=== PATIENT | female | born 1945 | race Caucasian/White ===

== ENCOUNTER 2017-10-12 18:58 | Observation (INO) | payer BC, MEDICARE ==
[2017-10-12] MEDS ORDERED: HYDROmorphone 0.5 MG/0.5 ML SYRINGE IVP STA ×3 (19:15→21:14)
--- NOTE | 2017-10-12 19:37 | ED ---
Fall HPI <Israel Apodaca - Last Filed: 10/12/17 23:09> - General Source: patient, EMS Mode of arrival: EMS <Jeana Salazar - Last Filed: 10/13/17 04:34> - General Chief Complaint: Fall Stated Complaint: Fall Time Seen by Provider: 10/12/17 18:59 - History of Present Illness Initial Comments: 72-year-old female patient presents to the emergency department today via EMS for evaluation after expressing a fall at home. Patient states that she was on the second step up on her porch when she lost her balance and fell sideways off the step landing in her garden. Patient states that she landed on her right side. She is complaining of severe right shoulder pain. Patient denies hitting her head or losing consciousness. She denies any use of anticoagulants. Patient denies any numbness or tingling to the arm or hand. States she is unable to move the shoulder. Denies any history of injury to the shoulder. She denies any head, neck, or back pain. Denies any numbness or tingling to her lower extremities. Patient denies any chest pain, shortness of breath, dizziness, weakness, abdominal pain, nausea, vomiting, or difficulties with bowel movements or urination. (Jeana Salazar) - Related Data Home Medications Medication Instructions Recorded Confirmed Albuterol Sulfate [Proair 2 puff INHALATION RT-TID PRN 09/03/15 10/12/17 Respiclick] Cetirizine HCl [Zyrtec] 10 mg PO DAILY 09/03/15 10/12/17 FLUoxetine HCL 40 mg PO QAM 09/03/15 10/12/17 Fluticasone Nasal [place] [Flonase 1 spray EA NOSTRIL BID 09/03/15 10/12/17 Nasal [place]] Fluticasone/Salmeterol [Advair 1 puff INHALATION RT-BID 09/03/15 10/12/17 500-50 Diskus] Montelukast [Singulair] 10 mg PO DAILY 09/03/15 10/12/17 Omalizumab [Xolair] 150 mg SQ Q30D 09/03/15 10/12/17 Potassium Chloride ER [K-Dur 20] 70 meq PO DAILY 09/03/15 10/12/17 amLODIPine [Norvasc] 10 mg PO HS 09/03/15 10/12/17 Magnesium 800 mg PO DAILY 10/26/15 10/12/17 Tiotropium 18 Mcg/Puff [Spiriva] 1 cap INHALATION RT-DAILY 10/28/15 10/12/17 Allergy Shot 1 injection IM Q7D 10/12/17 10/12/17 Amoxicillin/Potassium Clav 1 tab PO Q12HR 10/12/17 10/12/17 [Augmentin 875-125 Tablet] Atorvastatin [Lipitor] 40 mg PO HS 10/12/17 10/12/17 Baclofen [Lioresal] 10 mg PO BID 10/12/17 10/12/17 Diazepam [Valium] 10 mg PO DAILY 10/12/17 10/12/17 predniSONE 10 mg PO BID 10/12/17 10/12/17 Allergies Allergy/AdvReac Type Severity Reaction Status Date / Time gemfibrozil [From Lopid] Allergy Unknown Verified 10/12/17 19:51 levofloxacin [From Levaquin] Allergy Unknown Verified 10/12/17 19:51 dust mites Allergy Unknown Uncoded 10/28/15 09:21 Review of Systems ROS Other: All systems not noted in ROS Statement are negative. <Israel Apodaca - Last Filed: 10/12/17 23:09> ROS Other: All systems not noted in ROS Statement are negative. <Jeana Salazar - Last Filed: 10/13/17 04:34> ROS Statement: Those systems with pertinent positive or pertinent negative responses have been documented in the HPI. Past Medical History Past Medical History: Asthma, COPD, Hyperlipidemia, Hypertension Additional Past Medical History / Comment(s): 08/31/15 ADMISSION FOR INCARCERATED ING. HERNIA. DIVERTICULITIS, CHRONIC HYPOKALEMIA, SLEEP APNEA WITH CPAP, O2 AT NIGHT, osteoporosis History of Any Multi-Drug Resistant Organisms: None Reported Past Surgical History: Bladder Surgery, Heart Catheterization, Hysterectomy, Orthopedic Surgery, Tonsillectomy Additional Past Surgical History / Comment(s): CYST FROM LEFT BREAST, CHOLECYSTECTOMY, basal cell carcinoma removal from nose, left shoulder sx Past Anesthesia/Blood Transfusion Reactions: No Reported Reaction Past Psychological History: Anxiety, Depression Smoking Status: Light tobacco smoker Past Alcohol Use History: Occasional Past Drug Use History: None Reported - Past Family History Father Family Medical History: Coronary Artery Disease (CAD), Myocardial Infarction ([place] ) Mother Family Medical History: Renal Disease Sister(s) Family Medical History: Renal Disease Additional Family Medical History / Comment(s): Younger sister from Renal disease. Older sister also had renal disease Brother(s) Family Medical History: Congestive Heart Failure (CHF) Son(s) Family Medical History: Coronary Artery Disease (CAD), Hyperlipidemia, Hypertension, Myocardial Infarction ([place]) <TiffanienancyJeana M - Last Filed: 10/13/17 04:34> General Exam Limitations: no limitations General appearance: alert, in no apparent distress, other (This is a well- developed, well-nourished elderly female patient in mild distress related to pain. Vital signs upon presentation are temperature 96.8F, pulse 109, respirations 22, blood pressure 142/72, pulse ox 93% on room air.) Head exam: Present: atraumatic, normocephalic, normal inspection Eye exam: Present: normal appearance, PERRL, EOMI. Absent: scleral icterus, conjunctival injection, nystagmus, periorbital swelling ENT exam: Present: normal exam, normal oropharynx, mucous membranes moist Neck exam: Present: normal inspection, full ROM, other (Nontender, no step-off, no deformity to firm midline palpation of the posterior cervical spine. Full range of motion without pain or limitation.). Absent: tenderness, meningismus, lymphadenopathy Respiratory exam: Present: normal lung sounds bilaterally. Absent: respiratory distress, wheezes, rales, rhonchi, stridor Cardiovascular Exam: Present: normal rhythm, tachycardia, normal heart sounds. Absent: systolic murmur, diastolic murmur, rubs, gallop, clicks GI/Abdominal exam: Present: soft, normal bowel sounds. Absent: distended, tenderness, guarding, rebound, rigid Extremities exam: Present: tenderness (Tenderness over the right anterior shoulder), other (Appears to be tenderness and swelling over the right anterior shoulder. Patient is unable to move due to severe pain with any attempts at range of motion. Skin to the right upper extremity is pink, warm, and dry. Cap refills less than 3 seconds. Radial pulses 2+ and equal bilaterally. Distal sensation is intact. Skin to the remainder of the extremities is pink, warm, and dry. No evidence of injury. Pelvis is stable with no hip tenderness. ) Neurological exam: Present: alert, oriented X3, CN II-XII intact Psychiatric exam: Present: normal affect, normal mood Skin exam: Present: warm, dry, intact, normal color. Absent: rash <Jeana Salazar - Last Filed: 10/13/17 04:34> Course <Israel Apodaca - Last Filed: 10/12/17 23:09> <Jeana Salazar - Last Filed: 10/13/17 04:34> Vital Signs 10/12/17 10/12/17 10/12/17 19:06 20:10 21:48 Temperature 96.8 F L Pulse Rate 109 H 70 76 Respiratory 22 16 17 Rate Blood Pressure 142/72 118/70 119/67 O2 Sat by Pulse 93 L 97 99 Oximetry 10/12/17 10/12/17 10/12/17 22:36 22:41 22:46 Temperature Pulse Rate 66 72 80 Respiratory 17 17 16 Rate Blood Pressure 122/66 110/65 122/66 O2 Sat by Pulse 100 97 99 Oximetry 10/12/17 10/12/17 22:51 22:56 Temperature Pulse Rate 80 57 L Respiratory 16 17 Rate Blood Pressure 127/67 140/72 O2 Sat by Pulse 99 99 Oximetry - Reevaluation(s) Reevaluation #1: 10/12/17 22:20 Patient reevaluated by myself, Dr. Apodaca. Patient and family are updated on results and plan. Informed regarding sedation and reduction. Informed consent given. Practitioner Jeana florence speak with Dr. Lopez who did recommend reduction and follow-up. (Israel Apodaca) Procedures - Orthopedic Fracture Reduction Fracture #1 Consent Obtained: verbal consent, written consent Time Out Performed: Yes Side: right Fracture Reduction Location: humerus Analgesia: procedural sedation Technique: direct manipulation Post Reduction X-rays Demonstrate: acceptable reduction Post-Reduction Neuro Exam: intact Post-Reduction Vascular Exam: intact Splint Applied: Yes Patient Tolerated Procedure: well, no complications - Orthopedic Splinting/Casting Injury #1 Side: right Upper Extremity Injury Location: shoulder, long arm Upper Extremity Immobilizer: sling/shoulder immobilizer, posterior splint - Procedural Sedation Procedural Sedation Start Time: 22:36 Procedural Sedation Stop Time: 22:59 Indications: fracture/dislocation reduction Preparation: inspector grain mill products applied, pulse oximeter, capnometry used, supplemental O2 applied IV Etomidate Dose (mgs): 14 Complications: none Patient Tolerated Procedure: well, no complications <Israel Apodaca - Last Filed: 10/12/17 23:09> Medical Decision Making <Israel Apodaca - Last Filed: 10/12/17 23:09> - Radiology Data Radiology results: report reviewed, image reviewed <Jeana Salazar - Last Filed: 10/13/17 04:34> - Medical Decision Making 72-year-old female patient presented to the emergency department today for evaluation of right shoulder injury. Physical examination did reveal deformity of the right shoulder. Neurovascular status intact to the right arm and hand. X-ray showed a severely displaced comminuted fracture of the right proximal humerus. I did discuss the case with Dr. Lopez who did review images and suggested reduction in the emergency department. My attending Dr. Apodaca did perform conscious sedation with closed reduction of the right humerus. Postreduction x-ray shows improvement of the displaced humerus however does show multiple humeral head fragments. Dr. Lopez again reviewed images, agreed to admit patient for pain management. We did provide a posterior mold OCL splint to the right arm for weight, shoulder immobilizer was applied. Dr. Lopez requested CT of the right shoulder. Patient will be admitted with pain management. (Jeana Salazar) - Radiology Data 3 views of the right shoulder obtained. There is a comminuted severely displaced fracture of the right femoral neck. There are large fragments at the humeral head. Humeral head does not appear to articulate with the glenoid. Impression by Dr. James shows severely comminuted and displaced humeral neck fracture. Single frontal view of the chest is obtained. There is no heart failure nor confluent pneumonic infiltrate. Thoracic aorta is atheromatous. Heart size is normal. There is severely comminuted right humeral neck fracture. There is significant displacement. Impression by Dr. James shows no active cardiopulmonary disease. Heart and lungs are stable compared to old exam. Comminuted right humeral neck fracture. Postreduction x-ray of the right shoulder shows comminuted impacted fracture the humeral head and neck. There is no dislocation. There is significant displacement of the fragments. There is a disorganized he oral head. Impression by Dr. James shows severely comminuted humeral head and neck fracture with displacement. Displacement is much improved compared the initial exam. CT of the right shoulder without contrast was performed. There is a comminuted humeral neck fracture with impaction. The articular surface of the humeral head is articulating with the glenoid. There is slight inferior subluxation of the humeral head. There are numerous comminuted fragments. These visualized scapula appear intact. Clavicle appears intact. The before meals joint is intact. Impression by Dr. James shows severely comminuted impacted humeral neck fracture. No dislocation. (Jeana Salazar) Disposition <Israel Apodaca - Last Filed: 10/12/17 23:09> Decision to Admit Reason: Admit from EC Decision Date: 10/12/17 Decision Time: 23:29 <Jeana Salazar - Last Filed: 10/13/17 04:34> Clinical Impression: Displaced fracture of right humerus Disposition: ADMITTED IP TO THIS [facility] Condition: Serious
--- NOTE | 2017-10-12 20:07 | XR ---
EXAMINATION TYPE: XR shoulder complete RT DATE OF EXAM: 10/12/2017 COMPARISON: NONE HISTORY: Fell today. Shoulder pain. TECHNIQUE: 3 views. FINDINGS: There is comminuted severely displaced fracture of the right femoral neck. There are large fragments at the humeral head. Humeral head does not appear to articulate with the glenoid. IMPRESSION: Severely comminuted and displaced humeral neck fracture.
--- NOTE | 2017-10-12 20:09 | XR ---
EXAMINATION TYPE: XR chest 1V DATE OF EXAM: 10/12/2017 COMPARISON: 01/22/2016 HISTORY: Fell today. TECHNIQUE: Single frontal view of the chest is obtained. FINDINGS: There is no heart failure nor confluent pneumonic infiltrate. Thoracic aorta is atheromato us. Heart size is normal. There is severely comminuted right humeral neck fracture. There is signific ant displacement. IMPRESSION: No active cardiopulmonary disease. Heart and lungs are stable compared to old exam. Comm inuted right humeral neck fracture.
[2017-10-12] MEDS ORDERED: ETOMIDATE 2 MG/ML 10 ML VIAL IVP STA ×2 (22:20)
--- NOTE | 2017-10-12 23:07 | XR ---
EXAMINATION TYPE: XR shoulder limited RT DATE OF EXAM: 10/12/2017 COMPARISON: Today HISTORY: Postreduction TECHNIQUE: Single view FINDINGS: There is comminuted impacted fracture of the humeral head and neck. There is no dislocation . There is significant displacement of the fragments. There is a disorganized humeral head. IMPRESSION: Severely comminuted humeral head and neck fracture with displacement. Displacement is muc h improved compared to the initial exam.
[2017-10-12] MEDS ORDERED: ONDANSETRON 4 MG/2 ML VIAL IVP PRN (23:27)
[2017-10-12] MEDS ORDERED: NALOXONE 0.4 MG/ML 1 ML VIAL IV PRN (23:27)
[2017-10-12] MEDS: MORPHINE SULFATE 2 MG/ML SYRINGE IV PRN (23:35)
--- NOTE | 2017-10-12 23:59 | CT ---
EXAMINATION TYPE: CT shoulder RT wo con DATE OF EXAM: 10/12/2017 COMPARISON: NONE HISTORY: Rt shoulder pain, Fall CT DLP: 231.80 mGycm Automated exposure control for dose reduction was used. FINDINGS: Multiple axial sections are obtained from the top of the shoulder to the mid shaft of the humerus wit h no contrast. There is a comminuted humeral neck fracture with impaction. The articular surface of the humeral head is articulating with the glenoid. There is slight inferior subluxation of the humeral head. There ar e numerous comminuted fragments. These visualized scapula appears intact. Clavicle appears intact. Th e AC joint is intact. IMPRESSION: SEVERELY COMMINUTED IMPACTED HUMERAL NECK FRACTURE. NO DISLOCATION.
[2017-10-13 01:24] VITALS: BMI 26.9
[2017-10-13] MEDS: MORPHINE SULFATE 2 MG/ML SYRINGE IV PRN ×2 (04:38→09:16)
[2017-10-13] MEDS ORDERED: HYDROcodone/APAP 5-325MG 1 EACH TAB PO PRN (10:36)
--- NOTE | 2017-10-13 10:36 | P.HPOR ---
History of Present Illness H&P Date: 10/13/17 Chief Complaint: Right proximal humerus fracture The patient is a 72-year-old female who presented to the emergency department yesterday after a fall at home. She has a history of asthma, COPD, hyperlipidemia, and hypertension. She states that she was stepping up onto her porch and she lost her balance. She fell onto her right side. She had severe right shoulder pain immediately after the fall. She denies hitting her head. The patient was found to have a displaced humerus fracture that was reduced in the emergency department. The patient was admitted for pain control. A CT was obtained of the right shoulder. She was also placed in a OCL splint with sling. Today, the patient states that she is still experiencing severe pain in her right shoulder. She also has abdominal pain which is from a known hernia which she has a appointment scheduled with a general surgeon to further evaluate that. She has been up to the commode chair with nursing staff this morning. Review of Systems Constitutional: Denies chills, Denies fatigue, Denies fever Cardiovascular: Denies chest pain, Denies shortness of breath Respiratory: Denies cough Gastrointestinal: Denies diarrhea, Denies nausea, Denies vomiting Musculoskeletal: right: shoulder pain, shoulder stiffness, shoulder swelling Past Medical History Past Medical History: Asthma, COPD, Hyperlipidemia, Hypertension Additional Past Medical History / Comment(s): 08/31/15 ADMISSION FOR INCARCERATED ING. HERNIA. DIVERTICULITIS, CHRONIC HYPOKALEMIA, SLEEP APNEA WITH CPAP, O2 AT NIGHT, osteoporosis History of Any Multi-Drug Resistant Organisms: None Reported Past Surgical History: Bladder Surgery, Heart Catheterization, Hysterectomy, Orthopedic Surgery, Tonsillectomy Additional Past Surgical History / Comment(s): CYST FROM LEFT BREAST, CHOLECYSTECTOMY, basal cell carcinoma removal from nose, left shoulder sx Past Anesthesia/Blood Transfusion Reactions: No Reported Reaction Past Psychological History: Anxiety, Depression Smoking Status: Light tobacco smoker Past Alcohol Use History: Occasional Past Drug Use History: None Reported - Past Family History Father Family Medical History: Coronary Artery Disease (CAD), Myocardial Infarction ([place] ) Mother Family Medical History: Renal Disease Sister(s) Family Medical History: Renal Disease Additional Family Medical History / Comment(s): Younger sister from Renal disease. Older sister also had renal disease Brother(s) Family Medical History: Congestive Heart Failure (CHF) Son(s) Family Medical History: Coronary Artery Disease (CAD), Hyperlipidemia, Hypertension, Myocardial Infarction ([place]) Medications and Allergies Home Medications Medication Instructions Recorded Confirmed Type Albuterol Sulfate [Proair 2 puff INHALATION RT-TID PRN 09/03/15 10/12/17 History Respiclick] Cetirizine HCl [Zyrtec] 10 mg PO DAILY 09/03/15 10/12/17 History FLUoxetine HCL 40 mg PO QAM 09/03/15 10/12/17 History Fluticasone Nasal [place] [Flonase 1 spray EA NOSTRIL BID 09/03/15 10/12/17 History Nasal [place]] Fluticasone/Salmeterol [Advair 1 puff INHALATION RT-BID 09/03/15 10/12/17 History 500-50 Diskus] Montelukast [Singulair] 10 mg PO DAILY 09/03/15 10/12/17 History Omalizumab [Xolair] 150 mg SQ Q30D 09/03/15 10/12/17 History Potassium Chloride ER [K-Dur 20] 70 meq PO DAILY 09/03/15 10/12/17 History amLODIPine [Norvasc] 10 mg PO HS 09/03/15 10/12/17 History Magnesium 800 mg PO DAILY 10/26/15 10/12/17 History Tiotropium 18 Mcg/Puff [Spiriva] 1 cap INHALATION RT-DAILY 10/28/15 10/12/17 History Allergy Shot 1 injection IM Q7D 10/12/17 10/12/17 History Amoxicillin/Potassium Clav 1 tab PO Q12HR 10/12/17 10/12/17 History [Augmentin 875-125 Tablet] Atorvastatin [Lipitor] 40 mg PO HS 10/12/17 10/12/17 History Baclofen [Lioresal] 10 mg PO BID 10/12/17 10/12/17 History Diazepam [Valium] 10 mg PO DAILY 10/12/17 10/12/17 History predniSONE 10 mg PO BID 10/12/17 10/12/17 History Allergies Allergy/AdvReac Type Severity Reaction Status Date / Time gemfibrozil [From Lopid] Allergy Unknown Verified 10/12/17 19:51 levofloxacin [From Levaquin] Allergy Unknown Verified 10/12/17 19:51 dust mites Allergy Unknown Uncoded 10/28/15 09:21 Physical Examination The patient is a 72-year-old female who is in no acute distress. She is alert and oriented 3. The patient's head is normocephalic atraumatic. Exam of the cervical spine reveals no pain upon palpation or step-offs noted. Exam of the left upper extremity reveals no obvious deformity or pain upon range of motion. Exam of the right upper extremity reveals a OCL splint and sling intact. There is pain upon palpation to the right shoulder. The patient's shoulder was not put through range of motion. She is able to wiggle her fingers and make a fist without difficulty. Arm is soft and nontender. Neurovascular status is intact. Radial pulses 2+. Results - Diagnostic results Shoulder x-ray: image reviewed (Post reduction x-ray reveals severely emanated humeral head and neck fracture with displacement with improvement after reduction.) Shoulder CT: image reviewed (CT of the right shoulder reveals a severely comminuted and impacted humeral neck fracture with no dislocation) Assessment and Plan (1) Fall Current Visit: Yes Status: Acute Code(s): W19.XXXA - UNSPECIFIED FALL, INITIAL ENCOUNTER SNOMED Code(s): 2104630 (2) Displaced fracture of right humerus Current Visit: Yes Status: Acute Code(s): S42.301A - UNSP FRACTURE OF SHAFT OF HUMERUS, RIGHT ARM, INIT SNOMED Code(s): 48774738 Plan: The clinical, x-ray, and CT findings were discussed with the patient. There is no family at the bedside currently. The case was also discussed with Dr. Lopez. Continue current splint and sling as tolerated. Continue pain control and ambulation. I've consulted medical management for her multiple medical issues. The patient may be discharged home when pain is controlled, this will likely be tomorrow. We'll continue to follow the patient closely and make further recommendations as needed.
--- NOTE | 2017-10-13 13:09 | P.GSCN ---
History of Present Illness Consult date: 10/13/17 Reason for Consult: Right groin pain History of present illness: Patient has a history of previous inguinal hernia. The patient was under the impression she had bilateral hernias repaired by Dr. Smith in the past. Reading through the notes from 2016 it appears the patient had a laparoscopic left inguinal hernia repaired. There is no mention of the right groin and whether a hernia was present or not. Patient describes pain in the right groin occurring intermittently in nature. She feels a bulge at times in the right groin. No nausea or vomiting. No change in bowel habits. Patient has actually been hospitalized for a right shoulder injury. Patient states the pain was bad last night and kept her up from sleep. She does state the bulge comes and goes. Review of Systems The patient denies any acute changes in vision or hearing, no dysphagia or odynophagia, no chest pain or shortness of breath, no dysuria or hematuria, no headache, no runny nose, no rectal bleeding or melena, no unexplained weight loss Past Medical History Past Medical History: Asthma, COPD, Hyperlipidemia, Hypertension Additional Past Medical History / Comment(s): 08/31/15 ADMISSION FOR INCARCERATED ING. HERNIA. DIVERTICULITIS, CHRONIC HYPOKALEMIA, SLEEP APNEA WITH CPAP, O2 AT NIGHT, osteoporosis History of Any Multi-Drug Resistant Organisms: None Reported Past Surgical History: Bladder Surgery, Heart Catheterization, Hysterectomy, Orthopedic Surgery, Tonsillectomy Additional Past Surgical History / Comment(s): CYST FROM LEFT BREAST, CHOLECYSTECTOMY, basal cell carcinoma removal from nose, left shoulder sx Past Anesthesia/Blood Transfusion Reactions: No Reported Reaction Past Psychological History: Anxiety, Depression Smoking Status: Light tobacco smoker Past Alcohol Use History: Occasional Past Drug Use History: None Reported - Past Family History Father Family Medical History: Coronary Artery Disease (CAD), Myocardial Infarction (CO ) Mother Family Medical History: Renal Disease Sister(s) Family Medical History: Renal Disease Additional Family Medical History / Comment(s): Younger sister from Renal disease. Older sister also had renal disease Brother(s) Family Medical History: Congestive Heart Failure (CHF) Son(s) Family Medical History: Coronary Artery Disease (CAD), Hyperlipidemia, Hypertension, Myocardial Infarction (CO) Medications and Allergies Home Medications Medication Instructions Recorded Confirmed Type Albuterol Sulfate [Proair 2 puff INHALATION RT-TID PRN 09/03/15 10/12/17 History Respiclick] Cetirizine HCl [Zyrtec] 10 mg PO DAILY 09/03/15 10/12/17 History FLUoxetine HCL 40 mg PO QAM 09/03/15 10/12/17 History Fluticasone Nasal [place] [Flonase 1 spray EA NOSTRIL BID 09/03/15 10/12/17 History Nasal [place]] Fluticasone/Salmeterol [Advair 1 puff INHALATION RT-BID 09/03/15 10/12/17 History 500-50 Diskus] Montelukast [Singulair] 10 mg PO DAILY 09/03/15 10/12/17 History Omalizumab [Xolair] 150 mg SQ Q30D 09/03/15 10/12/17 History Potassium Chloride ER [K-Dur 20] 70 meq PO DAILY 09/03/15 10/12/17 History amLODIPine [Norvasc] 10 mg PO HS 09/03/15 10/12/17 History Magnesium 800 mg PO DAILY 10/26/15 10/12/17 History Tiotropium 18 Mcg/Puff [Spiriva] 1 cap INHALATION RT-DAILY 10/28/15 10/12/17 History Allergy Shot 1 injection IM Q7D 10/12/17 10/12/17 History Amoxicillin/Potassium Clav 1 tab PO Q12HR 10/12/17 10/12/17 History [Augmentin 875-125 Tablet] Atorvastatin [Lipitor] 40 mg PO HS 10/12/17 10/12/17 History Baclofen [Lioresal] 10 mg PO BID 10/12/17 10/12/17 History Diazepam [Valium] 10 mg PO DAILY 10/12/17 10/12/17 History predniSONE 10 mg PO BID 10/12/17 10/12/17 History Allergies Allergy/AdvReac Type Severity Reaction Status Date / Time gemfibrozil [From Lopid] Allergy Unknown Verified 10/12/17 19:51 levofloxacin [From Levaquin] Allergy Unknown Verified 10/12/17 19:51 dust mites Allergy Unknown Uncoded 10/28/15 09:21 Surgical - Exam Vital Signs Temp Pulse Resp BP Pulse Ox 96.8 F L 109 H 22 142/72 93 L 10/12/17 19:06 10/12/17 19:06 10/12/17 19:06 10/12/17 19:06 10/12/17 19:06 Physical exam: General: Well-developed, well-nourished HEENT: Normocephalic, sclerae nonicteric Abdomen: Mild tenderness right groin, reducible right hernia noted with coughing , possible femoral hernia also present nonreducible, nondistended Extremities: No edema Neuro: Alert and oriented Assessment and Plan (1) Right inguinal pain Narrative/Plan: On physical exam the patient appears to have a reducible right hernia. The patient's pain is present at the site of the hernia although it is easily reducible. There is also a small area of fullness measuring 2 cm inferior and medial to that which may represent an incarcerated femoral hernia. This however is not tender. Given the patient's degree of complaints of pain we'll check CT pelvis to evaluate for other potential abnormalities present. Further recommendations will follow. Current Visit: Yes Status: Acute Code(s): R10.31 - RIGHT LOWER QUADRANT PAIN SNOMED Code(s): 051174822
[2017-10-13] MEDS ORDERED: BUDESONIDE 1 MG/2 ML NEBU INHALATION SCH (14:00)
[2017-10-13] MEDS: HYDROcodone/APAP 5-325MG 1 EACH TAB PO PRN ×2 (14:06→19:22)
[2017-10-13 14:20] LABS: Basophils % (A) 0 %; Eosinophils # (A) 0.1 k/uL (0-0.7); Eosinophils % (A) 1 %; HCT 34.5 % (34.0-46.0); HGB 11.3 gm/dL (11.4-16.0); Lymphocytes % (A) 16 %; MCH 29.6 pg (25.0-35.0); MCHC 32.8 g/dL (31.0-37.0); MCV 90.5 fL (80.0-100.0); Mean Platelet Volume 6.2; Monocytes % (A) 8 %; Neutrophils # (A) 9.4 k/uL (1.3-7.7); Neutrophils % (A) 74 %; Platelet Count 377 k/uL (150-450); RBC 3.81 m/uL (3.80-5.40); RDW 13.8 % (11.5-15.5); WBC 12.8 k/uL (3.8-10.6)
[2017-10-13 14:57] LABS: ALT 47 U/L (9-52); AST 23 U/L (14-36); Alkaline Phosphatase 66 U/L (38-126); Anion Gap 8 mmol/L; Blood Urea Nitrogen 20 mg/dL (7-17); Calcium 8.7 mg/dL (8.4-10.2); Carbon Dioxide 27 mmol/L (22-30); Chloride 101 mmol/L (98-107); Magnesium 1.6 mg/dL (1.6-2.3); Potassium 3.8 mmol/L (3.5-5.1); Sodium 136 mmol/L (137-145); Total Bilirubin 0.2 mg/dL (0.2-1.3); Total Protein 5.4 g/dL (6.3-8.2)
[2017-10-13 15:05] LABS: Glucose 112 mg/dL (74-99)
[2017-10-13] MEDS: IPRATROPIUM-ALBUTEROL 3 ML NEB INHALATION SCH ×2 (16:01→20:56)
--- NOTE | 2017-10-13 17:13 | CT ---
EXAMINATION TYPE: CT pelvis w con DATE OF EXAM: 10/13/2017 COMPARISON: 09/15/2015 HISTORY: Right groin pain. CT DLP: 584.2 mGycm Automated exposure control for dose reduction was used. CONTRAST: Performed with IV Contrast, patient injected with 100ml mL of Isovue 300. FINDINGS: Arthropathy of the hip joints noted and there is hypertrophic change of the lower lumbar spine. Surgi edwin clips in the gallbladder fossa noted. Visualized bowel gas pattern nonspecific and appendix normal. Retained fecal debris noted. There is a fluid-filled cystic structure measuring 2.7 cm and the left adnexa possibly ovarian. This is slightly increased in size from the prior exam. Evidence of previous surgery involving the inguinal region on the right. There is some mild induratio n of fat in the inguinal region which may be related to previous surgery correlate clinically exclude inflammatory process. Disc bulging at L4-5 and facet arthropathy likely represent canal stenosis. Diverticulosis of the colon. IMPRESSION: 1. There is evidence of previous surgery involving the right inguinal region with some induration of fat which may be related to previous surgery and scar correlate clinically to exclude inflammatory pr ocess. There does appear to be a fascial defect lateral to the rectus muscle on the right suggestive of a small hernia. This contains intraperitoneal fat. 2. Left pelvic cystic mass measuring 2.7 cm increased in size from the previous exam. Consider follow -up pelvic ultrasound.
[2017-10-13] MEDS: ENOXAPARIN 40 MG/0.4 ML SYRINGE SQ SCH (17:46)
[2017-10-13] MEDS: BACLOFEN 10 MG TAB PO SCH ×2 (17:46→21:33)
[2017-10-13] MEDS: NICOTINE 14MG/24HR PATCH TRANSDERM SCH (17:46)
[2017-10-13] MEDS: LORATADINE-PSEUDOEPH 5-120 MG 1 EACH TAB.ER.12H PO SCH ×2 (17:47→21:33)
[2017-10-13] MEDS: FLUTICASONE 50MCG/SPRAY NASAL 16GM EA NOSTRIL SCH ×2 (17:47→21:33)
[2017-10-13] MEDS: FLUoxetine HCL 20 MG CAP PO SCH (17:47)
[2017-10-13] MEDS: predniSONE 10 MG TAB PO SCH ×2 (17:48→21:33)
[2017-10-13] MEDS: MONTELUKAST 10 MG TAB PO SCH (17:48)
[2017-10-13] MEDS: MAGNESIUM OXIDE 400 MG TAB PO SCH (17:48)
--- NOTE | 2017-10-13 19:01 | CONS ---
CONSULTATION DATE OF CONSULTATION: October 13, 2017. REASON FOR CONSULTATION: Medical management requested by Dr. Lopez. CONSULTATION: This is a pleasant 72-year-old patient who was transferred from [facility]. The patient does not remember her family doctor's name. The patient was on the 2nd step of the porch when she missed a step and fell in the flower garden on the right side. Subsequently patient has a humerus fracture. Currently, the right arm is in a sling. Some pain is present. Per Dr. Lopez, at this point, conservative management to be done. The patient's chronic stable medical conditions include hypertension, hyperlipidemia, depression, chronic kidney disease, osteoarthritis, obstructive sleep apnea uses CPAP, uses oxygen at home and chronic sinus issues. The patient's sinuses are currently bothering her. Patient has continued to smoke about a half a pack a day. The patient also had right inguinal hernia repair done by Dr. Smith and that right groin area is hurting especially when she coughs. The patient has got some short of breath, cough, wheezing, right arm is in a sling. Denies any cardiac history. REVIEW OF SYSTEMS: CONSTITUTIONAL: Tired. HEENT: Nasal stuffiness. RESPIRATORY: As above. CARDIOVASCULAR: None. GASTROINTESTINAL: None. GENITOURINARY: Urinary incontinence. MUSCULOSKELETAL: Pain in the right arm and other joints. Dermatological and hematologic, lymphatic none. PSYCHIATRY: Depression, controlled. NEUROLOGICAL none. PAST HISTORY: COPD, hypertension, hyperlipidemia, depression, home oxygen, chronic kidney disease, obstructive sleep apnea uses CPAP, osteoarthritis, chronic sinus trouble. Diverticulitis and osteoporosis. PAST SURGICAL HISTORY: Bladder surgery, cardiac catheterization, hysterectomy, tonsillectomy, cholecystectomy, basal cell carcinoma removed from the nose, left shoulder surgery. PSYCH HISTORY: Anxiety and depression. SOCIAL HISTORY: . Smoking about 1/2 a pack a day for over 50 years. 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 Alcohol maybe once a week. FAMILY HISTORY: Coronary artery disease and younger sister had renal disease. HOME MEDICATIONS: 1. Potassium 20 mEq a day. 2. Baclofen 10 mg b.i.d. 3. Prednisone 10 mg b.i.d. 4. Augmentin 875 q.12h for sinus symptoms. 5. Valium 10 mg p.o. daily. 6. Cetirizine 10 mg p.o. daily. 7. Magnesium 800 mg p.o. daily. 8. Xolair 150 mg p.o. every 30 days. 9. Allergy shot. 10.Prozac 40 mg a day. 11.Lipitor 40 mg q.h.s. 12.Flonase 1 spray each nostril b.i.d. 13.Spiriva 1 capsule daily. 14.Singulair 10 mg p.o. daily. 15.Advair 500/50 one puff b.i.d. 16.Norvasc 10 mg q.h.s. 17.Albuterol 2 puffs t.i.d. p.r.n. ALLERGIES: LOPID, LEVAQUIN, DUST MITES. PHYSICAL EXAMINATION: VITAL SIGNS: Temperature 97.1, pulse 82, respiratory rate 16, blood pressure 109/71, pulse ox 94% on 3 L. GENERAL APPEARANCE: Average build, lying in bed, tired appearing. EYES: Pupils are equal. Conjunctivae normal. HEENT: External appearance of nose and ears normal. Oral cavity normal. NECK: JVD not raised. Mass not palpable. RESPIRATORY effort increased. LUNGS: Diminished breath sounds. Prolonged expiration. Some wheezing. CARDIOVASCULAR 1st and second sounds normal. No edema. ABDOMEN: Soft, nontender. Liver and spleen not palpable. LYMPHATIC: No lymph nodes palpable in the neck and axilla. PSYCHIATRY: Alert and oriented x3. Mood and affect anxious-appearing. NEUROLOGICAL: Pupils equal. Cranial nerves grossly intact. Power and sensation grossly intact. MUSCULOSKELETAL: Right arm in a sling and evidence of osteoarthritis in the hands and knees. INVESTIGATIONS: No blood work from here. ASSESSMENT: 1. Right humerus fracture secondary to a fall, currently right arm in a sling for conservative approach as per Orthopedics. 2. Chronic obstructive pulmonary disease in a current smoker. 3. Essential hypertension. 4. Hyperlipidemia. 5. Chronic nicotine dependence, the patient is a cigarette smoker. 6. Depression, not otherwise specified. 7. Obstructive sleep apnea, uses CPAP. 8. Primary osteoarthritis especially of the hands and knees. 9. Chronic sinusitis, currently probably viral infection. I do not think there is any need for antibiotics currently. PLAN: Patient will be started on nebulized bronchodilators, inhaled steroids. Home medications are resumed. Will send out the patient's CBC and BMP. The patient may use a CPAP machine. The patient is complaining of some pain at the right inguinal site. I do not see any much bulging there. We will get a surgical consultation for the same. Care was discussed in detail with the patient. Questions were answered. Smoking cessation counseling was done with the patient. Patient advised against smoking as it is affecting her breathing and COPD. Nicotine patch has been given. More than 3 minutes was spent for this aspect of the case. Thank you, Dr. Lopez. PARVIN / KEARA: [id number] /
[2017-10-13] MEDS: SYMBICORT 160-4.5 MCG INHALER INHALATION SCH (20:56)
[2017-10-13] MEDS ORDERED: ATORVASTATIN 40 MG TAB PO SCH (21:00)
[2017-10-13] MEDS ORDERED: amLODIPine 10 MG TAB PO SCH (21:00)
[2017-10-14] MEDS: IPRATROPIUM-ALBUTEROL 3 ML NEB INHALATION SCH ×3 (07:26→15:52)
[2017-10-14] MEDS: SYMBICORT 160-4.5 MCG INHALER INHALATION SCH (07:26)
--- NOTE | 2017-10-14 08:01 | P.PN ---
Subjective Progress Note Date: 10/14/17 Principal diagnosis: right inguinal hernia patient feels well today. Complaining of arm pain. Mild right groin pain at times. CT pelvis reviewed. Patient does have a hernia in the right groin. This does seem slightly higher than normal for a inguinal hernia although this appeared to be the case with her last hernia. No obvious femoral hernia or lymphadenopathy noted. Objective - Vital Signs Vital signs: Vital Signs Temp 98.6 F 10/14/17 00:56 Pulse 84 10/14/17 07:53 Resp 16 10/14/17 00:56 BP 109/66 10/14/17 00:56 Pulse Ox 95 10/14/17 00:56 Intake & Output 10/13/17 10/14/17 10/14/17 18:59 06:59 18:59 Intake Total 360 240 Output Total 350 Balance 10 240 Intake: Oral 360 240 Output: Urine 350 Other: Voiding Method Bedpan Bedside Commode # Voids 1 1 - Exam abdomen: Soft, nondistended, reducible right inguinal hernia - Labs CBC & Chem 7: 10/13/17 14:07 10/13/17 14:07 Labs: Abnormal Lab Results - Last 24 Hours (Table) 10/13/17 10/13/17 Range/Units 14:07 14:07 WBC 12.8 H (3.8-10.6) k/uL Hgb 11.3 L (11.4-16.0) gm/dL Neutrophils # 9.4 H (1.3-7.7) k/uL Sodium 136 L (137-145) mmol/L BUN 20 H (7-17) mg/dL Glucose 112 H (74-99) mg/dL Total Protein 5.4 L (6.3-8.2) g/dL Albumin 3.0 L (3.5-5.0) g/dL Assessment and Plan (1) Right inguinal pain Narrative/Plan: symptomatically reducible right inguinal hernia. No bowel in the vicinity. Will plan elective repair once recovered from the arm fracture. Patient will follow-up with me post discharge. Current Visit: Yes Status: Acute Code(s): R10.31 - RIGHT LOWER QUADRANT PAIN SNOMED Code(s): 105917942
[2017-10-14] MEDS: HYDROcodone/APAP 5-325MG 1 EACH TAB PO PRN ×2 (08:17→13:22)
[2017-10-14] MEDS: ENOXAPARIN 40 MG/0.4 ML SYRINGE SQ SCH (08:19)
[2017-10-14] MEDS: FLUoxetine HCL 20 MG CAP PO SCH (08:19)
[2017-10-14] MEDS: BACLOFEN 10 MG TAB PO SCH (08:19)
[2017-10-14] MEDS: NICOTINE 14MG/24HR PATCH TRANSDERM SCH (08:20)
[2017-10-14] MEDS: FLUTICASONE 50MCG/SPRAY NASAL 16GM EA NOSTRIL SCH (08:20)
[2017-10-14] MEDS: MAGNESIUM OXIDE 400 MG TAB PO SCH (08:20)
[2017-10-14] MEDS: LORATADINE-PSEUDOEPH 5-120 MG 1 EACH TAB.ER.12H PO SCH (08:20)
[2017-10-14] MEDS: MONTELUKAST 10 MG TAB PO SCH (08:20)
[2017-10-14] MEDS: predniSONE 10 MG TAB PO SCH (08:20)
--- NOTE | 2017-10-14 10:12 | P.DS ---
Providers Date of admission: 10/12/17 23:29 Expected date of discharge: 10/14/17 Attending physician: Valerio Lopez Consults: 10/13/17 10:26 Consult Physician Routine Consulting Provider: Carlos Pantoja Consult Reason/Comments: medical management Do you want consulting provider notified?: Yes 10/13/17 11:33 Consult Physician Routine Consulting Provider: Burak Carr Consult Reason/Comments: hernia Do you want consulting provider notified?: Already Contacted Primary care physician: Stated None - Discharge Diagnosis(es) (1) Fall Current Visit: Yes Status: Acute (2) Displaced fracture of right humerus Current Visit: Yes Status: Acute Hospital Course: This is a 72-year-old female that presented to the ER 2 days ago after sustaining a fall at home. She was found to have a displaced proximal humerus fracture. The shoulder was reduced in the ER and the patient was placed in a splint and a sling. She was admitted for pain control and mobilization. She is ready for discharge home today. Labs and vital signs are stable on day of discharge. She was evaluated by Dr. Carr for a inguinal hernia which she will follow-up on an outpatient basis with him. On day of discharge patient's shoulder is feeling better. Sling and splint are intact. Patient has full hand, wrist, and elbow motion without difficulty or pain. Neurovascular status to the right upper extremity is intact. Patient is discharged to home in fair condition. Pertinent Studies: Laboratory Tests 10/13/17 10/13/17 14:07 14:07 WBC 12.8 H RBC 3.81 Hgb 11.3 L Hct 34.5 Neutrophils # 9.4 H Sodium 136 L BUN 20 H Glucose 112 H Total Protein 5.4 L Albumin 3.0 L Patient Condition at Discharge: Stable Plan - Discharge Summary Discharge Rx Participant: Yes New Discharge Prescriptions: New HYDROcodone/APAP 5-325MG [[place] 5] 1 - 2 each PO Q4-6H PRN #40 tab PRN Reason: Pain Sennosides-Docusate Sodium [Senokot-S] 2 tab PO DAILY #30 tablet No Action Omalizumab [Xolair] 150 mg SQ Q30D Albuterol Sulfate [Proair Respiclick] 2 puff INHALATION RT-TID PRN PRN Reason: Shortness Of Breath Potassium Chloride ER [K-Dur 20] 70 meq PO DAILY FLUoxetine HCL 40 mg PO QAM Cetirizine HCl [Zyrtec] 10 mg PO DAILY amLODIPine [Norvasc] 10 mg PO HS Fluticasone Nasal [place] [Flonase Nasal [place]] 1 spray EA NOSTRIL BID Fluticasone/Salmeterol [Advair 500-50 Diskus] 1 puff INHALATION RT-BID Montelukast [Singulair] 10 mg PO DAILY Magnesium 800 mg PO DAILY Tiotropium 18 Mcg/Puff [Spiriva] 1 cap INHALATION RT-DAILY predniSONE 10 mg PO BID Amoxicillin/Potassium Clav [Augmentin 875-125 Tablet] 1 tab PO Q12HR Baclofen [Lioresal] 10 mg PO BID Diazepam [Valium] 10 mg PO DAILY Allergy Shot 1 injection IM Q7D Atorvastatin [Lipitor] 40 mg PO HS Discharge Medication List Albuterol Sulfate [Proair Respiclick] 2 puff INHALATION RT-TID PRN 09/03/15 [ History] Cetirizine HCl [Zyrtec] 10 mg PO DAILY 09/03/15 [History] FLUoxetine HCL 40 mg PO QAM 09/03/15 [History] Fluticasone Nasal [place] [Flonase Nasal [place]] 1 spray EA NOSTRIL BID 09/03/15 [ History] Fluticasone/Salmeterol [Advair 500-50 Diskus] 1 puff INHALATION RT-BID 09/03/15 [History] Montelukast [Singulair] 10 mg PO DAILY 09/03/15 [History] Omalizumab [Xolair] 150 mg SQ Q30D 09/03/15 [History] Potassium Chloride ER [K-Dur 20] 70 meq PO DAILY 09/03/15 [History] amLODIPine [Norvasc] 10 mg PO HS 09/03/15 [History] Magnesium 800 mg PO DAILY 10/26/15 [History] Tiotropium 18 Mcg/Puff [Spiriva] 1 cap INHALATION RT-DAILY 10/28/15 [History] Allergy Shot 1 injection IM Q7D 10/12/17 [History] Amoxicillin/Potassium Clav [Augmentin 875-125 Tablet] 1 tab PO Q12HR 10/12/17 [ History] Atorvastatin [Lipitor] 40 mg PO HS 10/12/17 [History] Baclofen [Lioresal] 10 mg PO BID 10/12/17 [History] Diazepam [Valium] 10 mg PO DAILY 10/12/17 [History] predniSONE 10 mg PO BID 10/12/17 [History] HYDROcodone/APAP 5-325MG [[place] 5] 1 - 2 each PO Q4-6H PRN #40 tab 10/14/17 [Rx] Sennosides-Docusate Sodium [Senokot-S] 2 tab PO DAILY #30 tablet 10/14/17 [Rx] Follow up Appointment(s)/Referral(s): None,Stated [Primary Care Provider] - 1-2 days Valerio Lopez MD [STAFF PHYSICIAN] - 1 Week Activity/Diet/Wound Care/Special Instructions: Maintain sling and splint until follow up with Dr. Lopez [facility] on Sunday to make appointment for this week, . Discharge Disposition: HOME SELF-CARE
[2017-10-14 15:49] VITALS: BP 123/70; RESP 19; TEMP 98.2
[2017-10-14 16:07] VITALS: PULSE 72
--- NOTE | 2017-10-14 19:05 | PN ---
PROGRESS NOTE DATE OF SERVICE: October 14, 2017. PRESENTING COMPLAINT: Tired. INTERVAL HISTORY: This is a patient presented with fall with fracture of right humerus. Also is a smoker with COPD, getting breathing treatments. The patient has some pain at the right inguinal hernia site for which she saw Dr. Carr, possibly outpatient repair for the same. REVIEW OF SYSTEMS: Done for constitutional, cardiovascular, GI, pulmonary, relevant findings as above. CURRENT MEDICATIONS: Reviewed. EXAMINATION: Temperature 98.2, pulse 52, respiration 19, blood pressure 120/70, pulse ox 98% on 3 L. GENERAL APPEARANCE: Sitting up, comfortable. EYES: Pupils are equal. Conjunctivae normal. HEENT external appearance of nose and ears normal. Oral cavity normal. NECK: JVD not raised. Mass not palpable. RESPIRATORY: Effort normal. LUNGS: Diminished breath sounds, prolonged expiration. CARDIOVASCULAR: 1st and 2nd sounds normal. No edema. ABDOMEN: Soft, nontender. Liver and spleen not palpable. EXTREMITIES: Right arm in a sling. INVESTIGATIONS: No blood work from today. ASSESSMENT: 1. Right humerus fracture secondary to fall for conservative management. 2. Chronic obstructive pulmonary disease in a current smoker. 3. Essential hypertension. 4. Hyperlipidemia. 5. Chronic nicotine dependence, patient is a cigarette smoker. 6. Depression, not otherwise specified. 7. Obstructive sleep apnea, uses CPAP. 8. Right inguinal hernia reducible. 9. Primary osteoarthritis especially of the hands and knees. 10.Chronic sinusitis, probably viral. PLAN: Continue current medication and treatment plan. Patient is medically stable and patient reminded not to smoke and to buy [id number] nicotine patch and chewing gum. Should follow up with the family doctor and also follow up with Dr. Carr regarding the inguinal hernia. Thank you, Dr. Lopez. MMODL / IJN: [id number] /
== END 2017-10-14 17:35 | disposition home or self-care (01) ==
LOC: EC 18:58 → 3SUR 23:29
PROVIDERS: ADMIT Orthopaedic Surgery; ATTEND Orthopaedic Surgery
DX: S42.291A Other displaced fracture of upper end of right humerus, initial encounter for closed fracture (principal); J32.9 Chronic sinusitis, unspecified; E78.5 Hyperlipidemia, unspecified; F17.210 Nicotine dependence, cigarettes, uncomplicated; F32.9 Major depressive disorder, single episode, unspecified; F41.9 Anxiety disorder, unspecified; G47.33 Obstructive sleep apnea (adult) (pediatric); Z99.89 Dependence on other enabling machines and devices; N18.9 Chronic kidney disease, unspecified; I12.9 Hypertensive chronic kidney disease with stage 1 through stage 4 chronic kidney disease, or unspecified chronic kidney disease; J44.9 Chronic obstructive pulmonary disease, unspecified; K40.90 Unilateral inguinal hernia, without obstruction or gangrene, not specified as recurrent; M17.0 Bilateral primary osteoarthritis of knee; M19.042 Primary osteoarthritis, left hand; M19.041 Primary osteoarthritis, right hand; M81.0 Age-related osteoporosis without current pathological fracture; W10.9XXA Fall (on) (from) unspecified stairs and steps, initial encounter; Z79.899 Other long term (current) drug therapy; Z82.49 Family history of ischemic heart disease and other diseases of the circulatory system; Z85.828 Personal history of other malignant neoplasm of skin; Z90.710 Acquired absence of both cervix and uterus; Z99.81 Dependence on supplemental oxygen; Y92.008 Other place in unspecified non-institutional (private) residence as the place of occurrence of the external cause
CPT/HCPCS: 23605; 99152; 96376; 96374; 99285; 94640 ×4; 94760; 97162; 80053; 83735; 85025; 87070; 87205; 73020; 73030; 71045; 72193; 73200; G0378 ×3; J1650 ×2; J2270 ×2; J7512 ×2; J1170; Q9967

== ENCOUNTER → 2017-12-04 | Outpatient (CLI) | payer BC, MEDICARE ==
[2017-12-04 14:00] LABS: HCT 43.7 % (34.0-46.0); HGB 13.7 gm/dL (11.4-16.0); MCH 28.3 pg (25.0-35.0); MCHC 31.4 g/dL (31.0-37.0); MCV 89.8 fL (80.0-100.0); Mean Platelet Volume 6.4; Platelet Count 443 k/uL (150-450); RBC 4.86 m/uL (3.80-5.40); RDW 14.4 % (11.5-15.5); WBC 11.4 k/uL (3.8-10.6)
[2017-12-04 14:02] LABS: Partial Thromboplastin Time 24.7 sec (22.0-30.0); Prothrombin Time 9.7 sec (9.0-12.0)
[2017-12-04 14:07] LABS: Appearance,Urine Clear (Clear); Bacteria,Urine Rare /hpf; Bilirubin,Urine Negative (Negative); Blood,Urine Negative (Negative); Color,Urine Yellow; Glucose,Urine (UA) Negative (Negative); Ketones,Urine Negative (Negative); Leukocyte Esterase,Urine Large (Negative); Nitrite,Urine Negative (Negative); PH, Urine 6.5 (5.0-8.0); Protein,Urine Negative (Negative); RBC,Urine 2 /hpf (0-5); Specific Gravity,Urine 1.007 (1.001-1.035); Squamous Epithelial Cell,Urine 1 /hpf (0-4); Urobilinogen,Urine <2.0 mg/dL (<2.0); WBC,Urine 9 /hpf (0-5)
[2017-12-04 14:15] LABS: Albumin 4.4 g/dL (3.5-5.0); Anion Gap 9 mmol/L; Carbon Dioxide 25 mmol/L (22-30); Chloride 104 mmol/L (98-107); Glucose 96 mg/dL (74-99); Potassium 3.6 mmol/L (3.5-5.1); Sodium 138 mmol/L (137-145); Total Protein 7.4 g/dL (6.3-8.2)
[2017-12-04 14:46] LABS: ALT 32 U/L (9-52); AST 24 U/L (14-36); Alkaline Phosphatase 113 U/L (38-126); Blood Urea Nitrogen 18 mg/dL (7-17); Calcium 9.8 mg/dL (8.4-10.2); Total Bilirubin 0.4 mg/dL (0.2-1.3)
== END ==
LOC: LABPAT 13:08
PROVIDERS: ATTEND Orthopaedic Surgery
DX: Z01.812 Encounter for preprocedural laboratory examination (principal)
CPT/HCPCS: 36415; 80053; 81001; 85027; 85610; 85730

== ENCOUNTER 2019-04-15 08:59 | Inpatient (IN) | payer BC, MEDICARE ==
[2019-04-15 12:39] LABS: Glucose,Whole Blood 108 mg/dL (75-99)
[2019-04-15] MEDS ORDERED: NITROGLYCERIN SL TABS 0.4 MG TAB SUBLINGUAL PRN (14:51)
[2019-04-15] MEDS ORDERED: ALBUTEROL NEBULIZED 2.5 MG/3 ML INHALATION PRN (14:51)
--- NOTE | 2019-04-15 14:59 | P.HPIM ---
History of Present Illness This is a pleasant 74 years old female with past medical history of asthma/COPD, coronary artery disease, GERD, GI bleed, hyperlipidemia, hypertension, sleep apnea on CPAP/BiPAP, diverticulitis, chronic kidney disease stage III, osteoporosis, skin cancer. Patient admitted for dyspnea. Patient was transferred from [facility]. Patient presents with dyspnea and cough, has been gradually getting worse. Patient has been recently received a short course of oral antibiotics and steroids. Labs showing potassium 3.2, sodium 142, creatinine 0.8, urinalysis was suspicious of infection. Patient was treated at [facility] with no improvement so patient was transferred to the current hospital She smokes about 3 packs per week Also patient complaining of from constipation since Sunday past for 3-4 days with no nausea vomiting, no abdominal pain however on exam she has right lower quadrant abdominal tenderness with no rebound tenderness or guarding [facility]'s records have been reviewed showing EKG with regular rhythm suspicious for A. fib versus multifocal atrial tachycardia. Labs showing sodium 142, potassium 3.2, creatinine 0.8, urinalysis is for infection not suspicious for infection. Troponin less than 0.01, chest x-ray showing possible left lower lung scattering versus atelectasis., INR 0.9, CK is 119, liver enzymes elevated. Bilirubin is 0.4. CBC showing elevated BC of 8.5K, hemoglobin 13.5, platelets 250 9K, And [facility] patient was treated with acetylcysteine nebulizer, Junot's, Zithromax, and Rocephin, diazepam, Flonase spray, montelukast, Solu- Medrol injections, magnesium sulfate,, [place] 5 mg, however her pulse ox dropped to 88% and on oxygen therapy with ambulation, also she is having chest tightness however patient was denying nicotine patch. Review of Systems CONSTITUTIONAL: No fever, no malaise, no fatigue. HEENT: No recent visual problems or hearing problems. Denied any sore throat. CARDIOVASCULAR: No orthopnea, PND, no palpitations, no syncope. PULMONARY: no hemoptysis. GASTROINTESTINAL: No diarrhea, no nausea, no vomiting, no abdominal pain. Normoactive bowel sounds. NEUROLOGICAL: No headaches, no weakness, no numbness. HEMATOLOGICAL: Denies any bleeding or petechiae. GENITOURINARY: Denies any burning micturition, frequency, or urgency. MUSCULOSKELETAL/RHEUMATOLOGICAL: Denies any joint pain, swelling, or any muscle pain. ENDOCRINE: Denies any polyuria or polydipsia. Past Medical History Past Medical History: Asthma, Coronary Artery Disease (CAD), Cancer, COPD, GERD/Reflux, GI Bleed, Hyperlipidemia, Hypertension, Pneumonia, Renal Disease, Sleep Apnea/CPAP/BIPAP Additional Past Medical History / Comment(s): Bronchitis, upper GI bleed, gastric ulcer, diverticulitis, iron anemia-has had infusions, CKD stage III, chronic hypokalemia, ARUN with Cpap and oxygen at 2L/NC with it, osteoporosis, R upper arm crush injury-pain and limited ROM, L shoulder pain, allergic rhininis, skin cancer basal/squamous removals. 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 Past Anesthesia/Blood Transfusion Reactions: No Reported Reaction Additional Past Anesthesia/Blood Transfusion Reaction / Comment(s): Pt has received blood in past without reaction. Smoking Status: Current every day smoker - Past Family History Father Family Medical History: Coronary Artery Disease (CAD), Myocardial Infarction (HI) Additional Family Medical History / Comment(s): Father of a HI at the age of 41 yrs. Mother Family Medical History: Renal Disease Sister(s) Family Medical History: Renal Disease Additional Family Medical History / Comment(s): 2 sisters with renal disease and both are . Brother(s) Family Medical History: Congestive Heart Failure (CHF) Additional Family Medical History / Comment(s): Brother had a cardiac arrest and at the age of 49yrs. Son(s) Family Medical History: Coronary Artery Disease (CAD), Hyperlipidemia, Hypertension, Myocardial Infarction (HI) Additional Family Medical History / Comment(s): Son had his first HI at the age of 34yrs. He has had a total of 3 MIs. Medications and Allergies Home Medications Medication Instructions Recorded Confirmed Type Albuterol Sulfate [Proair 2 puff INHALATION RT-QID PRN 09/03/15 04/15/19 History Respiclick] Cetirizine HCl [Zyrtec] 10 mg PO DAILY PRN 09/03/15 04/15/19 History FLUoxetine HCL 40 mg PO QAM 09/03/15 04/15/19 History Fluticasone Nasal [place] [Flonase 2 spray EA NOSTRIL HS 09/03/15 04/15/19 History Nasal [place]] Fluticasone/Salmeterol [Advair 1 puff INHALATION RT-BID PRN 09/03/15 04/15/19 History 500-50 Diskus] Montelukast [Singulair] 10 mg PO HS 09/03/15 04/15/19 History Omalizumab [Xolair] 150 mg SQ Q30D 09/03/15 04/15/19 History Potassium Chloride ER [K-Dur 20] 40 meq PO QAM 09/03/15 04/15/19 History amLODIPine [Norvasc] 10 mg PO QAM 09/03/15 04/15/19 History Magnesium 400 mg PO DAILY 10/26/15 04/15/19 History Tiotropium 18 Mcg/Puff [Spiriva] 1 cap INHALATION RT-DAILY 10/28/15 04/15/19 History Allergy Shot 1 injection IM Q14D 10/12/17 04/15/19 History Atorvastatin [Lipitor] 40 mg PO HS 10/12/17 04/15/19 History Diazepam [Valium] 10 mg PO BID PRN 10/12/17 04/15/19 History Isosorbide Mononitrate ER [Imdur] 30 mg PO PC-SUPPER 03/21/18 04/15/19 History Nitroglycerin Sl Tabs [Nitrostat] 0.4 mg SUBLINGUAL Q5M PRN 03/21/18 04/15/19 History Albuterol Nebulized [Ventolin 2.5 mg INHALATION RT-QID PRN 04/15/19 04/15/19 History Nebulized] Furosemide [Lasix] 20 mg PO DAILY 04/15/19 04/15/19 History Potassium Chloride [K-Tab ER] 30 meq PO HS 04/15/19 04/15/19 History Allergies Allergy/AdvReac Type Severity Reaction Status Date / Time gemfibrozil [From Lopid] Allergy tendon Verified 04/15/19 12:45 damage levofloxacin [From Levaquin] Allergy tendon Verified 04/15/19 12:45 damage dust mites Allergy Wheezing Uncoded 04/15/19 12:45 Physical Exam Vitals: Vital Signs Temp Pulse Resp BP Pulse Ox 04/15/19 12:21 98.0 F 87 16 135/82 93 L Intake and Output 04/14/19 04/15/19 04/15/19 22:59 06:59 14:59 Other: Weight 67.5 kg GENERAL: The patient is alert and oriented x3, not in any acute distress. Well developed, well nourished. HEENT: Pupils are round and equally reacting to light. EOMI. No scleral icterus. No conjunctival pallor. Normocephalic, atraumatic. No pharyngeal erythema. No thyromegaly. CARDIOVASCULAR: S1 and S2 present. No murmurs, rubs, or gallops. -PULMONARY: Chest is clear to auscultation, bilateral expiratory wheezing -ABDOMEN: Soft, RLQ tenderness with no guarding or rebound tenderness, nondistended, normoactive bowel sounds. No palpable organomegaly. MUSCULOSKELETAL: No joint swelling or deformity. EXTREMITIES: No cyanosis, clubbing, or pedal edema. NEUROLOGICAL: Gross neurological examination did not reveal any focal deficits. SKIN: No rashes. No petechiae Results Labs: Abnormal Lab Results - Last 24 Hours (Table) 04/15/19 Range/Units 12:36 POC Glucose (mg/dL) 108 H (75-99) mg/dL Thrombosis Risk Factor Assmnt - Choose All That Apply Any of the Below Risk Factors Present?: Yes Each Factor Represents 1 point: Abnormal pulmonary function (COPD), Obesity (BMI >25), Serious lung disease incl. pneumonia (< 1month) Other Risk Factors: Yes Each Risk Factor Represents 2 Points: Age 61-74 years, Malignancy Other congenital or acquired thrombophilia - If yes, enter type in comment: No Thrombosis Risk Factor Assessment Total Risk Factor Score: 7 Thrombosis Risk Factor Assessment Level: High Risk Assessment and Plan Assessment: Acute COPD exacerbation Acute hypoxic respiratory failure Possible New-onset A. fib noted on EMS rhythm strip, versus multifocal atrial tachycardia. Constipation with RLQ tenderness History of coronary artery disease Hypertension Hyperlipidemia Sleep apnea on CPAP/BiPAP GERD History of upper GI bleed History of diverticulitis Chronic kidney disease stage III Osteoporosis History of skin cancer Plan: This is a pleasant 74 years old female who presents with acute COPD exacerbation and possible A. fib. Continue with steroids, bronchodilator, and oxygen. Place patient on telemetry and consult cardiology service. Consult pulmonary with Dr. Arguelles. Check influenza. Check abdominal x-ray. Continue with laxatives Labs and medication were reviewed.. Continue same treatment. Continue with symptomatic treatment. Resume home medication. Monitor lytes and vitals. DVT and GI prophylaxis. Further recommendations of the clinical course of the patient DVT prophylaxis: Subcutaneous heparin GI Prophylaxis: Pepcid PT/OT: Pending Prognosis is guarded
--- NOTE | 2019-04-15 15:54 | XR ---
EXAMINATION TYPE: XR abdomen acute w cxr DATE OF EXAM: 04/15/2019 COMPARISON: 10/12/2017 HISTORY: Pain and constipation TECHNIQUE: Supine, upright, and left side down lateral decubitus views of the abdomen are obtained. FINDINGS: Frontal view of the chest demonstrate post traumatic change involving the right shoulder an d right rib cage. No pneumothorax. No consolidation. Atherosclerotic change of the aorta. Diffuse ost eopenia. Arthropathy of the hips with surgical clips overlying the right hip. Surgical clips right upper quadr ant. Scoliosis with degenerative change of the spine. Retained fecal debris throughout the colon. [place] el gas pattern nonspecific. IMPRESSION: Extensive retained fecal debris correlate for constipation.
[2019-04-15 17:01] LABS: Glucose,Whole Blood 129 mg/dL (75-99)
[2019-04-15] MEDS: ISOSORBIDE MONONITRATE ER 30 MG TAB.ER.24H PO SCH (17:01)
[2019-04-15] MEDS ORDERED: DIAZEPAM 5 MG TAB PO STA (19:49)
[2019-04-15] MEDS: POTASSIUM CHLORIDE ER 10 MEQ TAB.ER.PRT PO SCH (20:25)
[2019-04-15] MEDS: ATORVASTATIN 40 MG TAB PO SCH (20:25)
[2019-04-15] MEDS: ACETAMINOPHEN TAB 325 MG TAB PO PRN (20:26)
[2019-04-15] MEDS: guaiFENesin SYRUP 100MG/5ML 200 MG/10 ML CUP PO PRN (20:26)
[2019-04-15] MEDS: MONTELUKAST 10 MG TAB PO SCH (20:26)
[2019-04-15 20:30] LABS: Glucose,Whole Blood 107 mg/dL (75-99)
[2019-04-15] MEDS: SYMBICORT 160-4.5 MCG INHALER INHALATION SCH (22:40)
[2019-04-16] MEDS: IPRATROPIUM 0.5 MG/2.5 ML NEBU INHALATION SCH ×4 (07:31→19:11)
[2019-04-16] MEDS: SYMBICORT 160-4.5 MCG INHALER INHALATION SCH (07:31)
[2019-04-16 08:41] LABS: Basophils % (A) 0 %; Eosinophils # (A) 0.1 k/uL (0-0.7); Eosinophils % (A) 0 %; HCT 44.5 % (34.0-46.0); HGB 14.6 gm/dL (11.4-16.0); Lymphocytes # (A) 1.9 k/uL (1.0-4.8); Lymphocytes % (A) 15 %; MCH 29.6 pg (25.0-35.0); MCHC 32.7 g/dL (31.0-37.0); MCV 90.5 fL (80.0-100.0); Mean Platelet Volume 6.8; Monocytes # (A) 0.8 k/uL (0-1.0); Monocytes % (A) 6 %; Neutrophils % (A) 78 %; Platelet Count 466 k/uL (150-450); RBC 4.91 m/uL (3.80-5.40); RDW 13.9 % (11.5-15.5); WBC 12.9 k/uL (3.8-10.6)
[2019-04-16 09:00] LABS: ALT 40 U/L (9-52); AST 32 U/L (14-36); African American GFR (CKD) >90 (>60 ml/min/1.73 sqM); Albumin 3.7 g/dL (3.5-5.0); Alkaline Phosphatase 106 U/L (38-126); Anion Gap 7 mmol/L; Blood Urea Nitrogen 17 mg/dL (7-17); Calcium 8.9 mg/dL (8.4-10.2); Carbon Dioxide 30 mmol/L (22-30); Chloride 100 mmol/L (98-107); Glucose 96 mg/dL (74-99); Non-African American GFR(CKD) 89 (>60 ml/min/1.73 sqM); Potassium 3.9 mmol/L (3.5-5.1); Sodium 137 mmol/L (137-145); Total Bilirubin 0.8 mg/dL (0.2-1.3); Total Protein 6.6 g/dL (6.3-8.2)
[2019-04-16] MEDS ORDERED: amLODIPine 10 MG TAB PO SCH (09:00)
[2019-04-16 09:07] LABS: INR 0.9 (<1.2); Partial Thromboplastin Time 22.6 sec (22.0-30.0); Prothrombin Time 9.9 sec (9.0-12.0)
[2019-04-16] MEDS: MAGNESIUM OXIDE 400 MG TAB PO SCH (09:09)
[2019-04-16] MEDS: FUROSEMIDE 20 MG TAB PO SCH (09:09)
[2019-04-16] MEDS: POTASSIUM CHLORIDE ER 20 MEQ TAB.ER PO SCH (09:09)
[2019-04-16] MEDS: FLUoxetine HCL 20 MG CAP PO SCH (09:09)
[2019-04-16] MEDS ORDERED: APIXABAN 5 MG TAB PO SCH (09:15)
[2019-04-16] MEDS: ACETAMINOPHEN TAB 325 MG TAB PO PRN ×2 (09:18→21:41)
[2019-04-16] MEDS: METOPROLOL TARTRATE 25 MG TAB PO SCH ×2 (09:26→21:39)
[2019-04-16 09:28] LABS: Magnesium 1.8 mg/dL (1.6-2.3)
[2019-04-16] MEDS ORDERED: methylPREDNISolone SOD SUCCI 40 MG/ML 1 ML VIAL IV SCH (11:02)
--- NOTE | 2019-04-16 11:09 | P.PN ---
Subjective This is a pleasant 74 years old female with past medical history of asthma/COPD, coronary artery disease, GERD, GI bleed, hyperlipidemia, hypertension, sleep apnea on CPAP/BiPAP, diverticulitis, chronic kidney disease stage III, osteoporosis, skin cancer. Patient admitted for dyspnea. Patient was transferred from [facility]. Patient presents with dyspnea and cough, has been gradually getting worse. Patient has been recently received a short course of oral antibiotics and steroids. Labs showing potassium 3.2, sodium 142, creatinine 0.8, urinalysis was suspicious of infection. Patient was treated at [facility] with no improvement so patient was transferred to the current hospital She smokes about 3 packs per week Also patient complaining of from constipation since Sunday past for 3-4 days with no nausea vomiting, no abdominal pain however on exam she has right lower quadrant abdominal tenderness with no rebound tenderness or guarding [facility]'s records have been reviewed showing EKG with regular r hythm suspicious for A. fib versus multifocal atrial tachycardia. Labs showing sodium 142, potassium 3.2, creatinine 0.8, urinalysis is for infection not suspicious for infection. Troponin less than 0.01, chest x-ray showing possible left lower lung scattering versus atelectasis., INR 0.9, CK is 119, liver enzymes elevated. Bilirubin is 0.4. CBC showing elevated BC of 8.5K, hemoglobin 13.5, platelets 250 9K, And [facility] patient was treated with acetylcysteine nebulizer, Junot's, Zithromax, and Rocephin, diazepam, Flonase spray, montelukast, Solu- Medrol injections, magnesium sulfate,, [place] 5 mg, however her pulse ox dropped to 88% and on oxygen therapy with ambulation, also she is having chest tightness however patient was denying nicotine patch. 04/16/2019 patient is admitted with dyspnea and coughing with phlegm. No chest pain, she has been complaining of from constipation however she had 4 episodes of small bowel movements.abdominal x-ray showing extensive retained fecal debris.labs look stable with no fever, she is tachycardic at 110 , oxygen saturation of 93% on 3L of oxygen. labs showed mild leukocytosis of 12.9 K.influenza is negative. most likely patient has atrial fibrillation,patient is waiting for bed placement to be transferred to telemetry unit. review of systems: CONSTITUTIONAL: No fever, no malaise, no fatigue. HEENT: No recent visual problems or hearing problems. Denied any sore throat. CARDIOVASCULAR: No orthopnea, PND, no palpitations, no syncope. PULMONARY: no hemoptysis. GASTROINTESTINAL: No diarrhea, no nausea, no vomiting, no abdominal pain. Normoactive bowel sounds. NEUROLOGICAL: No headaches, no weakness, no numbness. HEMATOLOGICAL: Denies any bleeding or petechiae. GENITOURINARY: Denies any burning micturition, frequency, or urgency. MUSCULOSKELETAL/RHEUMATOLOGICAL: Denies any joint pain, swelling, or any muscle pain. ENDOCRINE: Denies any polyuria or polydipsia. Active Medications Generic Name Dose Route Start Last Admin Trade Name Freq PRN Reason Stop Dose Admin Acetaminophen 650 mg 04/15/19 19:45 04/16/19 09:18 Tylenol Tab PO 650 mg Q6HR PRN Administration Fever and/ or Pain Albuterol/Ipratropium 3 ml 04/16/19 11:03 Duoneb 0.5 Mg-3 Mg/3 Ml Soln INHALATION RT-Q4H PRN Shortness Of Breath Or Wheezing Amlodipine Besylate 10 mg 04/16/19 09:00 04/16/19 09:09 Norvasc PO 10 mg QAM YANG Administration Apixaban 5 mg 04/16/19 09:15 04/16/19 09:26 Eliquis PO 5 mg BID YANG Administration Atorvastatin Calcium 40 mg 04/15/19 21:00 04/15/19 20:25 Lipitor PO 40 mg HS YANG Administration Budesonide/Formoterol Fumarate 2 puff 04/15/19 20:00 04/16/19 07:31 Symbicort 160-4.5 Mcg Inhaler INHALATION 2 puff RT-BID YANG Administration Fluoxetine HCl 40 mg 04/16/19 09:00 04/16/19 09:09 Prozac PO 40 mg QAM YANG Administration Furosemide 20 mg 04/16/19 09:00 04/16/19 09:09 Lasix PO 20 mg DAILY YANG Administration Guaifenesin 200 mg 04/15/19 19:46 04/15/19 20:26 Robitussin PO 200 mg Q4HR PRN Administration Cough Ipratropium [place] 0.5 mg 04/16/19 08:00 04/16/19 07:31 Atrovent Nebulized INHALATION 0.5 mg RT-QID YANG Administration Isosorbide Mononitrate 30 mg 04/15/19 18:30 04/15/19 17:01 Imdur PO 30 mg PC-SUPPER YANG Administration Magnesium Oxide 400 mg 04/16/19 09:00 04/16/19 09:09 Mag-Ox PO 400 mg DAILY YANG Administration Methylprednisolone Sodium Succinate 40 mg 04/16/19 11:02 Solu-Medrol IV Q8HR YANG Metoprolol Tartrate 25 mg 04/16/19 09:15 04/16/19 09:26 Lopressor PO 25 mg BID YANG Administration Montelukast Sodium 10 mg 04/15/19 21:00 04/15/19 20:26 Singulair PO 10 mg HS YANG Administration Nitroglycerin 0.4 mg 04/15/19 14:51 Nitrostat SUBLINGUAL Q5M PRN Chest Pain Potassium Chloride 30 meq 04/15/19 21:00 04/15/19 20:25 K-Dur 10 PO 30 meq HS YANG Administration Potassium Chloride 40 meq 04/16/19 09:00 04/16/19 09:09 K-Dur 20 PO 40 meq QAM YANG Administration Objective - Vital Signs Vital signs: Vital Signs Temp 98.0 F 04/16/19 04:35 Pulse 88 04/16/19 08:01 Resp 16 04/16/19 04:35 BP 117/78 04/16/19 04:35 Pulse Ox 93 L 04/16/19 04:35 Intake & Output 04/15/19 04/16/19 04/16/19 18:59 06:59 18:59 Intake Total 540 Output Total 1 Balance 540 -1 Weight 67.5 kg Intake: Oral 540 Output: Stool 1 Other: Voiding Method Toilet Toilet # Voids 2 2 - Exam GENERAL: The patient is alert and oriented x3, not in any acute distress. Well developed, well nourished. HEENT: Pupils are round and equally reacting to light. EOMI. No scleral icterus. No conjunctival pallor. Normocephalic, atraumatic. No pharyngeal erythema. No thyromegaly. CARDIOVASCULAR: S1 and S2 present. No murmurs, rubs, or gallops. -PULMONARY: Chest is clear to auscultation, bilateral expiratory wheezing -ABDOMEN: Soft, RLQ and suprapubictenderness with some guarding or rebound tenderness, nondistended, normoactive bowel sounds. No palpable organomegaly. MUSCULOSKELETAL: No joint swelling or deformity. EXTREMITIES: No cyanosis, clubbing, or pedal edema. NEUROLOGICAL: Gross neurological examination did not reveal any focal deficits. SKIN: No rashes. No petechiae - Labs CBC & Chem 7: 04/16/19 08:09 04/16/19 08:09 Labs: Abnormal Lab Results - Last 24 Hours (Table) 04/15/19 04/15/19 04/15/19 Range/Units 12:36 16:39 20:29 WBC (3.8-10.6) k/uL Plt Count (150-450) k/uL Neutrophils # (1.3-7.7) k/uL POC Glucose (mg/dL) 108 H 129 H 107 H (75-99) mg/dL 04/16/19 Range/Units 08:09 WBC 12.9 H (3.8-10.6) k/uL Plt Count 466 H (150-450) k/uL Neutrophils # 10.0 H (1.3-7.7) k/uL POC Glucose (mg/dL) (75-99) mg/dL Assessment and Plan Assessment: Acute COPD exacerbation Acute hypoxic respiratory failure Possible New-onset A. fib noted on EMS rhythm strip, versus multifocal atrial tachycardia. Constipation with RLQ tenderness History of coronary artery disease Hypertension Hyperlipidemia Sleep apnea on CPAP/BiPAP GERD History of upper GI bleed History of diverticulitis Chronic kidney disease stage III Osteoporosis History of skin cancer Plan: This is a pleasant 74 years old female who presents with acute COPD exacerbation and possible A. fib. Continue with steroids, bronchodilator, and oxygen. Place patient on telemetry andfollow-up recommendation by cardiology consult. Consult pulmonary with Dr. Arguelles. we'll ask for surgical evaluation for abdominal pain. Labs and medication were reviewed.. Continue same treatment. Continue with symptomatic treatment. Resume home medication. Monitor lytes and vitals. DVT and GI prophylaxis. Further recommendations of the clinical course of the patient DVT prophylaxis: Subcutaneous heparin GI Prophylaxis: Pepcid PT/OT: Pending Prognosis is guarded
[2019-04-16] MEDS ORDERED: MORPHINE SULFATE 2 MG/ML SYRINGE IVP PRN (11:46)
[2019-04-16] MEDS ORDERED: MORPHINE SULFATE 4 MG/ML SYRINGE IVP PRN (11:46)
--- NOTE | 2019-04-16 12:14 | P.CRDCN ---
History of Present Illness History of present illness: HISTORY OF PRESENTING ILLNESS This is a pleasant 74-year-old female past medical history significant for hypertension, dyslipidemia, COPD, chronic nicotine dependence, history of b leeding ulcer 15 years ago, obstructive sleep apnea and . She recently established with Dr. White in [facility]. She states she underwent a cardiac catheterization that was normal aside from an area of heart muscle weakness. Exact details unavailable. We have been asked to see in consultation for a rrhythmia noted on EMS monitor tracings. She initially presented to [facility] with symptoms of worsening shortness of breath. This has been progressing over the previous 1-week. She had been in communication with her PCP. Pulse ox at home yesterday morning was only 82% on home oxygen prompting her to come to the hospital. En route here from [facility] telemetry tracings reveal irregular rhythm with no visualized P-waves. However, EKG here on arrival x2 are sinus with sinus arrhythmia and PAC's. On exam her heart rate is irregular by auscultation and palpation. She denies chest pain, dizziness or nausea/vomiting. She denies prior history of atrial fibrillation in the past however states she has been told by multiple nurses on several hospital admissions in the past that her heart rate is irregular. She had an episode of bleeding ulcer approximately 15 years ago in the setting of heavy aspirin use. DIAGNOSTICS EKG reveals sinus mechanism with PAC and sinus arrhythmia. Chest xray left lower lung atelectasis. Laboratory reviewed, WBC 12.9, hgb 14.6, plt 466, sodium 137, potassium 3.9, creatinine 0.66, . Current cardiac medications include atorvastatin 40 mg daily, lasix 20 mg daily, imdur 30 mg daily and amlodipine 10 mg daily. Review of our old records indicate she had an echo and stress test in 2011 revealing preserved LV systolic function with EF 55-60%. She underwent a heart catheterization 2003 that revealed normal coronary arteries. REVIEW OF SYSTEMS At the time of my exam: CONSTITUTIONAL: Denies fever or chills. CARDIOVASCULAR: Complains of shortness of breath. Denies chest pain, orthopnea, PND or palpitations. RESPIRATORY: Denies cough. GASTROINTESTINAL: Denies abdominal pain, diarrhea, constipation, nausea or vomiting. MUSCULOSKELETAL: Denies myalgias. NEUROLOGIC: Denies numbness, tingling or weakness. ENDOCRINE: Denies fatigue, weight change, polydipsia or polyurina. GENITOURINARY: Denies burning, hematuria or urgency with micturation. HEMATOLOGIC: Denies history of anemia or bleeding. PHYSICAL EXAMINATION Blood pressure 117/78 heart rate 88 afebrile and maintaining oxygen saturation on room air. CONSTITUTIONAL: No apparent distress. HEENT: Head is normocephalic. Pupils are equal, round. Sclerae anicteric. Mucous membranes of the mouth are moist. No JVD. No carotid bruit. CHEST EXAMINATION: Lungs are clear to auscultation. No chest wall tenderness is noted on palpation or with deep breathing. HEART EXAMINATION: Irregular rate and rhythm. S1, S2 heard. No murmurs, gallops or rub. ABDOMEN: Soft, nontender. Positive bowel sounds. EXTREMITIES: 2+ peripheral pulses, no lower extremity edema and no calf tenderness. NEUROLOGIC EXAMINATION: Patient is awake, alert and oriented x3. ASSESSMENT Multi-focal atrial tachycardia Leukocytosis COPD Hypertension Dyslipidemia Chronic nicotine dependence PLAN Initiate on lopressor 25 mg BID. Obtain 2D echocardiogram and doppler study to assess cardiac structure and function. Transfer to telemetry unit for closer monitoring of heart rate. 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 If normal as she states we can likely discontinue imdur. Further recommendations to follow based on clinical course. Thank you kindly for this consultation. Nurse Practitioner note has been reviewed, I agree with a documented findings and plan of care. Patient was seen and examined. Past Medical History Past Medical History: Asthma, Coronary Artery Disease (CAD), Cancer, COPD, GERD/Reflux, GI Bleed, Hyperlipidemia, Hypertension, Pneumonia, Renal Disease, Sleep Apnea/CPAP/BIPAP Additional Past Medical History / Comment(s): Bronchitis, upper GI bleed, gastric ulcer, diverticulitis, iron anemia-has had infusions, CKD stage III, chronic hypokalemia, ARUN with Cpap and oxygen at 2L/NC with it, osteoporosis, R upper arm crush injury-pain and limited ROM, L shoulder pain, allergic rhininis, skin cancer basal/squamous removals. 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 Past Anesthesia/Blood Transfusion Reactions: No Reported Reaction Additional Past Anesthesia/Blood Transfusion Reaction / Comment(s): Pt has received blood in past without reaction. Smoking Status: Current every day smoker - Past Family History Father Family Medical History: Coronary Artery Disease (CAD), Myocardial Infarction ([place]) Additional Family Medical History / Comment(s): Father of a [place] at the age of 41 yrs. Mother Family Medical History: Renal Disease Sister(s) Family Medical History: Renal Disease Additional Family Medical History / Comment(s): 2 sisters with renal disease and both are . Brother(s) Family Medical History: Congestive Heart Failure (CHF) Additional Family Medical History / Comment(s): Brother had a cardiac arrest and at the age of 49yrs. Son(s) Family Medical History: Coronary Artery Disease (CAD), Hyperlipidemia, Hypertension, Myocardial Infarction ([place]) Additional Family Medical History / Comment(s): Son had his first [place] at the age of 34yrs. He has had a total of 3 MIs. Medications and Allergies Home Medications Medication Instructions Recorded Confirmed Type Albuterol Sulfate [Proair 2 puff INHALATION RT-QID PRN 09/03/15 04/15/19 History Respiclick] Cetirizine HCl [Zyrtec] 10 mg PO DAILY PRN 09/03/15 04/15/19 History FLUoxetine HCL 40 mg PO QAM 09/03/15 04/15/19 History Fluticasone Nasal [place] [Flonase 2 spray EA NOSTRIL 09/03/15 04/15/19 History Nasal [place]] Fluticasone/Salmeterol [Advair 1 puff INHALATION RT-BID PRN 09/03/15 04/15/19 History 500-50 Diskus] Montelukast [Singulair] 10 mg PO HS 09/03/15 04/15/19 History Omalizumab [Xolair] 150 mg SQ Q30D 09/03/15 04/15/19 History Potassium Chloride ER [K-Dur 20] 40 meq PO QAM 09/03/15 04/15/19 History amLODIPine [Norvasc] 10 mg PO QAM 09/03/15 04/15/19 History Magnesium 400 mg PO DAILY 10/26/15 04/15/19 History Tiotropium 18 Mcg/Puff [Spiriva] 1 cap INHALATION RT-DAILY 10/28/15 04/15/19 History Allergy Shot 1 injection IM Q14D 10/12/17 04/15/19 History Atorvastatin [Lipitor] 40 mg PO HS 10/12/17 04/15/19 History Diazepam [Valium] 10 mg PO BID PRN 10/12/17 04/15/19 History Isosorbide Mononitrate ER [Imdur] 30 mg PO PC-SUPPER 03/21/18 04/15/19 History Nitroglycerin Sl Tabs [Nitrostat] 0.4 mg SUBLINGUAL Q5M PRN 03/21/18 04/15/19 History Albuterol Nebulized [Ventolin 2.5 mg INHALATION RT-QID PRN 04/15/19 04/15/19 History Nebulized] Furosemide [Lasix] 20 mg PO DAILY 04/15/19 04/15/19 History Potassium Chloride [K-Tab ER] 30 meq PO HS 04/15/19 04/15/19 History Allergies Allergy/AdvReac Type Severity Reaction Status Date / Time gemfibrozil [From Lopid] Allergy tendon Verified 04/15/19 12:45 damage levofloxacin [From Levaquin] Allergy tendon Verified 04/15/19 12:45 damage dust mites Allergy Wheezing Uncoded 04/15/19 12:45 Physical Exam Vitals: Vital Signs Temp Pulse Pulse Resp BP Pulse Ox 04/16/19 11:26 88 04/16/19 11:16 84 04/16/19 08:01 88 04/16/19 07:30 80 04/16/19 04:35 98.0 F 110 H 16 117/78 93 L 04/15/19 20:30 98.5 F 85 22 122/81 93 L 04/15/19 14:36 16 04/15/19 12:21 98.0 F 87 16 135/82 93 L Intake and Output 04/15/19 04/16/19 04/16/19 22:59 06:59 14:59 Intake Total 540 Output Total 1 Balance 540 -1 Intake: Oral 540 Output: Stool 1 Other: Voiding Method Toilet # Voids 1 2 Results 04/16/19 08:09 04/16/19 08:09 Cardiac Enzymes 04/16/19 Range/Units 08:09 AST 32 (14-36) U/L Coagulation 04/16/19 Range/Units 08:09 PT 9.9 (9.0-12.0) sec APTT 22.6 (22.0-30.0) sec CBC 04/16/19 Range/Units 08:09 WBC 12.9 H (3.8-10.6) k/uL RBC 4.91 (3.80-5.40) m/uL Hgb 14.6 (11.4-16.0) gm/dL Hct 44.5 (34.0-46.0) % Plt Count 466 H (150-450) k/uL Comprehensive Metabolic Panel 04/16/19 Range/Units 08:09 Sodium 137 (137-145) mmol/L Potassium 3.9 (3.5-5.1) mmol/L Chloride 100 (98-107) mmol/L Carbon Dioxide 30 (22-30) mmol/L BUN 17 (7-17) mg/dL Creatinine 0.66 (0.52-1.04) mg/dL Glucose 96 (74-99) mg/dL Calcium 8.9 (8.4-10.2) mg/dL AST 32 (14-36) U/L ALT 40 (9-52) U/L Alkaline Phosphatase 106 (38-126) U/L Total Protein 6.6 (6.3-8.2) g/dL Albumin 3.7 (3.5-5.0) g/dL Current Medications Generic Name Dose Route Start Last Admin Trade Name Freq PRN Reason Stop Dose Admin Acetaminophen 650 mg 04/15/19 19:45 04/16/19 09:18 Tylenol Tab PO 650 mg Q6HR PRN Administration Fever and/ or Pain Albuterol/Ipratropium 3 ml 04/16/19 11:03 Duoneb 0.5 Mg-3 Mg/3 Ml Soln INHALATION RT-Q4H PRN Shortness Of Breath Or Wheezing Amlodipine Besylate 10 mg 04/16/19 09:00 04/16/19 09:09 Norvasc PO 10 mg QAM YANG Administration Apixaban 5 mg 04/16/19 09:15 04/16/19 09:26 Eliquis PO 5 mg BID YANG Administration Atorvastatin Calcium 40 mg 04/15/19 21:00 04/15/19 20:25 Lipitor PO 40 mg HS YANG Administration Budesonide/Formoterol Fumarate 2 puff 04/15/19 20:00 04/16/19 07:31 Symbicort 160-4.5 Mcg Inhaler INHALATION 2 puff RT-BID YANG Administration Fluoxetine HCl 40 mg 04/16/19 09:00 04/16/19 09:09 Prozac PO 40 mg QAM YANG Administration Furosemide 20 mg 04/16/19 09:00 04/16/19 09:09 Lasix PO 20 mg DAILY YANG Administration Guaifenesin 200 mg 04/15/19 19:46 04/15/19 20:26 Robitussin PO 200 mg Q4HR PRN Administration Cough Ipratropium [place] 0.5 mg 04/16/19 08:00 04/16/19 11:14 Atrovent Nebulized INHALATION 0.5 mg RT-QID YANG Administration Isosorbide Mononitrate 30 mg 04/15/19 18:30 04/15/19 17:01 Imdur PO 30 mg PC-SUPPER [facility] Administration Magnesium Oxide 400 mg 04/16/19 09:00 04/16/19 09:09 Mag-Ox PO 400 mg DAILY [facility] Administration Methylprednisolone Sodium Succinate 40 mg 04/16/19 11:02 Solu-Medrol IV Q8HR [facility] Metoprolol Tartrate 25 mg 04/16/19 09:15 04/16/19 09:26 Lopressor PO 25 mg BID YANG Administration Montelukast Sodium 10 mg 04/15/19 21:00 04/15/19 20:26 Singulair PO 10 mg HS [facility] Administration Nitroglycerin 0.4 mg 04/15/19 14:51 Nitrostat SUBLINGUAL Q5M PRN Chest Pain Potassium Chloride 30 meq 04/15/19 21:00 04/15/19 20:25 K-Dur 10 PO 30 meq HS YANG Administration Potassium Chloride 40 meq 04/16/19 09:00 04/16/19 09:09 K-Dur 20 PO 40 meq QAM YANG Administration Intake and Output 04/15/19 04/16/19 04/16/19 22:59 06:59 14:59 Intake Total 540 Output Total 1 Balance 540 -1 Intake: Oral 540 Output: Stool 1 Other: Voiding Method Toilet # Voids 1 2 04/16/19 08:09 04/16/19 08:09
--- NOTE | 2019-04-16 12:42 | XR ---
EXAMINATION TYPE: XR chest 1V portable DATE OF EXAM: 04/16/2019 COMPARISON: 1618 HISTORY: Shortness of breath TECHNIQUE: Single frontal view of the chest is obtained. FINDINGS: There is no focal air space opacity, pleural effusion, or pneumothorax seen. 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 The cardiac silhouette size is within normal limits. Nonunited right humeral old fracture deformity and healed right lateral rib fracture deformities.. IMPRESSION: Chronic findings with no acute cardiopulmonary process.
--- NOTE | 2019-04-16 14:18 | P.GSCN ---
History of Present Illness Consult date: 04/16/19 Reason for Consult: abdominal pain Requesting physician: Gabriel E Sheet History of present illness: CHIEF COMPLAINT: Abdominal pain HISTORY OF PRESENT ILLNESS: 74-year-old female was admitted to the hospital secondary to COPD exacerbation. General surgery was consulted for evaluation of abdominal pain. Patient underwent abdominal x-ray revealing extensive retained fecal debris. Patient examined at the bedside with Dr. Avila. Patient reports right lower quadrant abdominal pain. She does report history of constipation. Denies nausea or vomiting. Tolerating diet. PAST MEDICAL HISTORY: See list. PAST SURGICAL HISTORY: See list. SOCIAL HISTORY: No illicit drug use. REVIEW OF SYSTEMS: CONSTITUTIONAL: Denies fever or chills. HEENT: Denies blurred vision, vision changes, or eye pain. Denies hemoptysis CARDIOVASCULAR: Denies chest pain or pressure. RESPIRATORY: No shortness of breath. GASTROINTESTINAL: Refer to HPI for pertinent findings HEMATOLOGIC: Denies bleeding disorders. GENITOURINARY: Denies any blood in urine. SKIN: Denies pruitis. Denies rash. PHYSICAL EXAM: VITAL SIGNS: Reviewed. GENERAL: Well-developed in no acute distress. HEENT: No sclera icterus. Extraocular movements grossly intact. Moist buccal mucosa. Head is atraumatic, normocephalic. ABDOMEN: Soft. Nondistended. Tenderness with palpation to right lower quadrant. NEUROLOGIC: Alert and oriented. Cranial nerves II through XII grossly intact. LABORATORY DATA: WBC 12.9. Hemoglobin 14.6. Platelet count 466. IMAGING: Abdominal x-ray: Extensive retained fecal debris ASSESSMENT: 1. Abdominal pain 2. Constipation PLAN: -Continue diet as tolerated -Lactulose x 3 doses -Soap suds enema x 3 -Repeat abdominal xray in AM Nurse practitioner note has been reviewed by physician. Signing provider agrees with the documented findings, assessment, and plan of care. Past Medical History Past Medical History: Asthma, Coronary Artery Disease (CAD), Cancer, COPD, GERD/Reflux, GI Bleed, Hyperlipidemia, Hypertension, Pneumonia, Renal Disease, Sleep Apnea/CPAP/BIPAP Additional Past Medical History / Comment(s): Bronchitis, upper GI bleed, gastric ulcer, diverticulitis, iron anemia-has had infusions, CKD stage III, chronic hypokalemia, ARUN with Cpap and oxygen at 2L/NC with it, osteoporosis, R upper arm crush injury-pain and limited ROM, L shoulder pain, allergic rhininis, skin cancer basal/squamous removals. 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 Past Anesthesia/Blood Transfusion Reactions: No Reported Reaction Additional Past Anesthesia/Blood Transfusion Reaction / Comm: Pt has received blood in past without reaction. Smoking Status: Current every day smoker - Past Family History Father Family Medical History: Coronary Artery Disease (CAD), Myocardial Infarction ([place]) Additional Family Medical History / Comment(s): Father of a [place] at the age of 41 yrs. Mother Family Medical History: Renal Disease Sister(s) Family Medical History: Renal Disease Additional Family Medical History / Comment(s): 2 sisters with renal disease and both are . Brother(s) Family Medical History: Congestive Heart Failure (CHF) Additional Family Medical History / Comment(s): Brother had a cardiac arrest and at the age of 49yrs. Son(s) Family Medical History: Coronary Artery Disease (CAD), Hyperlipidemia, Hypertens ion, Myocardial Infarction ([place]) Additional Family Medical History / Comment(s): Son had his first [place] at the age of 34yrs. He has had a total of 3 MIs. Medications and Allergies Home Medications Medication Instructions Recorded Confirmed Type Albuterol Sulfate [Proair 2 puff INHALATION RT-QID PRN 09/03/15 04/15/19 History Respiclick] Cetirizine HCl [Zyrtec] 10 mg PO DAILY PRN 09/03/15 04/15/19 History FLUoxetine HCL 40 mg PO QAM 09/03/15 04/15/19 History Fluticasone Nasal [place] [Flonase 2 spray EA NOSTRIL HS 09/03/15 04/15/19 History Nasal [place]] Fluticasone/Salmeterol [Advair 1 puff INHALATION RT-BID PRN 09/03/15 04/15/19 History 500-50 Diskus] Montelukast [Singulair] 10 mg PO HS 09/03/15 04/15/19 History Omalizumab [Xolair] 150 mg SQ Q30D 09/03/15 04/15/19 History Potassium Chloride ER [K-Dur 20] 40 meq PO QAM 09/03/15 04/15/19 History amLODIPine [Norvasc] 10 mg PO QAM 09/03/15 04/15/19 History Magnesium 400 mg PO DAILY 10/26/15 04/15/19 History Tiotropium 18 Mcg/Puff [Spiriva] 1 cap INHALATION RT-DAILY 10/28/15 04/15/19 History Allergy Shot 1 injection IM Q14D 10/12/17 04/15/19 History Atorvastatin [Lipitor] 40 mg PO HS 10/12/17 04/15/19 History Diazepam [Valium] 10 mg PO BID PRN 10/12/17 04/15/19 History Isosorbide Mononitrate ER [Imdur] 30 mg PO PC-SUPPER 03/21/18 04/15/19 History Nitroglycerin Sl Tabs [Nitrostat] 0.4 mg SUBLINGUAL Q5M PRN 03/21/18 04/15/19 History Albuterol Nebulized [Ventolin 2.5 mg INHALATION RT-QID PRN 04/15/19 04/15/19 History Nebulized] Furosemide [Lasix] 20 mg PO DAILY 04/15/19 04/15/19 History Potassium Chloride [K-Tab ER] 30 meq PO HS 04/15/19 04/15/19 History Allergies Allergy/AdvReac Type Severity Reaction Status Date / Time gemfibrozil [From Lopid] Allergy tendon Verified 04/15/19 12:45 damage levofloxacin [From Levaquin] Allergy tendon Verified 04/15/19 12:45 damage dust mites Allergy Wheezing Uncoded 04/15/19 12:45 Surgical - Exam Vital Signs Temp Pulse Resp BP Pulse Ox 98.0 F 87 16 135/82 93 L 04/15/19 12:21 04/15/19 12:21 04/15/19 12:21 04/15/19 12:21 04/15/19 12:21 Results - Labs 04/16/19 08:09 04/16/19 08:09 Abnormal Lab Results - Last 24 Hours (Table) 04/15/19 04/15/19 04/16/19 Range/Units 16:39 20:29 08:09 WBC 12.9 H (3.8-10.6) k/uL Plt Count 466 H (150-450) k/uL Neutrophils # 10.0 H (1.3-7.7) k/uL POC Glucose (mg/dL) 129 H 107 H (75-99) mg/dL Diabetes panel 04/16/19 Range/Units 08:09 Sodium 137 (137-145) mmol/L Potassium 3.9 (3.5-5.1) mmol/L Chloride 100 (98-107) mmol/L Carbon Dioxide 30 (22-30) mmol/L BUN 17 (7-17) mg/dL Creatinine 0.66 (0.52-1.04) mg/dL Glucose 96 (74-99) mg/dL Calcium 8.9 (8.4-10.2) mg/dL AST 32 (14-36) U/L ALT 40 (9-52) U/L Alkaline Phosphatase 106 (38-126) U/L Total Protein 6.6 (6.3-8.2) g/dL Albumin 3.7 (3.5-5.0) g/dL Thyroid panel 04/16/19 Range/Units 08:09 TSH 3.370 (0.465-4.680) mIU/L Calcium panel 04/16/19 Range/Units 08:09 Calcium 8.9 (8.4-10.2) mg/dL Albumin 3.7 (3.5-5.0) g/dL Pituitary panel 04/16/19 04/16/19 Range/Units 08:09 08:09 Sodium 137 (137-145) mmol/L Potassium 3.9 (3.5-5.1) mmol/L Chloride 100 (98-107) mmol/L Carbon Dioxide 30 (22-30) mmol/L BUN 17 (7-17) mg/dL Creatinine 0.66 (0.52-1.04) mg/dL Glucose 96 (74-99) mg/dL Calcium 8.9 (8.4-10.2) mg/dL TSH 3.370 (0.465-4.680) mIU/L Adrenal panel 04/16/19 Range/Units 08:09 Sodium 137 (137-145) mmol/L Potassium 3.9 (3.5-5.1) mmol/L Chloride 100 (98-107) mmol/L Carbon Dioxide 30 (22-30) mmol/L BUN 17 (7-17) mg/dL Creatinine 0.66 (0.52-1.04) mg/dL Glucose 96 (74-99) mg/dL Calcium 8.9 (8.4-10.2) mg/dL Total Bilirubin 0.8 (0.2-1.3) mg/dL AST 32 (14-36) U/L ALT 40 (9-52) U/L Alkaline Phosphatase 106 (38-126) U/L Total Protein 6.6 (6.3-8.2) g/dL Albumin 3.7 (3.5-5.0) g/dL
[2019-04-16] MEDS: LACTULOSE 20 GM/30 ML CUP PO SCH ×2 (15:15→22:07)
--- NOTE | 2019-04-16 16:34 | CONS ---
CONSULTATION PULMONARY/CRITICAL CARE CONSULTATION: DATE OF SERVICE: 04/16/2019 Jessa is a 74-year-old female whom we see typically at [facility]. She has a history of stage III COPD with an FEV1 that is less than 50% of predicted. The patient has a history also of CAD, GERD, GI bleed, hyperlipidemia, hypertension, sleep apnea syndrome, maintained on CPAP, diverticular disease, stage III chronic kidney disease, osteoporosis and skin cancer. She was initially admitted to [facility] for COPD exacerbation. She was there for a number of days and she was not improving. Hence the patient was transferred down. Her complaints at that time included shortness of breath, chest tightness, coughing, wheezing and phlegm production. These symptoms were going on for a number of days prior to admission and had been getting progressively worse. For that reason, she was transferred down. She apparently had a chest x-ray which showed only COPD changes but nothing acute. She smokes 2 to 3 packs per week. She has been smoking for a number of years. The patient had pulmonary function testing in our office. At [facility], she had an EKG showing regular sinus rhythm. In addition, she had normal troponins and a chest x-ray which shows some basilar atelectasis, left lower lobe. Again, because her symptoms were not improving, she was transferred down to be seen here. PAST MEDICAL HISTORY: Her past medical history is positive for COPD, stage III disease, FEV1 less than 50% of predicted. She has a history of CAD, sleep apnea syndrome, GERD, gastrointestinal bleeding, hyperlipidemia, hypertension, pneumonia, stage III chronic kidney disease. Other medical problems include chronic anemia, diverticular disease, skin cancer, osteoarthritis as well as allergic rhinitis. SURGICAL HISTORY: Surgical history includes bladder surgery, breast surgery, cholecystectomy, heart catheterization, hernia repair, hysterectomy, tonsillectomy, and various orthopedic procedures. In addition, the patient has had bladder suspension x2, skin cancer surgery and colonoscopy. SOCIAL HISTORY: Social history is positive for ongoing tobacco use. She smokes about a pack a day. She denies any alcohol use or illicit drug use. FAMILY HISTORY: Family history is positive for father with CAD and [place]. Her father at a very young age. Mother had kidney disease. She has a sister with kidney disease and a brother with CHF. She has a son with CAD, hyperlipidemia, hypertension and myocardial infarction. Her son had his first myocardial infarction at age 34. ALLERGIES: ALLERGIES include: LOPID, LEVAQUIN and DUST MITES. HOME MEDICATIONS: Home medications include potassium, Lasix, albuterol updrafts, Nitrostat, Imdur, Valium, Lipitor, Spiriva, magnesium, amlodipine, Xolair, Singulair, Advair, Flonase nasal spray and Zyrtec. REVIEW OF SYSTEMS: CONSTITUTIONAL: Weakness. NEUROLOGIC: Negative. HEENT: Negative. CARDIOVASCULAR: Chest tightness. PULMONARY: Shortness of breath, chest tightness, wheezing, cough, chest congestion and phlegm production. GI: Negative. : Negative. RHEUMATOLOGIC: Negative. IMMUNOLOGIC: Negative. ENDOCRINOLOGIC: Negative. DERMATOLOGIC: Negative. PHYSICAL EXAMINATION: VITAL SIGNS: Current vital signs are reviewed. Temperature is 98.3, heart rate 74, respiratory rate 18, blood pressure 131/76, mean 94, 2.5-liter saturation 92%. GENERAL APPEARANCE: Appears mildly tachypneic and dyspneic. She does have some mild conversational dyspnea. No audible wheezing. No use of accessory muscles. Nasal oxygen noted. HEENT EXAMINATION: Grossly unremarkable. Mucous membranes are moist. NECK: Supple. Full range of motion. No adenopathy. Neck veins flat. CARDIOVASCULAR EXAMINATION: Cardiovascular examination reveals regular rhythm and rate. S1, S2 normal. No S3, S4 or murmur. LUNGS: Lungs reveal diffuse inspiratory and expiratory rhonchi and wheezes. Breath sounds are diminished. She is quite congested. Adventitious sounds are more prominent on forced maneuver. She wheezes and coughs on forced maneuver. ABDOMEN: Soft but tender on palpation. EXTREMITIES: Intact. No cyanosis, clubbing or edema. SKIN: Without rash. NEUROLOGIC: Neurologic examination is nonfocal. IMAGING: Chest x-ray shows changes just consistent with underlying COPD. LAB DATA: Reviewed. White count 12.9, hemoglobin 14.6, hematocrit 44.5, platelet count 466,000. PT, INR, PTT all normal. Electrolytes all normal. Comprehensive metabolic profile all normal. Influenza A and B studies were both negative. Medications are reviewed. ASSESSMENT: 1. Chronic obstructive pulmonary disease exacerbation complicated by purulent tracheobronchitis without shahab pneumonia. 2. Ongoing tobacco use with nicotine addiction. 3. Diffuse abdominal pain, being evaluated by Surgery. 4. History of coronary artery disease. 5. History of skin cancer. 6. Gastroesophageal reflux disease. 7. History of gastrointestinal bleed. 8. Hyperlipidemia. 9. History of hypertension. 10.Prior history of pneumonia. 11.Stage III chronic kidney disease. 12.Sleep apnea syndrome, maintained on CPAP. 13.History of chronic anemia. 14.Diverticular disease. 15.History of osteoporosis. 16.Allergic rhinitis. PLAN: Please see my orders. Will make sure the patient is on appropriate medications. This will include short-acting beta agonist, short-acting muscarinic antagonist, long-acting beta agonist, inhaled corticosteroids, systemic corticosteroids and oral antibiotics. The patient should follow up with me post discharge. She likely will be in the hospital for 3 to 4 days. Additional recommendations and suggestions are forthcoming. Chest x-ray was ordered and only shows chronic changes. Nothing acute on chest x-ray. Will continue to follow. MMLESAL / TARIQN: [id number] /
--- NOTE | 2019-04-16 16:36 | ECHOF ---
Referral Reason:afib, new onset MEASUREMENTS -------- HEIGHT: 152.4 cm WEIGHT: 67.1 kg BP: 157/64 RVIDd: 3.1 cm (< 3.3) IVSd: 1.1 cm (0.6 - 1.1) LVIDd: 4.7 cm (3.9 - 5.3) LVPWd: 1.3 cm (0.6 - 1.1) IVSs: 1.6 cm LVIDs: 3.4 cm LVPWs: 1.6 cm LA Diam: 3.5 cm (2.7 - 3.8) LAESV Index (A-L): 35.55 ml/m Ao Diam: 3.3 cm (2.0 - 3.7) AV Cusp: 2.2 cm (1.5 - 2.6) MV EXCURSION: 17.838 mm (> 18.000) MV EF SLOPE: 53 mm/s (70 - 150) EPSS: 1.1 cm FINDINGS -------- Atrial fibrillation. This was a technically adequate study. The left ventricular size is normal. There is mild concentric left ventricular hypertrophy. Overa ll left ventricular systolic function is moderate-severely impaired with, an EF between 30 - 35 %. The right ventricle is normal in size. LA is moderately dilated 34-39 ml/m2 The right atrium is normal in size. Interatrial and interventricular septum intact. There is mild aortic valve sclerosis. Mild mitral regurgitation is present. The tricuspid valve appears structurally normal. There is no pulmonic regurgitation present. The aortic root size is normal. Normal inferior vena cava with normal inspiratory collapse consistent with estimated right atrial pre ssure of 5 mmHg. There is no pericardial effusion. CONCLUSIONS -------- 1. Atrial fibrillation. 2. This was a technically adequate study. 3. The left ventricular size is normal. 4. There is mild concentric left ventricular hypertrophy. 5. Overall left ventricular systolic function is moderate-severely impaired with, an EF between 30 - 35 %. 6. The right ventricle is normal in size. 7. LA is moderately dilated 34-39 ml/m2 8. The right atrium is normal in size. 9. Interatrial and interventricular septum intact. 10. There is mild aortic valve sclerosis. 11. Mild mitral regurgitation is present. 12. The tricuspid valve appears structurally normal. 13. There is no pulmonic regurgitation present. 14. The aortic root size is normal. 15. Normal inferior vena cava with normal inspiratory collapse consistent with estimated right atrial pressure of 5 mmHg. 16. There is no pericardial effusion. EXCELSIOR PICKER: JAVAD Farnsworth
[2019-04-16] MEDS: ISOSORBIDE MONONITRATE ER 30 MG TAB.ER.24H PO SCH (18:21)
[2019-04-16] MEDS: methylPREDNISolone SOD SUCCI 125 MG/2 ML VIAL IV SCH ×2 (18:21→23:12)
[2019-04-16] MEDS: BUDESONIDE 1 MG/2 ML NEBU INHALATION SCH (19:11)
[2019-04-16] MEDS: FORMOTEROL FUMARATE 20 MCG/2 ML NEBU INHALATION SCH (19:11)
[2019-04-16] MEDS: MONTELUKAST 10 MG TAB PO SCH (21:38)
[2019-04-16] MEDS: ATORVASTATIN 40 MG TAB PO SCH (21:38)
[2019-04-16] MEDS: POTASSIUM CHLORIDE ER 10 MEQ TAB.ER.PRT PO SCH (21:38)
[2019-04-16] MEDS: guaiFENesin SYRUP 100MG/5ML 200 MG/10 ML CUP PO PRN (21:41)
[2019-04-16] MEDS: AMOXIC-POT CLAV 875-125MG 1 EACH TAB PO SCH (22:06)
[2019-04-16] MEDS: DIAZEPAM 5 MG TAB PO PRN (23:12)
[2019-04-17] MEDS: methylPREDNISolone SOD SUCCI 125 MG/2 ML VIAL IV SCH ×4 (06:11→23:54)
--- NOTE | 2019-04-17 07:33 | XR ---
EXAMINATION TYPE: XR abdomen 2V DATE OF EXAM: 04/17/2019 HISTORY: Pain. Technique: 3 views of the abdomen are submitted. Comparison: None. Findings: There is no convincing evidence of pneumoperitoneum. Dilated small and large bowel with air-fluid levels noted. The findings may reflect ileus however dis felipe obstruction is difficult to exclude. NG tube is in place. No mass effects are noted. No renal calcifications are identified. IMPRESSION: 1. Nonspecific bowel gas pattern
[2019-04-17] MEDS: guaiFENesin SYRUP 100MG/5ML 200 MG/10 ML CUP PO PRN ×2 (08:58→17:23)
[2019-04-17] MEDS: LISINOPRIL 5 MG TAB PO SCH (08:59)
[2019-04-17] MEDS: FUROSEMIDE 20 MG TAB PO SCH (08:59)
[2019-04-17] MEDS: FLUoxetine HCL 20 MG CAP PO SCH (08:59)
[2019-04-17] MEDS: AMOXIC-POT CLAV 875-125MG 1 EACH TAB PO SCH ×2 (08:59→20:27)
[2019-04-17] MEDS: METOPROLOL TARTRATE 25 MG TAB PO SCH ×2 (08:59→20:26)
[2019-04-17] MEDS: MAGNESIUM OXIDE 400 MG TAB PO SCH (08:59)
[2019-04-17] MEDS: POTASSIUM CHLORIDE ER 20 MEQ TAB.ER PO SCH (09:00)
--- NOTE | 2019-04-17 09:12 | P.PN ---
Subjective This is a pleasant 74 years old female with past medical history of asthma/COPD, coronary artery disease, GERD, GI bleed, hyperlipidemia, hypertension, sleep apnea on CPAP/BiPAP, diverticulitis, chronic kidney disease stage III, osteoporosis, skin cancer. Patient admitted for dyspnea. Patient was transferred from [facility]. Patient presents with dyspnea and cough, has been gradually getting worse. Patient has been recently received a short course of oral antibiotics and steroids. Labs showing potassium 3.2, sodium 142, creatinine 0.8, urinalysis was suspicious of infection. Patient was treated at [facility] with no improvement so patient was transferred to the current hospital She smokes about 3 packs per week Also patient complaining of from constipation since Sunday past for 3-4 days with no nausea vomiting, no abdominal pain however on exam she has right lower quadrant abdominal tenderness with no rebound tenderness or guarding [facility]'s records have been reviewed showing EKG with regular r hythm suspicious for A. fib versus multifocal atrial tachycardia. Labs showing sodium 142, potassium 3.2, creatinine 0.8, urinalysis is for infection not suspicious for infection. Troponin less than 0.01, chest x-ray showing possible left lower lung scattering versus atelectasis., INR 0.9, CK is 119, liver enzymes elevated. Bilirubin is 0.4. CBC showing elevated BC of 8.5K, hemoglobin 13.5, platelets 250 9K, And [facility] patient was treated with acetylcysteine nebulizer, Junot's, Zithromax, and Rocephin, diazepam, Flonase spray, montelukast, Solu- Medrol injections, magnesium sulfate,, [place] 5 mg, however her pulse ox dropped to 88% and on oxygen therapy with ambulation, also she is having chest tightness however patient was denying nicotine patch. 04/16/2019 patient is admitted with dyspnea and coughing with phlegm. No chest pain, she has been complaining of from constipation however she had 4 episodes of small bowel movements.abdominal x-ray showing extensive retained fecal debris.labs look stable with no fever, she is tachycardic at 110 , oxygen saturation of 93% on 3L of oxygen. labs showed mild leukocytosis of 12.9 K.influenza is negative. most likely patient has atrial fibrillation,patient is waiting for bed placement to be transferred to telemetry unit. 04/17/2019 Patient breathing is partially better today. With less dyspnea but still coughing. However she have heart, bringing stuff up. However patient is a Robitussin. Patient had 4-5 small bowel movements yesterday and 1 bowel movement today and she is happy about that however she still have tenderness in her right lower quadrant although it's this severe compared to yesterday. Sample Carrier evaluation is appreciated. Most likely patient has multifocal atrial tachycardia rather than atrial fibrillation. Sample Carrier already on the records Vitals stable. She is saturating 94% at 2 L. Today's labs are pending. Repeat abdominal x-ray from today: nonspecific bowel pattern review of systems: CONSTITUTIONAL: No fever, no malaise, no fatigue. HEENT: No recent visual problems or hearing problems. Denied any sore throat. CARDIOVASCULAR: No orthopnea, PND, no palpitations, no syncope. PULMONARY: no hemoptysis. GASTROINTESTINAL: No diarrhea, no nausea, no vomiting. Normoactive bowel sounds. NEUROLOGICAL: No headaches, no weakness, no numbness. HEMATOLOGICAL: Denies any bleeding or petechiae. GENITOURINARY: Denies any burning micturition, frequency, or urgency. MUSCULOSKELETAL/RHEUMATOLOGICAL: Denies any joint pain, swelling, or any muscle pain. ENDOCRINE: Denies any polyuria or polydipsia. Active Medications Generic Name Dose Route Start Last Admin Trade Name Freq PRN Reason Stop Dose Admin Acetaminophen 650 mg 04/15/19 19:45 04/16/19 21:41 Tylenol Tab PO 650 mg Q6HR PRN Administration Fever and/ or Pain Albuterol/Ipratropium 3 ml 04/16/19 11:03 Duoneb 0.5 Mg-3 Mg/3 Ml Soln INHALATION RT-Q4H PRN Shortness Of Breath Or Wheezing Amoxicillin/Clavulanate Potassium 1 each 04/16/19 21:00 04/17/19 08:59 Augmentin 875-125 PO 1 each Q12HR YANG Administration Atorvastatin Calcium 40 mg 04/15/19 21:00 04/16/19 21:38 Lipitor PO 40 mg HS YANG Administration Budesonide 1 mg 04/16/19 20:00 04/16/19 19:11 Pulmicort INHALATION Not Given RT-BID YANG Diazepam 5 mg 04/16/19 22:32 04/16/19 23:12 Valium PO 5 mg BID PRN Administration muscle spasms Fluoxetine HCl 40 mg 04/16/19 09:00 04/17/19 08:59 Prozac PO 40 mg QAM [facility] Administration Formoterol Fumarate 20 mcg 04/16/19 20:00 04/16/19 19:11 Perforomist INHALATION Not Given RT-BID [facility] Furosemide 20 mg 04/16/19 09:00 04/17/19 08:59 Lasix PO 20 mg DAILY [facility] Administration Guaifenesin 200 mg 04/15/19 19:46 04/17/19 08:58 Robitussin PO 200 mg Q4HR PRN Administration Cough Ipratropium [place] 0.5 mg 04/16/19 08:00 04/16/19 19:11 Atrovent Nebulized INHALATION Not Given RT-QID [facility] Isosorbide Mononitrate 30 mg 04/15/19 18:30 04/16/19 18:21 Imdur PO 30 mg PC-SUPPER [facility] Administration Lisinopril 5 mg 04/17/19 09:00 04/17/19 08:59 Zestril PO 5 mg DAILY [facility] Administration Magnesium Oxide 400 mg 04/16/19 09:00 04/17/19 08:59 Mag-Ox PO 400 mg DAILY [facility] Administration Methylprednisolone Sodium Succinate 60 mg 04/16/19 18:00 04/17/19 06:11 Solu-Medrol IV 60 mg Q6HR [facility] Administration Metoprolol Tartrate 25 mg 04/16/19 09:15 04/17/19 08:59 Lopressor PO 25 mg BID [facility] Administration Montelukast Sodium 10 mg 04/15/19 21:00 04/16/19 21:38 Singulair PO 10 mg HS [facility] Administration Morphine Sulfate 2 mg 04/16/19 11:46 Morphine Sulfate (Inj) IVP Q4H PRN Pain/Discomfort 3-5 Morphine Sulfate 4 mg 04/16/19 11:46 Morphine Sulfate (Inj) IVP Q4HR PRN Pain Nitroglycerin 0.4 mg 04/15/19 14:51 Nitrostat SUBLINGUAL Q5M PRN Chest Pain Potassium Chloride 30 meq 04/15/19 21:00 04/16/19 21:38 K-Dur 10 PO 30 meq HS YANG Administration Potassium Chloride 40 meq 04/16/19 09:00 04/17/19 09:00 K-Dur 20 PO 40 meq QAM YANG Administration Objective - Vital Signs Vital signs: Vital Signs Temp 97.5 F L 04/17/19 05:00 Pulse 64 04/17/19 05:00 Resp 18 04/17/19 05:00 BP 129/86 04/17/19 05:00 Pulse Ox 94 L 04/17/19 05:00 Intake & Output 04/16/19 04/17/19 04/17/19 18:59 06:59 18:59 Intake Total 540 Balance 540 Intake: Oral 540 Other: Voiding Method Toilet # Voids 2 1 # Bowel Movements 3 - Exam GENERAL: The patient is alert and oriented x3, not in any acute distress. Well developed, well nourished. HEENT: Pupils are round and equally reacting to light. EOMI. No scleral icterus. No conjunctival pallor. Normocephalic, atraumatic. No pharyngeal erythema. No thyromegaly. CARDIOVASCULAR: S1 and S2 present. No murmurs, rubs, or gallops. -PULMONARY: Chest is clear to auscultation, bilateral expiratory wheezing -ABDOMEN: Soft, RLQ and suprapubictenderness with some guarding or rebound tenderness, nondistended, normoactive bowel sounds. No palpable organomegaly. MUSCULOSKELETAL: No joint swelling or deformity. EXTREMITIES: No cyanosis, clubbing, or pedal edema. NEUROLOGICAL: Gross neurological examination did not reveal any focal deficits. SKIN: No rashes. No petechiae - Labs CBC & Chem 7: 04/16/19 08:09 04/16/19 08:09 Assessment and Plan Assessment: Acute COPD exacerbation Acute hypoxic respiratory failure Patient has multifocal atrial tachycardia rather than atrial fibrillation. As per cardiology evaluation Constipation with RLQ tenderness History of coronary artery disease Hypertension Hyperlipidemia Sleep apnea on CPAP/BiPAP GERD History of upper GI bleed History of diverticulitis Chronic kidney disease stage III Osteoporosis History of skin cancer Plan: This is a pleasant 74 years old female who presents with acute COPD exacerbation, constipation and multifocal atrial tachycardia. Continue with steroids, bronchodilator, and oxygen. Place patient on telemetry and follow-up recommendation by cardiology consult. Follow-up recommendation by full stack software engineer. Continue with bowel regiment as per surgical recommendation Labs and medication were reviewed.. Continue same treatment. Continue with symptomatic treatment. Resume home medication. Monitor lytes and vitals. DVT and GI prophylaxis. Further recommendations of the clinical course of the patient DVT prophylaxis: Subcutaneous heparin GI Prophylaxis: Pepcid PT/OT: Recommended home health care versus rehab Prognosis is guarded
[2019-04-17 09:13] LABS: Basophils % (A) 0 %; Eosinophils % (A) 0 %; HCT 44.8 % (34.0-46.0); HGB 14.6 gm/dL (11.4-16.0); Lymphocytes # (A) 0.5 k/uL (1.0-4.8); Lymphocytes % (A) 5 %; MCH 29.4 pg (25.0-35.0); MCHC 32.7 g/dL (31.0-37.0); MCV 89.9 fL (80.0-100.0); Monocytes # (A) 0.3 k/uL (0-1.0); Monocytes % (A) 3 %; Neutrophils # (A) 9.7 k/uL (1.3-7.7); Neutrophils % (A) 92 %; Platelet Count 505 k/uL (150-450); RBC 4.99 m/uL (3.80-5.40); RDW 13.7 % (11.5-15.5); WBC 10.5 k/uL (3.8-10.6)
[2019-04-17] MEDS: LACTULOSE 20 GM/30 ML CUP PO SCH (09:15)
[2019-04-17 09:26] LABS: African American GFR (CKD) >90 (>60 ml/min/1.73 sqM); Anion Gap 9 mmol/L; Blood Urea Nitrogen 20 mg/dL (7-17); Calcium 9.3 mg/dL (8.4-10.2); Carbon Dioxide 27 mmol/L (22-30); Chloride 102 mmol/L (98-107); Glucose 214 mg/dL (74-99); Non-African American GFR(CKD) 87 (>60 ml/min/1.73 sqM); Potassium 4.5 mmol/L (3.5-5.1); Sodium 138 mmol/L (137-145)
[2019-04-17] MEDS: FORMOTEROL FUMARATE 20 MCG/2 ML NEBU INHALATION SCH ×2 (10:10→19:28)
[2019-04-17] MEDS: IPRATROPIUM-ALBUTEROL 3 ML NEB INHALATION PRN ×2 (10:10→19:28)
[2019-04-17] MEDS: BUDESONIDE 1 MG/2 ML NEBU INHALATION SCH ×2 (10:10→19:28)
[2019-04-17] MEDS: IPRATROPIUM 0.5 MG/2.5 ML NEBU INHALATION SCH ×4 (10:31→19:29)
--- NOTE | 2019-04-17 11:44 | P.PN ---
Subjective Progress Note Date: 04/17/19 Principal diagnosis: Acute exacerbation of chronic obstructive pulmonary disease, complicated by purulent tracheobronchitis. The patient is seen today no 04/17/2019 in follow-up on the regular medical floor. She is currently resting comfortably in bed. Awake and alert in no ac mikala distress. He still has a loose nonproductive cough. Some dyspnea on exertion. Maintaining good O2 saturations in the 90s on 2 L/m per nasal cannula. She has been afebrile. Hemodynamically stable. White count 10.5. Hemoglobin 14.6. Creatinine 0.69. Currently on DuoNeb inhalations, Pulmicort and Perforomist inhalations, IV Solu-Medrol and Augmentin Objective - Vital Signs Vital signs: Vital Signs Temp 97.5 F L 04/17/19 05:00 Pulse 86 04/17/19 10:38 Resp 18 04/17/19 05:00 BP 129/86 04/17/19 05:00 Pulse Ox 94 L 04/17/19 05:00 Intake & Output 04/16/19 04/17/19 04/17/19 18:59 06:59 18:59 Intake Total 540 Balance 540 Intake: Oral 540 Other: Voiding Method Toilet # Voids 2 1 # Bowel Movements 3 - Exam GENERAL EXAM: Alert, active, pleasant 74-year-old female patient, comfortable in no apparent distress. On 2 L nasal cannula HEAD: Normocephalic. EYES: Normal reaction of pupils, equal size. NOSE: Clear with pink turbinates. THROAT: No erythema or exudates. NECK: No masses, no JVD. CHEST: No chest wall deformity. LUNGS: Equal air entry with bilateral scattered rhonchi. CVS: S1 and S2 normal with no audible murmur, regular rhythm. ABDOMEN: No hepatosplenomegaly, normal bowel sounds, no guarding or rigidity. SPINE: No scoliosis or deformity SKIN: No rashes CENTRAL NERVOUS SYSTEM: No focal deficits, tone is normal in all 4 extremities. EXTREMITIES: There is no peripheral edema. No clubbing, no cyanosis. Peripheral pulses are intact. - Labs CBC & Chem 7: 04/17/19 08:37 04/17/19 08:40 Labs: Abnormal Lab Results - Last 24 Hours (Table) 04/17/19 04/17/19 Range/Units 08:37 08:40 Plt Count 505 H (150-450) k/uL Neutrophils # 9.7 H (1.3-7.7) k/uL Lymphocytes # 0.5 L (1.0-4.8) k/uL BUN 20 H (7-17) mg/dL Glucose 214 H (74-99) mg/dL Assessment and Plan Assessment: #1 Acute exacerbation of chronic obstructive pulmonary disease, complicated by purulent tracheobronchitis. Suspect bronchomalacia. #2 Chronic and ongoing tobacco dependence. #3 Diffuse abdominal pain. #4 History of coronary disease. #5 History of skin cancer. #6 GERD. #7 History of GI bleed. #8 Hyperlipidemia. #9 Hypertension. #10 Stage III chronic kidney disease. #11 Obstructive sleep apnea maintained on CPAP. #12 Chronic anemia. Plan: The patient was seen and evaluated by Dr. Arguelles. She has been slow to progress. We'll go ahead and perform a bronchoscopy with BAL in the a.m. Continue the current treatment plan for now. Increase her activity as tolerated. We'll continue to follow. I, the cosigning physician, performed a history & physical examination of the patient. Lungs sounds bilateral scattered rhonchi. Maintaining good O2 saturations in the 90s on 2 L/m per nasal cannula. I discussed the assessment and plan of care with my nurse practitioner, Sabrina Kemp. I attest to the above note as dictated by her.
--- NOTE | 2019-04-17 11:49 | XR ---
EXAMINATION TYPE: XR abdomen 2V DATE OF EXAM: 04/17/2019 COMPARISON: NONE HISTORY: Pain TECHNIQUE: Supine and upright views of the abdomen are submitted. FINDINGS: Small bowel demonstrates no evidence for dilatation or air fluid levels. Gas and fecal material is seen in non-distended colon. No convincing evidence for pneumoperitoneum. No unusual calcifications. The lung bases are clear. The osseous structures are intact. IMPRESSION: 1. Overall nonobstructive bowel gas pattern.
--- NOTE | 2019-04-17 13:01 | P.PN ---
Subjective HISTORY OF PRESENTING ILLNESS This is a pleasant 74-year-old female past medical history significant for hypertension, dyslipidemia, COPD, chronic nicotine dependence, history of bleeding ulcer 15 years ago, obstructive sleep apnea and . She recently established with Dr. White in [facility]. She is seen and examined sitting up in the chair in no acute distress. She continues to feel short of breath and is coughing. Echocardiogram obtained reveals impaired LV systolic function with ejection fraction 30-35%, mild aortic valve sclerosis, mild MR and moderately dilated left atrium. Blood pressure 136/63 heart rate 72 afebrile maintaining oxygen saturation on nasal cannula. Laboratory data reviewed, WBC 10.5, hemoglobin 14.6, platelets 505, sodium 138, potassium 4.5, creatinine 0.69. Currently maintained on atorvastatin 40 mg daily, Lasix 20 mg by mouth daily, Imdur 30 mg daily, lisinopril 5 mg daily, metoprolol 25 mg twice a day and daily potassium supplementation. Pulmonology has scheduled her for a bronchoscopy tomorrow morning. Telemetry tracings reviewed and reveal consistent sinus mechanism. Ongoing MAT initially however seems to have improved. PHYSICAL EXAMINATION CONSTITUTIONAL: No apparent distress. HEENT: Head is normocephalic. Pupils are equal, round. Sclerae anicteric. Mucous membranes of the mouth are moist. No JVD. No carotid bruit. CHEST EXAMINATION: Diminished bilaterally. Minimal scattered rhonchi. No wheezes or rales. No chest wall tenderness is noted on palpation or with deep breathing. HEART EXAMINATION: Regular rate and rhythm. S1, S2 heard. No murmurs, gallops or rub. EXTREMITIES: 2+ peripheral pulses, no lower extremity edema and no calf tenderness. ASSESSMENT Multi-focal atrial tachycardia Systolic heart failure, appears to be new onset. Prior echocardiograms and recent heart cath reviewed. No evidence of prior systolic heart failure. Clinically she is euvolemic. Leukocytosis COPD Hypertension Dyslipidemia Chronic nicotine dependence PLAN Continue current medical regimen. DARIO inhibitor and beta blockers well tolerated thus far. May increase lisinopril as needed for elevated blood pressures. Nurse Practitioner note has been reviewed, I agree with a documented findings and plan of care. Patient was seen and examined. Objective - Vital Signs Vital signs: Vital Signs Temp 97.8 F 04/17/19 12:34 Pulse 72 04/17/19 12:34 Resp 20 12/12/19 12:34 BP 136/63 04/17/19 12:34 Pulse Ox 95 04/17/19 12:34 Intake & Output 04/16/19 04/17/19 04/17/19 18:59 06:59 18:59 Intake Total 540 Balance 540 Intake: Oral 540 Other: Voiding Method Toilet # Voids 2 1 # Bowel Movements 3 - Labs CBC & Chem 7: 04/17/19 08:37 04/17/19 08:40 Labs: Abnormal Lab Results - Last 24 Hours (Table) 04/17/19 04/17/19 Range/Units 08:37 08:40 Plt Count 505 H (150-450) k/uL Neutrophils # 9.7 H (1.3-7.7) k/uL Lymphocytes # 0.5 L (1.0-4.8) k/uL BUN 20 H (7-17) mg/dL Glucose 214 H (74-99) mg/dL
--- NOTE | 2019-04-17 14:20 | P.PN ---
Subjective Progress Note Date: 04/17/19 CHIEF COMPLAINT: Abdominal pain HISTORY OF PRESENT ILLNESS: Patient seen and examined at the bedside with Dr. Avila. Patient reports significant improvement in abdominal pain. She received lactulose and enemas yesterday. She reports having bowel movements o vernight and today. She is tolerating diet. Denies nausea or vomiting. Abdominal x-ray reveals gas and fecal material and nondistended colon. Impression overall obstructive bowel gas pattern. PHYSICAL EXAM: VITAL SIGNS: Reviewed. GENERAL: Well-developed in no acute distress. HEENT: No sclera icterus. Extraocular movements grossly intact. Moist buccal mucosa. Head is atraumatic, normocephalic. ABDOMEN: Soft. Nondistended. Minimal tenderness with palpation to right lower quadrant. NEUROLOGIC: Alert and oriented. Cranial nerves II through XII grossly intact. ASSESSMENT: 1. Abdominal pain 2. Constipation PLAN: -Continue diet as tolerated -Begin MiraLAX daily to prevent constipation -No surgical intervention recommended at this time. We will sign off. Please reconsult if needed. Nurse practitioner note has been reviewed by physician. Signing provider agrees with the documented findings, assessment, and plan of care. Objective - Vital Signs Vital signs: Vital Signs Temp 97.8 F 04/17/19 12:34 Pulse 72 04/17/19 12:34 Resp 20 04/17/19 12:34 BP 136/63 04/17/19 12:34 Pulse Ox 93 L 04/17/19 13:04 Intake & Output 04/16/19 04/17/19 04/17/19 18:59 06:59 18:59 Intake Total 540 Balance 540 Intake: Oral 540 Other: Voiding Method Toilet # Voids 2 1 2 # Bowel Movements 3 - Labs CBC & Chem 7: 04/17/19 08:37 04/17/19 08:40 Labs: Abnormal Lab Results - Last 24 Hours (Table) 04/17/19 04/17/19 Range/Units 08:37 08:40 Plt Count 505 H (150-450) k/uL Neutrophils # 9.7 H (1.3-7.7) k/uL Lymphocytes # 0.5 L (1.0-4.8) k/uL BUN 20 H (7-17) mg/dL Glucose 214 H (74-99) mg/dL
[2019-04-17] MEDS: ISOSORBIDE MONONITRATE ER 30 MG TAB.ER.24H PO SCH (17:27)
[2019-04-17] MEDS ORDERED: LIDOCAINE 1% 20 ML VIAL (10MG/ML) FOR IV START INTRADERMA PRN (19:30)
[2019-04-17] MEDS: ACETAMINOPHEN TAB 325 MG TAB PO PRN (20:26)
[2019-04-17] MEDS: DIAZEPAM 5 MG TAB PO PRN (20:26)
[2019-04-17] MEDS: MONTELUKAST 10 MG TAB PO SCH (20:27)
[2019-04-17] MEDS: ATORVASTATIN 40 MG TAB PO SCH (20:27)
[2019-04-17] MEDS: POTASSIUM CHLORIDE ER 10 MEQ TAB.ER.PRT PO SCH (20:27)
[2019-04-18] MEDS: LACTATED RINGERS 1,000 ML IV SCH ×2 (01:55→19:58)
[2019-04-18] MEDS: methylPREDNISolone SOD SUCCI 125 MG/2 ML VIAL IV SCH ×4 (05:01→23:19)
[2019-04-18] MEDS: BUDESONIDE 1 MG/2 ML NEBU INHALATION SCH ×2 (07:07→19:09)
[2019-04-18] MEDS: FORMOTEROL FUMARATE 20 MCG/2 ML NEBU INHALATION SCH ×2 (07:07→19:09)
[2019-04-18] MEDS: IPRATROPIUM-ALBUTEROL 3 ML NEB INHALATION PRN ×3 (07:07→19:09)
[2019-04-18] MEDS: IPRATROPIUM 0.5 MG/2.5 ML NEBU INHALATION SCH ×4 (07:29→19:11)
[2019-04-18 07:45] LABS: Basophils % (A) 0 %; Eosinophils % (A) 0 %; HCT 40.8 % (34.0-46.0); HGB 12.9 gm/dL (11.4-16.0); Lymphocytes # (A) 0.8 k/uL (1.0-4.8); Lymphocytes % (A) 5 %; MCH 28.5 pg (25.0-35.0); MCHC 31.6 g/dL (31.0-37.0); MCV 90.2 fL (80.0-100.0); Mean Platelet Volume 7.1; Monocytes # (A) 0.9 k/uL (0-1.0); Monocytes % (A) 6 %; Neutrophils # (A) 12.6 k/uL (1.3-7.7); Neutrophils % (A) 87 %; Platelet Count 439 k/uL (150-450); RBC 4.52 m/uL (3.80-5.40); RDW 13.7 % (11.5-15.5); WBC 14.4 k/uL (3.8-10.6)
[2019-04-18 07:52] LABS: African American GFR (CKD) >90 (>60 ml/min/1.73 sqM); Anion Gap 8 mmol/L; Blood Urea Nitrogen 27 mg/dL (7-17); Calcium 8.8 mg/dL (8.4-10.2); Carbon Dioxide 26 mmol/L (22-30); Chloride 104 mmol/L (98-107); Glucose 138 mg/dL (74-99); Non-African American GFR(CKD) 79 (>60 ml/min/1.73 sqM); Potassium 4.3 mmol/L (3.5-5.1); Sodium 138 mmol/L (137-145)
[2019-04-18] MEDS: FLUoxetine HCL 20 MG CAP PO SCH (08:20)
[2019-04-18] MEDS: AMOXIC-POT CLAV 875-125MG 1 EACH TAB PO SCH ×2 (08:20→21:04)
[2019-04-18] MEDS: FUROSEMIDE 20 MG TAB PO SCH (08:21)
[2019-04-18] MEDS: METOPROLOL TARTRATE 25 MG TAB PO SCH ×2 (08:21→21:04)
[2019-04-18] MEDS: POTASSIUM CHLORIDE ER 20 MEQ TAB.ER PO SCH (08:21)
[2019-04-18] MEDS: MAGNESIUM OXIDE 400 MG TAB PO SCH (08:21)
[2019-04-18] MEDS: POLYETHYLENE GLYCOL 3350 17 GM POWD.PACK PO SCH (08:21)
[2019-04-18] MEDS: LISINOPRIL 5 MG TAB PO SCH (08:21)
--- NOTE | 2019-04-18 09:27 | P.PN ---
Subjective This is a pleasant 74 years old female with past medical history of asthma/COPD, coronary artery disease, GERD, GI bleed, hyperlipidemia, hypertension, sleep apnea on CPAP/BiPAP, diverticulitis, chronic kidney disease stage III, osteoporosis, skin cancer. Patient admitted for dyspnea. Patient was transferred from [facility]. Patient presents with dyspnea and cough, has been gradually getting worse. Patient has been recently received a short course of oral antibiotics and steroids. Labs showing potassium 3.2, sodium 142, creatinine 0.8, urinalysis was suspicious of infection. Patient was treated at [facility] with no improvement so patient was transferred to the current hospital She smokes about 3 packs per week Also patient complaining of from constipation since Sunday past for 3-4 days with no nausea vomiting, no abdominal pain however on exam she has right lower quadrant abdominal tenderness with no rebound tenderness or guarding [facility]'s records have been reviewed showing EKG with regular r hythm suspicious for A. fib versus multifocal atrial tachycardia. Labs showing sodium 142, potassium 3.2, creatinine 0.8, urinalysis is for infection not suspicious for infection. Troponin less than 0.01, chest x-ray showing possible left lower lung scattering versus atelectasis., INR 0.9, CK is 119, liver enzymes elevated. Bilirubin is 0.4. CBC showing elevated BC of 8.5K, hemoglobin 13.5, platelets 250 9K, And [facility] patient was treated with acetylcysteine nebulizer, Junot's, Zithromax, and Rocephin, diazepam, Flonase spray, montelukast, Solu- Medrol injections, magnesium sulfate,, [place] 5 mg, however her pulse ox dropped to 88% and on oxygen therapy with ambulation, also she is having chest tightness however patient was denying nicotine patch. 04/16/2019 patient is admitted with dyspnea and coughing with phlegm. No chest pain, she has been complaining of from constipation however she had 4 episodes of small bowel movements.abdominal x-ray showing extensive retained fecal debris.labs look stable with no fever, she is tachycardic at 110 , oxygen saturation of 93% on 3L of oxygen. labs showed mild leukocytosis of 12.9 K.influenza is negative. most likely patient has atrial fibrillation,patient is waiting for bed placement to be transferred to telemetry unit. 04/17/2019 Patient breathing is partially better today. With less dyspnea but still coughing. However she have heart, bringing stuff up. However patient is a Robitussin. Patient had 4-5 small bowel movements yesterday and 1 bowel movement today and she is happy about that however she still have tenderness in her right lower quadrant although it's this severe compared to yesterday. [employer] evaluation is appreciated. Most likely patient has multifocal atrial tachycardia rather than atrial fibrillation. [employer] already on the records Vitals stable. She is saturating 94% at 2 L. Today's labs are pending. Repeat abdominal x-ray from today: nonspecific bowel pattern 04/18/2019 Patient is alert, she still have some respiratory symptoms however she can talk more freely.pulmonary service R following the case closely with the plan for possible bronchoscopy today. Her abdominal pain is better, she had 2 small amount of bowel movement since yesterday. I discussed about the patient discharge plan with recommendation for subacute rehab by the physical therapist and patient is thinking about it. senior software development manager/social organization professor on the case. Objective - Vital Signs Vital signs: Vital Signs Temp 98 F 04/18/19 05:00 Pulse 74 04/18/19 07:31 Resp 20 04/18/19 05:00 BP 122/79 04/18/19 05:00 Pulse Ox 94 L 04/18/19 05:00 Intake & Output 04/17/19 04/18/19 04/18/19 18:59 06:59 18:59 Output Total 1 Balance -1 Output: Stool 1 Other: Voiding Method Toilet Toilet # Voids 2 2 - Exam GENERAL: The patient is alert and oriented x3, not in any acute distress. Well developed, well nourished. HEENT: Pupils are round and equally reacting to light. EOMI. No scleral icterus. No conjunctival pallor. Normocephalic, atraumatic. No pharyngeal erythema. No thyromegaly. CARDIOVASCULAR: S1 and S2 present. No murmurs, rubs, or gallops. -PULMONARY: Chest is clear to auscultation, bilateral expiratory wheezing -ABDOMEN: Soft, RLQ and suprapubictenderness with some guarding or rebound tenderness, nondistended, normoactive bowel sounds. No palpable organomegaly. MUSCULOSKELETAL: No joint swelling or deformity. EXTREMITIES: No cyanosis, clubbing, or pedal edema. NEUROLOGICAL: Gross neurological examination did not reveal any focal deficits. SKIN: No rashes. No petechiae - Labs CBC & Chem 7: 04/18/19 06:42 04/18/19 06:42 Labs: Abnormal Lab Results - Last 24 Hours (Table) 04/17/19 04/18/19 04/18/19 Range/Units 08:40 06:42 06:42 WBC 14.4 H (3.8-10.6) k/uL Neutrophils # 12.6 H (1.3-7.7) k/uL Lymphocytes # 0.8 L (1.0-4.8) k/uL BUN 20 H 27 H (7-17) mg/dL Glucose 214 H 138 H (74-99) mg/dL Assessment and Plan Assessment: Acute COPD exacerbation Acute hypoxic respiratory failure Patient has multifocal atrial tachycardia rather than atrial fibrillation. As per cardiology evaluation Constipation with RLQ tenderness History of coronary artery disease Hypertension Hyperlipidemia Sleep apnea on CPAP/BiPAP GERD History of upper GI bleed History of diverticulitis Chronic kidney disease stage III Osteoporosis History of skin cancer Plan: This is a pleasant 74 years old female who presents with acute COPD exacerbation, constipation and multifocal atrial tachycardia. Continue with steroids, bronchodilator, and oxygen. Place patient on telemetry and follow-up recommendation by cardiology consult. Follow-up recommendation by sales representative. Continue with bowel regiment as per surgical recommendation Labs and medication were reviewed.. Continue same treatment. Continue with symptomatic treatment. Resume home medication. Monitor lytes and vitals. DVT and GI prophylaxis. Further recommendations of the clinical course of the patient DVT prophylaxis: Subcutaneous heparin GI Prophylaxis: Pepcid PT/OT: Recommended home health care versus rehab Prognosis is guarded
--- NOTE | 2019-04-18 11:33 | P.PN ---
Subjective Progress Note Date: 04/18/19 Principal diagnosis: Acute exacerbation of chronic obstructive pulmonary disease, complicated by purulent tracheobronchitis. The patient is seen today no 04/17/2019 in follow-up on the regular medical floor. She is currently resting comfortably in bed. Awake and alert in no ac mikala distress. He still has a loose nonproductive cough. Some dyspnea on exertion. Maintaining good O2 saturations in the 90s on 2 L/m per nasal cannula. She has been afebrile. Hemodynamically stable. White count 10.5. Hemoglobin 14.6. Creatinine 0.69. Currently on DuoNeb inhalations, Pulmicort and Perforomist inhalations, IV Solu-Medrol and Augmentin. The patient is seen today 04/18/2019 in follow-up on the regular medical floor. She is awake and alert in no acute distress. She continues with a loose nonproductive cough. Dyspneic on exertion.maintaining O2 saturations in the low 90s on 2 L Per minute per nasal cannula. White count 14.4. Hemoglobin 12.9. Creatinine 0.76. She is continued on DuoNeb inhalations, Perforomist and Pulmicort inhalations,IV Solu-Medrol. Antibiotics in the form of Augmentin. Objective - Vital Signs Vital signs: Vital Signs Temp 98 F 04/18/19 05:00 Pulse 74 04/18/19 07:31 Resp 20 04/18/19 05:00 BP 122/79 04/18/19 05:00 Pulse Ox 94 L 04/18/19 05:00 Intake & Output 04/17/19 04/18/19 04/18/19 18:59 06:59 18:59 Output Total 1 Balance -1 Output: Stool 1 Other: Voiding Method Toilet Toilet # Voids 2 2 - Exam GENERAL EXAM: Alert, pleasant 74-year-old female patient, comfortable in no apparent distress. On 2 L nasal cannula HEAD: Normocephalic. EYES: Normal reaction of pupils, equal size. NOSE: Clear with pink turbinates. THROAT: No erythema or exudates. NECK: No masses, no JVD. CHEST: No chest wall deformity. LUNGS: Equal air entry with bilateral scattered rhonchi. CVS: S1 and S2 normal with no audible murmur, regular rhythm. ABDOMEN: No hepatosplenomegaly, normal bowel sounds, no guarding or rigidity. SPINE: No scoliosis or deformity SKIN: No rashes CENTRAL NERVOUS SYSTEM: No focal deficits, tone is normal in all 4 extremities. EXTREMITIES: There is no peripheral edema. No clubbing, no cyanosis. Peripheral pulses are intact. - Labs CBC & Chem 7: 04/18/19 06:42 04/18/19 06:42 Labs: Abnormal Lab Results - Last 24 Hours (Table) 04/18/19 04/18/19 Range/Units 06:42 06:42 WBC 14.4 H (3.8-10.6) k/uL Neutrophils # 12.6 H (1.3-7.7) k/uL Lymphocytes # 0.8 L (1.0-4.8) k/uL BUN 27 H (7-17) mg/dL Glucose 138 H (74-99) mg/dL Assessment and Plan Assessment: #1 Acute exacerbation of chronic obstructive pulmonary disease, complicated by purulent tracheobronchitis. Suspect bronchomalacia. #2 Chronic and ongoing tobacco dependence. #3 Diffuse abdominal pain. #4 History of coronary disease. #5 History of skin cancer. #6 GERD. #7 History of GI bleed. #8 Hyperlipidemia. #9 Hypertension. #10 Stage III chronic kidney disease. #11 Obstructive sleep apnea maintained on CPAP. #12 Chronic anemia. Plan: The patient was seen and evaluated by Dr. Arguelles. Plan is for bronchoscopy with BAL today. Continue the current treatment plan for now. Increase her activity as tolerated. We'll continue to follow. I, the cosigning physician, performed a history & physical examination of the patient. Lungs sounds bilateral scattered rhonchi. Maintaining good O2 saturations in the 90s on 2 L/m per nasal cannula. I discussed the assessment and plan of care with my nurse practitioner, Sabrina Kemp. I attest to the above note as dictated by her.
[2019-04-18] MEDS ORDERED: fentaNYL (PF) 50 MCG/ML 2 ML AMP ONE (13:07)
[2019-04-18] MEDS ORDERED: KETAMINE 10 MG/ML 20 ML VIAL ONE (13:07)
[2019-04-18] MEDS ORDERED: PROPOFOL 10 MG/ML 20 ML VIAL IV ONE (13:07)
[2019-04-18] MEDS ORDERED: LIDOCAINE 1% INJ 10MG/ML (20 ML MDV) ONE (13:07)
[2019-04-18] MEDS ORDERED: MIDAZOLAM 2 MG/2 ML VIAL ONE (13:07)
[2019-04-18] MEDS ORDERED: SODIUM CHLORIDE 0.9% 500 ML IV ONE (13:10)
[2019-04-18] MEDS ORDERED: LIDOCAINE 2% INJ 20 MG/ML INTRATRACH ONE (13:19)
--- NOTE | 2019-04-18 13:29 | P.PN ---
Subjective HISTORY OF PRESENTING ILLNESS This is a pleasant 74-year-old female past medical history significant for hypertension, dyslipidemia, COPD, chronic nicotine dependence, history of bleeding ulcer 15 years ago, obstructive sleep apnea and . She recently established with Dr. White in [facility]. She is seen and examined sitting up in the chair in no acute distress. She continues to feel short of breath and is coughing. Echocardiogram obtained reveals impaired LV systolic function with ejection fraction 30-35%, mild aortic valve sclerosis, mild MR and moderately dilated left atrium. She is seen and examined resting comfortably laying flat in bed. She is scheduled to undergo a bronchoscopy today around 1130. She feels like her breathing is improving slightly. She denies chest pain, dizziness or palpitations. Blood pressure 122/79 heart rate 65 afebrile and maintaining oxygen saturation on nasal cannula. Laboratory data reviewed, WBC 14.4, hgb 12.9, plt 439, sodium 138, potassium 4.3, creatinine 0.76. Currently maintained on atorvastatin 40 mg daily, imdur 30 mg daily, lisinopril 5 mg daily, lopressor 25 mg BID, lasix 20 mg daily PHYSICAL EXAMINATION CONSTITUTIONAL: No apparent distress. HEENT: Head is normocephalic. Pupils are equal, round. Sclerae anicteric. Mucous membranes of the mouth are moist. No JVD. No carotid bruit. CHEST EXAMINATION: Diminished bilaterally. Minimal scattered rhonchi. No wheezes or rales. No chest wall tenderness is noted on palpation or with deep breathing. HEART EXAMINATION: Regular rate and rhythm. S1, S2 heard. No murmurs, gallops or rub. EXTREMITIES: 2+ peripheral pulses, no lower extremity edema and no calf tenderness. ASSESSMENT Multi-focal atrial tachycardia Systolic heart failure, appears to be new onset. Prior echocardiograms and recent heart cath reviewed. No evidence of prior systolic heart failure. Clinically she is euvolemic. Leukocytosis COPD Hypertension Dyslipidemia Chronic nicotine dependence PLAN Discontinue imdur as recent heart cath revealed no significant obstructive disease. Continue lisinopril, atorvastatin, lopressor and lasix as previously ordered. Nurse Practitioner note has been reviewed, I agree with a documented findings and plan of care. Patient was seen and examined. Objective - Vital Signs Vital signs: Vital Signs Temp 98.0 F 04/18/19 11:21 Pulse 52 L 12/13/19 11:35 Resp 20 04/18/19 11:21 BP 143/71 04/18/19 11:21 Pulse Ox 93 L 04/18/19 11:21 Intake & Output 04/17/19 04/18/19 04/18/19 18:59 06:59 18:59 Output Total 1 Balance -1 Output: Stool 1 Other: Voiding Method Toilet Toilet # Voids 2 2 - Labs CBC & Chem 7: 04/18/19 06:42 04/18/19 06:42 Labs: Abnormal Lab Results - Last 24 Hours (Table) 04/18/19 04/18/19 Range/Units 06:42 06:42 WBC 14.4 H (3.8-10.6) k/uL Neutrophils # 12.6 H (1.3-7.7) k/uL Lymphocytes # 0.8 L (1.0-4.8) k/uL BUN 27 H (7-17) mg/dL Glucose 138 H (74-99) mg/dL
--- NOTE | 2019-04-18 14:05 | PCN ---
PROCEDURE NOTE PROCEDURE: Bronchoscopy, airway examination, therapeutic lavage, BAL. PREOPERATIVE DIAGNOSIS: Purulent tracheobronchitis, retained secretions. POSTOPERATIVE DIAGNOSIS: Purulent tracheobronchitis, retained secretions. OPERATORS: Dr. Arguelles, Dr. Kemp, and Michelle Fragoso. PROCEDURE: There was informed consent and universal timeout. The procedure took place in room #1. Anesthesia provided unconscious sedation and general anesthesia. After the patient was adequately sedated and being fully monitored, the bronchoscope was inserted through the right nostril. It passed through the right nasopharynx into the oropharynx. The hypopharynx was identified and topicalized. Of note was the fact that there was yeast noted on the vocal cords and the arytenoids. The other structures appeared relatively normal including anterior commissure, true cords, false cords, arytenoids, piriform sinuses, right and left valleculae and epiglottis. After topicalization, bronchoscope was pushed through the glottic opening into the trachea. The trachea appeared relatively normal although there were some secretions noted distally. The tracheal trinh was sharp. The right and left mainstem bronchi were topicalized. After topicalization, the right upper lobe and its 3 segments, right middle lobe and its 2 segments, right lower lobe and its 5 segments, the left upper lobe and its 2 segments, the lingula and its 2 segments and the left lower lobe and its 4 segments were evaluated. Similar findings were noted throughout. There were thick, thick secretions noted. The mucosa was very friable. There was erythema and hyperemia of the airways. The secretions were suctioned without difficulty. There was no dominant mass or tumor. The bronchoscope was then wedged into the right middle lobe. The patient had a BAL there. There was about 30 mL recovered. That will be sent to the laboratory for analysis. Afterwards, the bronchoscope was then used again with saline lavage to cleanse the rest of the airways. There was no immediate complications. The patient tolerated the procedure well. There was no significant bleeding. The bronchoscope was withdrawn. There was no immediate complication. The patient will be recovered and returned back to her room. The fluid again will be sent for analysis. MMODL / IJN: [id number] /
[2019-04-18 18:26] LABS: Appearance,BF Cloudy; Color,BF Pink; Nucleated Cells, Body Fluid 3100 /uL; RBC, Body Fluid 5800 /uL
[2019-04-18 18:29] LABS: Mononuclear WBC,Body Fluid 6 %; Polynuclear WBC,Body Fluid 94 %; Total Cells Counted,Body Fluid 100
[2019-04-18 20:30] LABS: Glucose,Whole Blood 207 mg/dL (75-99)
[2019-04-18] MEDS: ATORVASTATIN 40 MG TAB PO SCH (21:04)
[2019-04-18] MEDS: MONTELUKAST 10 MG TAB PO SCH (21:04)
[2019-04-18] MEDS: POTASSIUM CHLORIDE ER 10 MEQ TAB.ER.PRT PO SCH (21:04)
[2019-04-18] MEDS: DIAZEPAM 5 MG TAB PO PRN (21:04)
[2019-04-19] MEDS: methylPREDNISolone SOD SUCCI 125 MG/2 ML VIAL IV SCH ×4 (06:20→23:30)
[2019-04-19] MEDS: FLUoxetine HCL 20 MG CAP PO SCH (07:57)
[2019-04-19] MEDS: FUROSEMIDE 20 MG TAB PO SCH (07:57)
[2019-04-19] MEDS: AMOXIC-POT CLAV 875-125MG 1 EACH TAB PO SCH ×2 (07:57→21:10)
[2019-04-19] MEDS: LISINOPRIL 5 MG TAB PO SCH (07:58)
[2019-04-19] MEDS: POTASSIUM CHLORIDE ER 20 MEQ TAB.ER PO SCH (07:58)
[2019-04-19] MEDS: METOPROLOL TARTRATE 25 MG TAB PO SCH ×2 (07:58→21:10)
[2019-04-19] MEDS: MAGNESIUM OXIDE 400 MG TAB PO SCH (07:58)
[2019-04-19] MEDS: POLYETHYLENE GLYCOL 3350 17 GM POWD.PACK PO SCH (07:59)
[2019-04-19] MEDS: BUDESONIDE 1 MG/2 ML NEBU INHALATION SCH ×2 (08:59→20:27)
[2019-04-19] MEDS: IPRATROPIUM 0.5 MG/2.5 ML NEBU INHALATION SCH ×4 (08:59→20:30)
[2019-04-19] MEDS: IPRATROPIUM-ALBUTEROL 3 ML NEB INHALATION PRN ×4 (08:59→20:27)
[2019-04-19] MEDS: FORMOTEROL FUMARATE 20 MCG/2 ML NEBU INHALATION SCH ×2 (08:59→20:27)
--- NOTE | 2019-04-19 13:35 | P.PN ---
Subjective Progress Note Date: 04/19/19 Principal diagnosis: Acute exacerbation of chronic obstructive pulmonary disease, complicated by purulent tracheobronchitis. The patient is seen today no 04/17/2019 in follow-up on the regular medical floor. She is currently resting comfortably in bed. Awake and alert in no ac mikala distress. He still has a loose nonproductive cough. Some dyspnea on exertion. Maintaining good O2 saturations in the 90s on 2 L/m per nasal cannula. She has been afebrile. Hemodynamically stable. White count 10.5. Hemoglobin 14.6. Creatinine 0.69. Currently on DuoNeb inhalations, Pulmicort and Perforomist inhalations, IV Solu-Medrol and Augmentin. The patient is seen today 04/18/2019 in follow-up on the regular medical floor. She is awake and alert in no acute distress. She continues with a loose nonproductive cough. Dyspneic on exertion.maintaining O2 saturations in the low 90s on 2 L Per minute per nasal cannula. White count 14.4. Hemoglobin 12.9. Creatinine 0.76. She is continued on DuoNeb inhalations, Perforomist and Pulmicort inhalations,IV Solu-Medrol. Antibiotics in the form of Augmentin. The patient is seen today 04/19/2019 in follow-up on the regular medical floor. She is currently sitting up with the bedside. Awake and alert in no acute distress. Breathing easier today as compared to yesterday. Less congested cough. Status post bronchoscopy with BAL. Cultures pending. Viral workup is positive for parainfluenza 1. White count 14.4. Hemoglobin 12.9. Creatinine 0.76. She is currently on bronchodilators, Augmentin, Singulair, IV Solu- Medrol. Objective - Vital Signs Vital signs: Vital Signs Temp 97.4 F L 04/19/19 12:01 Pulse 76 04/19/19 12:56 Resp 18 04/19/19 12:01 BP 145/69 04/19/19 12:01 Pulse Ox 94 L 04/19/19 12:01 Intake & Output 04/18/19 04/19/19 04/19/19 18:59 06:59 18:59 Intake Total 180 220 Output Total 1 1 Balance 179 220 -1 Intake: IV 100 Intake, IV Titration 80 20 Amount Lactated Ringers 1,000 ml 80 @ 20 mls/hr IV .Q24H [facility] Rx#:[id number] Sodium Chloride 0.9% 500 20 ml @ 0 mls/hr IV .[facility] Rx#:[id number] Oral 200 Output: Stool 1 1 Other: Voiding Method Toilet Toilet Toilet # Voids 1 1 - Exam GENERAL EXAM: Alert, pleasant 74-year-old female patient, comfortable in no apparent distress. On 2 L nasal cannula HEAD: Normocephalic. EYES: Normal reaction of pupils, equal size. NOSE: Clear with pink turbinates. THROAT: No erythema or exudates. NECK: No masses, no JVD. CHEST: No chest wall deformity. LUNGS: Equal air entry with bilateral scattered rhonchi. CVS: S1 and S2 normal with no audible murmur, regular rhythm. ABDOMEN: No hepatosplenomegaly, normal bowel sounds, no guarding or rigidity. SPINE: No scoliosis or deformity SKIN: No rashes CENTRAL NERVOUS SYSTEM: No focal deficits, tone is normal in all 4 extremities. EXTREMITIES: There is no peripheral edema. No clubbing, no cyanosis. Peripheral pulses are intact. - Labs CBC & Chem 7: 04/18/19 06:42 04/18/19 06:42 Labs: Abnormal Lab Results - Last 24 Hours (Table) 04/18/19 04/18/19 Range/Units 13:00 20:28 POC Glucose (mg/dL) 207 H (75-99) mg/dL Viral Test See Below H Microbiology - Last 24 Hours (Table) 04/18/19 13:00 Gram Stain - Preliminary Bronchial Washings - Right Bronchial Washings Culture - Preliminary 04/18/19 13:00 Fungal Culture - Preliminary Bronchial Washings - Right 04/18/19 13:00 Acid Fast Bacilli Culture - Preliminary Bronchial Washings - Right Assessment and Plan Assessment: #1 Acute exacerbation of chronic obstructive pulmonary disease, complicated by purulent tracheobronchitis. Status post bronchoscopy with BAL. Cultures pending. Viral screen is positive for parainfluenza 1. #2 Chronic and ongoing tobacco dependence. #3 Diffuse abdominal pain. #4 History of coronary disease. #5 History of skin cancer. #6 GERD. #7 History of GI bleed. #8 Hyperlipidemia. #9 Hypertension. #10 Stage III chronic kidney disease. #11 Obstructive sleep apnea maintained on CPAP. #12 Chronic anemia. Plan: The patient was seen and evaluated by Dr. Arguelles. Bronchial cultures pending. Viral screen positive for parainfluenza 1. Continue the current treatment plan for now. Increase her activity as tolerated. We'll continue to follow. The plan is for probable discharge to [facility] for subacute rehabilitation versus home with home care. I, the cosigning physician, performed a history & physical examination of the patient. Lungs sounds bilateral scattered rhonchi. Maintaining good O2 saturations in the 90s on 2 L/m per nasal cannula. I discussed the assessment and plan of care with my nurse practitioner, Sabrina Kemp. I attest to the above note as dictated by her.
--- NOTE | 2019-04-19 13:40 | P.PN ---
Subjective Progress Note Date: 04/19/19 This is a very pleasant 80-year-old female patient was admitted to the hospital with acute exacerbation of congestive heart failure secondary to systolic dysfunction. She was diagnosed during her hospitalization with multifocal atrial tachycardia. She was seen this morning. Overall she seems to be stable. The shortness of breath is better. She does have rhonchi in both lung bases. She does have mild lower extremities edema. The patient is going to be discharged into an extended-care facility. Objective - Vital Signs Vital signs: Vital Signs Temp 97.4 F L 04/19/19 12:01 Pulse 76 04/19/19 12:56 Resp 18 04/19/19 12:01 BP 145/69 04/19/19 12:01 Pulse Ox 94 L 04/19/19 12:01 Intake & Output 04/18/19 04/19/19 04/19/19 18:59 06:59 18:59 Intake Total 180 220 Output Total 1 1 Balance 179 220 -1 Intake: IV 100 Intake, IV Titration 80 20 Amount Lactated Ringers 1,000 ml 80 @ 20 mls/hr IV .Q24H [facility] Rx#:[id number] Sodium Chloride 0.9% 500 20 ml @ 0 mls/hr IV .[facility] Rx#:[id number] Oral 200 Output: Stool 1 1 Other: Voiding Method Toilet Toilet Toilet # Voids 1 1 - Constitutional General appearance: Present: no acute distress - Respiratory Respiratory: bilateral: diminished, rales - Cardiovascular Rhythm: irregularly irregular Heart sounds: normal: S1, S2 - Labs CBC & Chem 7: 04/18/19 06:42 04/18/19 06:42 Labs: Abnormal Lab Results - Last 24 Hours (Table) 04/18/19 04/18/19 Range/Units 13:00 20:28 POC Glucose (mg/dL) 207 H (75-99) mg/dL Viral Test See Below H Microbiology - Last 24 Hours (Table) 04/18/19 13:00 Gram Stain - Preliminary Bronchial Washings - Right Bronchial Washings Culture - Preliminary 04/18/19 13:00 Fungal Culture - Preliminary Bronchial Washings - Right 04/18/19 13:00 Acid Fast Bacilli Culture - Preliminary Bronchial Washings - Right Assessment and Plan Assessment: Assessment #1 multifocal atrial tachycardia #2 congestive heart failure secondary to systolic dysfunction #3 chronic obstructive pulmonary disease #4 cardiomyopathy Plan #1 continue the current medical regimen #2 patient is going to be discharged to extended care facility
[2019-04-19] MEDS: FLUCONAZOLE 100 MG TAB PO SCH ×2 (13:53→21:10)
--- NOTE | 2019-04-19 14:42 | P.PN ---
Subjective This is a pleasant 74 years old female with past medical history of asthma/COPD, coronary artery disease, GERD, GI bleed, hyperlipidemia, hypertension, sleep apnea on CPAP/BiPAP, diverticulitis, chronic kidney disease stage III, osteoporosis, skin cancer. Patient admitted for dyspnea. Patient was transferred from [facility]. Patient presents with dyspnea and cough, has been gradually getting worse. Patient has been recently received a short course of oral antibiotics and steroids. Labs showing potassium 3.2, sodium 142, creatinine 0.8, urinalysis was suspicious of infection. Patient was treated at [facility] with no improvement so patient was transferred to the current hospital She smokes about 3 packs per week Also patient complaining of from constipation since Sunday past for 3-4 days with no nausea vomiting, no abdominal pain however on exam she has right lower quadrant abdominal tenderness with no rebound tenderness or guarding [facility]'s records have been reviewed showing EKG with regular r hythm suspicious for A. fib versus multifocal atrial tachycardia. Labs showing sodium 142, potassium 3.2, creatinine 0.8, urinalysis is for infection not suspicious for infection. Troponin less than 0.01, chest x-ray showing possible left lower lung scattering versus atelectasis., INR 0.9, CK is 119, liver enzymes elevated. Bilirubin is 0.4. CBC showing elevated BC of 8.5K, hemoglobin 13.5, platelets 250 9K, And [facility] patient was treated with acetylcysteine nebulizer, Junot's, Zithromax, and Rocephin, diazepam, Flonase spray, montelukast, Solu- Medrol injections, magnesium sulfate,, [place] 5 mg, however her pulse ox dropped to 88% and on oxygen therapy with ambulation, also she is having chest tightness however patient was denying nicotine patch. 04/16/2019 patient is admitted with dyspnea and coughing with phlegm. No chest pain, she has been complaining of from constipation however she had 4 episodes of small bowel movements.abdominal x-ray showing extensive retained fecal debris.labs look stable with no fever, she is tachycardic at 110 , oxygen saturation of 93% on 3L of oxygen. labs showed mild leukocytosis of 12.9 K.influenza is negative. most likely patient has atrial fibrillation,patient is waiting for bed placement to be transferred to telemetry unit. 04/17/2019 Patient breathing is partially better today. With less dyspnea but still coughing. However she have heart, bringing stuff up. However patient is a Robitussin. Patient had 4-5 small bowel movements yesterday and 1 bowel movement today and she is happy about that however she still have tenderness in her right lower quadrant although it's this severe compared to yesterday. Socially Responsible Investment Adviser evaluation is appreciated. Most likely patient has multifocal atrial tachycardia rather than atrial fibrillation. Socially Responsible Investment Adviser already on the records Vitals stable. She is saturating 94% at 2 L. Today's labs are pending. Repeat abdominal x-ray from today: nonspecific bowel pattern 04/18/2019 Patient is alert, she still have some respiratory symptoms however she can talk more freely.pulmonary service R following the case closely with the plan for possible bronchoscopy today. Her abdominal pain is better, she had 2 small amount of bowel movement since yesterday. I discussed about the patient discharge plan with recommendation for subacute rehab by the physical therapist and patient is thinking about it. refractory manager/case management social worker on the case. 04/19/2019 Patient'sBreathing is better and is improving compared to the last couple days and her bronchoscopy helped her significantly. However she still limited dyspneic and she is on oxygen via nasal cannula. Her abdominal pain and tenderness is less and she has bigger bowel movement this morning and she thinks the MiraLAX is working for her. She accepts for ECF for possible rehab which could be possibly Sunday. at bedside and all their questions were answered to their satisfaction. Objective - Vital Signs Vital signs: Vital Signs Temp 97.4 F L 04/19/19 12:01 Pulse 76 04/19/19 12:56 Resp 18 04/19/19 12:01 BP 145/69 04/19/19 12:01 Pulse Ox 94 L 04/19/19 12:01 Intake & Output 04/18/19 04/19/19 04/19/19 18:59 06:59 18:59 Intake Total 180 220 240 Output Total 1 1 Balance 179 220 239 Intake: IV 100 Intake, IV Titration 80 20 Amount Lactated Ringers 1,000 ml 80 @ 20 mls/hr IV .[facility] Rx#:[id number] Sodium Chloride 0.9% 500 20 ml @ 0 mls/hr IV .[facility] Rx#:[id number] Oral 200 240 Output: Stool 1 1 Other: Voiding Method Toilet Toilet Toilet # Voids 1 1 3 - Exam GENERAL: The patient is alert and oriented x3, not in any acute distress. Well developed, well nourished. HEENT: Pupils are round and equally reacting to light. EOMI. No scleral icterus. No conjunctival pallor. Normocephalic, atraumatic. No pharyngeal erythema. No thyromegaly. CARDIOVASCULAR: S1 and S2 present. No murmurs, rubs, or gallops. -PULMONARY: Chest is clear to auscultation, bilateral expiratory wheezing -ABDOMEN: Soft, RLQ and suprapubictenderness with some guarding or rebound tenderness, nondistended, normoactive bowel sounds. No palpable organomegaly. MUSCULOSKELETAL: No joint swelling or deformity. EXTREMITIES: No cyanosis, clubbing, or pedal edema. NEUROLOGICAL: Gross neurological examination did not reveal any focal deficits. SKIN: No rashes. No petechiae - Labs CBC & Chem 7: 04/18/19 06:42 04/18/19 06:42 Labs: Abnormal Lab Results - Last 24 Hours (Table) 04/18/19 04/18/19 Range/Units 13:00 20:28 POC Glucose (mg/dL) 207 H (75-99) mg/dL Viral Test See Below H Microbiology - Last 24 Hours (Table) 04/18/19 13:00 Gram Stain - Preliminary Bronchial Washings - Right Bronchial Washings Culture - Preliminary 04/18/19 13:00 Fungal Culture - Preliminary Bronchial Washings - Right 04/18/19 13:00 Acid Fast Bacilli Culture - Preliminary Bronchial Washings - Right Assessment and Plan Assessment: Acute COPD exacerbation Acute hypoxic respiratory failure Patient has multifocal atrial tachycardia rather than atrial fibrillation. As per cardiology evaluation Constipation with RLQ tenderness History of coronary artery disease Hypertension Hyperlipidemia Sleep apnea on CPAP/BiPAP GERD History of upper GI bleed History of diverticulitis Chronic kidney disease stage III Osteoporosis History of skin cancer Plan: This is a pleasant 74 years old female who presents with acute COPD exacerbation, constipation and multifocal atrial tachycardia. Continue with zoltan roids, bronchodilator, and oxygen. Place patient on telemetry and follow-up recommendation by cardiology consult. Follow-up recommendation by supervisor dyer. Continue with bowel regiment as per surgical recommendation Labs and medication were reviewed.. Continue same treatment. Continue with sym ptomatic treatment. Resume home medication. Monitor lytes and vitals. DVT and GI prophylaxis. Further recommendations of the clinical course of the patient DVT prophylaxis: Subcutaneous heparin GI Prophylaxis: Pepcid PT/OT: Recommended home health care versus rehab Prognosis is guarded
[2019-04-19 16:57] LABS: Glucose,Whole Blood 144 mg/dL (75-99)
[2019-04-19] MEDS: INSULIN ASPART (NovoLOG) 100 UNIT/ML VIAL SQ SCH ×2 (17:01→21:10)
[2019-04-19 21:03] LABS: Glucose,Whole Blood 236 mg/dL (75-99)
[2019-04-19] MEDS: LACTATED RINGERS 1,000 ML IV SCH (21:09)
[2019-04-19] MEDS: ATORVASTATIN 40 MG TAB PO SCH (21:10)
[2019-04-19] MEDS: POTASSIUM CHLORIDE ER 10 MEQ TAB.ER.PRT PO SCH (21:10)
[2019-04-19] MEDS: DIAZEPAM 5 MG TAB PO PRN (21:10)
[2019-04-19] MEDS: MONTELUKAST 10 MG TAB PO SCH (21:10)
[2019-04-20] MEDS: methylPREDNISolone SOD SUCCI 125 MG/2 ML VIAL IV SCH ×4 (05:41→23:06)
[2019-04-20 06:52] LABS: Basophils % (A) 0 %; Eosinophils % (A) 0 %; HCT 43.2 % (34.0-46.0); HGB 13.9 gm/dL (11.4-16.0); Lymphocytes # (A) 0.6 k/uL (1.0-4.8); Lymphocytes % (A) 4 %; MCH 29.5 pg (25.0-35.0); MCHC 32.2 g/dL (31.0-37.0); MCV 91.5 fL (80.0-100.0); Mean Platelet Volume 7.1; Monocytes # (A) 0.5 k/uL (0-1.0); Monocytes % (A) 4 %; Neutrophils # (A) 11.5 k/uL (1.3-7.7); Neutrophils % (A) 91 %; Platelet Count 453 k/uL (150-450); RBC 4.72 m/uL (3.80-5.40); RDW 13.6 % (11.5-15.5); WBC 12.6 k/uL (3.8-10.6)
[2019-04-20 07:09] LABS: African American GFR (CKD) >90 (>60 ml/min/1.73 sqM); Anion Gap 9 mmol/L; Blood Urea Nitrogen 26 mg/dL (7-17); Calcium 8.8 mg/dL (8.4-10.2); Carbon Dioxide 25 mmol/L (22-30); Chloride 103 mmol/L (98-107); Glucose 180 mg/dL (74-99); Non-African American GFR(CKD) >90 (>60 ml/min/1.73 sqM); Potassium 4.6 mmol/L (3.5-5.1); Sodium 137 mmol/L (137-145)
[2019-04-20] MEDS: BUDESONIDE 1 MG/2 ML NEBU INHALATION SCH ×2 (07:30→19:00)
[2019-04-20] MEDS: FORMOTEROL FUMARATE 20 MCG/2 ML NEBU INHALATION SCH ×2 (07:30→19:00)
[2019-04-20] MEDS: IPRATROPIUM-ALBUTEROL 3 ML NEB INHALATION PRN ×4 (07:30→19:00)
[2019-04-20] MEDS: INSULIN ASPART (NovoLOG) 100 UNIT/ML VIAL SQ SCH ×4 (07:31→20:29)
[2019-04-20 07:36] LABS: Glucose,Whole Blood 201 mg/dL (75-99)
[2019-04-20] MEDS: IPRATROPIUM 0.5 MG/2.5 ML NEBU INHALATION SCH ×4 (07:52→19:11)
[2019-04-20] MEDS: METOPROLOL TARTRATE 25 MG TAB PO SCH ×2 (09:56→20:29)
[2019-04-20] MEDS: AMOXIC-POT CLAV 875-125MG 1 EACH TAB PO SCH (09:56)
[2019-04-20] MEDS: LISINOPRIL 5 MG TAB PO SCH (09:56)
[2019-04-20] MEDS: FLUoxetine HCL 20 MG CAP PO SCH (09:56)
[2019-04-20] MEDS: MAGNESIUM OXIDE 400 MG TAB PO SCH (09:56)
[2019-04-20] MEDS: FUROSEMIDE 20 MG TAB PO SCH (09:57)
[2019-04-20] MEDS: POLYETHYLENE GLYCOL 3350 17 GM POWD.PACK PO SCH (09:57)
[2019-04-20] MEDS: POTASSIUM CHLORIDE ER 20 MEQ TAB.ER PO SCH (10:00)
[2019-04-20] MEDS: FLUCONAZOLE 100 MG TAB PO SCH ×2 (10:00→20:28)
--- NOTE | 2019-04-20 10:48 | P.PN ---
Subjective Progress Note Date: 04/20/19 Principal diagnosis: Acute exacerbation of chronic obstructive pulmonary disease, complicated by purulent tracheobronchitis. The patient is seen today no 04/17/2019 in follow-up on the regular medical floor. She is currently resting comfortably in bed. Awake and alert in no ac mikala distress. He still has a loose nonproductive cough. Some dyspnea on exertion. Maintaining good O2 saturations in the 90s on 2 L/m per nasal cannula. She has been afebrile. Hemodynamically stable. White count 10.5. Hemoglobin 14.6. Creatinine 0.69. Currently on DuoNeb inhalations, Pulmicort and Perforomist inhalations, IV Solu-Medrol and Augmentin. The patient is seen today 04/18/2019 in follow-up on the regular medical floor. She is awake and alert in no acute distress. She continues with a loose nonproductive cough. Dyspneic on exertion.maintaining O2 saturations in the low 90s on 2 L Per minute per nasal cannula. White count 14.4. Hemoglobin 12.9. Creatinine 0.76. She is continued on DuoNeb inhalations, Perforomist and Pulmicort inhalations,IV Solu-Medrol. Antibiotics in the form of Augmentin. The patient is seen today 04/19/2019 in follow-up on the regular medical floor. She is currently sitting up with the bedside. Awake and alert in no acute distress. Breathing easier today as compared to yesterday. Less congested cough. Status post bronchoscopy with BAL. Cultures pending. Viral workup is positive for parainfluenza 1. White count 14.4. Hemoglobin 12.9. Creatinine 0.76. She is currently on bronchodilators, Augmentin, Singulair, IV Solu- Medrol. The patient is seen today 04/20/2019 in follow-up on the regular medical floor. She is awake and alert in no acute distress. Breathing better today as compared to yesterday. Maintaining O2 saturations in the low 90s on 2 L/m per nasal cannula. Currently afebrile. Bronchial wash culture now positive for pseudomonas aeruginosa along with parainfluenza. White count 12.6. Hemoglobin 13.9. Creatinine 0.61. She is currently on Augmentin along with bronchodilators, IV Solu-Medrol, Singulair. Objective - Vital Signs Vital signs: Vital Signs Temp 97.7 F 04/20/19 05:00 Pulse 68 04/20/19 08:00 Resp 16 04/20/19 08:00 BP 128/81 04/20/19 05:00 Pulse Ox 90 L 04/20/19 05:00 Intake & Output 04/19/19 04/20/19 04/20/19 18:59 06:59 18:59 Intake Total 240 Output Total 5 3 Balance 235 -3 Intake: Oral 240 Output: Stool 5 3 Other: Voiding Method Toilet Toilet Toilet # Voids 3 1 # Bowel Movements 0 - Exam GENERAL EXAM: Alert, pleasant 74-year-old female patient, comfortable in no apparent distress. On 2 L nasal cannula HEAD: Normocephalic. EYES: Normal reaction of pupils, equal size. NOSE: Clear with pink turbinates. THROAT: No erythema or exudates. NECK: No masses, no JVD. CHEST: No chest wall deformity. LUNGS: Equal air entry with bilateral scattered rhonchi. CVS: S1 and S2 normal with no audible murmur, regular rhythm. ABDOMEN: No hepatosplenomegaly, normal bowel sounds, no guarding or rigidity. SPINE: No scoliosis or deformity SKIN: No rashes CENTRAL NERVOUS SYSTEM: No focal deficits, tone is normal in all 4 extremities. EXTREMITIES: There is no peripheral edema. No clubbing, no cyanosis. Periphera l pulses are intact. - Labs CBC & Chem 7: 04/20/19 05:42 04/20/19 05:42 Labs: Abnormal Lab Results - Last 24 Hours (Table) 04/18/19 04/19/19 04/19/19 Range/Units 13:00 16:56 21:01 WBC (3.8-10.6) k/uL Plt Count (150-450) k/uL Neutrophils # (1.3-7.7) k/uL Lymphocytes # (1.0-4.8) k/uL BUN (7-17) mg/dL Glucose (74-99) mg/dL POC Glucose (mg/dL) 144 H 236 H (75-99) mg/dL Viral Test See Below H 04/20/19 04/20/19 04/20/19 Range/Units 05:42 05:42 07:33 WBC 12.6 H (3.8-10.6) k/uL Plt Count 453 H (150-450) k/uL Neutrophils # 11.5 H (1.3-7.7) k/uL Lymphocytes # 0.6 L (1.0-4.8) k/uL BUN 26 H (7-17) mg/dL Glucose 180 H (74-99) mg/dL POC Glucose (mg/dL) 201 H (75-99) mg/dL Viral Test Microbiology - Last 24 Hours (Table) 04/18/19 13:00 Gram Stain - Final Bronchial Washings - Right Bronchial Washings Culture - Final Pseudomonas aeruginosa 04/18/19 13:00 Acid Fast Bacilli Smear - Final Bronchial Washings - Right Acid Fast Bacilli Culture - Preliminary Assessment and Plan Assessment: #1 Acute exacerbation of chronic obstructive pulmonary disease, complicated by purulent tracheobronchitis. Status post bronchoscopy with BAL. Cultures positive for pseudomonas aeruginosa. Viral screen is positive for parainfluenza 1. #2 Chronic and ongoing tobacco dependence. #3 Diffuse abdominal pain. #4 History of coronary disease. #5 History of skin cancer. #6 GERD. #7 History of GI bleed. #8 Hyperlipidemia. #9 Hypertension. #10 Stage III chronic kidney disease. #11 Obstructive sleep apnea maintained on CPAP. #12 Chronic anemia. Plan: The patient was seen and evaluated by Dr. Arguelles. Bronchial cultures positive for pseudomonas aeruginosa. Viral screen positive for parainfluenza 1. Continue the current treatment plan for now. Increase her activity as tolerated. We'll continue to follow. The plan is for probable discharge to [facility] tomorrow for subacute rehabilitation versus home with home care. I, the cosigning physician, performed a history & physical examination of the patient. Lungs sounds bilateral scattered rhonchi. Maintaining good O2 saturations in the 90s on 2 L/m per nasal cannula. I discussed the assessment and plan of care with my nurse practitioner, Sabrina Kemp. I attest to the above note as dictated by her.
[2019-04-20 10:57] LABS: Glucose,Whole Blood 205 mg/dL (75-99)
--- NOTE | 2019-04-20 12:37 | P.PN ---
Subjective Progress Note Date: 04/20/19 Principal diagnosis: Shortness of breath This is a very pleasant 80-year-old female patient was admitted to the hospital with acute exacerbation of congestive heart failure secondary to systolic dysfunction. She was diagnosed during her hospitalization with multifocal atrial tachycardia. She was seen this Over afternoon, 04/20/2019. Overall she seems to be stable. The shortness of breath is better. She does have rhonchi in both lung bases. She does have mild lower extremities edema. The patient is going to be discharged into an extended-care facility tomorrow morning Objective - Vital Signs Vital signs: Vital Signs Temp 97.7 F 04/20/19 05:00 Pulse 72 04/20/19 12:24 Resp 16 04/20/19 08:00 BP 128/81 04/20/19 05:00 Pulse Ox 90 L 04/20/19 05:00 Intake & Output 04/19/19 04/20/19 04/20/19 18:59 06:59 18:59 Intake Total 240 Output Total 5 3 Balance 235 -3 Intake: Oral 240 Output: Stool 5 3 Other: Voiding Method Toilet Toilet Toilet # Voids 3 1 # Bowel Movements 0 - Constitutional General appearance: Present: no acute distress - Respiratory Respiratory: bilateral: CTA - Cardiovascular Heart sounds: normal: S1, S2 - Labs CBC & Chem 7: 04/20/19 05:42 04/20/19 05:42 Labs: Abnormal Lab Results - Last 24 Hours (Table) 04/19/19 04/19/19 04/20/19 Range/Units 16:56 21:01 05:42 WBC 12.6 H (3.8-10.6) k/uL Plt Count 453 H (150-450) k/uL Neutrophils # 11.5 H (1.3-7.7) k/uL Lymphocytes # 0.6 L (1.0-4.8) k/uL BUN (7-17) mg/dL Glucose (74-99) mg/dL POC Glucose (mg/dL) 144 H 236 H (75-99) mg/dL 04/20/19 04/20/19 04/20/19 Range/Units 05:42 07:33 10:56 WBC (3.8-10.6) k/uL Plt Count (150-450) k/uL Neutrophils # (1.3-7.7) k/uL Lymphocytes # (1.0-4.8) k/uL BUN 26 H (7-17) mg/dL Glucose 180 H (74-99) mg/dL POC Glucose (mg/dL) 201 H 205 H (75-99) mg/dL Microbiology - Last 24 Hours (Table) 04/18/19 13:00 Gram Stain - Final Bronchial Washings - Right Bronchial Washings Culture - Final Pseudomonas aeruginosa 04/18/19 13:00 Acid Fast Bacilli Smear - Final Bronchial Washings - Right Acid Fast Bacilli Culture - Preliminary Assessment and Plan Assessment: Assessment #1 multifocal atrial tachycardia #2 congestive heart failure secondary to systolic dysfunction #3 chronic obstructive pulmonary disease #4 cardiomyopathy Plan #1 continue the current medical regimen #2 patient is going to be discharged to extended care facility
[2019-04-20] MEDS: guaiFENesin SYRUP 100MG/5ML 200 MG/10 ML CUP PO PRN (14:04)
[2019-04-20 16:47] LABS: Glucose,Whole Blood 107 mg/dL (75-99)
[2019-04-20] MEDS: PIPERACILLIN-TAZOBACTAM 3.375 GM in SODIUM CHLORIDE 0.9% 100 ML IVPB SCH ×2 (16:47→23:06)
--- NOTE | 2019-04-20 17:05 | P.PN ---
Subjective This is a pleasant 74 years old female with past medical history of asthma/COPD, coronary artery disease, GERD, GI bleed, hyperlipidemia, hypertension, sleep apnea on CPAP/BiPAP, diverticulitis, chronic kidney disease stage III, osteoporosis, skin cancer. Patient admitted for dyspnea. Patient was transferred from [facility]. Patient presents with dyspnea and cough, has been gradually getting worse. Patient has been recently received a short course of oral antibiotics and steroids. Labs showing potassium 3.2, sodium 142, creatinine 0.8, urinalysis was suspicious of infection. Patient was treated at [facility] with no improvement so patient was transferred to the current hospital She smokes about 3 packs per week Also patient complaining of from constipation since Sunday past for 3-4 days with no nausea vomiting, no abdominal pain however on exam she has right lower quadrant abdominal tenderness with no rebound tenderness or guarding [facility]'s records have been reviewed showing EKG with regular r hythm suspicious for A. fib versus multifocal atrial tachycardia. Labs showing sodium 142, potassium 3.2, creatinine 0.8, urinalysis is for infection not suspicious for infection. Troponin less than 0.01, chest x-ray showing possible left lower lung scattering versus atelectasis., INR 0.9, CK is 119, liver enzymes elevated. Bilirubin is 0.4. CBC showing elevated BC of 8.5K, hemoglobin 13.5, platelets 250 9K, And [facility] patient was treated with acetylcysteine nebulizer, Junot's, Zithromax, and Rocephin, diazepam, Flonase spray, montelukast, Solu- Medrol injections, magnesium sulfate,, [place] 5 mg, however her pulse ox dropped to 88% and on oxygen therapy with ambulation, also she is having chest tightness however patient was denying nicotine patch. 04/16/2019 patient is admitted with dyspnea and coughing with phlegm. No chest pain, she has been complaining of from constipation however she had 4 episodes of small bowel movements.abdominal x-ray showing extensive retained fecal debris.labs look stable with no fever, she is tachycardic at 110 , oxygen saturation of 93% on 3L of oxygen. labs showed mild leukocytosis of 12.9 K.influenza is negative. most likely patient has atrial fibrillation,patient is waiting for bed placement to be transferred to telemetry unit. 04/17/2019 Patient breathing is partially better today. With less dyspnea but still coughing. However she have heart, bringing stuff up. However patient is a Robitussin. Patient had 4-5 small bowel movements yesterday and 1 bowel movement today and she is happy about that however she still have tenderness in her right lower quadrant although it's this severe compared to yesterday. Biophysics Professor evaluation is appreciated. Most likely patient has multifocal atrial tachycardia rather than atrial fibrillation. Biophysics Professor already on the records Vitals stable. She is saturating 94% at 2 L. Today's labs are pending. Repeat abdominal x-ray from today: nonspecific bowel pattern 04/18/2019 Patient is alert, she still have some respiratory symptoms however she can talk more freely.pulmonary service R following the case closely with the plan for possible bronchoscopy today. Her abdominal pain is better, she had 2 small amount of bowel movement since yesterday. I discussed about the patient discharge plan with recommendation for subacute rehab by the physical therapist and patient is thinking about it. wind field service manager/social media developer on the case. 04/19/2019 Patient'sBreathing is better and is improving compared to the last couple days and her bronchoscopy helped her significantly. However she still limited dyspneic and she is on oxygen via nasal cannula. Her abdominal pain and tenderness is less and she has bigger bowel movement this morning and she thinks the MiraLAX is working for her. She accepts for ECF for possible rehab which could be possibly Sunday. at bedside and all their questions were answered to their satisfaction. 04/20/2019 patient today breathing is fine and is improving after she got the bronchoscopy, with less lower abdominal painand right lower quadrant tenderness as she is having bowel movement after starting the bowel regimens including MiraLAX. however she is complaining from epigastric discomfort which is resolved now. Patient has been on steroids were going to the Protonix.Diflucan has been added by pulmonary team for fungal infection of the vocal cords. possible wound needs ECF placement for rehab. Objective - Vital Signs Vital signs: Vital Signs Temp 97.9 F 04/20/19 12:38 Pulse 72 04/20/19 15:23 Resp 16 04/20/19 12:38 BP 155/84 04/20/19 12:38 Pulse Ox 92 L 04/20/19 12:38 Intake & Output 04/19/19 04/20/19 04/20/19 18:59 06:59 18:59 Intake Total 240 240 Output Total 5 3 Balance 235 237 Intake: Oral 240 240 Output: Stool 5 3 Other: Voiding Method Toilet Toilet Toilet # Voids 3 1 2 # Bowel Movements 0 - Exam GENERAL: The patient is alert and oriented x3, not in any acute distress. Well developed, well nourished. HEENT: Pupils are round and equally reacting to light. EOMI. No scleral icterus. No conjunctival pallor. Normocephalic, atraumatic. No pharyngeal erythema. No thyromegaly. CARDIOVASCULAR: S1 and S2 present. No murmurs, rubs, or gallops. -PULMONARY: Chest is clear to auscultation, bilateral expiratory wheezing -ABDOMEN: Soft, RLQ and suprapubictenderness with some guarding or rebound tenderness, nondistended, normoactive bowel sounds. No palpable organomegaly. MUSCULOSKELETAL: No joint swelling or deformity. EXTREMITIES: No cyanosis, clubbing, or pedal edema. NEUROLOGICAL: Gross neurological examination did not reveal any focal deficits. SKIN: No rashes. No petechiae - Labs CBC & Chem 7: 04/20/19 05:42 04/20/19 05:42 Labs: Abnormal Lab Results - Last 24 Hours (Table) 04/19/19 04/20/19 04/20/19 Range/Units 21:01 05:42 05:42 WBC 12.6 H (3.8-10.6) k/uL Plt Count 453 H (150-450) k/uL Neutrophils # 11.5 H (1.3-7.7) k/uL Lymphocytes # 0.6 L (1.0-4.8) k/uL BUN 26 H (7-17) mg/dL Glucose 180 H (74-99) mg/dL POC Glucose (mg/dL) 236 H (75-99) mg/dL 04/20/19 04/20/19 04/20/19 Range/Units 07:33 10:56 16:46 WBC (3.8-10.6) k/uL Plt Count (150-450) k/uL Neutrophils # (1.3-7.7) k/uL Lymphocytes # (1.0-4.8) k/uL BUN (7-17) mg/dL Glucose (74-99) mg/dL POC Glucose (mg/dL) 201 H 205 H 107 H (75-99) mg/dL Microbiology - Last 24 Hours (Table) 04/18/19 13:00 Gram Stain - Final Bronchial Washings - Right Bronchial Washings Culture - Final Pseudomonas aeruginosa 04/18/19 13:00 Acid Fast Bacilli Smear - Final Bronchial Washings - Right Acid Fast Bacilli Culture - Preliminary Assessment and Plan Assessment: Acute COPD exacerbation Acute hypoxic respiratory failure Patient has multifocal atrial tachycardia rather than atrial fibrillation. As per cardiology evaluation Constipation with RLQ tenderness History of coronary artery disease Hypertension Hyperlipidemia Sleep apnea on CPAP/BiPAP GERD History of upper GI bleed History of diverticulitis Chronic kidney disease stage III Osteoporosis History of skin cancer Plan: This is a pleasant 74 years old female who presents with acute COPD exacerbation, constipation and multifocal atrial tachycardia. Continue with steroids, bronchodilator, and oxygen. Place patient on telemetry and follow-up recommendation by cardiology consult. Follow-up recommendation by horticultural services supervisor. Continue with bowel regiment as per surgical recommendation Labs and medication were reviewed.. Continue same treatment. Continue with symptomatic treatment. Resume home medication. Monitor lytes and vitals. DVT and GI prophylaxis. Further recommendations of the clinical course of the patient DVT prophylaxis: Subcutaneous heparin GI Prophylaxis: Pepcid PT/OT: Recommended home health care versus rehab Prognosis is guarded
[2019-04-20] MEDS: PANTOPRAZOLE 40 MG/10 ML VIAL IVP SCH (17:41)
[2019-04-20 20:23] LABS: Glucose,Whole Blood 309 mg/dL (75-99)
[2019-04-20] MEDS: MONTELUKAST 10 MG TAB PO SCH (20:28)
[2019-04-20] MEDS: ATORVASTATIN 40 MG TAB PO SCH (20:28)
[2019-04-20] MEDS: POTASSIUM CHLORIDE ER 10 MEQ TAB.ER.PRT PO SCH (20:29)
[2019-04-21] MEDS: LACTATED RINGERS 1,000 ML IV SCH ×2 (01:15→17:33)
[2019-04-21] MEDS: methylPREDNISolone SOD SUCCI 125 MG/2 ML VIAL IV SCH ×3 (05:06→17:35)
[2019-04-21 07:07] LABS: Glucose,Whole Blood 140 mg/dL (75-99)
[2019-04-21] MEDS: FLUCONAZOLE 100 MG TAB PO SCH ×2 (08:00→20:52)
[2019-04-21] MEDS: LISINOPRIL 5 MG TAB PO SCH (08:00)
[2019-04-21] MEDS: METOPROLOL TARTRATE 25 MG TAB PO SCH ×2 (08:00→20:52)
[2019-04-21] MEDS: MAGNESIUM OXIDE 400 MG TAB PO SCH (08:01)
[2019-04-21] MEDS: POTASSIUM CHLORIDE ER 20 MEQ TAB.ER PO SCH ×2 (08:01→08:24)
[2019-04-21] MEDS: FUROSEMIDE 20 MG TAB PO SCH (08:01)
[2019-04-21] MEDS: INSULIN ASPART (NovoLOG) 100 UNIT/ML VIAL SQ SCH ×4 (08:02→20:56)
[2019-04-21] MEDS: POLYETHYLENE GLYCOL 3350 17 GM POWD.PACK PO SCH ×3 (08:03→16:16)
[2019-04-21] MEDS: FLUoxetine HCL 20 MG CAP PO SCH (08:06)
[2019-04-21] MEDS: PANTOPRAZOLE 40 MG/10 ML VIAL IVP SCH (08:06)
[2019-04-21] MEDS: PIPERACILLIN-TAZOBACTAM 3.375 GM in SODIUM CHLORIDE 0.9% 100 ML IVPB SCH ×2 (08:24→16:15)
[2019-04-21] MEDS: IPRATROPIUM-ALBUTEROL 3 ML NEB INHALATION PRN ×2 (09:08→20:35)
[2019-04-21] MEDS: BUDESONIDE 1 MG/2 ML NEBU INHALATION SCH ×2 (09:08→20:35)
[2019-04-21] MEDS: FORMOTEROL FUMARATE 20 MCG/2 ML NEBU INHALATION SCH ×2 (09:08→20:35)
[2019-04-21] MEDS: IPRATROPIUM 0.5 MG/2.5 ML NEBU INHALATION SCH ×4 (09:09→20:35)
[2019-04-21 11:10] LABS: Glucose,Whole Blood 93 mg/dL (75-99)
--- NOTE | 2019-04-21 11:58 | P.PN ---
Subjective HISTORY OF PRESENTING ILLNESS This is a pleasant 74-year-old female past medical history significant for hypertension, dyslipidemia, COPD, chronic nicotine dependence, history of bleeding ulcer 15 years ago, obstructive sleep apnea and . She recently established with Dr. White in [facility]. She is seen and examined sitting up in bed in no acute distress. She continues to have shortness of breath and cough. Denies chest pain, palpitations or dizziness. Blood pressure 141/79 heart rate 62 afebrile maintaining oxygen saturation on nasal cannula. Room air saturation with activity this morning was 84%. Currently maintained on atorv astatin 40 mg daily, lasix 20 mg daily, lopressor 25 mg BID and lisinorpril 5 mg daily. PHYSICAL EXAMINATION CONSTITUTIONAL: No apparent distress. HEENT: Head is normocephalic. Pupils are equal, round. Sclerae anicteric. Mucous membranes of the mouth are moist. No JVD. No carotid bruit. CHEST EXAMINATION: Diminished bilaterally. Minimal scattered rhonchi. No wheezes or rales. No chest wall tenderness is noted on palpation or with deep breathing. HEART EXAMINATION: Regular rate and rhythm. S1, S2 heard. No murmurs, gallops or rub. EXTREMITIES: 2+ peripheral pulses, no lower extremity edema and no calf tenderness. ASSESSMENT Multi-focal atrial tachycardia Systolic heart failure, appears to be new onset. Prior echocardiograms and recent heart cath reviewed. No evidence of prior systolic heart failure. Clinically she is euvolemic. Leukocytosis COPD Hypertension Dyslipidemia Chronic nicotine dependence PLAN Continue current medical regimen. Follow up upon discharge with Dr. White. We will follow as needed, please call with further questions or concerns. Nurse Practitioner note has been reviewed, I agree with a documented findings and plan of care. Patient was seen and examined. Objective - Vital Signs Vital signs: Vital Signs Temp 97.2 F L 04/21/19 11:28 Pulse 62 04/21/19 11:28 Resp 17 04/21/19 11:28 BP 141/79 04/21/19 11:28 Pulse Ox 93 L 04/21/19 11:28 Intake & Output 04/20/19 04/21/19 04/21/19 18:59 06:59 18:59 Intake Total 240 590 Output Total 7 Balance 233 590 Intake: Oral 240 590 Output: Stool 7 Other: Voiding Method Toilet Toilet Toilet # Voids 2 2 # Bowel Movements 1 - Labs CBC & Chem 7: 04/20/19 05:42 04/20/19 05:42 Labs: Abnormal Lab Results - Last 24 Hours (Table) 04/20/19 04/20/19 04/21/19 Range/Units 16:46 20:22 07:05 POC Glucose (mg/dL) 107 H 309 H 140 H (75-99) mg/dL Microbiology - Last 24 Hours (Table) 04/18/19 13:00 Fungal Culture - Preliminary Bronchial Washings - Right Sumi albicans 04/18/19 13:00 Gram Stain - Final Bronchial Washings - Right Bronchial Washings Culture - Final Pseudomonas aeruginosa
[2019-04-21 13:49] LABS: Hemoglobin A1C 6.6 % (4.0-6.0)
--- NOTE | 2019-04-21 14:51 | P.PN ---
Subjective Progress Note Date: 04/21/19 Principal diagnosis: acute exacerbation of chronic Active pulmonary disease, complicated by prolonged tracheobronchitis The patient is seen today no 04/17/2019 in follow-up on the regular medical floor. She is currently resting comfortably in bed. Awake and alert in no acute distress. He still has a loose nonproductive cough. Some dyspnea on exertion. Maintaining good O2 saturations in the 90s on 2 L/m per nasal cannula. She has been afebrile. Hemodynamically stable. White count 10.5. Hemoglobin 14.6. Creatinine 0.69. Currently on DuoNeb inhalations, Pulmicort a nd Perforomist inhalations, IV Solu-Medrol and Augmentin. The patient is seen today 04/18/2019 in follow-up on the regular medical floor. She is awake and alert in no acute distress. She continues with a loose nonproductive cough. Dyspneic on exertion.maintaining O2 saturations in the low 90s on 2 L Per minute per nasal cannula. White count 14.4. Hemoglobin 12.9. Creatinine 0.76. She is continued on DuoNeb inhalations, Perforomist and Pulmicort inhalations,IV Solu-Medrol. Antibiotics in the form of Augmentin. The patient is seen today 04/19/2019 in follow-up on the regular medical floor. She is currently sitting up with the bedside. Awake and alert in no acute distress. Breathing easier today as compared to yesterday. Less congested cough. Status post bronchoscopy with BAL. Cultures pending. Viral workup is positive for parainfluenza 1. White count 14.4. Hemoglobin 12.9. Creatinine 0.76. She is currently on bronchodilators, Augmentin, Singulair, IV Solu- Medrol. The patient is seen today 04/20/2019 in follow-up on the regular medical floor. She is awake and alert in no acute distress. Breathing better today as compared to yesterday. Maintaining O2 saturations in the low 90s on 2 L/m per nasal cannula. Currently afebrile. Bronchial wash culture now positive for pseudomonas aeruginosa along with parainfluenza. White count 12.6. Hemoglobin 13.9. Creatinine 0.61. She is currently on Augmentin along with bronchodilators, IV Solu-Medrol, Singulair. On 04/21/2019 patient seen in follow-up on medical surgical floor, patient is improving, still has some residual rhonchi, but no significant wheezing, overall sounding much improved since admission, home oxygen assessment revealed 84% pulse ox with exercise and patient is satting 90% on 2 L, bronchial wash cultures were positive for pseudomonas aeruginosa, patient is on Diflucan, and Zosyn for antibiotic coverage, fungal culture revealed Sumi albicans. Objective - Vital Signs Vital signs: Vital Signs Temp 97.2 F L 04/21/19 11:28 Pulse 62 04/21/19 11:28 Resp 17 04/21/19 11:28 BP 141/79 04/21/19 11:28 Pulse Ox 93 L 04/21/19 11:28 Intake & Output 04/20/19 04/21/19 04/21/19 18:59 06:59 18:59 Intake Total 240 590 100 Output Total 7 Balance 233 590 100 Intake: Intake, IV Titration 100 Amount Piperacillin-Tazobactam 3 100 .375 gm In Sodium Chloride 0.9% 100 ml @ 25 mls/hr IVPB Q8HR [facility] Rx# :[id number] Oral 240 590 Output: Stool 7 Other: Voiding Method Toilet Toilet Toilet # Voids 2 2 # Bowel Movements 1 - Exam GENERAL EXAM: Alert, a pleasant, 74-year-old white female, 2 L of oxygen the pulse ox of 90-93%, comfortable in no apparent distress. HEAD: Normocephalic/atraumatic. EYES: Normal reaction of pupils, equal size. Conjunctiva pink, sclera white. NOSE: Clear with pink turbinates. THROAT: No erythema or exudates. NECK: No masses, no JVD, no thyroid enlargement, no adenopathy. CHEST: No chest wall deformity. Symmetrical expansion. LUNGS: Equal air entry with some scattered rhonchi, minimal wheezing CVS: Regular rate and rhythm, normal S1 and S2, no gallops, no murmurs, no rubs ABDOMEN: Soft, nontender. No hepatosplenomegaly, normal bowel sounds, no guarding or rigidity. EXTREMITIES: No clubbing, no edema, no cyanosis, 2+ pulses and upper and lower extremities. MUSCULOSKELETAL: Muscle strength and tone normal. SPINE: No scoliosis or deformity SKIN: No rashes CENTRAL NERVOUS SYSTEM: Alert and oriented -3. No focal deficits, tone is normal in all 4 extremities. PSYCHIATRIC: Alert and oriented -3. Appropriate affect. Intact judgment and insight. - Labs CBC & Chem 7: 04/20/19 05:42 04/20/19 05:42 Labs: Abnormal Lab Results - Last 24 Hours (Table) 04/20/19 04/20/19 04/20/19 Range/Units 05:42 16:46 20:22 POC Glucose (mg/dL) 107 H 309 H (75-99) mg/dL Hemoglobin A1c 6.6 H (4.0-6.0) % 04/21/19 Range/Units 07:05 POC Glucose (mg/dL) 140 H (75-99) mg/dL Hemoglobin A1c (4.0-6.0) % Microbiology - Last 24 Hours (Table) 04/18/19 13:00 Fungal Culture - Preliminary Bronchial Washings - Right Sumi albicans 04/18/19 13:00 Gram Stain - Final Bronchial Washings - Right Bronchial Washings Culture - Final Pseudomonas aeruginosa Assessment and Plan Plan: #1 Acute exacerbation of chronic obstructive pulmonary disease, complicated by purulent tracheobronchitis. Status post bronchoscopy with BAL. Cultures positive for pseudomonas aeruginosa. Viral screen is positive for parainfluenza 1. #2 Chronic and ongoing tobacco dependence. #3 Diffuse abdominal pain. #4 History of coronary disease. #5 History of skin cancer. #6 GERD. #7 History of GI bleed. #8 Hyperlipidemia. #9 Hypertension. #10 Stage III chronic kidney disease. #11 Obstructive sleep apnea maintained on CPAP. #12 Chronic anemia. Plan: Continue current medical treatment, patient is doing better, breathing easier, she is tolerating ambulation, she will need home oxygen because patient desaturated to 84% with ambulation, she is on Diflucan and Zosyn, for evidence of pseudomonas aeruginosa and her bronchial wash and fungal cultures positive for Sumi albicans, patient is afebrile, from pulmonary perspective patient is stable for discharge home tomorrow on a course of ciprofloxacin. She will need follow-up in the office with Dr. Dr. Arguelles in 1-2 weeks I performed a history & physical examination of the patient and discussed their management with my nurse practitioner, Michelle Fragoso. I reviewed the nurse practitioner's note and agree with the documented findings and plan of care. Lung sounds are positive for scattered rhonchi. The findings and the impression was discussed with the patient. I attest to the documentation by the nurse jose garrison. Time with Patient: Less than 30
[2019-04-21 17:05] LABS: Glucose,Whole Blood 227 mg/dL (75-99)
[2019-04-21] MEDS: MONTELUKAST 10 MG TAB PO SCH (20:52)
[2019-04-21] MEDS: POTASSIUM CHLORIDE ER 10 MEQ TAB.ER.PRT PO SCH (20:52)
[2019-04-21] MEDS: ATORVASTATIN 40 MG TAB PO SCH (20:52)
[2019-04-21 20:53] LABS: Glucose,Whole Blood 184 mg/dL (75-99)
[2019-04-21] MEDS: DIAZEPAM 5 MG TAB PO PRN (21:00)
[2019-04-22] MEDS: PIPERACILLIN-TAZOBACTAM 3.375 GM in SODIUM CHLORIDE 0.9% 100 ML IVPB SCH ×3 (00:15→17:56)
[2019-04-22] MEDS: methylPREDNISolone SOD SUCCI 125 MG/2 ML VIAL IV SCH ×3 (00:15→13:25)
--- NOTE | 2019-04-22 07:13 | P.PN ---
Subjective Progress Note Date: 04/21/19 Principal diagnosis: This is a pleasant 74 years old female with past medical history of asthma/COPD, coronary artery disease, GERD, GI bleed, hyperlipidemia, hypertension, sleep a pnea on CPAP/BiPAP, diverticulitis, chronic kidney disease stage III, osteoporosis, skin cancer. Patient admitted for dyspnea. Patient was transferred from [facility]. Patient presents with dyspnea and cough, has been gradually getting worse. Patient has been recently received a short c ourse of oral antibiotics and steroids. Labs showing potassium 3.2, sodium 142, creatinine 0.8, urinalysis was suspicious of infection. Patient was treated at [facility] with no improvement so patient was transferred to the current hospital She smokes about 3 packs per week Also patient complaining of from constipation since Sunday past for 3-4 days with no nausea vomiting, no abdominal pain however on exam she has right lower quadrant abdominal tenderness with no rebound tenderness or guarding [facility]'s records have been reviewed showing EKG with regular rhythm suspicious for A. fib versus multifocal atrial tachycardia. Labs showing sodium 142, potassium 3.2, creatinine 0.8, urinalysis is for infection not suspicious for infection. Troponin less than 0.01, chest x-ray showing possible left lower lung scattering versus atelectasis., INR 0.9, CK is 119, liver enzymes elevated. Bilirubin is 0.4. CBC showing elevated BC of 8.5K, hemoglobin 13.5, platelets 250 9K, And [facility] patient was treated with acetylcysteine nebulizer, Junot's, Zithromax, and Rocephin, diazepam, Flonase spray, montelukast, Solu- Medrol injections, magnesium sulfate,, Teller 5 mg, however her pulse ox dropped to 88% and on oxygen therapy with ambulation, also she is having chest tightness however patient was denying nicotine patch. 04/16/2019 patient is admitted with dyspnea and coughing with phlegm. No chest pain, she has been complaining of from constipation however she had 4 episodes of small bowel movements.abdominal x-ray showing extensive retained fecal debris.labs look stable with no fever, she is tachycardic at 110 , oxygen saturation of 93% on 3L of oxygen. labs showed mild leukocytosis of 12.9 K.influenza is negative. most likely patient has atrial fibrillation,patient is waiting for bed placement to be transferred to telemetry unit. 04/17/2019 Patient breathing is partially better today. With less dyspnea but still coughing. However she have heart, bringing stuff up. However patient is a Robitussin. Patient had 4-5 small bowel movements yesterday and 1 bowel movement today and she is happy about that however she still have tenderness in her right lower quadrant although it's this severe compared to yesterday. Floorhand evaluation is appreciated. Most likely patient has multifocal atrial tachycardia rather than atrial fibrillation. Floorhand already on the records Vitals stable. She is saturating 94% at 2 L. Today's labs are pending. Repeat abdominal x-ray from today: nonspecific bowel pattern 04/18/2019 Patient is alert, she still have some respiratory symptoms however she can talk more freely.pulmonary service R following the case closely with the plan for possible bronchoscopy today. Her abdominal pain is better, she had 2 small amount of bowel movement since yesterday. I discussed about the patient discharge plan with recommendation for subacute rehab by the physical therapist and patient is thinking about it. fleet dispatch manager/aids social worker on the case. 04/19/2019 Patient'sBreathing is better and is improving compared to the last couple days and her bronchoscopy helped her significantly. However she still limited dyspneic and she is on oxygen via nasal cannula. Her abdominal pain and tenderness is less and she has bigger bowel movement this morning and she thinks the MiraLAX is working for her. She accepts for ECF for possible rehab which could be possibly Sunday. at bedside and all their questions were answered to their satisfaction. 04/20/2019 patient today breathing is fine and is improving after she got the bronchoscopy, with less lower abdominal painand right lower quadrant tenderness as she is having bowel movement after starting the bowel regimens including MiraLAX. however she is complaining from epigastric discomfort which is resolved now. Patient has been on steroids were going to the Protonix.Diflucan has been added by pulmonary team for fungal infection of the vocal cords. possible wound needs ECF placement for rehab. 04/21/2019 Patient is sitting up in bed eating lunch in no acute distress. Patient is still requiring oxygen via nasal cannula and will be going home with it as she continues to desat with any type of exertion and gets quite winded. Patient states that she has been getting up and going to the bathroom and walking around with a walker. Patient would like to go home with her upon discharge. Patient is refusing rehab. Currently patient denies any chest pain, or palpitations. Patient is afebrile. Patient denies any nausea or vomiting and is tolerating diet. Patient denies any abdominal discomfort today. Bronchial washings show sumi albicans and pseudomonas aeruginosa and patient is currently maintained on diflucan as well as Zosyn. Protonix has been transitioned to oral. Objective - Vital Signs Vital signs: Vital Signs Temp 97.2 F L 04/21/19 11:28 Pulse 71 04/21/19 19:43 Resp 18 04/21/19 19:43 BP 141/79 04/21/19 11:28 Pulse Ox 93 L 04/21/19 11:28 Intake & Output 04/21/19 04/21/19 04/22/19 06:59 18:59 06:59 Intake Total 590 100 Balance 590 100 Intake: Intake, IV Titration 100 Amount Piperacillin-Tazobactam 3 100 .375 gm In Sodium Chloride 0.9% 100 ml @ 25 mls/hr IVPB Q8HR [facility] Rx# :[id number] Oral 590 Other: Voiding Method Toilet Toilet Toilet # Voids 2 - Exam GENERAL: The patient is alert and oriented x3, not in any acute distress. Well developed, well nourished. Temp is 97.2F, pulse is 62, resp are 17, blood pressure is 141/79, 02 is 93% on 2L via NC HEENT: Pupils are round and equally reacting to light. EOMI. No scleral icterus. No conjunctival pallor. Normocephalic, atraumatic. No pharyngeal erythema. No thyromegaly. CARDIOVASCULAR: S1 and S2 present. No murmurs, rubs, or gallops. -PULMONARY: diminished breath sounds at the bases with bilateral expiratory wheezing -ABDOMEN: Soft, mild suprapubic tenderness with no guarding or rebound tenderness, nondistended, normoactive bowel sounds. No palpable organomegaly. MUSCULOSKELETAL: No joint swelling or deformity. EXTREMITIES: No cyanosis, clubbing, or pedal edema. NEUROLOGICAL: Gross neurological examination did not reveal any focal deficits. SKIN: No rashes. No petechiae - Labs CBC & Chem 7: 04/20/19 05:42 04/20/19 05:42 Labs: Abnormal Lab Results - Last 24 Hours (Table) 04/20/19 04/20/19 04/21/19 Range/Units 05:42 20:22 07:05 POC Glucose (mg/dL) 309 H 140 H (75-99) mg/dL Hemoglobin A1c 6.6 H (4.0-6.0) % 04/21/19 Range/Units 17:03 POC Glucose (mg/dL) 227 H (75-99) mg/dL Hemoglobin A1c (4.0-6.0) % Microbiology - Last 24 Hours (Table) 04/18/19 13:00 Fungal Culture - Preliminary Bronchial Washings - Right Sumi albicans Assessment and Plan Assessment: Acute COPD exacerbation Acute hypoxic respiratory failure Patient has multifocal atrial tachycardia rather than atrial fibrillation. As per cardiology evaluation Constipation with RLQ tenderness History of coronary artery disease Hypertension Hyperlipidemia Sleep apnea on CPAP/BiPAP GERD History of upper GI bleed History of diverticulitis Chronic kidney disease stage III Osteoporosis History of skin cancer DVT prophylaxis: Subcutaneous heparin GI Prophylaxis: Pepcid Plan: Recommend to continue current medications, management, and symptomatic treatment. Continue with steroids, bronchodilator, and oxygen. Multiple medical consultations following. Continue current bowel regimen. Will continue to monitor closely. Prognosis is guarded. Further recommendations to follow. Case management and social work following arranging for discharge needs and home care. Possible discharge in 24 hours.
[2019-04-22 07:40] LABS: Glucose,Whole Blood 158 mg/dL (75-99)
[2019-04-22] MEDS: POTASSIUM CHLORIDE ER 20 MEQ TAB.ER PO SCH (08:12)
[2019-04-22] MEDS: FLUCONAZOLE 100 MG TAB PO SCH ×2 (08:13→20:44)
[2019-04-22] MEDS: PANTOPRAZOLE 40 MG TABLET PO SCH (08:13)
[2019-04-22] MEDS: METOPROLOL TARTRATE 25 MG TAB PO SCH ×2 (08:13→20:45)
[2019-04-22] MEDS: LISINOPRIL 5 MG TAB PO SCH (08:13)
[2019-04-22] MEDS: FUROSEMIDE 20 MG TAB PO SCH (08:13)
[2019-04-22] MEDS: FLUoxetine HCL 20 MG CAP PO SCH (08:13)
[2019-04-22] MEDS: MAGNESIUM OXIDE 400 MG TAB PO SCH (08:13)
[2019-04-22] MEDS: INSULIN ASPART (NovoLOG) 100 UNIT/ML VIAL SQ SCH ×4 (08:14→20:45)
[2019-04-22] MEDS: BUDESONIDE 1 MG/2 ML NEBU INHALATION SCH ×2 (08:46→20:09)
[2019-04-22] MEDS: FORMOTEROL FUMARATE 20 MCG/2 ML NEBU INHALATION SCH ×2 (08:46→20:09)
[2019-04-22] MEDS: IPRATROPIUM-ALBUTEROL 3 ML NEB INHALATION PRN (08:47)
[2019-04-22 08:49] VITALS: BMI 29.0
[2019-04-22] MEDS: IPRATROPIUM 0.5 MG/2.5 ML NEBU INHALATION SCH ×4 (09:03→20:09)
--- NOTE | 2019-04-22 10:17 | P.PN ---
Subjective Progress Note Date: 04/22/19 The patient is seen today no 04/17/2019 in follow-up on the regular medical floor. She is currently resting comfortably in bed. Awake and alert in no acute distress. He still has a loose nonproductive cough. Some dyspnea on exertion. Maintaining good O2 saturations in the 90s on 2 L/m per nasal cristopher carlos eduardo. She has been afebrile. Hemodynamically stable. White count 10.5. Hemoglobin 14.6. Creatinine 0.69. Currently on DuoNeb inhalations, Pulmicort and Perforomist inhalations, IV Solu-Medrol and Augmentin. The patient is seen today 04/18/2019 in follow-up on the regular medical floor. She is awake and alert in no acute distress. She continues with a loose nonproductive cough. Dyspneic on exertion.maintaining O2 saturations in the low 90s on 2 L Per minute per nasal cannula. White count 14.4. Hemoglobin 12.9. Creatinine 0.76. She is continued on DuoNeb inhalations, Perforomist and Pulmicort inhalations,IV Solu-Medrol. Antibiotics in the form of Augmentin. The patient is seen today 04/19/2019 in follow-up on the regular medical floor. She is currently sitting up with the bedside. Awake and alert in no acute distress. Breathing easier today as compared to yesterday. Less congested cough. Status post bronchoscopy with BAL. Cultures pending. Viral workup is positive for parainfluenza 1. White count 14.4. Hemoglobin 12.9. Creatinine 0.76. She is currently on bronchodilators, Augmentin, Singulair, IV Solu- Medrol. The patient is seen today 04/20/2019 in follow-up on the regular medical floor. She is awake and alert in no acute distress. Breathing better today as compared to yesterday. Maintaining O2 saturations in the low 90s on 2 L/m per nasal cannula. Currently afebrile. Bronchial wash culture now positive for pseudomonas aeruginosa along with parainfluenza. White count 12.6. Hemoglobin 13.9. Creatinine 0.61. She is currently on Augmentin along with bronchodilators, IV Solu-Medrol, Singulair. On 04/21/2019 patient seen in follow-up on medical surgical floor, patient is improving, still has some residual rhonchi, but no significant wheezing, overall sounding much improved since admission, home oxygen assessment revealed 84% pulse ox with exercise and patient is satting 90% on 2 L, bronchial wash cultures were positive for pseudomonas aeruginosa, patient is on Diflucan, and Zosyn for antibiotic coverage, fungal culture revealed Sumi albicans. on 04/22/2019 I am seeing this patient for a follow-up. Clinically she is improving. I will set there is marked improvement on her condition compared to yesterday. She was diagnosed having pseudomonas aeruginosa and her bronchioloalveolar lavage and the patient is improved on IV Zosyn. As such, I'm considering outpatient antibiotic with IV Zosyn or Fortaz specially the patient is unable to tolerate any form of quinolones touches Levaquin or Cipro. She is much improved. Objective - Vital Signs Vital signs: Vital Signs Temp 98.0 F 04/22/19 05:00 Pulse 64 04/22/19 09:04 Resp 20 04/22/19 08:55 BP 138/70 04/22/19 05:00 Pulse Ox 94 L 04/22/19 08:44 Intake & Output 04/21/19 04/22/19 04/22/19 18:59 06:59 18:59 Intake Total 100 440 Balance 100 440 Weight 67.5 kg Intake: Intake, IV Titration 100 200 Amount Piperacillin-Tazobactam 3 100 200 .375 gm In Sodium Chloride 0.9% 100 ml @ 25 mls/hr IVPB Q8HR [facility] Rx# :[id number] Oral 240 Other: Voiding Method Toilet Toilet # Voids 1 - Exam GENERAL EXAM: Alert, a pleasant, 74-year-old white female, 2 L of oxygen the pulse ox of 90-93%, comfortable in no apparent distress. HEAD: Normocephalic/atraumatic. EYES: Normal reaction of pupils, equal size. Conjunctiva pink, sclera white. NOSE: Clear with pink turbinates. THROAT: No erythema or exudates. NECK: No masses, no JVD, no thyroid enlargement, no adenopathy. CHEST: No chest wall deformity. Symmetrical expansion. LUNGS: Equal air entry with some scattered rhonchi, minimal wheezing CVS: Regular rate and rhythm, normal S1 and S2, no gallops, no murmurs, no rubs ABDOMEN: Soft, nontender. No hepatosplenomegaly, normal bowel sounds, no guarding or rigidity. EXTREMITIES: No clubbing, no edema, no cyanosis, 2+ pulses and upper and lower extremities. MUSCULOSKELETAL: Muscle strength and tone normal. SPINE: No scoliosis or deformity SKIN: No rashes CENTRAL NERVOUS SYSTEM: Alert and oriented -3. No focal deficits, tone is normal in all 4 extremities. PSYCHIATRIC: Alert and oriented -3. Appropriate affect. Intact judgment and insight. - Labs CBC & Chem 7: 04/20/19 05:42 04/20/19 05:42 Labs: Abnormal Lab Results - Last 24 Hours (Table) 04/20/19 04/21/19 04/21/19 Range/Units 05:42 17:03 20:51 POC Glucose (mg/dL) 227 H 184 H (75-99) mg/dL Hemoglobin A1c 6.6 H (4.0-6.0) % 04/22/19 Range/Units 07:38 POC Glucose (mg/dL) 158 H (75-99) mg/dL Hemoglobin A1c (4.0-6.0) % Microbiology - Last 24 Hours (Table) 04/18/19 13:00 Fungal Culture - Preliminary Bronchial Washings - Right Sumi albicans Assessment and Plan Plan: #1 Acute exacerbation of chronic obstructive pulmonary disease, complicated by purulent tracheobronchitis. Status post bronchoscopy with BAL. Cultures positive for pseudomonas aeruginosa. Viral screen is positive for parainfluenza 1. #2 Chronic and ongoing tobacco dependence. #3 Diffuse abdominal pain. #4 History of coronary disease. #5 History of skin cancer. #6 GERD. #7 History of GI bleed. #8 Hyperlipidemia. #9 Hypertension. #10 Stage III chronic kidney disease. #11 Obstructive sleep apnea maintained on CPAP. plan I prefer to offer this patient IV antibiotics. Unable to take Levaquin or quinolones for Cipro due to tendinitis. We will insert a PICC line and consider IV Fortaz for outpatient antibiotics. For this patient was improved significantly while being on IV Zosyn. Her COPD exacerbation is also improving. We'll continue to follow.
[2019-04-22 11:29] LABS: Glucose,Whole Blood 142 mg/dL (75-99)
[2019-04-22] MEDS ORDERED: LORATADINE 10 MG TAB PO PRN (14:22)
--- NOTE | 2019-04-22 15:05 | XR ---
EXAMINATION TYPE: XR chest 1V portable DATE OF EXAM: 04/22/2019 COMPARISON: Prior chest x-ray 04/16/2019, CT chest 01/22/2016 HISTORY: Pneumonia TECHNIQUE: Single frontal view of the chest is obtained. FINDINGS: Some minimal basilar increased attenuation is present as on prior exam. Distortion of the proximal right humerus is unchanged. No evident pneumothorax or sizable effusion. Heart is stable. Ao rta is dense. Pulmonary vascularity and talha not significantly changed. There are prominent epicardia l fat pads. Hyperinflation is consistent with underlying COPD. IMPRESSION: There may be basilar atelectasis or scarring. Follow-up as indicated. Additional finding s above.
--- NOTE | 2019-04-22 16:04 | PN ---
PROGRESS NOTE DATE OF SERVICE: 04/22/2019 This 74-year-old woman who was admitted with COPD, acute exacerbation, also had acute purulent tracheobronchitis. She is being closely monitored. The patient had bronchoscopy with bronchoscopic cultures growing pseudomonas as well as sumi. Patient was started on IV Zosyn as well as Diflucan. The patient is still extremely short of breath. The patient is on IV steroids, also. Past medical history reviewed. REVIEW OF SYSTEMS: CARDIOVASCULAR SYSTEM: No angina, palpitations. RESPIRATORY SYSTEM: As mentioned earlier. GI: As mentioned earlier. : No dysuria or retention. NERVOUS SYSTEM: No numbness, weakness. CURRENT MEDICATIONS: 1. Tylenol p.r.n. 2. DuoNeb q.i.d. and p.r.n. 3. Lipitor 40 mg at bedtime. 4. Pulmicort 1 mg b.i.d. 5. Valium 5 mg b.i.d. p.r.n. 6. Diflucan 100 mg p.o. b.i.d. 7. Prozac 40 mg each morning. 8. Perforomist 20 mg b.i.d. 9. Lasix 20 mg p.o. daily. 10.Robitussin 200 mg q.4 p.r.n. 11.NovoLog scale. 12.Atrovent. 13.Lisinopril 5 mg p.o. daily. 14.Magnesium oxide. 15.Solu-Medrol 60 IV q.6. 16.Lopressor. 17.Singulair. 18.Nitrostat. 19.Zosyn. 20.K-Dur. PHYSICAL EXAMINATION: Patient is alert, oriented x3. The pulse is 68, blood pressure 138/70, respiration 18, temperature 98 degrees, pulse ox 93% on 2 L. HEENT: Conjunctivae normal. Oral mucosa moist. NECK: No jugular venous distention. No carotid bruit. No lymph node enlargement. Breathing effort are markedly increased. CARDIOVASCULAR SYSTEM: S1, S2 muffled. No S3. No S4. RESPIRATORY SYSTEM: Breath sounds diminished at the bases. Bilateral scattered rhonchi and crackles. Expiratory wheezing also present. ABDOMEN: Soft, non-tender. No mass palpable. LEGS: No edema. No swelling. NERVOUS SYSTEM: Higher functions as mentioned earlier. Moves all 4 limbs. No focal motor or sensory deficit. LYMPHATICS: No lymph node palpable in neck, axillae or groin. SKIN: No ulcer, rash, bleeding. JOINTS: No active deforming arthropathy. LABS: Accu-Cheks 184, 158, 142. ASSESSMENT: 1. Chronic obstructive pulmonary disease, acute exacerbation, with acute purulent tracheobronchitis with very slow improvement. 2. Bronchoscopy and cultures after bronchoalveolar lavage showing Pseudomonas aeruginosa and Sumi albicans. 3. Continued ongoing nicotine dependence. 4. Diffuse abdominal pain. 5. Gait dysfunction. 6. Acute hypoxic respiratory failure, present on admission, secondary to chronic obstructive pulmonary disease. 7. Multifocal atrial tachycardia rather than atrial fibrillation per Cardiology. 8. Constipation with right lower quadrant tenderness. 9. History of coronary artery disease. 10.Hypertension. 11.Hyperlipidemia. 12.Sleep apnea. 13.Gastroesophageal reflux disease. 14.History of upper gastrointestinal bleed. 15.History of diverticulitis. 16.Chronic kidney disease, stage III, baseline. 17.Osteoporosis. 18.History of skin cancer. 19.History of sleep apnea. 20.History of chronic hypoxic respiratory failure, 2 L nasal cannula at home. 21.History of degenerative joint disease. 22.History of anxiety, depression. 23.FULL CODE. RECOMMENDATIONS AND DISCUSSION: In this 74-year-old woman who presented with multiple complex medical issues, we will monitor the patient closely, continue the current medications, continue with symptomatic treatment. The patient is still extremely short of breath. I would recommend continuing with the intensive bronchodilator treatment with IV steroids. Continue with IV antibiotics for sumi. Otherwise, closely follow with Dr. Buitrago. Guarded prognosis. DVT prophylaxis. Add proton pump inhibitors. Guarded prognosis because of multiple complex medical issues. I would also recommend repeat labs in the morning. Continue to monitor. PT/OT evaluation and possible ECF rehab. Guarded prognosis. Further recommendations to follow. Fungal and TB cultures also pending at this time. MMODL / IJN: [id number] /
[2019-04-22 17:13] LABS: Glucose,Whole Blood 220 mg/dL (75-99)
[2019-04-22] MEDS: LACTATED RINGERS 1,000 ML IV SCH (17:56)
[2019-04-22] MEDS: HEPARIN SODIUM,PORCINE 5,000 UNIT/ML 1 ML VIAL SQ SCH ×2 (17:57→20:45)
[2019-04-22] MEDS: methylPREDNISolone SOD SUCCI 40 MG/ML 1 ML VIAL IV SCH (17:57)
[2019-04-22 20:06] LABS: Glucose,Whole Blood 102 mg/dL (75-99)
[2019-04-22] MEDS: FLUTICASONE 50MCG/SPRAY NASAL 16GM EA NOSTRIL SCH (20:44)
[2019-04-22] MEDS: ATORVASTATIN 40 MG TAB PO SCH (20:44)
[2019-04-22] MEDS: MONTELUKAST 10 MG TAB PO SCH (20:46)
[2019-04-22] MEDS: POTASSIUM CHLORIDE ER 10 MEQ TAB.ER.PRT PO SCH (20:46)
[2019-04-22] MEDS: DIAZEPAM 5 MG TAB PO PRN (20:59)
--- NOTE | 2019-04-22 23:23 | CONS ---
CONSULTATION DATE OF SERVICE: 04/22/2019 REASON FOR FOLLOWUP: Pseudomonas pneumonia. HISTORY OF PRESENT ILLNESS: The patient is a 74-year-old female with a past medical history significant for advanced COPD; also with history of coronary artery disease, sleep apnea, initially admitted to [facility] for COPD exacerbation without any improvement. The patient was transferred to [facility] on 04/15/2019, about a week ago. The patient on presentation to the hospital was mainly complaining of increased shortness of breath both on exertion and even at rest. The patient also had a cough which was moderate in intensity and was bringing up some yellowish to greenish sputum. When the patient presented to hospital, chest x-ray did not show an acute cardiopulmonary . The patient has been treated with steroids, bronchodilators and antibiotics. The patient did have a bronchoscopy with bronchoalveolar lavage done on 04/25/2019. The patient's bronch cultures have been finalized with Pseudomonas aeruginosa. This is a sensitive pathogen. However, this patient does have a LEVAQUIN ALLERGY. The patient is currently on Zosyn, possibly planned for outpatient IV antibiotic therapy. That prompted this infectious disease consultation. Chest x-ray this morning did show findings of basilar atelectasis or scarring. The patient has been afebrile during this hospital stay. White count is mildly elevated at 12.6. But the patient did mention overall improvement with treatment, as her breathing has improved and cough has decreased in intensity. Currently no choking on the food. No nausea, no vomiting. No abdominal pain. No diarrhea. REVIEW OF SYSTEMS: Positive points have been mentioned in the HPI. Rest of the systems are negative. PAST MEDICAL HISTORY: Past medical history is significant for: 1. COPD. 2. Coronary artery disease. 3. Hypertension. 4. Hyperlipidemia. 5. GI bleed. 6. Sleep apnea. 7. Diverticular disease. 8. Osteoporosis. 9. Skin cancer. PAST SURGICAL HISTORY: 1. Cholecystectomy. 2. Heart catheterization. 3. Hernia repair. 4. Hysterectomy. 5. Tonsillectomy. 6. Bladder suspension. 7. Skin cancer removal. 8. Colonoscopy. SOCIAL HISTORY: Positive for ongoing smoking. She smokes about a pack a day; more than 50 pack-years of smoking. Denies drinking or drug use. FAMILY HISTORY: Father with history of coronary artery disease and [place]. Mother with history of kidney disease. ALLERGIES: 1. LEVAQUIN. 2. DUST MITES. 3. LOPID. MEDICATIONS: Medications currently include: 1. Tylenol. 2. DuoNeb. 3. Lipitor. 4. Pulmicort. 5. Valium. 6. Diflucan. 7. Prozac. 8. Lasix. 9. Robitussin. 10.NovoLog. 11.Zestril. 12.Claritin. 13.Solu-Medrol. 14.Lopressor. 15.Zosyn was started on 04/20 at 3.375 grams q.8 hours. PHYSICAL EXAMINATION: Blood pressure is 109/77 with a pulse of 64, temperature 97.4. She is 98% on 2 L nasal cannula. General description is an elderly female lying in bed in no distress. HEENT examination shows no pallor or scleral icterus. Oral mucosa membrane is moist. No significant pharyngeal erythema or thrush. NECK: Trachea is central. No thyromegaly. LUNGS: Unlabored breathing with decreased intensity of breath sounds. No wheeze. HEART: S1, S2. Regular rate and rhythm. ABDOMEN: Soft. No tenderness. No guarding or rigidity. EXTREMITIES: No edema of the feet. EXAMINATION OF SKIN: No rash or mass palpable. NEUROLOGIC: The patient is awake, alert and oriented x3. Mood and affect normal. LABS: Hemoglobin 13.9 and white count 12.6 as of 04/20. Last BNP was BUN of 26, creatinine 0.61. Electrolytes have been normal. Bronch cultures with pseudomonas and Sumi albicans DIAGNOSTIC IMPRESSION AND PLAN: Patient admitted to hospital with increasing shortness of breath. Cough has been moderate, having some greenish sputum, likely representing purulent tracheobronchitis secondary to COPD exacerbation plus/minus pneumonia, not likely but not entirely excluded. Currently on Zosyn and has shown clinical improvement. PLAN: 1. With no oral option available, the patient may benefit from getting a midline and antibiotic adjusted to cefepime 2 q.12, which can be easily administered in the outpatient setting compared to Fortaz and Zosyn requiring q.8-hour dosing. 2. Will try to arrange for this antibiotic and midline placement in the a.m. 3. Will follow up on clinical condition and further adjust medication if needed. Thank you for this consultation. Will follow this patient along with you. MMODL / IJN: [id number] /
[2019-04-23] MEDS: methylPREDNISolone SOD SUCCI 40 MG/ML 1 ML VIAL IV SCH ×3 (00:15→17:10)
[2019-04-23] MEDS: PIPERACILLIN-TAZOBACTAM 3.375 GM in SODIUM CHLORIDE 0.9% 100 ML IVPB SCH ×3 (00:15→17:10)
[2019-04-23 07:07] LABS: Glucose,Whole Blood 157 mg/dL (75-99)
[2019-04-23 07:45] LABS: Basophils % (A) 0 %; Eosinophils % (A) 0 %; HCT 42.2 % (34.0-46.0); HGB 13.9 gm/dL (11.4-16.0); Lymphocytes # (A) 0.5 k/uL (1.0-4.8); Lymphocytes % (A) 4 %; MCH 29.6 pg (25.0-35.0); MCHC 32.9 g/dL (31.0-37.0); MCV 90.1 fL (80.0-100.0); Mean Platelet Volume 7.4; Monocytes # (A) 0.5 k/uL (0-1.0); Monocytes % (A) 3 %; Neutrophils # (A) 12.1 k/uL (1.3-7.7); Neutrophils % (A) 92 %; Platelet Count 386 k/uL (150-450); RBC 4.69 m/uL (3.80-5.40); RDW 13.7 % (11.5-15.5); WBC 13.1 k/uL (3.8-10.6)
[2019-04-23 07:55] LABS: African American GFR (CKD) >90 (>60 ml/min/1.73 sqM); Anion Gap 6 mmol/L; Blood Urea Nitrogen 27 mg/dL (7-17); Calcium 8.6 mg/dL (8.4-10.2); Carbon Dioxide 29 mmol/L (22-30); Chloride 101 mmol/L (98-107); Glucose 166 mg/dL (74-99); Non-African American GFR(CKD) 87 (>60 ml/min/1.73 sqM); Sodium 136 mmol/L (137-145)
[2019-04-23] MEDS: FORMOTEROL FUMARATE 20 MCG/2 ML NEBU INHALATION SCH ×2 (09:07→21:04)
[2019-04-23] MEDS: BUDESONIDE 1 MG/2 ML NEBU INHALATION SCH ×2 (09:07→20:53)
[2019-04-23] MEDS: IPRATROPIUM-ALBUTEROL 3 ML NEB INHALATION PRN ×2 (09:07→12:22)
[2019-04-23] MEDS: IPRATROPIUM 0.5 MG/2.5 ML NEBU INHALATION SCH ×4 (09:07→20:54)
[2019-04-23] MEDS: FLUCONAZOLE 100 MG TAB PO SCH ×2 (09:46→21:11)
[2019-04-23] MEDS: METOPROLOL TARTRATE 25 MG TAB PO SCH ×2 (09:46→21:12)
[2019-04-23] MEDS: MAGNESIUM OXIDE 400 MG TAB PO SCH (09:46)
[2019-04-23] MEDS: PANTOPRAZOLE 40 MG TABLET PO SCH (09:46)
[2019-04-23] MEDS: POTASSIUM CHLORIDE ER 20 MEQ TAB.ER PO SCH (09:47)
[2019-04-23] MEDS: FUROSEMIDE 20 MG TAB PO SCH (09:47)
[2019-04-23] MEDS: POLYETHYLENE GLYCOL 3350 17 GM POWD.PACK PO SCH (09:47)
[2019-04-23] MEDS: INSULIN ASPART (NovoLOG) 100 UNIT/ML VIAL SQ SCH ×4 (10:21→21:11)
[2019-04-23] MEDS: HEPARIN SODIUM,PORCINE 5,000 UNIT/ML 1 ML VIAL SQ SCH ×2 (10:22→21:11)
[2019-04-23] MEDS: LISINOPRIL 5 MG TAB PO SCH (10:22)
[2019-04-23] MEDS: FLUoxetine HCL 20 MG CAP PO SCH (10:24)
--- NOTE | 2019-04-23 10:46 | P.PN ---
Subjective Progress Note Date: 04/23/19 The patient is seen today no 04/17/2019 in follow-up on the regular medical floor. She is currently resting comfortably in bed. Awake and alert in no acute distress. He still has a loose nonproductive cough. Some dyspnea on exertion. Maintaining good O2 saturations in the 90s on 2 L/m per nasal cristopher carlos eduardo. She has been afebrile. Hemodynamically stable. White count 10.5. Hemoglobin 14.6. Creatinine 0.69. Currently on DuoNeb inhalations, Pulmicort and Perforomist inhalations, IV Solu-Medrol and Augmentin. The patient is seen today 04/18/2019 in follow-up on the regular medical floor. She is awake and alert in no acute distress. She continues with a loose nonproductive cough. Dyspneic on exertion.maintaining O2 saturations in the low 90s on 2 L Per minute per nasal cannula. White count 14.4. Hemoglobin 12.9. Creatinine 0.76. She is continued on DuoNeb inhalations, Perforomist and Pulmicort inhalations,IV Solu-Medrol. Antibiotics in the form of Augmentin. The patient is seen today 04/19/2019 in follow-up on the regular medical floor. She is currently sitting up with the bedside. Awake and alert in no acute distress. Breathing easier today as compared to yesterday. Less congested cough. Status post bronchoscopy with BAL. Cultures pending. Viral workup is positive for parainfluenza 1. White count 14.4. Hemoglobin 12.9. Creatinine 0.76. She is currently on bronchodilators, Augmentin, Singulair, IV Solu- Medrol. The patient is seen today 04/20/2019 in follow-up on the regular medical floor. She is awake and alert in no acute distress. Breathing better today as compared to yesterday. Maintaining O2 saturations in the low 90s on 2 L/m per nasal cannula. Currently afebrile. Bronchial wash culture now positive for pseudomonas aeruginosa along with parainfluenza. White count 12.6. Hemoglobin 13.9. Creatinine 0.61. She is currently on Augmentin along with bronchodilators, IV Solu-Medrol, Singulair. On 04/21/2019 patient seen in follow-up on medical surgical floor, patient is improving, still has some residual rhonchi, but no significant wheezing, overall sounding much improved since admission, home oxygen assessment revealed 84% pulse ox with exercise and patient is satting 90% on 2 L, bronchial wash cultures were positive for pseudomonas aeruginosa, patient is on Diflucan, and Zosyn for antibiotic coverage, fungal culture revealed Sumi albicans. on 04/22/2019 I am seeing this patient for a follow-up. Clinically she is improving. I will set there is marked improvement on her condition compared to yesterday. She was diagnosed having pseudomonas aeruginosa and her bronchioloalveolar lavage and the patient is improved on IV Zosyn. As such, I'm considering outpatient antibiotic with IV Zosyn or Fortaz specially the patient is unable to tolerate any form of quinolones touches Levaquin or Cipro. She is much improved. 1218, no new complaints. The patient is being worked up for outpatient antibiotics. She would have a midline inserted for outpatient antibiotic treatment regarding her pseudomonal growth in her lungs. Clinically improved. She is unable to take any form of quinolones due to tendinitis and joint pains. No fever. No chills. Gradually improving. Gradually getting stronger. No nausea. No vomiting. No chest pain. No other complaints otherwise. Objective - Vital Signs Vital signs: Vital Signs Temp 97.5 F L 04/23/19 05:00 Pulse 64 04/23/19 09:30 Resp 20 04/23/19 05:00 BP 128/67 04/23/19 05:00 Pulse Ox 94 L 04/23/19 05:00 Intake & Output 04/22/19 04/23/19 04/23/19 18:59 06:59 18:59 Intake Total 100 690 Output Total 1 1 Balance 99 689 Weight 67.5 kg Intake: Intake, IV Titration 100 100 Amount Piperacillin-Tazobactam 3 100 100 .375 gm In Sodium Chloride 0.9% 100 ml @ 25 mls/hr IVPB Q8HR [facility] Rx# :[id number] Oral 590 Output: Stool 1 1 Other: Voiding Method Toilet Toilet # Voids 2 - Exam GENERAL EXAM: Alert, a pleasant, 74-year-old white female, 2 L of oxygen the pulse ox of 90-93%, comfortable in no apparent distress. HEAD: Normocephalic/atraumatic. EYES: Normal reaction of pupils, equal size. Conjunctiva pink, sclera white. NOSE: Clear with pink turbinates. THROAT: No erythema or exudates. NECK: No masses, no JVD, no thyroid enlargement, no adenopathy. CHEST: No chest wall deformity. Symmetrical expansion. LUNGS: Equal air entry with some scattered rhonchi, minimal wheezing CVS: Regular rate and rhythm, normal S1 and S2, no gallops, no murmurs, no rubs ABDOMEN: Soft, nontender. No hepatosplenomegaly, normal bowel sounds, no guarding or rigidity. EXTREMITIES: No clubbing, no edema, no cyanosis, 2+ pulses and upper and lower extremities. MUSCULOSKELETAL: Muscle strength and tone normal. SPINE: No scoliosis or deformity SKIN: No rashes CENTRAL NERVOUS SYSTEM: Alert and oriented -3. No focal deficits, tone is normal in all 4 extremities. PSYCHIATRIC: Alert and oriented -3. Appropriate affect. Intact judgment and insight. - Labs CBC & Chem 7: 04/23/19 06:56 04/23/19 06:56 Labs: Abnormal Lab Results - Last 24 Hours (Table) 04/22/19 04/22/19 04/22/19 Range/Units 11:27 17:11 20:04 WBC (3.8-10.6) k/uL Neutrophils # (1.3-7.7) k/uL Lymphocytes # (1.0-4.8) k/uL Sodium (137-145) mmol/L BUN (7-17) mg/dL Glucose (74-99) mg/dL POC Glucose (mg/dL) 142 H 220 H 102 H (75-99) mg/dL 04/23/19 04/23/19 04/23/19 Range/Units 06:56 06:56 07:04 WBC 13.1 H (3.8-10.6) k/uL Neutrophils # 12.1 H (1.3-7.7) k/uL Lymphocytes # 0.5 L (1.0-4.8) k/uL Sodium 136 L (137-145) mmol/L BUN 27 H (7-17) mg/dL Glucose 166 H (74-99) mg/dL POC Glucose (mg/dL) 157 H (75-99) mg/dL Assessment and Plan Plan: #1 Acute exacerbation of chronic obstructive pulmonary disease, complicated by purulent tracheobronchitis. Status post bronchoscopy with BAL. Cultures positive for pseudomonas aeruginosa. Viral screen is positive for parainfluenza 1. The patient remains on IV Zosyn. Recommend outpatient IV antibiotics regarding pseudomonas tracheobronchitis. Arrangements are being made for a midline insertion. #2 Chronic and ongoing tobacco dependence. #3 Diffuse abdominal pain. #4 History of coronary disease. #5 History of skin cancer. #6 GERD. #7 History of GI bleed. #8 Hyperlipidemia. #9 Hypertension. #10 Stage III chronic kidney disease. #11 Obstructive sleep apnea maintained on CPAP. plan I prefer to offer this patient IV antibiotics. Unable to take Levaquin or quinolones for Cipro due to tendinitis. We will insert a PICC line and consider IV Fortaz for outpatient antibiotics. For this patient was improved significantly while being on IV Zosyn. Her COPD exacerbation is also improving. We'll continue to follow.
[2019-04-23 11:23] LABS: Glucose,Whole Blood 210 mg/dL (75-99)
--- NOTE | 2019-04-23 17:22 | PN ---
PROGRESS NOTE DATE OF SERVICE: 04/23/2019 This 74-year-old woman who was admitted with COPD, acute exacerbation, as well as acute purulent tracheobronchitis and bronchopneumonia, also had pseudomonas and sumi grown from the culture. The patient is on IV midline and catheter incision and prolonged antibiotics at least for 2 weeks is recommended by Dr. Lynn. No chest pain. No palpitations. No fever. Patient is still short of breath. PHYSICAL EXAMINATION: Alert and oriented x3. Pulse is 53, blood pressure 153/80, respiration 22, temperature 98 degrees, pulse ox 94% on 3 L. HEENT: Conjunctivae normal. NECK: No jugular venous distention. CARDIOVASCULAR SYSTEM: S1, S2 muffled. RESPIRATORY SYSTEM: Breath sounds diminished at the bases. Bilateral scattered rhonchi and crackles. Expiratory wheezing also present. ABDOMEN: Soft, non-tender. LEGS: No edema. No swelling. NERVOUS SYSTEM: No focal deficit. LABS: WBC 13.1. Sodium is 136. Glucose noted. ASSESSMENT: 1. Chronic obstructive pulmonary disease, acute exacerbation, with acute purulent tracheobronchitis with slow improvement. 2. Bronchoscopy culture with bronchial bronchoalveolar lavage showing Pseudomonas aeruginosa and Sumi albicans. 3. Continued ongoing nicotine dependence. 4. Diffuse abdominal pain. 5. Gait dysfunction. 6. Acute hypoxic respiratory failure, present on admission, secondary to chronic obstructive pulmonary disease. 7. Multifocal atrial tachycardia rather than atrial fibrillation, per Cardiology. 8. Constipation with right lower quadrant tenderness. 9. History of coronary artery disease. 10.Hypertension. 11.Hyperlipidemia. 12.Sleep apnea. 13.History of gastroesophageal reflux disease. 14.History of upper gastrointestinal bleed. 15.History of diverticulitis. 16.History of chronic kidney disease, stage III baseline. 17.Osteoporosis. 18.History of skin cancer. 19.History of sleep apnea. 20.History of chronic obstructive pulmonary disease with chronic hypoxic respiratory failure, on 2 L nasal cannula. 21.History of degenerative joint disease. 22.History of anxiety, depression. 23.FULL CODE. RECOMMENDATIONS AND DISCUSSION: I recommend to continue current medications, continue symptomatic treatment. Continue with IV steroids. Continue with IV antibiotics. Midline insertion. Otherwise, I would also recommend IV antibiotics per ID recommendations. Once the midline and IV antibiotics are in place, patient may be discharged home with intensive bronchodilators, antibiotics and tapering steroids. Further recommendations to follow. MMODL / IJN: [id number] / MTDD
[2019-04-23 17:27] LABS: Glucose,Whole Blood 120 mg/dL (75-99)
[2019-04-23 20:07] LABS: Glucose,Whole Blood 207 mg/dL (75-99)
[2019-04-23] MEDS: FLUTICASONE 50MCG/SPRAY NASAL 16GM EA NOSTRIL SCH (21:11)
[2019-04-23] MEDS: ATORVASTATIN 40 MG TAB PO SCH (21:11)
[2019-04-23] MEDS: POTASSIUM CHLORIDE ER 10 MEQ TAB.ER.PRT PO SCH (21:12)
[2019-04-23] MEDS: MONTELUKAST 10 MG TAB PO SCH (21:12)
[2019-04-23] MEDS: DIAZEPAM 5 MG TAB PO PRN (21:19)
--- NOTE | 2019-04-23 22:51 | PN ---
PROGRESS NOTE DATE OF SERVICE: 04/23/2019. REASON FOR FOLLOWUP: Pseudomonas aeruginosa tracheobronchitis and pneumonia. INTERVAL HISTORY: The patient is currently afebrile. The patient is breathing more comfortably. The patient denies having any chest pain. She did have some cough, though decreased intensity. No nausea or vomiting. No abdominal pain or diarrhea. PHYSICAL EXAMINATION: Blood pressure 153/80 with a pulse of 53, temperature of 98. She is 94% on 3 L nasal cannula. General description is an elderly female lying in bed in no distress. RESPIRATORY SYSTEM: Unlabored breathing. Clear to auscultation anteriorly. HEART: S1, S2. Regular rate and rhythm. ABDOMEN: Soft. No tenderness. LABS: Hemoglobin is 13.9, white count 13.1, BUN of 27, creatinine 0.69. DIAGNOSTIC IMPRESSION AND PLAN: Patient with Pseudomonas aeruginosa positive bronch culture with concern for pneumonia, tracheobronchitis. The patient clinically is responding to Zosyn. Plan will be to switch her over to cefepime 2 grams q.12 hours for another 10 days in the outpatient setting. Midline has been placed. Continue with supportive care. MMODL / IJN: [id number] /
[2019-04-24] MEDS: LACTATED RINGERS 1,000 ML IV SCH (02:57)
[2019-04-24 06:56] LABS: Glucose,Whole Blood 156 mg/dL (75-99)
[2019-04-24] MEDS: IPRATROPIUM-ALBUTEROL 3 ML NEB INHALATION PRN ×3 (07:00→15:27)
[2019-04-24] MEDS: FORMOTEROL FUMARATE 20 MCG/2 ML NEBU INHALATION SCH (07:00)
[2019-04-24] MEDS: BUDESONIDE 1 MG/2 ML NEBU INHALATION SCH (07:00)
[2019-04-24] MEDS: IPRATROPIUM 0.5 MG/2.5 ML NEBU INHALATION SCH ×3 (07:03→15:31)
[2019-04-24 08:27] LABS: Basophils % (A) 0 %; Eosinophils % (A) 0 %; HCT 41.9 % (34.0-46.0); HGB 13.6 gm/dL (11.4-16.0); Lymphocytes # (A) 0.5 k/uL (1.0-4.8); Lymphocytes % (A) 4 %; MCH 29.6 pg (25.0-35.0); MCHC 32.5 g/dL (31.0-37.0); Mean Platelet Volume 7.5; Monocytes # (A) 0.5 k/uL (0-1.0); Monocytes % (A) 4 %; Neutrophils # (A) 12.1 k/uL (1.3-7.7); Neutrophils % (A) 91 %; Platelet Count 370 k/uL (150-450); RBC 4.61 m/uL (3.80-5.40); RDW 13.7 % (11.5-15.5); WBC 13.3 k/uL (3.8-10.6)
[2019-04-24 08:46] LABS: African American GFR (CKD) >90 (>60 ml/min/1.73 sqM); Anion Gap 5 mmol/L; Blood Urea Nitrogen 24 mg/dL (7-17); Calcium 8.5 mg/dL (8.4-10.2); Carbon Dioxide 31 mmol/L (22-30); Chloride 101 mmol/L (98-107); Glucose 167 mg/dL (74-99); Non-African American GFR(CKD) 87 (>60 ml/min/1.73 sqM); Potassium 4.1 mmol/L (3.5-5.1); Sodium 137 mmol/L (137-145)
[2019-04-24] MEDS: PIPERACILLIN-TAZOBACTAM 3.375 GM in SODIUM CHLORIDE 0.9% 100 ML IVPB SCH ×3 (10:36)
[2019-04-24] MEDS: FUROSEMIDE 20 MG TAB PO SCH (10:37)
[2019-04-24] MEDS: LISINOPRIL 5 MG TAB PO SCH (10:37)
[2019-04-24] MEDS: MAGNESIUM OXIDE 400 MG TAB PO SCH (10:37)
[2019-04-24] MEDS: FLUoxetine HCL 20 MG CAP PO SCH (10:37)
[2019-04-24] MEDS: METOPROLOL TARTRATE 25 MG TAB PO SCH (10:38)
[2019-04-24] MEDS: INSULIN ASPART (NovoLOG) 100 UNIT/ML VIAL SQ SCH ×3 (10:38→17:11)
[2019-04-24] MEDS: POTASSIUM CHLORIDE ER 20 MEQ TAB.ER PO SCH (10:38)
[2019-04-24] MEDS: PANTOPRAZOLE 40 MG TABLET PO SCH (10:38)
[2019-04-24] MEDS: FLUCONAZOLE 100 MG TAB PO SCH (10:38)
[2019-04-24] MEDS: POLYETHYLENE GLYCOL 3350 17 GM POWD.PACK PO SCH (10:39)
[2019-04-24] MEDS: methylPREDNISolone SOD SUCCI 40 MG/ML 1 ML VIAL IV SCH ×2 (10:39)
[2019-04-24] MEDS: HEPARIN SODIUM,PORCINE 5,000 UNIT/ML 1 ML VIAL SQ SCH (10:39)
[2019-04-24] MEDS ORDERED: CEFEPIME 2 GM in SODIUM CHLORIDE 0.9% 100 ML IVPB STA (11:34)
[2019-04-24 11:42] LABS: Glucose,Whole Blood 178 mg/dL (75-99)
[2019-04-24 12:03] VITALS: BP 128/58; RESP 16; TEMP 97.9
--- NOTE | 2019-04-24 12:12 | PN ---
PROGRESS NOTE DATE OF SERVICE: 04/24/2019 REASON FOR FOLLOWUP: Pseudomonas tracheobronchitis/pneumonia. INTERVAL HISTORY: The patient is currently afebrile. Patient is breathing comfortably. The patient denies having any chest pain. Occasional cough. No nausea, no vomiting. No abdominal pain and no diarrhea. PHYSICAL EXAMINATION: Blood pressure is 128/63 with a pulse of 60, temperature is 98.1. She is 96% on 2 L nasal cannula. General description is an elderly female lying in bed in no distress. RESPIRATORY SYSTEM: Unlabored breathing, clear to auscultation anteriorly. HEART: S1, S2. Regular rate and rhythm. ABDOMEN: Soft, no tenderness. LABS: Hemoglobin is 13.4, white count of 13.3, BUN of 24, creatinine 0.70. DIAGNOSTIC IMPRESSION AND PLAN: Patient with Pseudomonas pneumonia with underlying chronic obstructive pulmonary disease, unable to take Levaquin, antibiotic adjusted to cefepime 2 g q.12 hours for 10 days. and close outpatient followup. MMODL / IJN: [id number] /
--- NOTE | 2019-04-24 14:45 | P.PN ---
Subjective Progress Note Date: 04/24/19 The patient is seen today no 04/17/2019 in follow-up on the regular medical floor. She is currently resting comfortably in bed. Awake and alert in no acute distress. He still has a loose nonproductive cough. Some dyspnea on exertion. Maintaining good O2 saturations in the 90s on 2 L/m per nasal cristopher carlos eduardo. She has been afebrile. Hemodynamically stable. White count 10.5. Hemoglobin 14.6. Creatinine 0.69. Currently on DuoNeb inhalations, Pulmicort and Perforomist inhalations, IV Solu-Medrol and Augmentin. The patient is seen today 04/18/2019 in follow-up on the regular medical floor. She is awake and alert in no acute distress. She continues with a loose nonproductive cough. Dyspneic on exertion.maintaining O2 saturations in the low 90s on 2 L Per minute per nasal cannula. White count 14.4. Hemoglobin 12.9. Creatinine 0.76. She is continued on DuoNeb inhalations, Perforomist and Pulmicort inhalations,IV Solu-Medrol. Antibiotics in the form of Augmentin. The patient is seen today 04/19/2019 in follow-up on the regular medical floor. She is currently sitting up with the bedside. Awake and alert in no acute distress. Breathing easier today as compared to yesterday. Less congested cough. Status post bronchoscopy with BAL. Cultures pending. Viral workup is positive for parainfluenza 1. White count 14.4. Hemoglobin 12.9. Creatinine 0.76. She is currently on bronchodilators, Augmentin, Singulair, IV Solu- Medrol. The patient is seen today 04/20/2019 in follow-up on the regular medical floor. She is awake and alert in no acute distress. Breathing better today as compared to yesterday. Maintaining O2 saturations in the low 90s on 2 L/m per nasal cannula. Currently afebrile. Bronchial wash culture now positive for pseudomonas aeruginosa along with parainfluenza. White count 12.6. Hemoglobin 13.9. Creatinine 0.61. She is currently on Augmentin along with bronchodilators, IV Solu-Medrol, Singulair. On 04/21/2019 patient seen in follow-up on medical surgical floor, patient is improving, still has some residual rhonchi, but no significant wheezing, overall sounding much improved since admission, home oxygen assessment revealed 84% pulse ox with exercise and patient is satting 90% on 2 L, bronchial wash cultures were positive for pseudomonas aeruginosa, patient is on Diflucan, and Zosyn for antibiotic coverage, fungal culture revealed Sumi albicans. on 04/22/2019 I am seeing this patient for a follow-up. Clinically she is improving. I will set there is marked improvement on her condition compared to yesterday. She was diagnosed having pseudomonas aeruginosa and her bronchioloalveolar lavage and the patient is improved on IV Zosyn. As such, I'm considering outpatient antibiotic with IV Zosyn or Fortaz specially the patient is unable to tolerate any form of quinolones touches Levaquin or Cipro. She is much improved. 1218, no new complaints. The patient is being worked up for outpatient antibiotics. She would have a midline inserted for outpatient antibiotic treatment regarding her pseudomonal growth in her lungs. Clinically improved. She is unable to take any form of quinolones due to tendinitis and joint pains. No fever. No chills. Gradually improving. Gradually getting stronger. No nausea. No vomiting. No chest pain. No other complaints otherwise. on 04/24/2019 the patient is doing well. Much improved. Cough and congestion is improved. She has a PICC line in her right upper extremity and the patient is going home with home antibiotics and the choice of antibiotics will be IV cefepime. No fever. No chills. No other complaints otherwise. Objective - Vital Signs Vital signs: Vital Signs Temp 97.9 F 04/24/19 11:56 Pulse 61 04/24/19 11:56 Resp 16 04/24/19 11:56 BP 128/58 04/24/19 11:56 Pulse Ox 95 04/24/19 11:56 Intake & Output 04/23/19 04/24/19 04/24/19 18:59 06:59 18:59 Intake Total 240 650 Output Total 3 1 Balance 237 649 Intake: Intake, IV Titration 60 Amount Lactated Ringers 1,000 ml 60 @ 20 mls/hr IV .Q24H YANG Rx#:[id number] Oral 240 590 Output: Stool 3 1 Other: Voiding Method Toilet Toilet Toilet # Voids 3 2 - Exam GENERAL EXAM: Alert, a pleasant, 74-year-old white female, 2 L of oxygen the pulse ox of 90-93%, comfortable in no apparent distress. HEAD: Normocephalic/atraumatic. EYES: Normal reaction of pupils, equal size. Conjunctiva pink, sclera white. NOSE: Clear with pink turbinates. THROAT: No erythema or exudates. NECK: No masses, no JVD, no thyroid enlargement, no adenopathy. CHEST: No chest wall deformity. Symmetrical expansion. LUNGS: Equal air entry with some scattered rhonchi, minimal wheezing CVS: Regular rate and rhythm, normal S1 and S2, no gallops, no murmurs, no rubs ABDOMEN: Soft, nontender. No hepatosplenomegaly, normal bowel sounds, no guarding or rigidity. EXTREMITIES: No clubbing, no edema, no cyanosis, 2+ pulses and upper and lower extremities. MUSCULOSKELETAL: Muscle strength and tone normal. SPINE: No scoliosis or deformity SKIN: No rashes CENTRAL NERVOUS SYSTEM: Alert and oriented -3. No focal deficits, tone is normal in all 4 extremities. PSYCHIATRIC: Alert and oriented -3. Appropriate affect. Intact judgment and insight. - Labs CBC & Chem 7: 04/24/19 07:55 04/24/19 07:55 Labs: Abnormal Lab Results - Last 24 Hours (Table) 04/23/19 04/23/19 04/24/19 Range/Units 17:25 20:05 06:52 WBC (3.8-10.6) k/uL Neutrophils # (1.3-7.7) k/uL Lymphocytes # (1.0-4.8) k/uL Carbon Dioxide (22-30) mmol/L BUN (7-17) mg/dL Glucose (74-99) mg/dL POC Glucose (mg/dL) 120 H 207 H 156 H (75-99) mg/dL 04/24/19 04/24/19 04/24/19 Range/Units 07:55 07:55 11:30 WBC 13.3 H (3.8-10.6) k/uL Neutrophils # 12.1 H (1.3-7.7) k/uL Lymphocytes # 0.5 L (1.0-4.8) k/uL Carbon Dioxide 31 H (22-30) mmol/L BUN 24 H (7-17) mg/dL Glucose 167 H (74-99) mg/dL POC Glucose (mg/dL) 178 H (75-99) mg/dL Assessment and Plan Plan: #1 Acute exacerbation of chronic obstructive pulmonary disease, complicated by purulent tracheobronchitis. Status post bronchoscopy with BAL. Cultures positive for pseudomonas aeruginosa. Viral screen is positive for parainfluenza 1. The patient remains on IV Zosyn. Recommend outpatient IV antibiotics regarding pseudomonas tracheobronchitis. #3 Diffuse abdominal pain , recovered #4 History of coronary disease. #5 History of skin cancer. #6 GERD. #7 History of GI bleed. #8 Hyperlipidemia. #9 Hypertension. #10 Stage III chronic kidney disease. #11 Obstructive sleep apnea maintained on CPAP. plan PICC line inserted. The patient will be discharged home today for IV antibiotics with IV cefepimeto complete the course of antibiotic treatment for pseudomonas infection. Follow-up with us in the office on outpatient basis. Prednisone burst taper and continued on albuterol nebulized [id number], Spiriva and Advair as maintenance
[2019-04-24 15:40] VITALS: PULSE 68
--- NOTE | 2019-04-24 16:08 | P.DS ---
Providers Date of admission: 04/15/19 12:14 Expected date of discharge: 04/24/19 Attending physician: Peter Florez Consults: 04/15/19 14:02 Consult Physician Routine Consulting Provider: Kaylen Monroy Consult Reason/Comments: new afib Do you want consulting provider notified?: Yes 04/15/19 14:45 Consult Physician Urgent Consulting Provider: Ramirez Arguelles Consult Reason/Comments: copd and hypoxic resp failure Do you want consulting provider notified?: Yes 04/22/19 14:25 Consult Physician Routine Consulting Provider: Opal Richmond Consult Reason/Comments: pseudomonas, sandra Do you want consulting provider notified?: Yes Primary care physician: Stated None Hospital Course: final diagnosis Acute COPD exacerbation, with acute purulent tracheobronchitis Bronchoscopy culture with bronchial bronchoalveolar lavage showing Pseudomonas aeruginosa and Sandra albicans Acute hypoxic respiratory failure, present on admission, secondary to chronic obstructive pulmonary disease gait dysfunction Patient has multifocal atrial tachycardia rather than atrial fibrillation. As per cardiology evaluation Constipation with RLQ tenderness History of coronary artery disease Hypertension Hyperlipidemia Sleep apnea on CPAP/BiPAP GERD History of upper GI bleed History of diverticulitis Chronic kidney disease stage III Osteoporosis History of skin cancer DVT prophylaxis: Subcutaneous heparin GI Prophylaxis: Pepcid Discharge disposition Patient is being discharged in a stable condition with guarded prognosis to home and will be receiving home care. She will continue with IV antibiotic therapy in the outpatient setting and will follow-up with Dr. richmond in one week. Patient will also follow-up with pulmonary in 1-2 weeks. patient will continue on a prednisone taper along with bronchodilators upon discharge. total time taken is 35 minutes. History of present illness This is a 74-year-old female who was recently admitted with COPD exacerbation and underwent bronchial washing and was found to have pseudomonas aeruginosa and the cultures and will be requiring IV antibiotic therapy in the form of cefepime for at least 10 days. Patient received a midline and Homecare has been arranged with case management. patient will also be going home on oxygen via nasal cannula. Patient will continue on a prednisone taper along with bronchodilators and will follow-up with Dr. Buitrago in the outpatient setting in 1-2 weeks. discussed with the patient at length about refraining from any tobacco use the patient states she verbalizes understanding. current patient's condition is stable and would like to be discharged today. on exam vital signs are stable. temp is 97.9F, pulse is 61, respirations are 16, blood pressure is 128/58, oxygen saturation is 95% on 3 L via nasal cannula. cardio S1, S2 are present. Respiratory system shows diminished breath sounds at the bases with a few scattered rhonchi noted. Abdomen is soft, nontender. Nervous system shows no focal deficits. please refer to medication reconciliation sheet for a list of medications. Patient Condition at Discharge: Fair Plan - Discharge Summary Discharge Rx Participant: No New Discharge Prescriptions: New Fluconazole [Diflucan] 100 mg PO BID 5 Days #10 tab Metoprolol Tartrate [Lopressor] 25 mg PO BID 30 Days #60 tab Polyethylene Glycol 3350 [Miralax] 17 gm PO DAILY 30 Days #30 powd.pack Formoterol Fumarate [Perforomist] 20 mcg INHALATION RT-BID 30 Days #60 nebu predniSONE 10 mg PO DIRECTED #30 tab Pantoprazole [Protonix] 40 mg PO DAILY 30 Days #30 tablet. Lisinopril [Zestril] 5 mg PO DAILY 30 Days #30 tab Continue Atorvastatin [Lipitor] 40 mg PO HS Discontinued Isosorbide Mononitrate ER [Imdur] 30 mg PO PC-SUPPER No Action Omalizumab [Xolair] 150 mg SQ Q30D Albuterol Sulfate [Proair Respiclick] 2 puff INHALATION RT-QID PRN PRN Reason: Shortness Of Breath Potassium Chloride ER [K-Dur 20] 40 meq PO QAM FLUoxetine HCL 40 mg PO QAM Cetirizine HCl [Zyrtec] 10 mg PO DAILY PRN PRN Reason: allergies amLODIPine [Norvasc] 10 mg PO QAM Fluticasone Nasal Austin [Flonase Nasal Austin] 2 spray EA NOSTRIL HS Fluticasone/Salmeterol [Advair 500-50 Diskus] 1 puff INHALATION RT-BID PRN PRN Reason: Shortness Of Breath Montelukast [Singulair] 10 mg PO HS Magnesium 400 mg PO DAILY Tiotropium 18 Mcg/Puff [Spiriva] 1 cap INHALATION RT-DAILY Diazepam [Valium] 10 mg PO BID PRN PRN Reason: muscle spasms Allergy Shot 1 injection IM Q14D Nitroglycerin Sl Tabs [Nitrostat] 0.4 mg SUBLINGUAL Q5M PRN PRN Reason: Chest Pain Furosemide [Lasix] 20 mg PO DAILY Albuterol Nebulized [Ventolin Nebulized] 2.5 mg INHALATION RT-QID PRN PRN Reason: Shortness Of Breath Potassium Chloride [K-Tab ER] 30 meq PO HS Discharge Medication List Albuterol Sulfate [Proair Respiclick] 2 puff INHALATION RT-QID PRN 09/03/15 [History] Cetirizine HCl [Zyrtec] 10 mg PO DAILY PRN 09/03/15 [History] FLUoxetine HCL 40 mg PO QAM 09/03/15 [History] Fluticasone Nasal Austin [Flonase Nasal Austin] 2 spray EA NOSTRIL HS 09/03/15 [History] Fluticasone/Salmeterol [Advair 500-50 Diskus] 1 puff INHALATION RT-BID PRN 09/03/15 [History] Montelukast [Singulair] 10 mg PO HS 09/03/15 [History] Omalizumab [Xolair] 150 mg SQ Q30D 09/03/15 [History] Potassium Chloride ER [K-Dur 20] 40 meq PO QAM 09/03/15 [History] amLODIPine [Norvasc] 10 mg PO QAM 09/03/15 [History] Magnesium 400 mg PO DAILY 10/26/15 [History] Tiotropium 18 Mcg/Puff [Spiriva] 1 cap INHALATION RT-DAILY 10/28/15 [History] Allergy Shot 1 injection IM Q14D 10/12/17 [History] Atorvastatin [Lipitor] 40 mg PO HS 10/12/17 [History] Diazepam [Valium] 10 mg PO BID PRN 10/12/17 [History] Nitroglycerin Sl Tabs [Nitrostat] 0.4 mg SUBLINGUAL Q5M PRN 03/21/18 [History] Albuterol Nebulized [Ventolin Nebulized] 2.5 mg INHALATION RT-QID PRN 04/15/19 [History] Furosemide [Lasix] 20 mg PO DAILY 04/15/19 [History] Potassium Chloride [K-Tab ER] 30 meq PO HS 04/15/19 [History] Fluconazole [Diflucan] 100 mg PO BID 5 Days #10 tab 04/24/19 [Rx] Formoterol Fumarate [Perforomist] 20 mcg INHALATION RT-BID 30 Days #60 nebu 04/24/19 [Rx] Lisinopril [Zestril] 5 mg PO DAILY 30 Days #30 tab 04/24/19 [Rx] Metoprolol Tartrate [Lopressor] 25 mg PO BID 30 Days #60 tab 04/24/19 [Rx] Pantoprazole [Protonix] 40 mg PO DAILY 30 Days #30 tablet.dr 04/24/19 [Rx] Polyethylene Glycol 3350 [Miralax] 17 gm PO DAILY 30 Days #30 powd.pack 04/24/19 [Rx] predniSONE 10 mg PO DIRECTED #30 tab 04/24/19 [Rx] Follow up Appointment(s)/Referral(s): Ramirez Arguelles DO [Doctor of Osteopathic Medicine] - 05/14/19 8:45 am [facility], [NON-STAFF] - 1 Week [facility] [NON-STAFF] - 1 Week (patient to go to her first infusion appt.they will then schedule her appt) Opal Richmond MD [STAFF PHYSICIAN] - 1 Week Patient Instructions/Handouts: Metoprolol (By mouth), Spironolactone (By mouth), Lisinopril (By mouth), Complications of Infection (GEN) Activity/Diet/Wound Care/Special Instructions: activity Limited until follow-up Follow-up with primary care provider upon discharge Follow-up with Dr. Buitrago in one to 2 weeks follow-up with Dr. Richmond in one week Continue antibiotics with home care and infusion center Continue current diet Discharge Disposition: HOME WITH HOME HEALTH SERVICES
[2019-04-25] MEDS ORDERED: predniSONE 20 MG TAB PO SCH (09:00)
== END 2019-04-24 17:30 | disposition home health service (06) | DRG 190 ==
LOC: 4MS4W 12:14 → 3NMEDONC 04-16 15:32 → 5NMEDONC 04-20 07:01
PROVIDERS: ADMIT Internal Medicine; ATTEND Internal Medicine
PROC: 0B9D8ZX Drainage of Right Middle Lung Lobe, Via Natural or Artificial Opening Endoscopic, Diagnostic (ICD-10-PCS; 2019-04-18)
PROC: 0B9D8ZZ Drainage of Right Middle Lung Lobe, Via Natural or Artificial Opening Endoscopic (ICD-10-PCS; principal; 2019-04-18 12:00)
DX: J44.1 Chronic obstructive pulmonary disease with (acute) exacerbation (principal); J96.21 Acute and chronic respiratory failure with hypoxia; J15.1 Pneumonia due to Pseudomonas; I50.23 Acute on chronic systolic (congestive) heart failure; J98.11 Atelectasis; I13.0 Hypertensive heart and chronic kidney disease with heart failure and stage 1 through stage 4 chronic kidney disease, or unspecified chronic kidney disease; I42.9 Cardiomyopathy, unspecified; I47.1 Supraventricular tachycardia; J44.0 Chronic obstructive pulmonary disease with (acute) lower respiratory infection; J30.9 Allergic rhinitis, unspecified; D64.9 Anemia, unspecified; E78.5 Hyperlipidemia, unspecified; F17.210 Nicotine dependence, cigarettes, uncomplicated; G47.33 Obstructive sleep apnea (adult) (pediatric); Z99.89 Dependence on other enabling machines and devices; I25.10 Atherosclerotic heart disease of native coronary artery without angina pectoris; I48.91 Unspecified atrial fibrillation; K21.9 Gastro-esophageal reflux disease without esophagitis; K57.90 Diverticulosis of intestine, part unspecified, without perforation or abscess without bleeding; K59.00 Constipation, unspecified; M77.9 Enthesopathy, unspecified; M81.0 Age-related osteoporosis without current pathological fracture; N18.3 Chronic kidney disease, stage 3 (moderate); Z79.899 Other long term (current) drug therapy; Z82.41 Family history of sudden cardiac death; Z82.49 Family history of ischemic heart disease and other diseases of the circulatory system; Z84.1 Family history of disorders of kidney and ureter; Z85.828 Personal history of other malignant neoplasm of skin; Z87.01 Personal history of pneumonia (recurrent); Z87.11 Personal history of peptic ulcer disease; Z88.1 Allergy status to other antibiotic agents; Z90.49 Acquired absence of other specified parts of digestive tract; Z90.710 Acquired absence of both cervix and uterus; Z99.81 Dependence on supplemental oxygen; M25.512 Pain in left shoulder; R26.9 Unspecified abnormalities of gait and mobility; Z88.8 Allergy status to other drugs, medicaments and biological substances; J20.8 Acute bronchitis due to other specified organisms
CPT/HCPCS: 31624; 36410; 71045; 74019; 74022; 76937; 80048; 80053; 83036; 83735; 84443; 85025; 85610; 85730; 87070; 87077; 87102; 87116; 87186; 87205; 87206; 87252; 87496; 87498; 87502; 87529; 87634; 87798; 88108; 88305; 89050; 93005; 93306; 94640; 94760

== ENCOUNTER 2019-05-03 12:17 | Inpatient (IN) | payer BC, MEDICARE ==
[2019-05-03] MEDS ORDERED: SODIUM CHLORIDE 0.9% 500 ML 500 ML IV ONE (12:55)
[2019-05-03] MEDS: SODIUM CHLORIDE 0.9% 1,000 ML IV SCH (13:03)
[2019-05-03 13:06] LABS: Basophils % (A) 0 %; Eosinophils # (A) 0.1 k/uL (0-0.7); Eosinophils % (A) 1 %; HGB 14.8 gm/dL (11.4-16.0); Lymphocytes # (A) 0.9 k/uL (1.0-4.8); Lymphocytes % (A) 5 %; MCH 29.8 pg (25.0-35.0); MCHC 33.6 g/dL (31.0-37.0); MCV 88.6 fL (80.0-100.0); Mean Platelet Volume 7.3; Monocytes # (A) 0.5 k/uL (0-1.0); Monocytes % (A) 3 %; Neutrophils # (A) 16.3 k/uL (1.3-7.7); Neutrophils % (A) 91 %; Platelet Count 328 k/uL (150-450); RBC 4.97 m/uL (3.80-5.40); RDW 13.8 % (11.5-15.5); WBC 17.9 k/uL (3.8-10.6)
[2019-05-03 13:17] LABS: Albumin 4.6 g/dL (3.5-5.0); Calcium 9.9 mg/dL (8.4-10.2); Magnesium 1.9 mg/dL (1.6-2.3); Total Bilirubin 1.3 mg/dL (0.2-1.3); Total Protein 7.7 g/dL (6.3-8.2)
[2019-05-03 13:24] LABS: Potassium 6.6 mmol/L (3.5-5.1)
[2019-05-03] MEDS ORDERED: INSULIN REGULAR 100 UNIT/ML VIAL IV ONE (13:44)
[2019-05-03] MEDS ORDERED: ALBUTEROL NEB (CONC) 2.5 MG/0.5 ML INHALATION ONE (13:44)
[2019-05-03] MEDS ORDERED: FUROSEMIDE 10 MG/ML 4 ML VIAL IV STA (13:45)
[2019-05-03] MEDS ORDERED: DEXTROSE 50% SYRINGE 50 ML IVP STA (13:45)
--- NOTE | 2019-05-03 13:46 | ED ---
Recheck HPI - General Chief Complaint: Recheck/Abnormal Lab/Rx Stated Complaint: abn labs Time Seen by Provider: 05/03/19 12:37 Source: patient Mode of arrival: ambulatory Limitations: no limitations - History of Present Illness Initial Comments: 74-year-old female presenting today for chief complaint of abnormal labs. Patient states she has labs drawn outpatient because she is currently being treated for pseudomonas pneumonia. Patient states she was told she had high potassium and come to the emergency department for treatment. Patient denies any chest pain shortness of breath. Patient denies any fever. Patient states she believes she is starting to feel better. Remaining review of system negative patient denies any nausea vomiting diarrhea abdominal pain headaches dizziness or leg swelling.Pt afebrile appearing nontoxic on arrival. - Related Data Home Medications Medication Instructions Recorded Confirmed Albuterol Sulfate [Proair 2 puff INHALATION RT-QID PRN 09/03/15 04/15/19 Respiclick] Cetirizine HCl [Zyrtec] 10 mg PO DAILY PRN 09/03/15 04/15/19 FLUoxetine HCL 40 mg PO QAM 09/03/15 04/15/19 Fluticasone Nasal [place] [Flonase 2 spray EA NOSTRIL HS 09/03/15 04/15/19 Nasal [place]] Fluticasone/Salmeterol [Advair 1 puff INHALATION RT-BID PRN 09/03/15 04/15/19 500-50 Diskus] Montelukast [Singulair] 10 mg PO HS 09/03/15 04/15/19 Omalizumab [Xolair] 150 mg SQ Q30D 09/03/15 04/15/19 Potassium Chloride ER [K-Dur 20] 40 meq PO QAM 09/03/15 04/15/19 amLODIPine [Norvasc] 10 mg PO QAM 09/03/15 04/15/19 Magnesium 400 mg PO DAILY 10/26/15 04/15/19 Tiotropium 18 Mcg/Puff [Spiriva] 1 cap INHALATION RT-DAILY 10/28/15 04/15/19 Allergy Shot 1 injection IM Q14D 10/12/17 04/15/19 Atorvastatin [Lipitor] 40 mg PO HS 10/12/17 04/15/19 Diazepam [Valium] 10 mg PO BID PRN 10/12/17 04/15/19 Nitroglycerin Sl Tabs [Nitrostat] 0.4 mg SUBLINGUAL Q5M PRN 03/21/18 04/15/19 Albuterol Nebulized [Ventolin 2.5 mg INHALATION RT-QID PRN 04/15/19 04/15/19 Nebulized] Furosemide [Lasix] 20 mg PO DAILY 04/15/19 04/15/19 Potassium Chloride [K-Tab ER] 30 meq PO HS 04/15/19 04/15/19 Previous Rx's Medication Instructions Recorded Fluconazole [Diflucan] 100 mg PO BID 5 Days #10 tab 04/24/19 Formoterol Fumarate [Perforomist] 20 mcg INHALATION RT-BID 30 Days 04/24/19 #60 nebu Lisinopril [Zestril] 5 mg PO DAILY 30 Days #30 tab 04/24/19 Metoprolol Tartrate [Lopressor] 25 mg PO BID 30 Days #60 tab 04/24/19 Pantoprazole [Protonix] 40 mg PO DAILY 30 Days #30 04/24/19 tablet. Polyethylene Glycol 3350 [Miralax] 17 gm PO DAILY 30 Days #30 04/24/19 powd.pack predniSONE 10 mg PO DIRECTED #30 tab 04/24/19 Allergies Allergy/AdvReac Type Severity Reaction Status Date / Time gemfibrozil [From Lopid] Allergy tendon Verified 04/15/19 12:45 damage levofloxacin [From Levaquin] Allergy tendon Verified 04/15/19 12:45 damage dust mites Allergy Wheezing Uncoded 04/15/19 12:45 Review of Systems ROS Statement: Those systems with pertinent positive or pertinent negative responses have been documented in the HPI. ROS Other: All systems not noted in ROS Statement are negative. Past Medical History Past Medical History: Asthma, Coronary Artery Disease (CAD), Cancer, COPD, GERD/Reflux, GI Bleed, Hyperlipidemia, Hypertension, Pneumonia, Renal Disease, Sleep Apnea/CPAP/BIPAP Additional Past Medical History / Comment(s): Bronchitis, upper GI bleed, gastric ulcer, diverticulitis, iron anemia-has had infusions, CKD stage III, chronic hypokalemia, ARUN with Cpap and oxygen at 2L/NC with it, osteoporosis, R upper arm crush injury-pain and limited ROM, L shoulder pain, allergic rhininis, skin cancer basal/squamous removals. 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 Past Anesthesia/Blood Transfusion Reactions: No Reported Reaction Additional Past Anesthesia/Blood Transfusion Reaction / Comment(s): Pt has received blood in past without reaction. Past Psychological History: Anxiety, Depression Smoking Status: Former smoker Past Alcohol Use History: Rare Past Drug Use History: None Reported - Past Family History Father Family Medical History: Coronary Artery Disease (CAD), Myocardial Infarction (CA) Additional Family Medical History / Comment(s): Father of a CA at the age of 41 yrs. Mother Family Medical History: Renal Disease Sister(s) Family Medical History: Renal Disease Additional Family Medical History / Comment(s): 2 sisters with renal disease and both are . Brother(s) Family Medical History: Congestive Heart Failure (CHF) Additional Family Medical History / Comment(s): Brother had a cardiac arrest and at the age of 49yrs. Son(s) Family Medical History: Coronary Artery Disease (CAD), Hyperlipidemia, Hypertension, Myocardial Infarction (CA) Additional Family Medical History / Comment(s): Son had his first CA at the age of 34yrs. He has had a total of 3 MIs. General Exam - General Exam Comments Initial Comments: General: The patient is awake and alert, in no distress Eye: +3 mm pupils are equal, round and reactive to light, extra-ocular movements are intact. No nystagmus. There is normal conjunctiva bilaterally. No signs of icterus. Ears, nose, mouth and throat: There are moist mucous membranes and no oral lesions. Neck: The neck is supple, there is no tenderness or JVD. Cardiovascular: There is a regular rate and rhythm. No murmur, rub or gallop is appreciated. Respiratory: Lungs are clear to auscultation, respirations are non-labored, breath sounds are equal. No wheezes, stridor, rales, or rhonchi. Gastrointestinal: Soft, non-distended, non-tender abdomen without masses or organomegaly noted. There is no rebound or guarding present. Musculoskeletal: Normal ROM, no tenderness. Strength 5/5. Sensation intact. Radial pulses equal bilaterally 2+. Neurological: A&O x 3. CN II-XII intact grossly, There are no obvious motor or sensory deficits. Coordination appears grossly intact. Speech is normal. Skin: Skin is warm and dry and no rashes or lesions are noted. Psychiatric: Cooperative, appropriate mood & affect, normal judgment. Limitations: no limitations Course Vital Signs 05/03/19 05/03/19 05/03/19 12:33 13:30 14:00 Temperature 98.2 F Pulse Rate 75 68 75 Respiratory 18 24 20 Rate Blood Pressure 111/69 103/93 101/61 O2 Sat by Pulse 98 98 99 Oximetry 05/03/19 05/03/19 05/03/19 14:23 14:30 14:34 Temperature Pulse Rate 76 65 80 Respiratory 14 Rate Blood Pressure 106/59 O2 Sat by Pulse 96 Oximetry 05/03/19 05/03/19 05/03/19 15:00 15:30 16:00 Temperature Pulse Rate 80 86 80 Respiratory 16 43 H 18 Rate Blood Pressure 100/69 110/66 112/76 O2 Sat by Pulse 94 L 96 Oximetry Medical Decision Making - Medical Decision Making 74-year-old female presents today for chief complaint of elevated potassium. Potassium 6.6 with slight hemolysis. Patient is symptomatic EKG shows no findings consistent with hyperkalemia. Patient had a pedal treatment, IV insulin with ampule of d50, as well as IV lasix. Patient repeat 4.6, it was noted the patient has findings on chest x-ray of worsening pneumonia as well as increasing leukocytosis--this is concerning given patient's diagnosis of Pseudomonas pneumonia patient be admitted for hyperkalemia as well as reevaluation for pneumonia. Patient agreeable to admission, blood culture pending. Given zosyn in the ER after reviewing sensitivities of bronchial washings. Dr. Lindo evaluated patient is agreeable to plan admission at this time - Lab Data Result diagrams: 05/03/19 12:45 05/03/19 15:31 Lab Results 05/03/19 05/03/19 05/03/19 Range/Units 12:45 12:45 14:16 WBC 17.9 H (3.8-10.6) k/uL RBC 4.97 (3.80-5.40) m/uL Hgb 14.8 (11.4-16.0) gm/dL Hct 44.0 (34.0-46.0) % MCV 88.6 (80.0-100.0) fL MCH 29.8 (25.0-35.0) pg MCHC 33.6 (31.0-37.0) g/dL RDW 13.8 (11.5-15.5) % Plt Count 328 (150-450) k/uL Neutrophils % 91 % Lymphocytes % 5 % Monocytes % 3 % Eosinophils % 1 % Basophils % 0 % Neutrophils # 16.3 H (1.3-7.7) k/uL Lymphocytes # 0.9 L (1.0-4.8) k/uL Monocytes # 0.5 (0-1.0) k/uL Eosinophils # 0.1 (0-0.7) k/uL Basophils # 0.0 (0-0.2) k/uL Sodium 128 L (137-145) mmol/L Potassium 6.6 H* (3.5-5.1) mmol/L Chloride 96 L (98-107) mmol/L Carbon Dioxide 20 L (22-30) mmol/L Anion Gap 12 mmol/L BUN 32 H (7-17) mg/dL Creatinine 0.82 (0.52-1.04) mg/dL Est GFR (CKD-EPI)AfAm 83 (>60 ml/min/1.73 sqM) Est GFR (CKD-EPI)NonAf 72 (>60 ml/min/1.73 sqM) Glucose 148 H (74-99) mg/dL POC Glucose (mg/dL) 145 H (75-99) mg/dL POC Glu [employer] Mechan[employer] ID Luann Jade Calcium 9.9 (8.4-10.2) mg/dL Magnesium 1.9 (1.6-2.3) mg/dL Total Bilirubin 1.3 (0.2-1.3) mg/dL AST 29 (14-36) U/L ALT 32 (4-34) U/L Alkaline Phosphatase 109 (38-126) U/L Total Protein 7.7 (6.3-8.2) g/dL Albumin 4.6 (3.5-5.0) g/dL 05/03/19 Range/Units 14:42 WBC (3.8-10.6) k/uL RBC (3.80-5.40) m/uL Hgb (11.4-16.0) gm/dL Hct (34.0-46.0) % MCV (80.0-100.0) fL MCH (25.0-35.0) pg MCHC (31.0-37.0) g/dL RDW (11.5-15.5) % Plt Count (150-450) k/uL Neutrophils % % Lymphocytes % % Monocytes % % Eosinophils % % Basophils % % Neutrophils # (1.3-7.7) k/uL Lymphocytes # (1.0-4.8) k/uL Monocytes # (0-1.0) k/uL Eosinophils # (0-0.7) k/uL Basophils # (0-0.2) k/uL Sodium (137-145) mmol/L Potassium (3.5-5.1) mmol/L Chloride (98-107) mmol/L Carbon Dioxide (22-30) mmol/L Anion Gap mmol/L BUN (7-17) mg/dL Creatinine (0.52-1.04) mg/dL Est GFR (CKD-EPI)AfAm (>60 ml/min/1.73 sqM) Est GFR (CKD-EPI)NonAf (>60 ml/min/1.73 sqM) Glucose (74-99) mg/dL POC Glucose (mg/dL) 310 H (75-99) mg/dL POC Glu [employer] Mechanic ID Luann Jade Calcium (8.4-10.2) mg/dL Magnesium (1.6-2.3) mg/dL Total Bilirubin (0.2-1.3) mg/dL AST (14-36) U/L ALT (4-34) U/L Alkaline Phosphatase (38-126) U/L Total Protein (6.3-8.2) g/dL Albumin (3.5-5.0) g/dL Disposition Clinical Impression: Hyperkalemia, Hyponatremia, Leukocytosis, Pseudomonas pneumonia Disposition: ADMITTED IP TO THIS HOSP Condition: Stable Is patient prescribed a controlled substance at d/c from ED?: No Time of Disposition: 15:51 Decision to Admit Reason: Admit from EC Decision Date: 05/03/19 Decision Time: 15:51
[2019-05-03 14:18] LABS: Glucose,Whole Blood 145 mg/dL (75-99)
[2019-05-03 14:44] LABS: Glucose,Whole Blood 310 mg/dL (75-99)
[2019-05-03] MEDS ORDERED: NALOXONE 0.4 MG/ML 1 ML VIAL IV PRN (15:14)
[2019-05-03] MEDS ORDERED: CALCIUM GLUCONATE 1 GM in SODIUM CHLORIDE 0.9% 100 ML IVPB ONE (15:30)
--- NOTE | 2019-05-03 15:41 | XR ---
EXAMINATION TYPE: XR chest 2V DATE OF EXAM: 05/03/2019 COMPARISON: 04/22/2019 HISTORY: Pneumonia TECHNIQUE: 2 views FINDINGS: There is slight elevated left diaphragm. There is no heart failure. Heart size is normal. T horacic aorta is atheromatous. There is old right humeral neck fracture. IMPRESSION: There is mild pleural reaction and atelectasis left lung base slightly worse than old exa m. No heart failure.
[2019-05-03] MEDS ORDERED: PIPERACILLIN-TAZOBACTAM 3.375 GM in SODIUM CHLORIDE 0.9% 100 ML IVPB STA (15:51)
[2019-05-03] MEDS ORDERED: LORATADINE 10 MG TAB PO PRN (19:45)
[2019-05-03] MEDS ORDERED: NITROGLYCERIN SL TABS 0.4 MG TAB SUBLINGUAL PRN (19:45)
[2019-05-03] MEDS ORDERED: POLYETHYLENE GLYCOL 3350 17 GM POWD.PACK PO PRN (19:45)
[2019-05-03] MEDS ORDERED: ALBUTEROL SULFATE INHALATION PRN (19:45)
[2019-05-03] MEDS ORDERED: NON FORMULARY DRUG (Fluticasone/Salmeterol [Advair 500-50 Diskus] 1 PUFF) INHALATION PRN (19:45)
[2019-05-03] MEDS ORDERED: IPRATROPIUM-ALBUTEROL 3 ML NEB INHALATION PRN (19:49)
[2019-05-03] MEDS: METOPROLOL TARTRATE 25 MG TAB PO SCH (20:50)
[2019-05-03] MEDS: ATORVASTATIN 40 MG TAB PO SCH (20:50)
[2019-05-03] MEDS: DIAZEPAM 5 MG TAB PO PRN (20:57)
[2019-05-03] MEDS: IPRATROPIUM-ALBUTEROL 3 ML NEB INHALATION SCH (22:22)
[2019-05-03] MEDS: FORMOTEROL FUMARATE 20 MCG/2 ML NEBU INHALATION SCH (22:22)
--- NOTE | 2019-05-03 23:11 | HP ---
HISTORY AND PHYSICAL DATE OF SERVICE: 05/03/2019. CHIEF COMPLAINTS: Hyperkalemia, abnormal labs. HISTORY OF PRESENT ILLNESS: This 74-year-old woman with a past medical history of multiple medical problems such as asthma, COPD, history of GERD, hypertension, hyperlipidemia, being followed by Kristi Matamoros in the outpatient setting was recently admitted to [facility] with complaints of chronic obstructive pulmonary disease exacerbation, the bronchoscopy culture showed Pseudomonas aeruginosa and Sumi albicans. The patient was evaluated and was discharged on the Diflucan. Outpatient evaluation showed hyperkalemia, potassium 6.6 and the patient was asked to come back to [facility] and was admitted for further evaluation and treatment. There is no history of fever, rigors or chills. No history of headache, loss of consciousness, seizures. PAST MEDICAL HISTORY: History of recent Pseudomonas, Sumi albicans, pneumonia, COPD, asthma, CAD, GERD, hypertension, hyperlipidemia, history of pneumonia, history of bladder surgery. MEDICATIONS: Home medications are: 1. Potassium 30 mEq p.o. with supper. 2. Nitroglycerin p.r.n. 3. Fluticasone nasal spray. 4. Valium 10 mg b.i.d. 5. Xolair 150 mg subcu 30 days. 6. Singulair 10 mg p.o. daily. 7. Albuterol p.r.n. 8. Prednisone p.r.n. 9. Norvasc 10 mg q.a.m. 10.Spiriva 1 puff daily. 11.K-Dur 40 mEq p.o. q.a.m. 12.MiraLAX 17 g daily p.r.n. 13.Protonix 40 mg p.o. daily. 14.Lopressor 25 mg p.o. b.i.d. 15.Magnesium 400 mg p.o. daily. 16.Zestril 5 mg p.o. daily. 17.Lasix 20 mg p.o. daily. 18.Perforomist 20 mcg b.i.d. 19.Advair 500/50 1 puff b.i.d. 20.Fluoxetine 40 mg q.a.m. 21.Zetia 10 mg daily p.r.n. 22.Lipitor 40 mg q.h.s. 23.ProAir 2 puffs q.i.d. p.r.n. ALLERGIES: DUST MITE, LOPID, LEVAQUIN. FAMILY HISTORY: History of CAD, myocardial infarction. SOCIAL HISTORY: Previous history of smoking. Occasional alcohol intake. REVIEW OF SYSTEMS: ENT: No diminished vision. No diminished hearing. CARDIOVASCULAR: No angina or palpitations. RESPIRATORY: As mentioned earlier. GI no nausea or vomiting. no dysuria or hematuria. Nervous system: Mild diffuse weakness. ALLERGY/IMMUNOLOGY: As mentioned earlier. HEMATOLOGY/ONCOLOGY: No history of anemia. ENDOCRINE: As mention earlier. CONSTITUTIONAL: As mentioned earlier. DERMATOLOGY: Negative. RHEUMATOLOGY negative. PSYCHIATRY as mentioned earlier. PHYSICAL EXAMINATION: Alert and oriented times three. Pulse 70. Blood pressure 108/72, respirations 20 temperature is 98.1, pulse ox 93 percent on room air. HEENT: Conjunctivae normal. Oral mucosa moist. NECK is no jugular venous distention. No carotid bruit. No lymph node enlargement. CARDIOVASCULAR system: S1, S2 muffled. RESPIRATIONS: Breath sounds diminished in the bases. Bilateral scattered rhonchi and crackles. ABDOMEN: Soft, nontender. LEGS: No edema. No swelling. NERVOUS SYSTEM: Higher functions as mentioned earlier. Moves all four limbs. No focal motor or sensory deficits. LYMPHATICS: No lymph nodes palpable in the neck, axillae or groin. SKIN: No ulcer, no rash and no bleeding. JOINTS: No active deforming arthropathy. LABS: WBC 17.9, hemoglobin 14.2, sodium 128, potassium 6.6. ASSESSMENT: 1. Hyperkalemia, multifactorial. 2. Hyponatremia. 3. Increased WBC. 4. History of recent chronic obstructive pulmonary disease acute exacerbation with purulent tracheobronchitis and bronchoscopy showed Pseudomonas and Sumi albicans. 5. Continued ongoing nicotine dependence. 6. Diffuse abdominal pain. 7. Gait dysfunction. 8. History of respiratory failure. 9. Multifocal atrial tachycardia rather than atrial fibrillation per Cardiology. 10.Constipation with right lower quadrant abdominal tenderness. 11.History of coronary artery disease. 12.Hypertension. 13.Hyperlipidemia. 14.Sleep apnea. 15.History of gastroesophageal reflux disease. 16.History of upper gastrointestinal bleed. 17.History of diverticulitis. 18.History of chronic kidney disease stage 3 baseline. 19.History of osteoporosis. 20.Skin cancer. 21.History of sleep apnea. 22.History of chronic hypoxic respiratory failure with chronic obstructive pulmonary disease, 2 L nasal cannula. 23.History of degenerative joint disease. 24.History of anxiety, depression. 25.FULL CODE. RECOMMENDATIONS AND DISCUSSION: In this 74-year-old woman who presented with multiple complex medical issues, we will monitor the patient closely. Continue the current medications, management and Infectious Disease. Otherwise nephrology evaluation. Repeat potassium. Kayexalate. Guarded prognosis because of multiple complex medical issues. Further recommendations to follow. See orders for details. We will avoid potassium supplementation. MMODL / IJN: [id number] /
[2019-05-04] MEDS: SODIUM CHLORIDE 0.9% 1,000 ML IV SCH ×2 (04:56→11:23)
[2019-05-04] MEDS: predniSONE 10 MG TAB PO SCH (07:30)
[2019-05-04] MEDS: MAGNESIUM OXIDE 400 MG TAB PO SCH (07:30)
[2019-05-04] MEDS: FUROSEMIDE 20 MG TAB PO SCH (07:30)
[2019-05-04] MEDS: MONTELUKAST 10 MG TAB PO SCH (07:30)
[2019-05-04] MEDS: METOPROLOL TARTRATE 25 MG TAB PO SCH ×2 (07:30→23:06)
[2019-05-04] MEDS: FLUTICASONE 50MCG/SPRAY NASAL 16GM EA NOSTRIL SCH (07:31)
[2019-05-04] MEDS: FLUoxetine HCL 20 MG CAP PO SCH (07:31)
[2019-05-04] MEDS: PANTOPRAZOLE 40 MG TABLET PO SCH (07:31)
[2019-05-04] MEDS ORDERED: NON FORMULARY DRUG (Tiotropium 18 Mcg/Puff 1 CAP) INHALATION SCH (08:00)
[2019-05-04 08:31] LABS: Basophils % (A) 0 %; Eosinophils # (A) 0.1 k/uL (0-0.7); Eosinophils % (A) 1 %; HCT 39.2 % (34.0-46.0); HGB 13.3 gm/dL (11.4-16.0); Lymphocytes # (A) 2.7 k/uL (1.0-4.8); Lymphocytes % (A) 20 %; MCHC 33.9 g/dL (31.0-37.0); MCV 88.5 fL (80.0-100.0); Mean Platelet Volume 6.9; Monocytes # (A) 0.7 k/uL (0-1.0); Monocytes % (A) 5 %; Neutrophils # (A) 10.4 k/uL (1.3-7.7); Neutrophils % (A) 74 %; Platelet Count 292 k/uL (150-450); RBC 4.42 m/uL (3.80-5.40); RDW 13.6 % (11.5-15.5); WBC 14.1 k/uL (3.8-10.6)
[2019-05-04 08:41] LABS: African American GFR (CKD) >90 (>60 ml/min/1.73 sqM); Anion Gap 8 mmol/L; Blood Urea Nitrogen 22 mg/dL (7-17); Calcium 8.8 mg/dL (8.4-10.2); Carbon Dioxide 24 mmol/L (22-30); Chloride 102 mmol/L (98-107); Glucose 134 mg/dL (74-99); Non-African American GFR(CKD) >90 (>60 ml/min/1.73 sqM); Sodium 134 mmol/L (137-145)
[2019-05-04 08:52] LABS: Potassium 4.3 mmol/L (3.5-5.1)
[2019-05-04] MEDS ORDERED: amLODIPine 10 MG TAB PO SCH (09:00)
--- NOTE | 2019-05-04 09:30 | P.NPCON ---
History of Present Illness - Reason for Consult hyperkalemia - History of Present Illness Reason for consultation: Hyperkalemia History of present illness: Patient is a 74-year-old female seen in renal consultation for hyperkalemia. Patient states she had blood work an outpatient and was advised to go to the ER immediately. Patient's potassium level on admission was 6.6. This was medically treated with nebulized albuterol, IV insulin, IV Lasix. She also received IV calcium. Repeat potassium level came down to 4.6 and this morning he was 4.3. Patient states she does take potassium supplementation daily. Additionally she was started on lisinopril about a week ago for high blood pressure. She admits to good urine output. No hematuria or dysuria. No vomiting or diarrhea. Hemodynamically stable. Blood pressures actually a little on the lower side. She denies use of nonsteroidals. Patient states her mother was on hemodialysis and sore 2 for nephew's who have diabetes. Patient's GFR is currently at baseline. Creatinine 0.59 today. No fever or chills. No chest pain or shortness of breath. Vital signs are stable. General: The patient appeared well nourished and normally developed. HEENT: Head exam is unremarkable. Neck is without jugular venous distension. LUNGS: Lungs are clear to auscultation and percussion. Breath sounds decreased. HEART: Rate and Rhythm are regular. First and second heart sounds normal. No murmurs, rubs or gallops. ABDOMEN: Abdominal exam reveals normal bowel sounds. Non-tender and non- distended. No evidence of peritonitis. EXTREMITITES: No clubbing, cyanosis, or edema. Past Medical History Past Medical History: Asthma, Coronary Artery Disease (CAD), Cancer, COPD, GERD/Reflux, GI Bleed, Hyperlipidemia, Hypertension, Pneumonia, Renal Disease, Sleep Apnea/CPAP/BIPAP Additional Past Medical History / Comment(s): Bronchitis, upper GI bleed, gastric ulcer, diverticulitis, iron anemia-has had infusions, CKD stage III, chronic hypokalemia, ARUN with Cpap and oxygen at 2L/NC with it, osteoporosis, R upper arm crush injury-pain and limited ROM, L shoulder pain, allergic rhininis, skin cancer basal/squamous removals. 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 Past Anesthesia/Blood Transfusion Reactions: No Reported Reaction Additional Past Anesthesia/Blood Transfusion Reaction / Comment(s): Pt has received blood in past without reaction. Past Psychological History: Anxiety, Depression Additional Psychological History / Comment(s): lives with family home with her . Pt is independent. 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 Greater than [id number] history of smoking - continues to smoke 2 packs a week. Minimal alcohol intake. Pt has a Cpap and oxygen. Smoking Status: Former smoker Past Alcohol Use History: Rare Additional Past Alcohol Use History / Comment(s): Pt started smoking in 1959 and was a heavy smoker. She quit in November 2017 but started smoking again the past few [id number] packs per week. Past Drug Use History: None Reported - Past Family History Father Family Medical History: Coronary Artery Disease (CAD), Myocardial Infarction (AR) Additional Family Medical History / Comment(s): Father of a AR at the age of 41 yrs. Mother Family Medical History: Renal Disease Sister(s) Family Medical History: Renal Disease Additional Family Medical History / Comment(s): 2 sisters with renal disease and both are . Brother(s) Family Medical History: Congestive Heart Failure (CHF) Additional Family Medical History / Comment(s): Brother had a cardiac arrest and at the age of 49yrs. Son(s) Family Medical History: Coronary Artery Disease (CAD), Hyperlipidemia, Hypertension, Myocardial Infarction (AR) Additional Family Medical History / Comment(s): Son had his first AR at the age of 34yrs. He has had a total of 3 MIs. Medications and Allergies Home Medications Medication Instructions Recorded Confirmed Type Albuterol Sulfate [Proair 2 puff INHALATION RT-QID PRN 09/03/15 05/03/19 History Respiclick] Cetirizine HCl [Zyrtec] 10 mg PO DAILY PRN 09/03/15 05/03/19 History FLUoxetine HCL 40 mg PO QAM 09/03/15 05/03/19 History Fluticasone Nasal [place] [Flonase 2 spray EA NOSTRIL DAILY 09/03/15 05/03/19 History Nasal [place]] Fluticasone/Salmeterol [Advair 1 puff INHALATION RT-BID PRN 09/03/15 05/03/19 History 500-50 Diskus] Montelukast [Singulair] 10 mg PO DAILY 09/03/15 05/03/19 History Omalizumab [Xolair] 150 mg SQ Q30D 09/03/15 05/03/19 History Potassium Chloride ER [K-Dur 20] 40 meq PO QAM 09/03/15 05/03/19 History amLODIPine [Norvasc] 10 mg PO QAM 09/03/15 05/03/19 History Magnesium 400 mg PO DAILY 10/26/15 05/03/19 History Tiotropium 18 Mcg/Puff [Spiriva] 1 cap INHALATION RT-DAILY 10/28/15 05/03/19 History Allergy Shot 1 injection IM Q14D 10/12/17 05/03/19 History Atorvastatin [Lipitor] 40 mg PO HS 10/12/17 05/03/19 History Diazepam [Valium] 10 mg PO BID PRN 10/12/17 05/03/19 History Nitroglycerin Sl Tabs [Nitrostat] 0.4 mg SUBLINGUAL Q5M PRN 03/21/18 05/03/19 History Albuterol Nebulized [Ventolin 2.5 mg INHALATION RT-QID PRN 04/15/19 05/03/19 History Nebulized] Furosemide [Lasix] 20 mg PO DAILY 04/15/19 05/03/19 History Potassium Chloride [K-Tab ER] 30 meq PO W/SUPPER 04/15/19 05/03/19 History Formoterol Fumarate [Perforomist] 20 mcg INHALATION RT-BID 30 Days 04/24/19 05/03/19 Rx #60 nebu Lisinopril [Zestril] 5 mg PO DAILY 30 Days #30 tab 04/24/19 05/03/19 Rx Metoprolol Tartrate [Lopressor] 25 mg PO BID 30 Days #60 tab 04/24/19 05/03/19 Rx Pantoprazole [Protonix] 40 mg PO DAILY 30 Days #30 04/24/19 05/03/19 Rx tablet. Polyethylene Glycol 3350 [Miralax] 17 gm PO DAILY PRN 05/03/19 05/03/19 History predniSONE See Taper PO DIRECTED 05/03/19 05/03/19 History Allergies Allergy/AdvReac Type Severity Reaction Status Date / Time gemfibrozil [From Lopid] Allergy tendon Verified 05/03/19 17:10 damage levofloxacin [From Levaquin] Allergy tendon Verified 05/03/19 17:10 damage dust mites Allergy Wheezing Uncoded 04/15/19 12:45 Physical Exam Vitals: Vital Signs Temp Pulse Pulse Resp BP BP Pulse Ox 05/04/19 07:36 60 18 05/04/19 05:00 97.8 F 60 18 116/68 92 L 05/03/19 21:00 98 F 58 L 18 118/71 92 L 05/03/19 17:23 20 05/03/19 16:56 98.1 F 70 20 108/72 93 L 05/03/19 16:39 97.9 F 85 19 100/64 94 L 05/03/19 16:00 80 18 112/76 96 05/03/19 15:30 86 43 H 110/66 94 L 05/03/19 15:00 80 16 100/69 05/03/19 14:34 80 05/03/19 14:30 65 14 106/59 96 05/03/19 14:23 76 05/03/19 14:00 75 20 101/61 99 05/03/19 13:30 68 24 103/93 98 05/03/19 12:33 98.2 F 75 18 111/69 98 Intake and Output 05/03/19 05/04/19 05/04/19 22:59 06:59 14:59 Intake Total 500 Balance 500 Intake: IV 500 Piperacillin-Tazobactam 3 100 .375 gm In Sodium Chloride 0.9% 100 ml @ 200 mls/hr IVPB ONCE STA Rx#:[id number] Sodium Chloride 0.9% 1, 400 000 ml @ 100 mls/hr IV . Q10H [facility] Rx#:[id number] Other: Voiding Method Toilet Toilet # Voids 2 2 Weight 63.503 kg Results - Lab Results Most recent lab results Calcium 8.8 mg/dL (8.4-10.2) 05/04/19 08:12 Magnesium 1.9 mg/dL (1.6-2.3) 05/03/19 12:45 05/04/19 08:12 05/04/19 08:12 Assessment and Plan Plan: Assessment: 1. Hyperkalemia secondary to potassium supplementation and lisinopril. Improved with medical management. 2. Hypovolemic hyponatremia improved with IV hydration. 3. Benign hypertension. Controlled. Plan: Hep-Lock IV fluids. Maintain Lasix 20 mg orally once daily. Hold lisinopril and potassium supplementation at this time. If potassium level drops, then I will resume potassium supplementation but at a lower dose. No need for lisinopril at this time as her blood pressure is on the lower side. Thank you for the consultation. I will continue to follow the patient with you during her hospital stay.
[2019-05-04] MEDS: FORMOTEROL FUMARATE 20 MCG/2 ML NEBU INHALATION SCH ×2 (11:04→20:37)
[2019-05-04] MEDS: IPRATROPIUM-ALBUTEROL 3 ML NEB INHALATION SCH ×4 (11:04→20:37)
[2019-05-04] MEDS: APIXABAN 5 MG TAB PO SCH (16:58)
--- NOTE | 2019-05-04 18:59 | PN ---
PROGRESS NOTE DATE OF SERVICE: 05/04/2019 This 74-year-old woman was admitted with multiple medical problems including hyperkalemia, is being closely monitored. The patient was recently admitted to [facility] with features of pneumonia caused by Pseudomonas and Sumi. The patient is on broad-spectrum IV antibiotics at home through a PICC line on the right forearm. The patient also apparently had history of atrial fibrillation, which was evaluated in [facility] by cardiac catheterization. Patient was given a prescription of Eliquis, which was never filled according to the staff. Cardiology has been consulted. PAST MEDICAL HISTORY: Reviewed. REVIEW OF SYSTEMS: Cardiovascular system: As mentioned earlier. RESPIRATORY: As mentioned earlier. GI: As mentioned earlier. : As mentioned earlier. Nervous system: No numbness or weakness. CURRENT MEDICATIONS: Reviewed and include: 1. DuoNeb q.i.d. and p.r.n. 2. Norvasc 10 mg q.a.m. 3. Eliquis 5 mg p.o. 4. Lipitor 40 mg q.h.s. 5. Valium 10 mg b.i.d. p.r.n. 6. Prozac 40 mg q.a.m. 7. Flonase. 8. Perforomist 20 mcg b.i.d. 9. Lasix 20 mg p.o. daily. 10.Claritin 10 mg b.i.d. 11.Magnesium oxide 400 mg b.i.d. 12.Lopressor 25 mg p.o. b.i.d. 13.Singulair 10 mg p.o. daily. 14.Narcan 0.2 q.2 p.r.n. 15.Nitrostat. 16.Protonix 40 mg IV daily. 17.MiraLAX. 18.Prednisone 10 mg p.o. daily. PHYSICAL EXAM: Patient is alert and oriented times three. Pulse 84, blood pressure 89/60, respirations 16, temperature 97.8, pulse ox 98% on room air. HEENT: Conjunctivae normal. Oral mucosa moist. NECK is no jugular venous distention. No carotid bruit. No lymph node enlargement. Cardiovascular system: S1, S2 muffled. Irregular. No S3, no S4. Ejection systolic murmur present. RESPIRATORY: Breath sounds diminished in the bases. A few scattered rhonchi and crackles. ABDOMEN: Soft, nontender. No mass palpable. LEGS: No edema. No swelling. NERVOUS SYSTEM: Higher functions as mentioned earlier. Moves all 4 limbs. No focal motor or sensory deficits. LYMPHATICS: No lymph nodes palpable in the neck, axillae or groin. SKIN: No ulcer, no rash and no bleeding. JOINTS: No active deforming arthropathy. LAB STUDIES: WBC 14.1, hemoglobin 13.3. Sodium is 134. ASSESSMENT: 1. Hyperkalemia, multifactorial secondary to renal failure present on admission. 2. Hyponatremia. 3. Increased WBC. 4. History of recent chronic obstructive pulmonary disease acute exacerbation with acute purulent tracheobronchitis with bronchoscopy showed Pseudomonas and Sumi albicans. 5. Atrial fibrillation. 6. Relative hypotension. 7. Continued ongoing nicotine dependence. 8. Diffuse abdominal pain previously. 9. Gait dysfunction. 10.History of respiratory failure. 11.Multifocal atrial tachycardia and atrial fibrillation per Cardiology previously. 12.Constipation with right lower quadrant abdominal tenderness. 13.History of coronary artery disease. 14.Hypertension. 15.Hyperlipidemia. 16.Sleep apnea. 17.History of gastroesophageal reflux disease. 18.History of upper gastrointestinal bleed. 19.History of diverticulitis. 20.History of chronic kidney stage 3, baseline. 21.History of osteoporosis. 22.History of skin cancer. 23.History of sleep apnea. 24.History of chronic hypoxic respiratory failure with chronic obstructive pulmonary disease on 2 L nasal cannula. 25.History of degenerative joint disease. 26.History of anxiety, depression. 27.FULL CODE. RECOMMENDATIONS AND DISCUSSION: In this 74-year-old woman who presented with multiple complex medical issues, we will monitor the patient closely, continue the current medications. Continue the current management and symptomatic treatment. Portable chest x-ray which was done currently was personally reviewed by me, showed some evidence of increased bronchovascular markings. Otherwise, I would recommend a BNP. The patient also had a 2D echo recently read by Cardiology and a 2D echo showed ejection fraction 30 to 35%, as well. I would recommend resume the Eliquis. Cardiology consultation. The blood pressure is on the lower side. I would recommend hold the dose of metoprolol with systolic blood pressure less than 100. Otherwise, continue the rest of medications. Also order an 8:00 am cortisol also. Guarded prognosis because of multiple complex medical issues. Further recommendations to follow. MMODL / IJN: [id number] /
[2019-05-04] MEDS: ATORVASTATIN 40 MG TAB PO SCH (20:34)
[2019-05-04] MEDS: DIAZEPAM 5 MG TAB PO PRN (21:19)
[2019-05-04] MEDS: PIPERACILLIN-TAZOBACTAM 3.375 GM in SODIUM CHLORIDE 0.9% 100 ML IVPB SCH (23:06)
--- NOTE | 2019-05-05 06:33 | CONS ---
CONSULTATION DATE OF SERVICE: 05/04/2019 REASON FOR CONSULTATION: Pseudomonas aeruginosa pneumonia. HISTORY OF PRESENT ILLNESS: The patient is a 74-year-old female who was recently admitted to this facility. This patient did have increasing shortness of breath, cough and sputum production. Patient was diagnosed with Pseudomonas aeruginosa tracheobronchitis/pneumonia. The patient did get a Midline and subsequently was advised to course of IV for cefepime 2 g q.12 hourly the patient was receiving at home. The patient did have weekly blood work done on Sunday when she was noted to have a potassium of 6.7. Subsequently the patient was directed to go to the hospital where the redraw also showed elevated potassium of 6.6. The patient also has elevated white count 17,000. The patient did have a chest x-ray which showed mild pleural reaction and atelectasis left lung base slightly worse than old exam. No heart failure. The patient has been started on Zosyn, admitted to the hospital and Infectious Disease was consulted for further recommendation regarding antibiotic therapy. The patient currently mentioning her breathing has improved. She did have a cough which is mild to moderate in intensity with very occasional sputum production. The patient denies having chest pain. No nausea and vomiting. Has been complaining of some heartburn though and also mentioning the Midline seems to have slight issue with injections and apparently the patient did get a peripheral IV through which she is getting her antibiotic at this point. REVIEW OF SYSTEMS: Positive points have been mentioned in HPI. Rest of systems are negative. PAST MEDICAL HISTORY: Asthma, coronary artery disease, COPD, gastroesophageal reflux disease, hyperlipidemia, hypertension, pneumonia. PAST SURGICAL HISTORY: Bladder surgery, breast surgery, cholecystectomy, heart catheterization, hernia repair, hysterectomy, tonsillectomy, left inguinal hernia repair. SOCIAL HISTORY: Remote history of smoking. No drinking or drug use. FAMILY HISTORY: Father with history of coronary artery disease. Mother with history of renal disease. ALLERGIES: GEMFIBROZIL, LEVOFLOXACIN. MEDICATIONS: Medications include the patient is currently on DuoNeb, Eliquis, Lipitor, Valium, Prozac, Flonase, Lasix, Claritin, Mag oxide, Lopressor, Singulair, Narcan, Protonix, Zosyn, prednisone. PHYSICAL EXAMINATION: On examination, her blood pressure is 89/60 with the pulse of 84, temperature 97.8. She is 93% on room air. General description is an elderly female up in the bed in no distress. No tachypnea or accessory muscle of respiration use. HEENT: Examination shows no pallor or scleral icterus. Oral mucous membranes is moist. No pharyngeal erythema or thrush. NECK: Trachea central. No thyromegaly. LUNGS: Unlabored breathing, decreased breath sounds at the bases. No wheeze. HEART: S1, S2. Regular rate and rhythm. No added sounds. ABDOMEN: Soft, no tenderness. No guarding or rigidity. EXTREMITIES: No edema of feet. SKIN EXAMINATION: No rash or mass palpable. NEUROLOGICALLY: The patient is awake, alert, oriented x3. Mood and affect normal. LABS: Hemoglobin 13.3, white count 14.1. Admission white count was 17,000. BUN of 22 creatinine 0.59. Potassium repeat is 4.3. Influenza serology has been negative. Chest x-ray report as mentioned above. DIAGNOSTIC IMPRESSION AND PLAN: Patient admitted to the hospital with elevated potassium in this patient who has been receiving outpatient cefepime for her Pseudomonas tracheobronchitis/pneumonia in this patient who almost received a 10-day course on her last visit. Patient's respiratory symptoms seemed to have improved and is currently not running any fever. PLAN: 1. Continue Zosyn while inpatient at 3.375 grams q.8 hours. 2. Midline should be discontinued as malfunction may be contributing to some of the elevated white count. 3. We will follow on clinical condition and culture to further adjust medication if needed. Thank you for this consultation. Will follow this patient along with you. MMODL / IJN: [id number] /
[2019-05-05] MEDS: FORMOTEROL FUMARATE 20 MCG/2 ML NEBU INHALATION SCH (06:59)
[2019-05-05] MEDS: IPRATROPIUM-ALBUTEROL 3 ML NEB INHALATION SCH ×3 (06:59→16:32)
[2019-05-05] MEDS: PIPERACILLIN-TAZOBACTAM 3.375 GM in SODIUM CHLORIDE 0.9% 100 ML IVPB SCH (08:17)
[2019-05-05] MEDS: MONTELUKAST 10 MG TAB PO SCH (08:17)
[2019-05-05] MEDS: PANTOPRAZOLE 40 MG TABLET PO SCH (08:17)
[2019-05-05] MEDS: METOPROLOL TARTRATE 25 MG TAB PO SCH (08:17)
[2019-05-05] MEDS: FLUoxetine HCL 20 MG CAP PO SCH (08:18)
[2019-05-05] MEDS: FUROSEMIDE 20 MG TAB PO SCH (08:18)
[2019-05-05] MEDS: APIXABAN 5 MG TAB PO SCH (08:18)
[2019-05-05] MEDS: predniSONE 10 MG TAB PO SCH (08:18)
[2019-05-05] MEDS: MAGNESIUM OXIDE 400 MG TAB PO SCH (08:19)
[2019-05-05] MEDS: FLUTICASONE 50MCG/SPRAY NASAL 16GM EA NOSTRIL SCH (08:32)
--- NOTE | 2019-05-05 08:49 | P.PN ---
Subjective Patient is seen in follow-up for hyperkalemia. Potassium level down to 4.3 as of yesterday. Lisinopril and potassium supplementation on hold. No active complaints at this time. Vital signs are stable. General: The patient appeared well nourished and normally developed. HEENT: Head exam is unremarkable. Neck is without jugular venous distension. LUNGS: Lungs are clear to auscultation and percussion. Breath sounds decreased. HEART: Rate and Rhythm are regular. First and second heart sounds normal. No murmurs, rubs or gallops. ABDOMEN: Abdominal exam reveals normal bowel sounds. Non-tender and non- distended. No evidence of peritonitis. EXTREMITITES: No clubbing, cyanosis, or edema. Objective - Vital Signs Vital signs: Vital Signs Temp 97.7 F 05/05/19 04:56 Pulse 80 05/05/19 07:20 Resp 14 05/05/19 04:56 BP 127/82 05/05/19 04:56 Pulse Ox 94 L 05/05/19 04:56 Intake & Output 05/04/19 05/05/19 05/05/19 18:59 06:59 18:59 Intake Total 180 2100 Balance 180 2100 Intake: IV 1200 Sodium Chloride 0.9% 1, 1200 000 ml @ 100 mls/hr IV . Q10H YANG Rx#:[id number] Oral 180 900 Other: Voiding Method Toilet Toilet # Voids 3 3 # Bowel Movements 1 - Labs CBC & Chem 7: 05/04/19 08:12 05/04/19 08:12 Labs: Abnormal Lab Results - Last 24 Hours (Table) 05/04/19 Range/Units 08:12 Sodium 134 L (137-145) mmol/L BUN 22 H (7-17) mg/dL Glucose 134 H (74-99) mg/dL Microbiology - Last 24 Hours (Table) 05/03/19 12:45 Blood Culture - Preliminary Blood No Growth after 24 hours Assessment and Plan Plan: Assessment: 1. Hyperkalemia secondary to potassium supplementation and lisinopril. Improved with medical management. 2. Hypovolemic hyponatremia improved with IV hydration. 3. Benign hypertension. Controlled. Plan: Hep-Lock IV fluids. Maintain Lasix 20 mg orally once daily. Hold lisinopril and potassium supplementation at this time. If potassium level drops, then I will resume potassium supplementation but at a lower dose. No need for lisinopril at this time as her blood pressure is on the lower side.
[2019-05-05 09:04] LABS: Basophils % (A) 0 %; Eosinophils # (A) 0.1 k/uL (0-0.7); Eosinophils % (A) 1 %; HCT 39.1 % (34.0-46.0); HGB 13.1 gm/dL (11.4-16.0); Lymphocytes # (A) 2.8 k/uL (1.0-4.8); Lymphocytes % (A) 17 %; MCH 29.8 pg (25.0-35.0); MCHC 33.4 g/dL (31.0-37.0); MCV 89.2 fL (80.0-100.0); Mean Platelet Volume 7.2; Monocytes # (A) 0.8 k/uL (0-1.0); Monocytes % (A) 5 %; Neutrophils # (A) 12.5 k/uL (1.3-7.7); Neutrophils % (A) 76 %; Platelet Count 299 k/uL (150-450); RBC 4.39 m/uL (3.80-5.40); RDW 13.7 % (11.5-15.5); WBC 16.3 k/uL (3.8-10.6)
[2019-05-05 09:12] LABS: African American GFR (CKD) >90 (>60 ml/min/1.73 sqM); Anion Gap 7 mmol/L; Blood Urea Nitrogen 16 mg/dL (7-17); Calcium 8.7 mg/dL (8.4-10.2); Carbon Dioxide 25 mmol/L (22-30); Chloride 105 mmol/L (98-107); Glucose 128 mg/dL (74-99); Magnesium 1.7 mg/dL (1.6-2.3); Non-African American GFR(CKD) >90 (>60 ml/min/1.73 sqM); Potassium 3.6 mmol/L (3.5-5.1); Sodium 137 mmol/L (137-145)
--- NOTE | 2019-05-05 10:33 | CONS ---
CONSULTATION Mrs. Dyson is a 74-year-old female with a history of chronic obstructive lung disease, history of tobacco use, obstructive sleep apnea, who recently was in the hospital with pneumonia and respiratory failure. At that time had an echocardiogram that showed a severely impaired left ventricular systolic function, ejection fraction 30% to 35%. The patient at that time had multifocal atrial tachycardia. She was discharged home and as an outpatient she had a potassium evaluation that was elevated and was asked to come back to the emergency room. On presentation she was in sinus mechanism, but subsequently her EKG showed atrial fibrillation. She has underwent a cardiac catheterization by performed in February 2018. At that time, she had mild obstructive disease and was reported to have a preserved systolic function. The patient has a rare episode of chest discomfort. She has chronic dyspnea on exertion. She has some palpitation but no syncope. She has prior history of peripheral edema that resolved. No clear PND nor orthopnea. Her coronary risk factors are remarkable for the history of smoking, hypertension, and hyperlipidemia. MEDICATION: Her medications included ProAir, Lipitor 40 mg daily, Zyrtec, Advair, Lasix 20 mg daily, Zestril 5 mg daily, metoprolol tartrate 25 mg twice a day, potassium, amlodipine 10 mg daily, prednisone taper dose, Singulair, Flonase, and Eliquis 5 mg daily. REVIEW OF SYSTEMS: RESPIRATORY SYSTEM: She has history of chronic obstructive lung disease, history of obstructive sleep apnea, dyspnea on exertion and wheezing. GI SYSTEM: No recent GI bleed. No peptic ulcer disease. SYSTEM: No dysuria or hematuria. NERVOUS SYSTEM: No stroke or seizure. PHYSICAL EXAMINATION: A 74-year-old female, alert, oriented, in no apparent distress. Blood pressure 127/80 with the heart rate in the 80s. HEAD: Normocephalic. EYES: Sclerae anicteric. NECK: Good carotid upstroke. No bruit. No jugular venous distention. LUNGS: With decreased air exchange and scattered rhonchi. HEART: Irregular, irregular. S1, S2. No S3 with systolic murmur. No diastolic murmur. No rub. ABDOMEN: Soft, nontender. Positive bowel sounds. No organomegaly. EXTREMITIES: No edema. Intact distal pulses. LAB DATA: Lab data revealed BUN and creatinine 16 and 0.6, potassium 3.6. On admission her potassium was 6.6. Her white blood cells 16.3, hemoglobin of 13.1. Initial EKG revealed a sinus mechanism with rare single PACs. Subsequent EKG performed yesterday revealed atrial fibrillation with nonspecific ST-T wave changes. Her chest x-ray shows no acute infiltrate. There is mild pleural reaction, atelectasis, but no evidence of heart failure. IMPRESSION: 1. Chronic obstructive lung disease with dyspnea on exertion, improving recent pneumonia. 2. Hyperkalemia treated. 3. Paroxysmal atrial fibrillation. 4. Hypertension. 5. Hyperlipidemia. 6. History of cardiomyopathy new since February 2018. RECOMMENDATION: From the cardiac standpoint, I will continue on the anticoagulation. I discussed with her the importance of smoking cessation. Depending on her progress, further recommendation will be made. Thank you for this consult. We will follow with you. PARVIN / KEARA: [id number] /
[2019-05-05] MEDS ORDERED: POTASSIUM CHLORIDE ER 20 MEQ TAB.ER PO SCH (10:45)
[2019-05-05 11:48] VITALS: BP 112/61; PULSE 86; RESP 18; TEMP 98
--- NOTE | 2019-05-05 18:05 | PN ---
PROGRESS NOTE DATE OF SERVICE: 05/05/2019 REASON FOR FOLLOWUP: Pseudomonas pneumonia. INTERVAL HISTORY: The patient is currently afebrile. Patient is breathing more comfortably. The patient's cough has decreased in intensity. The patient denies having any chest pain. No cough. No abdominal pain or diarrhea. The patient's right arm med line is working fine per the nursing staff. PHYSICAL EXAMINATION: Blood pressure is 112/61 with a pulse of 86, temperature of 98. She is 93% on room air. General description is an elderly female up in the room in no distress. Respiratory system: Unlabored breathing. Decreased breath sounds at bases. No wheeze. Heart S1, S2. Regular rate. Abdomen soft, no tenderness. LABS: Hemoglobin 13.1, WBC 15,000 today. BUN of 15, creatinine 0.60. Blood culture has been negative. DIAGNOSTIC IMPRESSION AND PLAN: Patient with admission to hospital with elevated potassium in this patient undergoing antibiotic therapy for her Pseudomonas pneumonia. The patient has shown overall clinical improvement. She will finish her IV cefepime as previously prescribed and the med line will be subsequently discontinued. Questions and concerns were answered. MMODL / IJN: [id number] /
[2019-05-05] MEDS ORDERED: APIXABAN 5 MG TAB PO SCH (21:00)
--- NOTE | 2019-05-06 07:42 | DS ---
DISCHARGE SUMMARY DATE OF SERVICE: 05/05/2019 FINAL DIAGNOSES: 1. Hyperkalemia multifactorial possibly secondary to renal failure, present on admission. 2. Hyponatremia. 3. Increased WBC. 4. History of recent chronic obstructive pulmonary disease acute exacerbation with acute purulent tracheobronchitis with bronchoscopy showing Pseudomonas and Sumi albicans. 5. Atrial fibrillation. 6. Relative hypotension. 7. Continued ongoing nicotine dependence. 8. Diffuse abdominal pain previous. 9. Gait dysfunction. 10.History of respiratory failure. 11.Multifocal atrial tachycardia and atrial fibrillation per Cardiology previously. 12.Constipation with right lower quadrant abdominal tenderness. 13.History of coronary artery disease. 14.Hypertension. 15.Hyperlipidemia. 16.Sleep apnea. 17.History of gastroesophageal reflux disease. 18.History of upper gastrointestinal bleed. 19.History of diverticulitis. 20.History of chronic kidney disease, stage 3, baseline. 21.History of osteoporosis. 22.History of skin cancer. 23.History of sleep apnea. 24.History of chronic hypoxic respiratory failure with chronic obstructive pulmonary disease on 2 L nasal cannula. 25.History of degenerative joint disease. 26.History of anxiety, depression. 27.FULL CODE. DISCHARGE DISPOSITION: The patient will be discharged in stable condition with guarded prognosis. HISTORY OF PRESENT ILLNESS: This 74-year-old woman with a past medical history of multiple medical problems was admitted with hyperkalemia. The patient improved significantly. Patient also had paroxysmal atrial fibrillation. Eliquis was initiated. Patient improved significantly and the patient was with Infectious Disease and as well as Cardiology. Past medical reviewed. On exam, vitals are stable. CARDIOVASCULAR: S1, S2 muffled. ABDOMEN: Soft. NERVOUS SYSTEM: No focal deficit. DISCHARGE ADVICE: 1. Diet is cardiac. 2. Activity limited until followup. 3. Follow up with Kristi [facility] in 1 to 2 days. 4. Follow up with [facility] as per ID. Otherwise other medications: 1. Advair 1 puff b.i.d. 2. Allergy shot as before. 3. Fluticasone . 4. Fluoxetine 40 mg q.a.m. 5. Lasix 20 mg p.o. daily. 6. Lipitor 40 mg at bedtime. 7. Magnesium 400 mg p.o. daily. 8. MiraLAX 17 grams daily. 9. Nitrostat 0.4 mg sublingual p.r.n. 10.Prednisone taper 40 mg daily as before. 11.Albuterol p.r.n. 12.Singulair 10 mg daily. 13.Spiriva 1 puff daily. 14.Valium 10 mg b.i.d. p.r.n. 15.Ventolin p.r.n. 16.Xolair 150 mg q.30 days. 17.Zyrtec 10 mg p.o. daily. 18.Cozaar 50 mg p.o. daily. 19.Eliquis 5 mg p.o. b.i.d. 20.K-Dur 20 mEq p.o. q.a.m. 21.Lopressor 25 mg p.o. b.i.d. 22.Maxipime, cefepime, 2 grams IV b.i.d. 23.Perforomist 20 mcg b.i.d. 24.Protonix 40 mg p.o. daily. Total time taken is 35 minutes. MMLESAL / TARIQN: [id number] / MTDD
[2019-05-06] MEDS ORDERED: LOSARTAN 50 MG TAB PO SCH (09:00)
== END 2019-05-05 16:15 | disposition home health service (06) | DRG 640 ==
LOC: EC 12:17 → 3SCARD 15:12 → 5NMEDONC 16:12
PROVIDERS: ADMIT Hospitalist; ATTEND Hospitalist
DX: E87.5 Hyperkalemia (principal); J15.1 Pneumonia due to Pseudomonas; I42.9 Cardiomyopathy, unspecified; I47.1 Supraventricular tachycardia; J44.0 Chronic obstructive pulmonary disease with (acute) lower respiratory infection; J96.11 Chronic respiratory failure with hypoxia; J98.11 Atelectasis; N18.3 Chronic kidney disease, stage 3 (moderate); I95.9 Hypotension, unspecified; E78.5 Hyperlipidemia, unspecified; E86.1 Hypovolemia; E87.1 Hypo-osmolality and hyponatremia; F17.210 Nicotine dependence, cigarettes, uncomplicated; G47.33 Obstructive sleep apnea (adult) (pediatric); I12.9 Hypertensive chronic kidney disease with stage 1 through stage 4 chronic kidney disease, or unspecified chronic kidney disease; I25.10 Atherosclerotic heart disease of native coronary artery without angina pectoris; I48.0 Paroxysmal atrial fibrillation; K59.00 Constipation, unspecified; M81.0 Age-related osteoporosis without current pathological fracture; F32.9 Major depressive disorder, single episode, unspecified; F41.9 Anxiety disorder, unspecified; K21.9 Gastro-esophageal reflux disease without esophagitis; R26.9 Unspecified abnormalities of gait and mobility; K57.90 Diverticulosis of intestine, part unspecified, without perforation or abscess without bleeding; Z79.899 Other long term (current) drug therapy; Z79.52 Long term (current) use of systemic steroids; Z88.1 Allergy status to other antibiotic agents; Z88.8 Allergy status to other drugs, medicaments and biological substances; Z90.49 Acquired absence of other specified parts of digestive tract; Z90.710 Acquired absence of both cervix and uterus; Z87.11 Personal history of peptic ulcer disease; Z87.01 Personal history of pneumonia (recurrent); Z85.828 Personal history of other malignant neoplasm of skin; Z82.41 Family history of sudden cardiac death; Z82.49 Family history of ischemic heart disease and other diseases of the circulatory system; Z83.3 Family history of diabetes mellitus; Z84.1 Family history of disorders of kidney and ureter
CPT/HCPCS: 36415; 71046; 80048; 80053; 82533; 83735; 83880; 84132; 84145; 85025; 87040; 87502; 93005; 94640; 96374; 96375; 99285

== ENCOUNTER 2021-12-04 15:21 | Inpatient (IN) | payer BC, MEDICARE ==
[2021-12-04] MEDS ORDERED: ACETAMINOPHEN TAB 500 MG TAB PO STA (16:08)
[2021-12-04] MEDS ORDERED: IPRATROPIUM-ALBUTEROL 3 ML NEB INHALATION STA (16:33)
--- NOTE | 2021-12-04 16:43 | ED ---
SOB HPI - General Chief Complaint: Shortness of Breath Stated Complaint: SOB Time Seen by Provider: 12/04/21 15:40 Source: patient, EMS Mode of arrival: EMS Limitations: no limitations - History of Present Illness Initial Comments: 76-year-old female with past medical history of COPD on 2-3 L of home O2 at night, A. fib on anticoagulation presents to the emergency room with shortness of breath. States that she's felt short of breath for the past week however this morning woke up and was extremely short of breath. She went into [facility] and was diagnosed with pneumonia. She has been on and off antibiotics and steroids multiple times in the past several months. She was having some chills, increased cough. Denies chest pain. No leg swelling. No history of DVT or PE. Has been taking her anticoagulation appropriately. She vomited once on Sunday. Denies any black or bloody stools. No diarrhea. Her oxygen saturation was 88%. Troponin was negative. White blood cell count was 26.2. BNP 94. Lactate 1.5 chest x-ray demonstrated bilateral pneumonia. Since she follows with Dr. Arguelles she was transferred to our facility after she was given a dose of Rocephin and azithromycin. Solu-Medrol and breathing treatments also administered. - Related Data Home Medications Medication Instructions Recorded Confirmed Cetirizine HCl [Zyrtec] 10 mg PO DAILY PRN 09/03/15 12/04/21 Fluticasone Nasal [place] [Flonase 2 spray EA NOSTRIL DAILY 09/03/15 12/04/21 Nasal [place]] Montelukast [Singulair] 10 mg PO DAILY 09/03/15 12/04/21 Tiotropium 18 Mcg/Puff [Spiriva] 1 cap INHALATION RT-DAILY 10/28/15 12/04/21 Furosemide [Lasix] 20 mg PO DAILY 04/15/19 12/04/21 Calcium Carbonate [Calcium] 1,200 mg PO DAILY 12/04/21 12/04/21 Cholecalciferol [Vitamin D3 (10 10 mcg PO DAILY 12/04/21 12/04/21 Mcg = 400 Iu)] DULoxetine HCL [Cymbalta] 60 mg PO DAILY 12/04/21 12/04/21 Pregabalin [Lyrica] 100 mg PO TID 12/04/21 12/04/21 amLODIPine [Norvasc] 2.5 mg PO DAILY 12/04/21 12/04/21 diazePAM [Valium] 5 mg PO DAILY PRN 12/04/21 12/04/21 diazePAM [Valium] 5 mg PO HS 12/04/21 12/04/21 Previous Rx's Medication Instructions Recorded Metoprolol Tartrate [Lopressor] 25 mg PO BID 30 Days #60 tab 04/24/19 Apixaban [Eliquis] 5 mg PO BID #60 tab 05/05/19 Acetaminophen Tab [Tylenol] 650 mg PO Q6HR PRN tab 12/09/21 Budesonide-Formot 160-4.5 Mcg 2 puff INHALATION RT-BID #1 each 12/09/21 [Symbicort 160-4.5 Mcg Inhaler] Empagliflozin [Jardiance] 10 mg PO DAILY #14 tablet 12/09/21 Losartan [Cozaar] 50 mg PO DAILY #30 tab 12/09/21 predniSONE [Deltasone] 0 mg PO DIRECTED 6 Days #15 tab 12/09/21 Ciprofloxacin HCl [Cipro] 500 mg PO BID 6 Days #12 tab 12/10/21 Docusate [Colace] 100 mg PO BID #30 capsule 12/10/21 polyethylene glycoL 3350 [Miralax] 17 gm PO DAILY #14 packet 12/10/21 Allergies Allergy/AdvReac Type Severity Reaction Status Date / Time gemfibrozil [From Lopid] Allergy tendon Verified 12/04/21 17:18 damage levofloxacin [From Levaquin] Allergy tendon Verified 12/04/21 17:18 damage dust mites Allergy Wheezing Uncoded 12/04/21 17:18 Review of Systems ROS Statement: Those systems with pertinent positive or pertinent negative responses have been documented in the HPI. ROS Other: All systems not noted in ROS Statement are negative. Past Medical History Past Medical History: Asthma, Coronary Artery Disease (CAD), Cancer, COPD, GERD/Reflux, GI Bleed, Hyperlipidemia, Hypertension, Pneumonia, Renal Disease, Sleep Apnea/CPAP/BIPAP Additional Past Medical History / Comment(s): Bronchitis, upper GI bleed, gastric ulcer, diverticulitis, iron anemia-has had infusions, CKD stage III, chronic hypokalemia, RAUN with Cpap and oxygen at 2L/NC with it, osteoporosis, R upper arm crush injury-pain and limited ROM, L shoulder pain, allergic rhininis, skin cancer basal/squamous removals. 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 Past Anesthesia/Blood Transfusion Reactions: No Reported Reaction Additional Past Anesthesia/Blood Transfusion Reaction / Comment(s): Pt has received blood in past without reaction. Past Psychological History: Anxiety, Depression Past Alcohol Use History: Rare Past Drug Use History: None Reported - Past Family History Father Family Medical History: Coronary Artery Disease (CAD), Myocardial Infarction (PR) Additional Family Medical History / Comment(s): Father of a PR at the age of 41 yrs. Mother Family Medical History: Renal Disease Sister(s) Family Medical History: Renal Disease Additional Family Medical History / Comment(s): 2 sisters with renal disease and both are . Brother(s) Family Medical History: Congestive Heart Failure (CHF) Additional Family Medical History / Comment(s): Brother had a cardiac arrest and at the age of 49yrs. Son(s) Family Medical History: Coronary Artery Disease (CAD), Hyperlipidemia, Hypertension, Myocardial Infarction (PR) Additional Family Medical History / Comment(s): Son had his first PR at the age of 34yrs. He has had a total of 3 MIs. General Exam Limitations: no limitations General appearance: alert, in no apparent distress Head exam: Present: atraumatic, normocephalic, normal inspection Eye exam: Present: normal appearance, PERRL, EOMI. Absent: scleral icterus, conjunctival injection, periorbital swelling ENT exam: Present: normal exam, mucous membranes moist Neck exam: Present: normal inspection. Absent: tenderness, meningismus, lymphadenopathy Respiratory exam: Present: rales, accessory muscle use, decreased breath sounds, other (tachypnia). Absent: respiratory distress, wheezes, rhonchi, stridor Cardiovascular Exam: Present: regular rate, normal rhythm, normal heart sounds. Absent: systolic murmur, diastolic murmur, rubs, gallop, clicks GI/Abdominal exam: Present: soft, normal bowel sounds. Absent: distended, tenderness, guarding, rebound, rigid Extremities exam: Present: normal inspection, full ROM, normal capillary refill. Absent: tenderness, pedal edema, joint swelling, calf tenderness Back exam: Present: normal inspection Neurological exam: Present: alert, oriented X3, CN II-XII intact Psychiatric exam: Present: normal affect, normal mood Skin exam: Present: warm, dry, intact, normal color. Absent: rash Course Vital Signs 12/04/21 12/04/21 12/04/21 15:26 15:30 16:00 Temperature 100.7 F H Pulse Rate 85 Respiratory 24 20 Rate Blood Pressure 109/61 O2 Sat by Pulse 90 L 88 L 93 L Oximetry 12/04/21 12/04/21 12/04/21 16:52 17:03 18:09 Temperature Pulse Rate 80 79 80 Respiratory 18 Rate Blood Pressure 107/65 O2 Sat by Pulse 94 L Oximetry Medical Decision Making - Medical Decision Making Arrival I did review the patient's packet. She is stable on 4 L of oxygen. She received her antibiotics. I did order breathing treatment and Tylenol as she does spike a fever. Spoke with Jos from [facility] who agreed to admit the patient. - Lab Data Result diagrams: 12/08/21 08:44 12/08/21 08:44 Disposition Clinical Impression: COPD (chronic obstructive pulmonary disease), Pneumonia, Hypoxia Disposition: ADMITTED IP TO THIS [facility] Condition: Fair Is patient prescribed a controlled substance at d/c from ED?: No Time of Disposition: 17:20 Decision to Admit Reason: Admit from EC Decision Date: 12/04/21 Decision Time: 17:20
[2021-12-04] MEDS ORDERED: NALOXONE 0.4 MG/ML 1 ML VIAL IV PRN (17:23)
[2021-12-04] MEDS ORDERED: LORATADINE 10 MG TAB PO PRN (17:29)
[2021-12-04] MEDS ORDERED: diazePAM 5 MG TAB PO PRN (17:29)
[2021-12-04] MEDS: SYMBICORT 160-4.5 MCG INHALER INHALATION SCH (19:37)
[2021-12-04] MEDS ORDERED: IPRATROPIUM-ALBUTEROL 3 ML NEB INHALATION SCH (20:00)
[2021-12-04] MEDS ORDERED: IPRATROPIUM-ALBUTEROL 3 ML NEB INHALATION PRN (20:26)
[2021-12-04] MEDS: METOPROLOL TARTRATE 25 MG TAB PO SCH (20:36)
[2021-12-04] MEDS: diazePAM 5 MG TAB PO SCH (20:36)
[2021-12-04] MEDS: PREGABALIN 100 MG CAP PO SCH (20:36)
[2021-12-04] MEDS: APIXABAN 5 MG TAB PO SCH (20:36)
[2021-12-04] MEDS: MONTELUKAST 10 MG TAB PO SCH (20:36)
[2021-12-05 07:36] LABS: Basophils % (A) 0 %; Eosinophils % (A) 0 %; HCT 41.4 % (34.0-46.0); HGB 13.1 gm/dL (11.4-16.0); Lymphocytes # (A) 0.7 k/uL (1.0-4.8); Lymphocytes % (A) 3 %; MCHC 31.7 g/dL (31.0-37.0); MCV 94.4 fL (80.0-100.0); Mean Platelet Volume 7.7; Monocytes % (A) 4 %; Neutrophils # (A) 24.2 k/uL (1.3-7.7); Neutrophils % (A) 93 %; Platelet Count 356 k/uL (150-450); RBC 4.39 m/uL (3.80-5.40); RDW 13.7 % (11.5-15.5); WBC 26.1 k/uL (3.8-10.6)
[2021-12-05] MEDS: IPRATROPIUM-ALBUTEROL 3 ML NEB INHALATION SCH ×4 (07:42→19:17)
[2021-12-05] MEDS: SYMBICORT 160-4.5 MCG INHALER INHALATION SCH (07:43)
[2021-12-05 07:52] LABS: African American GFR (CKD) >90 (>60 ml/min/1.73 sqM); Anion Gap 5 mmol/L; Blood Urea Nitrogen 20 mg/dL (7-17); Calcium 8.4 mg/dL (8.4-10.2); Carbon Dioxide 29 mmol/L (22-30); Chloride 100 mmol/L (98-107); Glucose 212 mg/dL (74-99); Non-African American GFR(CKD) 85 (>60 ml/min/1.73 sqM); Potassium 4.2 mmol/L (3.5-5.1); Sodium 134 mmol/L (137-145)
[2021-12-05] MEDS ORDERED: NON FORMULARY DRUG (Tiotropium 18 Mcg/Puff 1 PUFF Inhaler) INHALATION SCH (08:00)
[2021-12-05] MEDS ORDERED: cefTRIAXone IN SWFI 1,000 MG/10 ML SYRINGE IVP SCH (09:00)
[2021-12-05] MEDS: FLUTICASONE 50MCG/SPRAY NASAL 16GM EA NOSTRIL SCH (10:27)
[2021-12-05] MEDS: METOPROLOL TARTRATE 25 MG TAB PO SCH ×2 (10:27→21:11)
[2021-12-05] MEDS: CHOLECALCIFEROL 10 MCG (400 IU) TABLET PO SCH (10:27)
[2021-12-05] MEDS: APIXABAN 5 MG TAB PO SCH ×2 (10:27→21:11)
[2021-12-05] MEDS: LOSARTAN 50 MG TAB PO SCH (10:28)
[2021-12-05] MEDS: PREGABALIN 100 MG CAP PO SCH ×3 (10:28→21:11)
[2021-12-05] MEDS: MONTELUKAST 10 MG TAB PO SCH (10:28)
[2021-12-05] MEDS: MAGNESIUM OXIDE 400 MG TAB PO SCH (10:28)
[2021-12-05] MEDS: amLODIPine 2.5 MG TAB PO SCH (10:29)
[2021-12-05] MEDS ORDERED: methylPREDNISolone SOD SUCCI 40 MG/ML 1 ML VIAL IV SCH (10:45)
[2021-12-05] MEDS: DULoxetine HCL 60 MG CAPSULE.DR PO SCH (10:47)
--- NOTE | 2021-12-05 10:47 | P.HPIM ---
History of Present Illness This is a pleasant 76 years old female with past medical history of Asthma, Coronary Artery Disease (CAD), COPD, GERD/Reflux, GI Bleed, Hyperlipidemia, Hypertension, Pneumonia, Sleep Apnea/CPAP/BIPAP, gastric ulcer, diverticulitis, iron anemia-has had infusions, CKD stage III, chronic hypokalemia, Patient comes in from [facility] for Shortness of breath and pneumonia. Patient requires 7 L of oxygen through high flow cannula for saturation of 92%, mildly tachypneic, patient is afebrile currently but had fever 100.7 on admission. Currently patient is started on ceftriaxone, Zithromax, resumed her home dose of follicle was 5 mg for history of atrial fibrillation Labs from today showing WBC 26.1, hemoglobin 13.1, platelet normal. Sodium 134, creatinine normal 0.7. Glucose elevated 212 Patient state that she came to the hospital because of worsening dyspnea over the last 5-6 days associated with yellow greenish phlegm but no significant chest pain She vomited once on the Sunday and she feels dry heaving. No diarrhea or vomiting more than that. However she feels constipated for 5-6 days. No change in urinary complaints. No headache or dizziness or weakness or numbness. She's been complaining from some abdominal pain which is improved now. She smokes half pack per day but she is telling me she willing to quit now. She declines nicotine patch. She drinks alcohol occasionally but no illicit drugs At home she uses 2 L/m at night. Her numerical control machine operator is Dr. Arguelles Repeat chest x-ray in this facility pending report, reviewed by myself showing possible bilateral infiltrates more of the left side. on reviewing the records from [facility] patient presents because of dyspnea. Test was showing negative influenza A and B test, urine analysis is clear, specific gravity 1.02, glucose, blood and protein are negative. Leukocytosis small and the balloon BCs 3-5 per high-power field. Troponin is negative less than 0.012. WBC is 26.2, rest of CBC and BMP is unremarkable. BNP is 94. Bilirubin and liver enzymes not elevated. Lactic acid 1.5. Chest x-ray report showing bilateral pneumonia EKG showing sinus tachycardia at 100 ST-T changes. Review of Systems Review of systems CONSTITUTIONAL: No fever, no malaise, no fatigue. HEENT: No recent visual problems or hearing problems. Denied any sore throat. CARDIOVASCULAR: No orthopnea, PND, no palpitations, no syncope. PULMONARY: No chest wall tenderness , no hemoptysis. GASTROINTESTINAL: No diarrhea, no nausea, no vomiting, no abdominal pain. Normoactive bowel sounds. NEUROLOGICAL: No headaches, no weakness, no numbness. HEMATOLOGICAL: Denies any bleeding or petechiae. GENITOURINARY: Denies any burning micturition, frequency, or urgency. MUSCULOSKELETAL/RHEUMATOLOGICAL: Denies any joint pain, swelling, or any muscle pain. ENDOCRINE: Denies any polyuria or polydipsia. Past Medical History Past Medical History: Asthma, Coronary Artery Disease (CAD), Cancer, COPD, GERD/Reflux, GI Bleed, Hyperlipidemia, Hypertension, Pneumonia, Renal Disease, Sleep Apnea/CPAP/BIPAP Additional Past Medical History / Comment(s): Bronchitis, upper GI bleed, gastric ulcer, diverticulitis, iron anemia-has had infusions, CKD stage III, chronic hypokalemia, ARUN with Cpap and oxygen at 2L/NC with it, osteoporosis, R upper arm crush injury-pain and limited ROM, L shoulder pain, allergic rhininis, skin cancer basal/squamous removals. 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 Past Anesthesia/Blood Transfusion Reactions: No Reported Reaction Additional Past Anesthesia/Blood Transfusion Reaction / Comment(s): Pt has received blood in past without reaction. Past Psychological History: Anxiety, Depression Additional Psychological History / Comment(s): lives with family home with her . Pt is independent. 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 Greater than [id number] history of smoking - continues to smoke 2 packs a week. Minimal alcohol intake. Pt has a Cpap and oxygen. Smoking Status: Current every day smoker Past Alcohol Use History: Rare Additional Past Alcohol Use History / Comment(s): Pt started smoking in 1959 and was a heavy smoker. She quit in November 2017 but started smoking again the past few [id number] packs per week. Pt. smokes half a pack a day 12/04/21 Past Drug Use History: None Reported - Past Family History Father Family Medical History: Coronary Artery Disease (CAD), Myocardial Infarction (NE) Additional Family Medical History / Comment(s): Father of a NE at the age of 41 yrs. Mother Family Medical History: Renal Disease Sister(s) Family Medical History: Renal Disease Additional Family Medical History / Comment(s): 2 sisters with renal disease and both are . Brother(s) Family Medical History: Congestive Heart Failure (CHF) Additional Family Medical History / Comment(s): Brother had a cardiac arrest and at the age of 49yrs. Son(s) Family Medical History: Coronary Artery Disease (CAD), Hyperlipidemia, Hypertension, Myocardial Infarction (NE) Additional Family Medical History / Comment(s): Son had his first NE at the age of 34yrs. He has had a total of 3 MIs. Medications and Allergies Home Medications Medication Instructions Recorded Confirmed Type Cetirizine HCl [Zyrtec] 10 mg PO DAILY PRN 09/03/15 12/04/21 History Fluticasone Nasal [place] [Flonase 2 spray EA NOSTRIL DAILY 09/03/15 12/04/21 History Nasal [place]] Fluticasone Propion/Salmeterol 1 puff INHALATION RT-BID 09/03/15 12/04/21 History [Advair 500-50 Diskus] Montelukast [Singulair] 10 mg PO DAILY 09/03/15 12/04/21 History Tiotropium 18 Mcg/Puff [Spiriva] 1 cap INHALATION RT-DAILY 10/28/15 12/04/21 History Furosemide [Lasix] 20 mg PO DAILY 04/15/19 12/04/21 History Metoprolol Tartrate [Lopressor] 25 mg PO BID 30 Days #60 tab 04/24/19 12/04/21 Rx Apixaban [Eliquis] 5 mg PO BID #60 tab 05/05/19 12/04/21 Rx Calcium Carbonate [Calcium] 1,200 mg PO DAILY 12/04/21 12/04/21 History Cholecalciferol [Vitamin D3 (10 10 mcg PO DAILY 12/04/21 12/04/21 History Mcg = 400 Iu)] DULoxetine HCL [Cymbalta] 60 mg PO DAILY 12/04/21 12/04/21 History Losartan [Cozaar] 50 mg PO DAILY 12/04/21 12/04/21 History Magnesium Oxide [Mag-Ox] 800 mg PO DAILY 12/04/21 12/04/21 History Pregabalin [Lyrica] 100 mg PO TID 12/04/21 12/04/21 History Spironolactone 25 mg PO DAILY 12/04/21 12/04/21 History amLODIPine [Norvasc] 2.5 mg PO DAILY 12/04/21 12/04/21 History diazePAM [Valium] 5 mg PO DAILY PRN 12/04/21 12/04/21 History diazePAM [Valium] 5 mg PO HS 12/04/21 12/04/21 History Allergies Allergy/AdvReac Type Severity Reaction Status Date / Time gemfibrozil [From Lopid] Allergy tendon Verified 12/04/21 17:18 damage levofloxacin [From Levaquin] Allergy tendon Verified 12/04/21 17:18 damage dust mites Allergy Wheezing Uncoded 12/04/21 17:18 Physical Exam Vitals: Vital Signs Temp Pulse Pulse Resp BP BP Pulse Ox 12/05/21 03:41 97.6 F 85 20 118/62 91 L 12/05/21 00:00 97.8 F 80 18 105/56 92 L 12/04/21 20:00 97.9 F 83 20 94/51 93 L 12/04/21 19:52 84 12/04/21 19:38 79 12/04/21 18:59 75 12/04/21 18:54 97.7 F 75 19 99/56 92 L 12/04/21 18:09 80 18 107/65 94 L 12/04/21 17:03 79 12/04/21 16:52 80 12/04/21 16:00 20 93 L 12/04/21 15:30 88 L 12/04/21 15:26 100.7 F H 85 24 109/61 90 L Intake and Output 12/04/21 12/04/21 12/05/21 14:59 22:59 06:59 Intake Total 540 Balance 540 Intake: Oral 540 Other: Voiding Method Toilet Toilet Bedside Commode Bedside Commode # Voids 1 1 Weight 62.596 kg GENERAL: The patient is alert and oriented x3, not in any acute distress. Well developed, well nourished. HEENT: Pupils are round and equally reacting to light. EOMI. No scleral icterus. No conjunctival pallor. Normocephalic, atraumatic. No pharyngeal erythema. No thyromegaly. CARDIOVASCULAR: S1 and S2 present. No murmurs, rubs, or gallops. -PULMONARY: Chest is clear to auscultation, no crackles. Patient is tachypneic with bilateral scattered wheezing and decreased breath sounds ABDOMEN: Soft, nontender, nondistended, normoactive bowel sounds. No palpable organomegaly. MUSCULOSKELETAL: No joint swelling or deformity. EXTREMITIES: No cyanosis, clubbing, or pedal edema. NEUROLOGICAL: Gross neurological examination did not reveal any focal deficits. SKIN: No rashes. no petechiae. Results CBC & Chem 7: 12/05/21 06:57 12/05/21 06:57 Thrombosis Risk Factor Assmnt - Choose All That Apply Each Factor Represents 1 point: Abnormal pulmonary function (COPD), Obesity (BMI >25) Each Risk Factor Represents 2 Points: Age 61-74 years Thrombosis Risk Factor Assessment Total Risk Factor Score: 4 Thrombosis Risk Factor Assessment Level: Moderate Risk Assessment and Plan Assessment: Acute community acquired pneumonia Acute COPD exacerbation Acute hypoxic respiratory failure Chronic atrial fibrillation on Eliquis at home History of multifocal atrial tachycardia rather than atrial fibrillation. As per previous cardiology evaluation Constipation with history of RLQ tenderness History of coronary artery disease Hypertension Hyperlipidemia Sleep apnea on CPAP/BiPAP GERD History of upper GI bleed, history of gastric ulcer History of diverticulitis Chronic kidney disease stage III Osteoporosis History of skin cancer Plan: This is a pleasant 76 years old female was transferred for hypoxia and pneumonia Continue with antibiotic ceftriaxone and Zithromax Follow-up culture results Add [facility] team consult will check KUB given her prolonged constipation Labs and medication were reviewed.. Continue same treatment. Continue with symptomatic treatment. Resume home medication. Monitor lytes and vitals. DVT and GI prophylaxis. Further recommendations as per clinical course of the divine ent DVT prophylaxis: Eliquis GI Prophylaxis: Pepcid PT/OT: Deferred Prognosis is guarded
--- NOTE | 2021-12-05 10:51 | XR ---
EXAMINATION TYPE: XR chest 2V DATE OF EXAM: 12/05/2021 COMPARISON: Chest x-ray 05/03/2019 HISTORY: Pneumonia TECHNIQUE: Frontal and lateral views of the chest are obtained. FINDINGS: Patchy density is present in the left mid lung, bilateral lower lobe possible subsegmental atelectatic changes are noted. Distortion of the proximal right humerus is remote, correlate for his tory of trauma. No evident pneumothorax. Difficult to exclude effusion. Cardiac mediastinal silhouett e shows a similar appearance. Aorta is dense. Surgical clips are present in the right upper quadrant. IMPRESSION: Correlate for pneumonia, follow-up following therapy to assess for resolution, difficult to exclude pleural effusion.
--- NOTE | 2021-12-05 12:02 | P.CNPUL ---
History of Present Illness Consult date: 12/05/21 Requesting physician: Jeanette Mason Reason for consult: dyspnea, cough, COPD, hypoxemia, pneumonia, abnormal CXR/CT Chief complaint: Dyspnea. History of present illness: Pulmonary consult dated 12/05/2021. 76-year-old female who is seen today in consultation, room 357. The patient was transferred down from [facility], because of shortness of breath, and pneumonia. The patient is currently on 7 L nasal cannula. Not receiving any IV fluids. The patient states for a number of days prior to admission, she was having increasing shortness of breath, chest congestion, cough, wheezing, and phlegm production. Things were not getting better with her usual treatments, and therefore she went to the outside hospital, and was transferred down because of bilateral pneumonia. Currently, she is on Solu-Medrol 60 mg every 6 hours, Rocephin and Zithromax, DuoNeb nebs, Pulmicort and formoterol, and we've added a flutter valve as well. The patient is very bronchospastic, and her cough is very wet congested sounding. White count 26.1, hemoglobin 13.1, hematocrit 41.4, and platelet count is 356,000. Sodium 134, potassium 4.2, chlorides 100, CO2 29, BUN 20, and creatinine 0.71. Pro-calcitonin level is elevated at 0.99. Chest x-ray shows patchy bilateral infiltrates consistent with pneumonia. Review of Systems REVIEW OF SYSTEMS: CONSTITUTIONAL: [Negative.] NEUROLOGIC: [ Negative.] HEENT: [ Negative.] CARDIAC: [Negative.] PULMONARY: Shortness of breath, cough, chest congestion, wheezing, and phlegm production. GI: [Negative.] : [Negative.] RHEUMATOLOGIC: [ Negative.] IMMUNOLOGIC: [ Negative.] ENDOCRINE: [Negative. ] DERMATOLOGIC: [Negative.] Past Medical History Past Medical History: Asthma, Coronary Artery Disease (CAD), Cancer, COPD, GERD/Reflux, GI Bleed, Hyperlipidemia, Hypertension, Pneumonia, Renal Disease, Sleep Apnea/CPAP/BIPAP Additional Past Medical History / Comment(s): Bronchitis, upper GI bleed, gastric ulcer, diverticulitis, iron anemia-has had infusions, CKD stage III, chronic hypokalemia, ARUN with Cpap and oxygen at 2L/NC with it, osteoporosis, R upper arm crush injury-pain and limited ROM, L shoulder pain, allergic rhininis, skin cancer basal/squamous removals. 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 Past Anesthesia/Blood Transfusion Reactions: No Reported Reaction Additional Past Anesthesia/Blood Transfusion Reaction / Comment(s): Pt has received blood in past without reaction. Past Psychological History: Anxiety, Depression Additional Psychological History / Comment(s): lives with family home with her . Pt is independent. 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 Greater than [id number] history of smoking - continues to smoke 2 packs a week. Minimal alcohol intake. Pt has a Cpap and oxygen. Smoking Status: Current every day smoker Past Alcohol Use History: Rare Additional Past Alcohol Use History / Comment(s): Pt started smoking in 1959 and was a heavy smoker. She quit in November 2017 but started smoking again the past fe w [id number] packs per week. Pt. smokes half a pack a day 12/04/21 Past Drug Use History: None Reported - Past Family History Father Family Medical History: Coronary Artery Disease (CAD), Myocardial Infarction (NH) Additional Family Medical History / Comment(s): Father of a NH at the age of 41 yrs. Mother Family Medical History: Renal Disease Sister(s) Family Medical History: Renal Disease Additional Family Medical History / Comment(s): 2 sisters with renal disease and both are . Brother(s) Family Medical History: Congestive Heart Failure (CHF) Additional Family Medical History / Comment(s): Brother had a cardiac arrest and at the age of 49yrs. Son(s) Family Medical History: Coronary Artery Disease (CAD), Hyperlipidemia, Hypertension, Myocardial Infarction (NH) Additional Family Medical History / Comment(s): Son had his first NH at the age of 34yrs. He has had a total of 3 MIs. Medications and Allergies Home Medications Medication Instructions Recorded Confirmed Type Cetirizine HCl [Zyrtec] 10 mg PO DAILY PRN 09/03/15 12/04/21 History Fluticasone Nasal [place] [Flonase 2 spray EA NOSTRIL DAILY 09/03/15 12/04/21 History Nasal [place]] Fluticasone Propion/Salmeterol 1 puff INHALATION RT-BID 09/03/15 12/04/21 History [Advair 500-50 Diskus] Montelukast [Singulair] 10 mg PO DAILY 09/03/15 12/04/21 History Tiotropium 18 Mcg/Puff [Spiriva] 1 cap INHALATION RT-DAILY 10/28/15 12/04/21 History Furosemide [Lasix] 20 mg PO DAILY 04/15/19 12/04/21 History Metoprolol Tartrate [Lopressor] 25 mg PO BID 30 Days #60 tab 04/24/19 12/04/21 Rx Apixaban [Eliquis] 5 mg PO BID #60 tab 05/05/19 12/04/21 Rx Calcium Carbonate [Calcium] 1,200 mg PO DAILY 12/04/21 12/04/21 History Cholecalciferol [Vitamin D3 (10 10 mcg PO DAILY 12/04/21 12/04/21 History Mcg = 400 Iu)] DULoxetine HCL [Cymbalta] 60 mg PO DAILY 12/04/21 12/04/21 History Losartan [Cozaar] 50 mg PO DAILY 12/04/21 12/04/21 History Magnesium Oxide [Mag-Ox] 800 mg PO DAILY 12/04/21 12/04/21 History Pregabalin [Lyrica] 100 mg PO TID 12/04/21 12/04/21 History Spironolactone 25 mg PO DAILY 12/04/21 12/04/21 History amLODIPine [Norvasc] 2.5 mg PO DAILY 12/04/21 12/04/21 History diazePAM [Valium] 5 mg PO DAILY PRN 12/04/21 12/04/21 History diazePAM [Valium] 5 mg PO HS 12/04/21 12/04/21 History Allergies Allergy/AdvReac Type Severity Reaction Status Date / Time gemfibrozil [From Lopid] Allergy tendon Verified 12/04/21 17:18 damage levofloxacin [From Levaquin] Allergy tendon Verified 12/04/21 17:18 damage dust mites Allergy Wheezing Uncoded 12/04/21 17:18 Physical Exam Osteopathic Statement: *. No significant issues noted on an osteopathic structural exam other than those noted in the History and Physical/Consult. Vitals: Vital Signs Temp Pulse Pulse Resp BP BP Pulse Ox 12/05/21 11:41 84 12/05/21 11:28 80 12/05/21 09:52 85 19 12/05/21 09:50 98.1 F 85 19 126/63 94 L 12/05/21 08:01 80 12/05/21 07:43 80 12/05/21 03:41 97.6 F 85 20 118/62 91 L 12/05/21 00:00 97.8 F 80 18 105/56 92 L 12/04/21 20:00 97.9 F 83 20 94/51 93 L 12/04/21 19:52 84 12/04/21 19:38 79 12/04/21 18:59 75 12/04/21 18:54 97.7 F 75 19 99/56 92 L 12/04/21 18:09 80 18 107/65 94 L 12/04/21 17:03 79 12/04/21 16:52 80 12/04/21 16:00 20 93 L 12/04/21 15:30 88 L 12/04/21 15:26 100.7 F H 85 24 109/61 90 L Intake and Output 12/04/21 12/05/21 12/05/21 22:59 06:59 14:59 Intake Total 540 360 Balance 540 360 Intake: Oral 540 360 Other: Voiding Method Toilet Toilet Toilet Bedside Commode Bedside Commode Bedside Commode # Voids 1 1 1 Weight 62.596 kg No acute distress, oriented 3. Mild tachypnea, without audible wheezing or use of accessory muscles. She is on 7 L nasal cannula. HEENT examination is grossly unremarkable. Neck supple. Full range of motion. No adenopathy thyromegaly or neck vein distention. Cardiovascular examination reveals regular rhythm rate. S1-S2 normal. No S3 or S4. No discernible murmur noted. Heart sounds are distant. Heart rate 84 beats a minute. Lungs reveal coarse bilateral inspiratory and expiratory rhonchi. No crackles. Expiratory wheezes noted. Breath sounds equal bilaterally. 7 L high flow oxygen saturation is 94%. Abdomen soft bowel sounds are heard. No masses or tenderness. Extremities are intact. No cyanosis clubbing or edema. Skin is without rash or lesion. Neurologic examination is brief but nonfocal. Results - Laboratory Findings CBC and BMP: 12/05/21 06:57 12/05/21 06:57 Abnormal lab findings: Abnormal Labs 12/05/21 12/05/21 12/05/21 06:57 06:57 06:57 WBC 26.1 H Neutrophils # 24.2 H Lymphocytes # 0.7 L Sodium 134 L BUN 20 H Glucose 212 H Procalcitonin 0.99 H - Diagnostic Findings Chest x-ray: image reviewed Assessment and Plan Assessment: Acute hypoxemic respiratory failure secondary to acute exacerbation of COPD with bilateral pneumonia. History of CAD. History of gastroesophageal reflux disease. Hyperlipidemia. Hypertension. History of sleep apnea syndrome. History of stage III chronic kidney disease. History of skin cancer. Multiple medical problems and comorbidities. Plan: Plan dated 12/05/2021. The patient is given Zithromax, and Rocephin, as antibiotics. In addition, we increase her Solu-Medrol up to 60 mg every 6 hours, IV push. We add a flutter valve to be used hourly, and Pulmicort 1 mg, mixed with fomoterol, 20 g, twice a day. The patient will also get Duo nebs, 4 times a day and when necessary. Additional recommendations and suggestions are forthcoming. Prognosis is certainly guarded. Without improvement, the patient may need a bronchoscopy. Time with Patient: Greater than 30
[2021-12-05] MEDS: ACETAMINOPHEN TAB 325 MG TAB PO PRN (12:46)
[2021-12-05] MEDS: AZITHROMYCIN 500 MG TAB PO SCH (12:46)
[2021-12-05] MEDS: methylPREDNISolone SOD SUCCI 125 MG/2 ML VIAL IV SCH ×3 (12:47→23:57)
--- NOTE | 2021-12-05 16:17 | XR ---
EXAMINATION TYPE: XR KUB portable DATE OF EXAM: 12/05/2021 CLINICAL DATA: 76-year-old female constipation, [facility] COMPARISON: 09/03/2015 FINDINGS: Gaseous small and large bowel. No abnormally dilated bowel loops are seen. Mild to moderate stool within the right side of the abdomen. Supine imaging limited for assessment of free air. There appears to be some patchy bibasilar opacity. Cholecystectomy clips. Surgical clips right inguinal re gion. Air extends distally to the rectum. IMPRESSION: 1. Gassy, distended small and large bowel may reflect generalized ileus. Ethl-gg-[id number] stool in th e right side of the abdomen. 2. Patchy bibasilar areas of atelectasis or infiltrates.
[2021-12-05] MEDS ORDERED: DEXTROSE 5%-0.9% NACL 1,000 ML IV SCH (19:00)
[2021-12-05] MEDS: BUDESONIDE 1 MG/2 ML NEBU INHALATION SCH (19:17)
[2021-12-05] MEDS: FORMOTEROL FUMARATE 20 MCG/2 ML NEBU INHALATION SCH (19:17)
[2021-12-05] MEDS: diazePAM 5 MG TAB PO SCH (21:11)
[2021-12-05 21:22] LABS: Glucose,Whole Blood 248 mg/dL (70-110)
[2021-12-05] MEDS: PIPERACILLIN-TAZOBACTAM 3.375 GM in SODIUM CHLORIDE 0.9% 100 ML IVPB SCH (21:29)
[2021-12-05 22:10] LABS: Appearance,Urine Clear (Clear); Bilirubin,Urine Negative (Negative); Blood,Urine Negative (Negative); Color,Urine Yellow; Glucose,Urine (UA) 4+ (Negative); Ketones,Urine Negative (Negative); Leukocyte Esterase,Urine Moderate (Negative); Mucus,Urine Rare /hpf; Nitrite,Urine Negative (Negative); PH, Urine 5.5 (5.0-8.0); Protein,Urine Negative (Negative); RBC,Urine 2 /hpf (0-5); Specific Gravity,Urine 1.012 (1.001-1.035); Squamous Epithelial Cell,Urine 1 /hpf (0-4); Urobilinogen,Urine <2.0 mg/dL (<2.0); WBC,Urine 5 /hpf (0-5)
[2021-12-05] MEDS ORDERED: DEXTROSE 50% SYRINGE 50 ML IVP PRN ×2 (22:44)
[2021-12-06] MEDS: methylPREDNISolone SOD SUCCI 125 MG/2 ML VIAL IV SCH ×3 (05:38→17:17)
[2021-12-06] MEDS: PIPERACILLIN-TAZOBACTAM 3.375 GM in SODIUM CHLORIDE 0.9% 100 ML IVPB SCH ×3 (05:39→21:29)
[2021-12-06 06:22] LABS: Glucose,Whole Blood 168 mg/dL (70-110)
[2021-12-06] MEDS: INSULIN ASPART (NovoLOG) 100 UNIT/ML VIAL SQ SCH ×6 (06:33→21:30)
[2021-12-06 08:19] LABS: Basophils % (A) 0 %; Eosinophils % (A) 0 %; HCT 39.3 % (34.0-46.0); HGB 12.2 gm/dL (11.4-16.0); Lymphocytes # (A) 0.5 k/uL (1.0-4.8); Lymphocytes % (A) 2 %; MCH 29.4 pg (25.0-35.0); MCHC 31.1 g/dL (31.0-37.0); MCV 94.4 fL (80.0-100.0); Mean Platelet Volume 7.6; Monocytes # (A) 0.5 k/uL (0-1.0); Monocytes % (A) 2 %; Neutrophils # (A) 21.2 k/uL (1.3-7.7); Neutrophils % (A) 95 %; Platelet Count 374 k/uL (150-450); RBC 4.16 m/uL (3.80-5.40); RDW 13.9 % (11.5-15.5); WBC 22.2 k/uL (3.8-10.6)
[2021-12-06 08:26] LABS: African American GFR (CKD) >90 (>60 ml/min/1.73 sqM); Anion Gap 3 mmol/L; Blood Urea Nitrogen 18 mg/dL (7-17); Calcium 8.6 mg/dL (8.4-10.2); Carbon Dioxide 30 mmol/L (22-30); Chloride 103 mmol/L (98-107); Glucose 153 mg/dL (74-99); Magnesium 2.2 mg/dL (1.6-2.3); Non-African American GFR(CKD) 86 (>60 ml/min/1.73 sqM); Potassium 4.6 mmol/L (3.5-5.1); Sodium 136 mmol/L (137-145)
[2021-12-06] MEDS: APIXABAN 5 MG TAB PO SCH ×2 (08:26→21:30)
[2021-12-06] MEDS: LOSARTAN 50 MG TAB PO SCH (08:26)
[2021-12-06] MEDS: MAGNESIUM OXIDE 400 MG TAB PO SCH (08:26)
[2021-12-06] MEDS: CHOLECALCIFEROL 10 MCG (400 IU) TABLET PO SCH (08:26)
[2021-12-06] MEDS: DULoxetine HCL 60 MG CAPSULE.DR PO SCH (08:26)
[2021-12-06] MEDS: MONTELUKAST 10 MG TAB PO SCH (08:26)
[2021-12-06] MEDS: FLUTICASONE 50MCG/SPRAY NASAL 16GM EA NOSTRIL SCH (08:27)
[2021-12-06] MEDS: amLODIPine 2.5 MG TAB PO SCH (08:27)
[2021-12-06] MEDS: METOPROLOL TARTRATE 25 MG TAB PO SCH ×2 (08:27→21:30)
[2021-12-06] MEDS: AZITHROMYCIN 500 MG TAB PO SCH (08:27)
[2021-12-06] MEDS: PREGABALIN 100 MG CAP PO SCH ×3 (08:27→21:30)
[2021-12-06] MEDS: FORMOTEROL FUMARATE 20 MCG/2 ML NEBU INHALATION SCH ×2 (09:32→19:50)
[2021-12-06] MEDS: IPRATROPIUM-ALBUTEROL 3 ML NEB INHALATION SCH ×4 (09:32→19:50)
[2021-12-06] MEDS: BUDESONIDE 1 MG/2 ML NEBU INHALATION SCH ×2 (09:32→19:50)
[2021-12-06] MEDS: IOPAMIDOL CONTRAST (ORAL USE) VIAL PO PRN ×2 (10:34→11:31)
[2021-12-06 11:44] LABS: Glucose,Whole Blood 134 mg/dL (70-110)
--- NOTE | 2021-12-06 11:48 | P.GSCN ---
History of Present Illness Consult date: 12/06/21 History of present illness: CHIEF COMPLAINT: Shortness of breath Reason for consult: bowel obstruction HISTORY OF PRESENT ILLNESS: This is a 76-year-old female who presented to [place] [facility] with worsening shortness of breath and diagnosed with pneumonia. She was transferred from [place] to [facility]. Patient admitted to the hospital with pneumonia and COPD exacerbation. She is followed by pulmonary service. Patient also had reported having abdominal pain for one week and no bowel movement for 3 days. She does report having flatus. She did vomit 3-4 times on Sunday which did increase her abdominal pain. She completes of abdominal bloating. She does report some intermittent black stools. She does have a prior history of bleeding peptic ulcer several years ago. She reports her last EGD was about 10 years ago. She had a KUB x-ray completed that demonstrated distended small and large bowel movement reflect generalized ileus. Mild to moderate stool in the right side of the abdomen. Also noted patchy basilar areas of atelectasis or infiltrates. Patient has had low-grade fevers. She is currently on antibiotics for pneumonia. She's had prior abdominal surgical history which includes right inguinal hernia repair, cholecystectomy, hysterectomy and bladder suspension 2. She is on Eliquis for AFib. Patient has history of constipation and hasn't been taking Metamucil at home with no improvement. PAST MEDICAL HISTORY: COPD, on home O2, A. fib, coronary artery disease, GI bleed with bleeding peptic ulcer, hypertension, hyperlipidemia, sleep apnea, chronic kidney disease PAST SURGICAL HISTORY: See list. MEDICATIONS: See list. ALLERGIES: See list. SOCIAL HISTORY: No illicit drug use. REVIEW OF SYSTEMS: CONSTITUTIONAL: Denies fever or chills. HEENT: Denies blurred vision, vision changes, or eye pain. Denies hemoptysis CARDIOVASCULAR: Denies chest pain or pressure. RESPIRATORY: No shortness of breath. GASTROINTESTINAL: See HPI for pertinent findings HEMATOLOGIC: Denies bleeding disorders. GENITOURINARY: Denies any blood in urine or increased urinary frequency. SKIN: Denies pruitis. Denies rash. PHYSICAL EXAM: VITAL SIGNS: Reviewed GENERAL: Well-developed in no acute distress. HEENT: No sclera icterus. Extraocular movements grossly intact. Moist buccal mucosa. Head is atraumatic, normocephalic. No nasal drainage. ABDOMEN: Soft. Nondistended. Diffuse tenderness NEUROLOGIC: Alert and oriented. Cranial nerves II through XII grossly intact. LABORATORY DATA: WBC 26.1 down to 22.2 Hgb 12.2 platelets 374 Sodium 136 potassium 4.6 creatinine 0.70 Glucose 153 A1c 6.2 Covid not detected IMAGING: KUB x-ray as stated above ASSESSMENT: 1. Abdominal pain 2. Possible ileus versus bowel obstruction 3. Pneumonia 4. COPD exacerbation 5. History of abdominal surgeries PLAN: -Computed tomography scan abdomen and pelvis with oral and IV contrast ordered for further evaluation of possible bowel obstruction -Keep patient nothing by mouth -Further recommendations forthcoming per surgeon -Continue supportive care Thank you for this consultation Physician Call Center Recruiter note has been reviewed by physician. Signing provider agrees with the documented findings, assessment, and plan of care. I have personally seen and examined the patient, reviewed the ROOFER ASSISTANT /PAs history, exam and MDM and agree with the assessment and plan as written. Based on total visit time, I have performed more than 50% of the visit. As above: Patient with vague abdominal discomfort. History of chronic constipation. Last colonoscopy 7 years ago. Hospitalized with bilateral pneumonia. CAT scan shows no evidence of bowel obstruction. Resume diet. Continue stool softeners. We'll follow. Past Medical History Past Medical History: Asthma, Coronary Artery Disease (CAD), Cancer, COPD, GERD/Reflux, GI Bleed, Hyperlipidemia, Hypertension, Pneumonia, Renal Disease, Sleep Apnea/CPAP/BIPAP Additional Past Medical History / Comment(s): Bronchitis, upper GI bleed, gastric ulcer, diverticulitis, iron anemia-has had infusions, CKD stage III, chronic hypokalemia, ARUN with Cpap and oxygen at 2L/NC with it, osteoporosis, R upper arm crush injury-pain and limited ROM, L shoulder pain, allergic rhininis, skin cancer basal/squamous removals. 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 Past Anesthesia/Blood Transfusion Reactions: No Reported Reaction Additional Past Anesthesia/Blood Transfusion Reaction / Comm: Pt has received blood in past without reaction. Past Psychological History: Anxiety, Depression Additional Psychological History / Comment(s): lives with family home with her . Pt is independent. 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 Greater than [id number] history of smoking - continues to smoke 2 packs a week. Minimal alcohol intake. Pt has a Cpap and oxygen. Smoking Status: Current every day smoker Past Alcohol Use History: Rare Additional Past Alcohol Use History / Comment(s): Pt started smoking in 1959 and was a heavy smoker. She quit in November 2017 but started smoking again the past few ahnome-wctgseg-9 packs per week. Pt. smokes half a pack a day 12/04/21 Past Drug Use History: None Reported - Past Family History Father Family Medical History: Coronary Artery Disease (CAD), Myocardial Infarction (OK) Additional Family Medical History / Comment(s): Father of a OK at the age of 41 yrs. Mother Family Medical History: Renal Disease Sister(s) Family Medical History: Renal Disease Additional Family Medical History / Comment(s): 2 sisters with renal disease and both are . Brother(s) Family Medical History: Congestive Heart Failure (CHF) Additional Family Medical History / Comment(s): Brother had a cardiac arrest and at the age of 49yrs. Son(s) Family Medical History: Coronary Artery Disease (CAD), Hyperlipidemia, Hypertension, Myocardial Infarction (OK) Additional Family Medical History / Comment(s): Son had his first OK at the age of 34yrs. He has had a total of 3 MIs. Medications and Allergies Home Medications Medication Instructions Recorded Confirmed Type Cetirizine HCl [Zyrtec] 10 mg PO DAILY PRN 09/03/15 12/04/21 History Fluticasone Nasal [place] [Flonase 2 spray EA NOSTRIL DAILY 09/03/15 12/04/21 History Nasal [place]] Fluticasone Propion/Salmeterol 1 puff INHALATION RT-BID 09/03/15 12/04/21 History [Advair 500-50 Diskus] Montelukast [Singulair] 10 mg PO DAILY 09/03/15 12/04/21 History Tiotropium 18 Mcg/Puff [Spiriva] 1 cap INHALATION RT-DAILY 10/28/15 12/04/21 History Furosemide [Lasix] 20 mg PO DAILY 04/15/19 12/04/21 History Metoprolol Tartrate [Lopressor] 25 mg PO BID 30 Days #60 tab 04/24/19 12/04/21 Rx Apixaban [Eliquis] 5 mg PO BID #60 tab 05/05/19 12/04/21 Rx Calcium Carbonate [Calcium] 1,200 mg PO DAILY 12/04/21 12/04/21 History Cholecalciferol [Vitamin D3 (10 10 mcg PO DAILY 12/04/21 12/04/21 History Mcg = 400 Iu)] DULoxetine HCL [Cymbalta] 60 mg PO DAILY 12/04/21 12/04/21 History Losartan [Cozaar] 50 mg PO DAILY 12/04/21 12/04/21 History Magnesium Oxide [Mag-Ox] 800 mg PO DAILY 12/04/21 12/04/21 History Pregabalin [Lyrica] 100 mg PO TID 12/04/21 12/04/21 History Spironolactone 25 mg PO DAILY 12/04/21 12/04/21 History amLODIPine [Norvasc] 2.5 mg PO DAILY 12/04/21 12/04/21 History diazePAM [Valium] 5 mg PO DAILY PRN 12/04/21 12/04/21 History diazePAM [Valium] 5 mg PO HS 12/04/21 12/04/21 History Allergies Allergy/AdvReac Type Severity Reaction Status Date / Time gemfibrozil [From Lopid] Allergy tendon Verified 12/04/21 17:18 damage levofloxacin [From Levaquin] Allergy tendon Verified 12/04/21 17:18 damage dust mites Allergy Wheezing Uncoded 12/04/21 17:18 Surgical - Exam Vital Signs Temp Pulse Resp BP Pulse Ox 100.7 F H 85 24 109/61 90 L 12/04/21 15:26 12/04/21 15:26 12/04/21 15:26 12/04/21 15:26 12/04/21 15:26 Results - Labs 12/06/21 07:34 12/06/21 07:34 Abnormal Lab Results - Last 24 Hours (Table) 12/05/21 12/05/21 12/05/21 Range/Units 06:57 06:57 21:21 WBC (3.8-10.6) k/uL Neutrophils # (1.3-7.7) k/uL Lymphocytes # (1.0-4.8) k/uL Sodium (137-145) mmol/L BUN (7-17) mg/dL Glucose (74-99) mg/dL POC Glucose (mg/dL) 248 H (70-110) mg/dL Hemoglobin A1c 6.2 H (0.0-6.0) % Procalcitonin 0.99 H (0.02-0.09) ng/mL Urine Glucose (UA) (Negative) Ur Leukocyte Esterase (Negative) Urine Mucus (None) /hpf 12/05/21 12/06/21 12/06/21 Range/Units 21:52 06:20 07:34 WBC (3.8-10.6) k/uL Neutrophils # (1.3-7.7) k/uL Lymphocytes # (1.0-4.8) k/uL Sodium 136 L (137-145) mmol/L BUN 18 H (7-17) mg/dL Glucose 153 H (74-99) mg/dL POC Glucose (mg/dL) 168 H (70-110) mg/dL Hemoglobin A1c (0.0-6.0) % Procalcitonin (0.02-0.09) ng/mL Urine Glucose (UA) 4+ H (Negative) Ur Leukocyte Esterase Moderate H (Negative) Urine Mucus Rare H (None) /hpf 12/06/21 Range/Units 07:34 WBC 22.2 H (3.8-10.6) k/uL Neutrophils # 21.2 H (1.3-7.7) k/uL Lymphocytes # 0.5 L (1.0-4.8) k/uL Sodium (137-145) mmol/L BUN (7-17) mg/dL Glucose (74-99) mg/dL POC Glucose (mg/dL) (70-110) mg/dL Hemoglobin A1c (0.0-6.0) % Procalcitonin (0.02-0.09) ng/mL Urine Glucose (UA) (Negative) Ur Leukocyte Esterase (Negative) Urine Mucus (None) /hpf Diabetes panel 12/05/21 12/06/21 Range/Units 06:57 07:34 Sodium 136 L (137-145) mmol/L Potassium 4.6 (3.5-5.1) mmol/L Chloride 103 (98-107) mmol/L Carbon Dioxide 30 (22-30) mmol/L BUN 18 H (7-17) mg/dL Creatinine 0.70 (0.52-1.04) mg/dL Glucose 153 H (74-99) mg/dL Hemoglobin A1c 6.2 H (0.0-6.0) % Calcium 8.6 (8.4-10.2) mg/dL Calcium panel 12/06/21 Range/Units 07:34 Calcium 8.6 (8.4-10.2) mg/dL Pituitary panel 12/06/21 Range/Units 07:34 Sodium 136 L (137-145) mmol/L Potassium 4.6 (3.5-5.1) mmol/L Chloride 103 (98-107) mmol/L Carbon Dioxide 30 (22-30) mmol/L BUN 18 H (7-17) mg/dL Creatinine 0.70 (0.52-1.04) mg/dL Glucose 153 H (74-99) mg/dL Calcium 8.6 (8.4-10.2) mg/dL Adrenal panel 12/06/21 Range/Units 07:34 Sodium 136 L (137-145) mmol/L Potassium 4.6 (3.5-5.1) mmol/L Chloride 103 (98-107) mmol/L Carbon Dioxide 30 (22-30) mmol/L BUN 18 H (7-17) mg/dL Creatinine 0.70 (0.52-1.04) mg/dL Glucose 153 H (74-99) mg/dL Calcium 8.6 (8.4-10.2) mg/dL
--- NOTE | 2021-12-06 12:39 | CT ---
EXAMINATION TYPE: CT abdomen pelvis w con CT DLP: 1072.4 mGycm, Automated exposure control for dose reduction was used. DATE OF EXAM: 12/06/2021 12:26 PM COMPARISON: CT 09/03/2015, 09/05/2015 pelvic ultrasound. CLINICAL INDICATION:Female, 76 years old with history of Bowel obstruction; TECHNIQUE: Axial CT of the abdomen and pelvis. Sagittal and coronal reformats were created on a [employer] workstation. Contrast used:100 mL of Isovue 300 with IV Contrast, Oral contrast used: with Oral Contrast FINDINGS: LOWER CHEST: The heart is mildly enlarged for size. There is coronary artery atherosclerosis present. ABDOMEN LIVER: Unremarkable GALLBLADDER AND BILE DUCTS: Gallbladder is surgically absent with mild intrahepatic and extra hepatic biliary dilatation likely physiologic and a postcholecystectomy change. No evidence of choledocholit hiasis. PANCREAS: Unremarkable. SPLEEN: Unremarkable. ADRENAL GLANDS: Unremarkable. KIDNEYS AND URETERS: No evidence of hydronephrosis or renal calculus. The ureters are unremarkable. PELVIS BLADDER: Unremarkable REPRODUCTIVE: Suspected left ovarian cyst measuring up to 4.7 cm. ABDOMEN & PELVIS STOMACH AND BOWEL: The appendix is normal. There is large stool burden throughout the colon. There is extensive colonic diverticula are seen throughout the colon. Small bowel oral contrast extends towar ds near the ileum without evidence of bowel obstruction or transition point. PERITONEUM: No evidence of pneumoperitoneum or free fluid. VASCULATURE: Moderate atherosclerotic calcifications are present throughout the abdominal aorta and i ts branches. No evidence of aortic aneurysm. MUSCULOSKELETAL: No acute osseous abnormalities. Moderate disc degeneration changes are present throu ghout the thoracolumbar spine. LYMPH NODES: No gross evidence for lymphadenopathy. SOFT TISSUE/ABDOMINAL WALL: Unremarkable IMPRESSION: 1. No evidence of bowel obstruction, oral contrast extends towards the terminal ileum. There is a lar ge stool burden throughout the colon 2. Extensive Colonic diverticulosis. 3. Increase in size of left ovarian cyst measuring up to 4.7 cm when comparing to 09/05/2015 ultrasound . Consider follow-up ultrasound of the pelvis.
--- NOTE | 2021-12-06 12:42 | P.PN ---
Subjective Progress Note Date: 12/06/21 Principal diagnosis: COPD exacerbation. Pulmonary consult dated 12/05/2021. 76-year-old female who is seen today in consultation, room 357. The patient was transferred down from [facility], because of shortness of breath, and pneumonia. The patient is currently on 7 L nasal cannula. Not receiving any IV fluids. The patient states for a number of days prior to admission, she was having increasing shortness of breath, chest congestion, cough, wheezing, and phlegm production. Things were not getting better with her usual treatments, and therefore she went to the outside hospital, and was transferred down because of bilateral pneumonia. Currently, she is on Solu-Medrol 60 mg every 6 hours, Rocephin and Zithromax, DuoNeb nebs, Pulmicort and formoterol, and we've added a flutter valve as well. The patient is very bronchospastic, and her cough is very wet congested sounding. White count 26.1, hemoglobin 13.1, hematocrit 41.4, and platelet count is 356,000. Sodium 134, potassium 4.2, chlorides 100, CO2 29, BUN 20, and creatinine 0.71. Pro-calcitonin level is elevated at 0.99. Chest x-ray shows patchy bilateral infiltrates consistent with pneumonia. Progress note dated 12/06/2021. This is a 76-year-old female again seen in room 357. He is currently on 6 L nasal cannula. She was seen in consultation yesterday. She's not receiving any IV fluids. The patient is feeling better from the pulmonary standpoint today. She is less short of breath. She does have a bit of a cough, nonproductive. White count 22.2, with a stable hemoglobin, hematocrit, and platelet count. Sodium 136, potassium 4.6, chlorides 103, CO2 30, BUN 18, and creatinine 0.7. The patient developed some abdominal discomfort, any x-ray of the abdomen revealed distended small and large bowel, consistent with ileus. A CT of the abdomen was ordered. Objective - Vital Signs Vital signs: Vital Signs Temp 98.2 F 12/06/21 11:29 Pulse 75 12/06/21 11:29 Resp 18 12/06/21 11:29 BP 134/81 12/06/21 11:29 Pulse Ox 100 12/06/21 11:29 FiO2 Intake & Output 12/05/21 12/06/21 12/06/21 18:59 06:59 18:59 Intake Total 600 Output Total 500 800 Balance 600 -500 -800 Intake: Oral 600 Output: Urine 500 800 Other: Voiding Method Toilet Toilet Bedside Commode Bedside Commode # Voids 1 - Exam No acute distress, oriented 3. Mild tachypnea, without audible wheezing or use of accessory muscles. She is on 6 L nasal cannula. HEENT examination is grossly unremarkable. Neck supple. Full range of motion. No adenopathy thyromegaly or neck vein distention. Cardiovascular examination reveals regular rhythm rate. S1-S2 normal. No S3 or S4. No discernible murmur noted. Heart sounds are distant. Heart rate 75 beats a minute. Lungs reveal coarse bilateral inspiratory and expiratory rhonchi. No crackles. Expiratory wheezes noted. Breath sounds equal bilaterally. 7 L high flow oxygen saturation is 100%. Abdomen mildly distended, mildly tender. No bowel sounds. Extremities are intact. No cyanosis clubbing or edema. Skin is without rash or lesion. Neurologic examination is brief but nonfocal. - Labs CBC & Chem 7: 12/06/21 07:34 12/06/21 07:34 Labs: Abnormal Lab Results - Last 24 Hours (Table) 12/05/21 12/05/21 12/05/21 Range/Units 06:57 21:21 21:52 WBC (3.8-10.6) k/uL Neutrophils # (1.3-7.7) k/uL Lymphocytes # (1.0-4.8) k/uL Sodium (137-145) mmol/L BUN (7-17) mg/dL Glucose (74-99) mg/dL POC Glucose (mg/dL) 248 H (70-110) mg/dL Hemoglobin A1c 6.2 H (0.0-6.0) % Urine Glucose (UA) 4+ H (Negative) Ur Leukocyte Esterase Moderate H (Negative) Urine Mucus Rare H (None) /hpf 12/06/21 12/06/21 12/06/21 Range/Units 06:20 07:34 07:34 WBC 22.2 H (3.8-10.6) k/uL Neutrophils # 21.2 H (1.3-7.7) k/uL Lymphocytes # 0.5 L (1.0-4.8) k/uL Sodium 136 L (137-145) mmol/L BUN 18 H (7-17) mg/dL Glucose 153 H (74-99) mg/dL POC Glucose (mg/dL) 168 H (70-110) mg/dL Hemoglobin A1c (0.0-6.0) % Urine Glucose (UA) (Negative) Ur Leukocyte Esterase (Negative) Urine Mucus (None) /hpf 12/06/21 Range/Units 11:40 WBC (3.8-10.6) k/uL Neutrophils # (1.3-7.7) k/uL Lymphocytes # (1.0-4.8) k/uL Sodium (137-145) mmol/L BUN (7-17) mg/dL Glucose (74-99) mg/dL POC Glucose (mg/dL) 134 H (70-110) mg/dL Hemoglobin A1c (0.0-6.0) % Urine Glucose (UA) (Negative) Ur Leukocyte Esterase (Negative) Urine Mucus (None) /hpf Assessment and Plan Assessment: Acute hypoxemic respiratory failure secondary to acute exacerbation of COPD with bilateral pneumonia. Abdominal discomfort and distention, with possible ileus/bowel obstruction. History of CAD. History of gastroesophageal reflux disease. Hyperlipidemia. Hypertension. History of sleep apnea syndrome. History of stage III chronic kidney disease. History of skin cancer. Multiple medical problems and comorbidities. Plan: Plan dated 12/05/2021. The patient is given Zithromax, and Rocephin, as antibiotics. In addition, we i ncrease her Solu-Medrol up to 60 mg every 6 hours, IV push. We add a flutter valve to be used hourly, and Pulmicort 1 mg, mixed with fomoterol, 20 g, twice a day. The patient will also get Duo nebs, 4 times a day and when necessary. Additional recommendations and suggestions are forthcoming. Prognosis is certainly guarded. Without improvement, the patient may need a bronchoscopy. Plan dated 12/06/2021. From the pulmonary standpoint, the patient appears to be doing better. She appears less short of breath and congested. Yesterday, she had a very wet congested cough and that seems to be better today. Her oxygen can be titrated down. Her saturations on 7 L, is 100%. A CAT scan was ordered of the abdomen, given her new onto the abdominal discomfort and distention. Currently, the patient's on Zithromax, Pulmicort, formoterol, DuoNeb's, and Solu-Medrol. She is also on Zosyn. Yesterday, I thought she might benefit from bronchoscopy, but she sounds much better today. We'll await the results of the CAT scan. Time with Patient: Less than 30
[2021-12-06] MEDS ORDERED: DOCUSATE 100 MG CAP PO PRN (15:25)
[2021-12-06] MEDS ORDERED: bisacodyL 10 MG SUPP RECTAL STA (15:25)
--- NOTE | 2021-12-06 15:33 | P.PN ---
Subjective Progress Note Date: 12/06/21 This is a pleasant 76-year-old female presents to the hospital for shortness of breath and pneumonia. Patient is maintained on 2 L nasal cannula at home and she is currently on 6 L high flow oxygen with a saturation of 92%. She continues on antibiotics in the form of azithromycin and zosyn. Ceftriaxone d iscontinued. Pulmonary is following the patient. Continues on duonebs, and IV solumedrol. She reports cough is improving no longer having sputum. Patient also with complaints of right sided abdominal pain upper and lower quadrant. She also has some epigastric discomfort. She is status post cholecystectomy in the past. General surgery is following. Abdominal pelvis CT completed today showing Large stool burden throughout the colon, no evidence for bowel obstruction. There is extensive colonic diverticulosis. There is also an increase in size of left ovarian cyst measuring up to 4.7 cm from 2016. Diet has been resumed. She has remained afebrile. Blood pressure 134/81. Labs reviewed today showing white count 22.2, sodium 136, potassium 4.6, BUN 18, creatinine 0.70. Review of Systems Constitutional: Denied any fatigue denied any fever. Cardio vascular: denied any chest pain, palpitations Gastrointestinal: denied any nausea, vomiting, diarrhea Pulmonary: Reports shortness of breath with ambulation, reports no productive cough Neurologic denied any new focal deficits All inpatient medications were reviewed and appropriate changes in these medications as dictated in the interval history and assessment and plan. PHYSICAL EXAMINATION: GENERAL: The patient is alert and oriented x3, not in any acute distress. Well developed, well nourished. HEENT: Pupils are round and equally reacting to light. EOMI. No scleral icterus. No conjunctival pallor. Normocephalic, atraumatic. No pharyngeal erythema. No thyromegaly. CARDIOVASCULAR: S1 and S2 present. No murmurs, rubs, or gallops. PULMONARY: Diminished bases, coarse congested cough, scattered rhonchi ABDOMEN: Soft, nontender, nondistended, normoactive bowel sounds. No palpable organomegaly. MUSCULOSKELETAL: No joint swelling or deformity. EXTREMITIES: No cyanosis, clubbing, or pedal edema. NEUROLOGICAL: Gross neurological examination did not reveal any focal deficits. SKIN: No rashes. Assessment and Plan Assessment Acute community acquired pneumonia Acute COPD exacerbation Acute hypoxic respiratory failure Chronic atrial fibrillation on Eliquis at home History of multifocal atrial tachycardia rather than atrial fibrillation. As per previous cardiology evaluation Constipation with history of RLQ tenderness History of coronary artery disease Hypertension Hyperlipidemia Sleep apnea on CPAP/BiPAP GERD History of upper GI bleed, history of gastric ulcer History of diverticulitis Chronic kidney disease stage III Osteoporosis History of skin cancer GI Prophylaxis DVT Prophylaxis Full Code Plan Continue current antibiotics, updrafts, steroids Appreciate pulmonary consultation Added protonix, check amylase General surgery is following regarding abdominal pain Continue blood glucose monitoring Repeat CBC in AM The impression and plan of care has been dictated by Jeanie Kearns, Nurse Practitioner as directed. Dr. Gautam MD I have performed a history and physical examination and medical decision making of this patient, discussed the same with the dictator, and agree with the dic tators assessment and plan as written, documented as a scribe. Based on total visit time, I have performed more than 50% of this visit. Objective - Vital Signs Vital signs: Vital Signs Temp 98.0 F 12/06/21 08:20 Pulse 81 12/06/21 08:23 Resp 18 12/06/21 08:20 BP 126/79 12/06/21 08:20 Pulse Ox 94 L 12/06/21 08:20 FiO2 Intake & Output 12/05/21 12/06/21 12/06/21 18:59 06:59 18:59 Intake Total 600 Output Total 500 800 Balance 600 -500 -800 Intake: Oral 600 Output: Urine 500 800 Other: Voiding Method Toilet Toilet Bedside Commode Bedside Commode # Voids 1 - Labs CBC & Chem 7: 12/06/21 07:34 12/06/21 07:34 Labs: Abnormal Lab Results - Last 24 Hours (Table) 12/05/21 12/05/21 12/05/21 Range/Units 06:57 06:57 21:21 WBC (3.8-10.6) k/uL Neutrophils # (1.3-7.7) k/uL Lymphocytes # (1.0-4.8) k/uL Sodium (137-145) mmol/L BUN (7-17) mg/dL Glucose (74-99) mg/dL POC Glucose (mg/dL) 248 H (70-110) mg/dL Hemoglobin A1c 6.2 H (0.0-6.0) % Procalcitonin 0.99 H (0.02-0.09) ng/mL Urine Glucose (UA) (Negative) Ur Leukocyte Esterase (Negative) Urine Mucus (None) /hpf 12/05/21 12/06/21 12/06/21 Range/Units 21:52 06:20 07:34 WBC (3.8-10.6) k/uL Neutrophils # (1.3-7.7) k/uL Lymphocytes # (1.0-4.8) k/uL Sodium 136 L (137-145) mmol/L BUN 18 H (7-17) mg/dL Glucose 153 H (74-99) mg/dL POC Glucose (mg/dL) 168 H (70-110) mg/dL Hemoglobin A1c (0.0-6.0) % Procalcitonin (0.02-0.09) ng/mL Urine Glucose (UA) 4+ H (Negative) Ur Leukocyte Esterase Moderate H (Negative) Urine Mucus Rare H (None) /hpf 12/06/21 Range/Units 07:34 WBC 22.2 H (3.8-10.6) k/uL Neutrophils # 21.2 H (1.3-7.7) k/uL Lymphocytes # 0.5 L (1.0-4.8) k/uL Sodium (137-145) mmol/L BUN (7-17) mg/dL Glucose (74-99) mg/dL POC Glucose (mg/dL) (70-110) mg/dL Hemoglobin A1c (0.0-6.0) % Procalcitonin (0.02-0.09) ng/mL Urine Glucose (UA) (Negative) Ur Leukocyte Esterase (Negative) Urine Mucus (None) /hpf Assessment and Plan Time with Patient: Less than 30
[2021-12-06 16:16] LABS: Glucose,Whole Blood 313 mg/dL (70-110)
[2021-12-06] MEDS: polyethylene glycoL 3350 17 GM POWD.PACK PO SCH (16:40)
[2021-12-06 20:25] LABS: Glucose,Whole Blood 206 mg/dL (70-110)
[2021-12-06] MEDS: diazePAM 5 MG TAB PO SCH (21:30)
[2021-12-06] MEDS: ACETAMINOPHEN TAB 325 MG TAB PO PRN (22:02)
[2021-12-06] MEDS: INSULIN DETEMIR (LEVEMIR) 100 UNIT/ML SYR SQ SCH (22:03)
[2021-12-07] MEDS: methylPREDNISolone SOD SUCCI 125 MG/2 ML VIAL IV SCH ×4 (01:01→17:31)
[2021-12-07 02:03] LABS: Glucose,Whole Blood 145 mg/dL (70-110)
[2021-12-07] MEDS: PIPERACILLIN-TAZOBACTAM 3.375 GM in SODIUM CHLORIDE 0.9% 100 ML IVPB SCH ×3 (05:25→21:09)
[2021-12-07 06:17] LABS: Glucose,Whole Blood 188 mg/dL (70-110)
[2021-12-07] MEDS: PANTOPRAZOLE 40 MG TABLET PO SCH (07:00)
[2021-12-07] MEDS: INSULIN ASPART (NovoLOG) 100 UNIT/ML VIAL SQ SCH ×7 (07:00→21:11)
[2021-12-07] MEDS: FORMOTEROL FUMARATE 20 MCG/2 ML NEBU INHALATION SCH ×2 (08:12→19:46)
[2021-12-07] MEDS: BUDESONIDE 1 MG/2 ML NEBU INHALATION SCH ×2 (08:12→19:46)
[2021-12-07] MEDS: IPRATROPIUM-ALBUTEROL 3 ML NEB INHALATION SCH ×4 (08:12→19:46)
[2021-12-07] MEDS: AZITHROMYCIN 500 MG TAB PO SCH (08:16)
[2021-12-07] MEDS: polyethylene glycoL 3350 17 GM POWD.PACK PO SCH (08:16)
[2021-12-07] MEDS: CHOLECALCIFEROL 10 MCG (400 IU) TABLET PO SCH (08:17)
[2021-12-07] MEDS: MAGNESIUM OXIDE 400 MG TAB PO SCH (08:17)
[2021-12-07] MEDS: PREGABALIN 100 MG CAP PO SCH ×3 (08:17→21:10)
[2021-12-07] MEDS: METOPROLOL TARTRATE 25 MG TAB PO SCH ×2 (08:17→21:10)
[2021-12-07] MEDS: MONTELUKAST 10 MG TAB PO SCH (08:17)
[2021-12-07] MEDS: LOSARTAN 50 MG TAB PO SCH (08:17)
[2021-12-07] MEDS: APIXABAN 5 MG TAB PO SCH ×2 (08:17→21:10)
[2021-12-07] MEDS: amLODIPine 2.5 MG TAB PO SCH (08:18)
[2021-12-07] MEDS: DULoxetine HCL 60 MG CAPSULE.DR PO SCH (08:18)
[2021-12-07] MEDS: FLUTICASONE 50MCG/SPRAY NASAL 16GM EA NOSTRIL SCH (08:18)
[2021-12-07 09:17] LABS: Basophils % (A) 0 %; Eosinophils % (A) 0 %; HCT 39.7 % (34.0-46.0); HGB 12.5 gm/dL (11.4-16.0); Hypochromasia Moderate; Lymphocytes # (A) 0.5 k/uL (1.0-4.8); Lymphocytes % (A) 3 %; MCH 30.7 pg (25.0-35.0); MCHC 31.6 g/dL (31.0-37.0); MCV 97.3 fL (80.0-100.0); Mean Platelet Volume 7.9; Monocytes # (A) 0.4 k/uL (0-1.0); Monocytes % (A) 3 %; Neutrophils # (A) 15.8 k/uL (1.3-7.7); Neutrophils % (A) 94 %; Platelet Count 388 k/uL (150-450); RBC 4.08 m/uL (3.80-5.40); RDW 14.1 % (11.5-15.5); WBC 16.8 k/uL (3.8-10.6)
--- NOTE | 2021-12-07 10:46 | P.PN ---
Subjective Progress Note Date: 12/07/21 Principal diagnosis: COPD exacerbation. Pulmonary consult dated 12/05/2021. 76-year-old female who is seen today in consultation, room 357. The patient was transferred down from [facility], because of shortness of breath, and pneumonia. The patient is currently on 7 L nasal cannula. Not receiving any IV fluids. The patient states for a number of days prior to admission, she was having increasing shortness of breath, chest congestion, cough, wheezing, and phlegm production. Things were not getting better with her usual treatments, and therefore she went to the outside hospital, and was transferred down because of bilateral pneumonia. Currently, she is on Solu-Medrol 60 mg every 6 hours, Rocephin and Zithromax, DuoNeb nebs, Pulmicort and formoterol, and we've added a flutter valve as well. The patient is very bronchospastic, and her cough is very wet congested sounding. White count 26.1, hemoglobin 13.1, hematocrit 41.4, and platelet count is 356,000. Sodium 134, potassium 4.2, chlorides 100, CO2 29, BUN 20, and creatinine 0.71. Pro-calcitonin level is elevated at 0.99. Chest x-ray shows patchy bilateral infiltrates consistent with pneumonia. Progress note dated 12/06/2021. This is a 76-year-old female again seen in room 357. He is currently on 6 L nasal cannula. She was seen in consultation yesterday. She's not receiving any IV fluids. The patient is feeling better from the pulmonary standpoint today. She is less short of breath. She does have a bit of a cough, nonproductive. White count 22.2, with a stable hemoglobin, hematocrit, and platelet count. Sodium 136, potassium 4.6, chlorides 103, CO2 30, BUN 18, and creatinine 0.7. The patient developed some abdominal discomfort, any x-ray of the abdomen revealed distended small and large bowel, consistent with ileus. A CT of the abdomen was ordered. Progress note dated 12/07/2021. 76-year-old female seen again in room 357. She's currently on saline at 10 mL an hour, and 4 L by nasal cannula. She's initially sleeping, very comfortable. Her cough is harsh, and does remind me of somebody with tracheomalacia. Laboratory data includes a white count of 16.8, with a normal hemoglobin, hematocrit, and platelet count. Objective - Vital Signs Vital signs: Vital Signs Temp 97.5 F L 12/07/21 04:45 Pulse 88 12/07/21 08:33 Resp 18 12/07/21 08:33 BP 134/69 12/07/21 08:00 Pulse Ox 98 12/07/21 08:13 FiO2 Intake & Output 12/06/21 12/07/21 12/07/21 18:59 06:59 18:59 Intake Total 120 25 Output Total 800 Balance -680 25 Intake: Intake, IV Titration 25 Amount Piperacillin-Tazobactam 3 25 .375 gm In Sodium Chloride 0.9% 100 ml @ 25 mls/hr IVPB Q8H [facility] Rx#: [id number] Oral 120 Output: Urine 800 Other: Voiding Method Toilet Bedside Commode # Voids 1 3 # Bowel Movements 1 - Exam No acute distress, oriented 3. Mild tachypnea, without audible wheezing or use of accessory muscles. She is on 4 L nasal cannula. HEENT examination is grossly unremarkable. Neck supple. Full range of motion. No adenopathy thyromegaly or neck vein distention. Cardiovascular examination reveals regular rhythm rate. S1-S2 normal. No S3 or S4. No discernible murmur noted. Heart sounds are distant. Heart rate 88 beats a minute. Lungs reveal coarse bilateral inspiratory and expiratory rhonchi. No crackles. Expiratory wheezes noted. Breath sounds equal bilaterally. 4 L saturation is 98%. Abdomen mildly distended, mildly tender. No bowel sounds. Extremities are intact. No cyanosis clubbing or edema. Skin is without rash or lesion. Neurologic examination is brief but nonfocal. - Labs CBC & Chem 7: 12/07/21 08:25 12/06/21 07:34 Labs: Abnormal Lab Results - Last 24 Hours (Table) 12/06/21 12/06/21 12/06/21 Range/Units 11:40 16:15 20:23 WBC (3.8-10.6) k/uL Neutrophils # (1.3-7.7) k/uL Lymphocytes # (1.0-4.8) k/uL POC Glucose (mg/dL) 134 H 313 H 206 H (70-110) mg/dL 12/07/21 12/07/21 12/07/21 Range/Units 02:01 06:14 08:25 WBC 16.8 H (3.8-10.6) k/uL Neutrophils # 15.8 H (1.3-7.7) k/uL Lymphocytes # 0.5 L (1.0-4.8) k/uL POC Glucose (mg/dL) 145 H 188 H (70-110) mg/dL Microbiology - Last 24 Hours (Table) 12/06/21 20:22 Sputum Culture - Preliminary Sputum 12/05/21 19:51 Blood Culture - Preliminary Blood No Growth after 24 hours 12/05/21 19:50 Blood Culture - Preliminary Blood No Growth after 24 hours Assessment and Plan Assessment: Acute hypoxemic respiratory failure secondary to acute exacerbation of COPD with bilateral pneumonia. Abdominal discomfort and distention, with possible ileus/bowel obstruction. 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 History of CAD. History of gastroesophageal reflux disease. Hyperlipidemia. Hypertension. History of sleep apnea syndrome. History of stage III chronic kidney disease. History of skin cancer. Multiple medical problems and comorbidities. Plan: Plan dated 12/05/2021. The patient is given Zithromax, and Rocephin, as antibiotics. In addition, we increase her Solu-Medrol up to 60 mg every 6 hours, IV push. We add a flutter valve to be used hourly, and Pulmicort 1 mg, mixed with fomoterol, 20 g, twice a day. The patient will also get Duo nebs, 4 times a day and when necessary. Additional recommendations and suggestions are forthcoming. Prognosis is certai nly guarded. Without improvement, the patient may need a bronchoscopy. Plan dated 12/06/2021. From the pulmonary standpoint, the patient appears to be doing better. She appears less short of breath and congested. Yesterday, she had a very wet congested cough and that seems to be better today. Her oxygen can be titrated down. Her saturations on 7 L, is 100%. A CAT scan was ordered of the abdomen, given her new onto the abdominal discomfort and distention. Currently, the patient's on Zithromax, Pulmicort, formoterol, DuoNeb's, and Solu-Medrol. She is also on Zosyn. Yesterday, I thought she might benefit from bronchoscopy, but she sounds much better today. We'll await the results of the CAT scan. Plan dated 12/07/2021. The patient's oxygen has been weaned down to 4 L. Yesterday, she was on 7 L. She clinically looks better and sounds better. She likely has tracheomalacia. The patient's on saline at 10 mL an hour. Labs, x-rays,and medications are reviewed. The computed tomography scan of the abdomen and pelvis shows no evidence of bowel obstruction, extensive colonic diverticulosis, and large stool burden throughout the colon. There is also a left ovarian cyst. Time with Patient: Less than 30
--- NOTE | 2021-12-07 11:20 | P.PN ---
Subjective Progress Note Date: 12/07/21 CHIEF COMPLAINT: Abdominal pain HISTORY OF PRESENT ILLNESS: Surgical service is following regards to patient's constipation. Computed tomography scan shows no evidence of bowel obstruction. Oral contrast extends towards the terminal ileum. There is large stool burden throughout the colon. Extensive colonic diverticulosis. Patient did receive a suppository as well as MiraLAX. She reports having 2 small bowel movements. She is having flatus. She reports improvement in her abdominal discomfort. Denies any nausea vomiting. Was able to tolerate a heart healthy diet this morning. Afebrile. WBC is down from 22.2-16.8 hemoglobin stable at 12.5 PHYSICAL EXAM: VITAL SIGNS: Reviewed. GENERAL: Well-developed in no acute distress. HEENT: No sclera icterus. Extraocular movements grossly intact. Moist buccal mucosa. Head is atraumatic, normocephalic. ABDOMEN: Soft. Nondistended. Nontender. NEUROLOGIC: Alert and oriented. Cranial nerves II through XII grossly intact. ASSESSMENT: 1. Abdominal pain likely secondary to constipation 2. Pneumonia 3. COPD exacerbation 4. History of abdominal surgeries PLAN: -Continue MiraLAX -Change Colace 100 mg twice a day scheduled -Continue heart healthy diet -Continue supportive care -Encouraged patient to increase activity level as tolerated Physician Senior Director [employer] note has been reviewed by physician. Signing provider agrees with the documented findings, assessment, and plan of care. I have personally seen and examined the patient, reviewed the [employer] /PAs history, exam and MDM and agree with the assessment and plan as written. Based on total visit time, I have performed more than 50% of the visit. As above: Patient is not having any significant abdominal pain. Tolerating diet. She is having bowel function. Continue stool softeners. We will reevaluate tomorrow. Objective - Vital Signs Vital signs: Vital Signs Temp 97.5 F L 12/07/21 04:45 Pulse 88 12/07/21 08:33 Resp 18 12/07/21 08:33 BP 134/69 12/07/21 08:00 Pulse Ox 98 12/07/21 08:13 FiO2 Intake & Output 12/06/21 12/07/21 12/07/21 18:59 06:59 18:59 Intake Total 120 25 Output Total 800 Balance -680 25 Intake: Intake, IV Titration 25 Amount Piperacillin-Tazobactam 3 25 .375 gm In Sodium Chloride 0.9% 100 ml @ 25 mls/hr IVPB Q8H [facility] Rx#: [id number] Oral 120 Output: Urine 800 Other: Voiding Method Toilet Toilet Bedside Commode Bedside Commode # Voids 1 3 # Bowel Movements 1 - Labs CBC & Chem 7: 12/07/21 08:25 12/06/21 07:34 Labs: Abnormal Lab Results - Last 24 Hours (Table) 12/06/21 12/06/21 12/06/21 Range/Units 11:40 16:15 20:23 WBC (3.8-10.6) k/uL Neutrophils # (1.3-7.7) k/uL Lymphocytes # (1.0-4.8) k/uL POC Glucose (mg/dL) 134 H 313 H 206 H (70-110) mg/dL 12/07/21 12/07/21 12/07/21 Range/Units 02:01 06:14 08:25 WBC 16.8 H (3.8-10.6) k/uL Neutrophils # 15.8 H (1.3-7.7) k/uL Lymphocytes # 0.5 L (1.0-4.8) k/uL POC Glucose (mg/dL) 145 H 188 H (70-110) mg/dL Microbiology - Last 24 Hours (Table) 12/06/21 20:22 Sputum Culture - Preliminary Sputum 12/05/21 19:51 Blood Culture - Preliminary Blood No Growth after 24 hours 12/05/21 19:50 Blood Culture - Preliminary Blood No Growth after 24 hours
[2021-12-07 11:55] LABS: Glucose,Whole Blood 209 mg/dL (70-110)
--- NOTE | 2021-12-07 15:42 | P.PN ---
Subjective Progress Note Date: 12/07/21 This is a pleasant 76-year-old female presents to the hospital for shortness of breath and pneumonia. Patient is maintained on 2 L nasal cannula at home and she is currently on 6 L high flow oxygen with a saturation of 92%. She continues on antibiotics in the form of azithromycin and zosyn. Ceftriaxone d iscontinued. Pulmonary is following the patient. Continues on duonebs, and IV solumedrol. She reports cough is improving no longer having sputum. Patient also with complaints of right sided abdominal pain upper and lower quadrant. She also has some epigastric discomfort. She is status post cholecystectomy in the past. General surgery is following. Abdominal pelvis CT completed today showing Large stool burden throughout the colon, no evidence for bowel obstruction. There is extensive colonic diverticulosis. There is also an increase in size of left ovarian cyst measuring up to 4.7 cm from 2016. Diet has been resumed. She has remained afebrile. Blood pressure 134/81. Labs reviewed today showing white count 22.2, sodium 136, potassium 4.6, BUN 18, creatinine 0.70. 12/07/2021 Patient is evaluated today resting in bed, she reports feeling fatigued. She has been weaned down to 4L nasal cannula currently saturating 98%. Lung sounds reveal scattered rhonchi throughout, cough is improving. General surgery following and recommending to continue colace twice a day, miralax for constipation. Patient will continue with heart healthy diet. White count has improved today down to 16.8, hgb stable. Blood glucose remains in the 200s. Continues on IV zosyn. Review of Systems Constitutional: Denied any fatigue denied any fever. Cardio vascular: denied any chest pain, palpitations Gastrointestinal: denied any nausea, vomiting, diarrhea Pulmonary: Reports shortness of breath with ambulation, reports no productive cough Neurologic denied any new focal deficits All inpatient medications were reviewed and appropriate changes in these medications as dictated in the interval history and assessment and plan. PHYSICAL EXAMINATION: GENERAL: The patient is alert and oriented x3, not in any acute distress. Well developed, well nourished. HEENT: Pupils are round and equally reacting to light. EOMI. No scleral icterus. No conjunctival pallor. Normocephalic, atraumatic. No pharyngeal erythema. No thyromegaly. CARDIOVASCULAR: S1 and S2 present. No murmurs, rubs, or gallops. PULMONARY: Diminished bases, coarse congested cough, scattered rhonchi ABDOMEN: Soft, nontender, nondistended, normoactive bowel sounds. No palpable organomegaly. MUSCULOSKELETAL: No joint swelling or deformity. EXTREMITIES: No cyanosis, clubbing, or pedal edema. NEUROLOGICAL: Gross neurological examination did not reveal any focal deficits. SKIN: No rashes. Assessment and Plan Assessment Acute community acquired pneumonia Acute hypoxic respiratory failure secondary to COPD exacerbation Chronic atrial fibrillation on Eliquis at home History of multifocal atrial tachycardia rather than atrial fibrillation. As per previous cardiology evaluation Constipation History of coronary artery disease Hypertension Hyperlipidemia Sleep apnea on CPAP/BiPAP GERD History of upper GI bleed, history of gastric ulcer History of diverticulitis Chronic kidney disease stage III Osteoporosis History of skin cancer GI Prophylaxis DVT Prophylaxis Full Code Plan Continue current antibiotics, updrafts, steroids Appreciate pulmonary consultation General surgery is following Continue on bowel regimen Continue blood glucose monitoring PT/OT consultation repeat AM labs The impression and plan of care has been dictated by Jeanie Kearns, Nurse Practitioner as directed. Dr. Gautam MD I have performed a history and physical examination and medical decision making of this patient, discussed the same with the dictator, and agree with the dictators assessment and plan as written, documented as a scribe. Based on total visit time, I have performed more than 50% of this visit. Objective - Vital Signs Vital signs: Vital Signs Temp 97.5 F L 12/07/21 04:45 Pulse 80 12/07/21 12:00 Resp 16 12/07/21 12:00 BP 128/78 12/07/21 12:00 Pulse Ox 98 12/07/21 12:00 FiO2 Intake & Output 12/06/21 12/07/21 12/07/21 18:59 06:59 18:59 Intake Total 120 25 Output Total 800 Balance -680 25 Intake: Intake, IV Titration 25 Amount Piperacillin-Tazobactam 3 25 .375 gm In Sodium Chloride 0.9% 100 ml @ 25 mls/hr IVPB Q8H [facility] Rx#: [id number] Oral 120 Output: Urine 800 Other: Voiding Method Toilet Toilet Bedside Commode Bedside Commode # Voids 1 3 # Bowel Movements 1 - Labs CBC & Chem 7: 12/07/21 08:25 12/06/21 07:34 Labs: Abnormal Lab Results - Last 24 Hours (Table) 12/06/21 12/06/21 12/07/21 Range/Units 16:15 20:23 02:01 WBC (3.8-10.6) k/uL Neutrophils # (1.3-7.7) k/uL Lymphocytes # (1.0-4.8) k/uL POC Glucose (mg/dL) 313 H 206 H 145 H (70-110) mg/dL 12/07/21 12/07/21 12/07/21 Range/Units 06:14 08:25 11:45 WBC 16.8 H (3.8-10.6) k/uL Neutrophils # 15.8 H (1.3-7.7) k/uL Lymphocytes # 0.5 L (1.0-4.8) k/uL POC Glucose (mg/dL) 188 H 209 H (70-110) mg/dL Microbiology - Last 24 Hours (Table) 12/06/21 20:22 Sputum Culture - Preliminary Sputum 12/05/21 19:51 Blood Culture - Preliminary Blood No Growth after 24 hours 12/05/21 19:50 Blood Culture - Preliminary Blood No Growth after 24 hours Assessment and Plan Time with Patient: Less than 30
[2021-12-07 17:08] LABS: Glucose,Whole Blood 113 mg/dL (70-110)
[2021-12-07] MEDS: DOCUSATE 100 MG CAP PO SCH ×2 (17:32→21:11)
[2021-12-07 20:23] LABS: Glucose,Whole Blood 191 mg/dL (70-110)
[2021-12-07] MEDS: diazePAM 5 MG TAB PO SCH (21:10)
[2021-12-07] MEDS: INSULIN DETEMIR (LEVEMIR) 100 UNIT/ML SYR SQ SCH (21:11)
[2021-12-07] MEDS: ACETAMINOPHEN TAB 325 MG TAB PO PRN (21:15)
[2021-12-08] MEDS: methylPREDNISolone SOD SUCCI 125 MG/2 ML VIAL IV SCH ×3 (00:42→12:06)
[2021-12-08] MEDS: PIPERACILLIN-TAZOBACTAM 3.375 GM in SODIUM CHLORIDE 0.9% 100 ML IVPB SCH ×3 (05:18→21:30)
[2021-12-08 06:17] LABS: Glucose,Whole Blood 165 mg/dL (70-110)
[2021-12-08] MEDS: PANTOPRAZOLE 40 MG TABLET PO SCH (07:07)
[2021-12-08] MEDS: INSULIN ASPART (NovoLOG) 100 UNIT/ML VIAL SQ SCH ×7 (07:07→20:56)
[2021-12-08] MEDS: IPRATROPIUM-ALBUTEROL 3 ML NEB INHALATION SCH ×4 (08:01→19:43)
[2021-12-08] MEDS: BUDESONIDE 1 MG/2 ML NEBU INHALATION SCH ×2 (08:01→19:43)
[2021-12-08] MEDS: FORMOTEROL FUMARATE 20 MCG/2 ML NEBU INHALATION SCH ×2 (08:01→19:43)
[2021-12-08] MEDS: polyethylene glycoL 3350 17 GM POWD.PACK PO SCH (09:03)
[2021-12-08] MEDS: METOPROLOL TARTRATE 25 MG TAB PO SCH ×2 (09:04→20:57)
[2021-12-08] MEDS: APIXABAN 5 MG TAB PO SCH ×2 (09:04→20:57)
[2021-12-08] MEDS: MONTELUKAST 10 MG TAB PO SCH (09:04)
[2021-12-08] MEDS: PREGABALIN 100 MG CAP PO SCH ×3 (09:04→20:57)
[2021-12-08] MEDS: MAGNESIUM OXIDE 400 MG TAB PO SCH (09:04)
[2021-12-08] MEDS: amLODIPine 2.5 MG TAB PO SCH (09:05)
[2021-12-08] MEDS: LOSARTAN 50 MG TAB PO SCH (09:05)
[2021-12-08] MEDS: DOCUSATE 100 MG CAP PO SCH ×2 (09:05→20:57)
[2021-12-08] MEDS: DULoxetine HCL 60 MG CAPSULE.DR PO SCH (09:05)
[2021-12-08] MEDS: CHOLECALCIFEROL 10 MCG (400 IU) TABLET PO SCH (09:05)
[2021-12-08] MEDS: FLUTICASONE 50MCG/SPRAY NASAL 16GM EA NOSTRIL SCH (09:06)
--- NOTE | 2021-12-08 09:40 | P.PN ---
Subjective Progress Note Date: 12/08/21 CHIEF COMPLAINT: Abdominal pain HISTORY OF PRESENT ILLNESS: Surgical service is following regards to patient's constipation. patient sitting up at bedside chair. She had 2 bowel movements yesterday and another movement this morning. She denies any abdominal pain. Denies any nausea or vomiting. She reports that her abdominal bloating has improved. She is feeling better. She was able to walk in the room and into the hallway with physical therapy. Afebrile. Labs pending PHYSICAL EXAM: VITAL SIGNS: Reviewed. GENERAL: Well-developed in no acute distress. HEENT: No sclera icterus. Extraocular movements grossly intact. Moist buccal mucosa. Head is atraumatic, normocephalic. ABDOMEN: Soft. Nondistended. Nontender. NEUROLOGIC: Alert and oriented. Cranial nerves II through XII grossly intact. ASSESSMENT: 1. Abdominal pain likely secondary to constipation improving. 2. Pneumonia 3. COPD exacerbation 4. History of abdominal surgeries PLAN: -Continue MiraLAX -Continue Colace -Continue heart healthy diet -Continue supportive care -Encouraged patient to increase activity level as tolerated Physician Computer Terminal Operator note has been reviewed by physician. Signing provider agrees with the documented findings, assessment, and plan of care. I have personally seen and examined the patient, reviewed the REAL PROPERTY EVALUATOR /PAs history, exam and MDM and agree with the assessment and plan as written. Based on total visit time, I have performed more than 50% of the visit. As above: Patient doing well from a abdominal point of view. No pain. She is tolerating diet. Good bowel function. We'll sign off. Please call if needed. Objective - Vital Signs Vital signs: Vital Signs Temp 98.0 F 12/08/21 05:13 Pulse 82 12/08/21 08:27 Resp 16 12/08/21 08:00 BP 147/79 12/08/21 08:00 Pulse Ox 93 L 12/08/21 08:01 FiO2 Intake & Output 12/07/21 12/08/21 12/08/21 18:59 06:59 18:59 Intake Total 240 100 240 Output Total 301 Balance -61 100 240 Intake: Intake, IV Titration 100 Amount Piperacillin-Tazobactam 3 100 .375 gm In Sodium Chloride 0.9% 100 ml @ 25 mls/hr IVPB Q8H [facility] Rx#: [id number] Oral 240 240 Output: Urine 300 Stool 1 Other: Voiding Method Toilet Bedside Commode # Voids 1 # Bowel Movements 1 - Labs CBC & Chem 7: 12/08/21 08:44 12/08/21 08:44 Labs: Abnormal Lab Results - Last 24 Hours (Table) 12/07/21 12/07/21 12/07/21 Range/Units 11:45 16:54 20:21 POC Glucose (mg/dL) 209 H 113 H 191 H (70-110) mg/dL 12/08/21 Range/Units 06:16 POC Glucose (mg/dL) 165 H (70-110) mg/dL Microbiology - Last 24 Hours (Table) 12/05/21 19:51 Blood Culture - Preliminary Blood No Growth after 48 hours 12/05/21 19:50 Blood Culture - Preliminary Blood No Growth after 48 hours
[2021-12-08 09:45] LABS: Basophils % (A) 0 %; Calcium 8.8 mg/dL (8.4-10.2); Eosinophils % (A) 0 %; HGB 12.4 gm/dL (11.4-16.0); Hypochromasia Moderate; Lymphocytes # (A) 0.5 k/uL (1.0-4.8); Lymphocytes % (A) 4 %; MCH 29.7 pg (25.0-35.0); MCHC 30.3 g/dL (31.0-37.0); MCV 98.1 fL (80.0-100.0); Mean Platelet Volume 7.7; Monocytes # (A) 0.5 k/uL (0-1.0); Monocytes % (A) 4 %; Neutrophils # (A) 11.3 k/uL (1.3-7.7); Neutrophils % (A) 91 %; Platelet Count 400 k/uL (150-450); Potassium 4.9 mmol/L (3.5-5.1); RBC 4.18 m/uL (3.80-5.40); RDW 14.1 % (11.5-15.5); WBC 12.4 k/uL (3.8-10.6)
--- NOTE | 2021-12-08 09:47 | CDI ---
Documentation Clarification Form Date: 12/08/2021 09:18:57 AM From: Ludy Diaz RN CCDS Admit Date: 12/04/2021 05:29:00 PM Patient Name: Jessa Dyson Visit Number: [id number] Discharge Date: ATTENTION: The Clinical Documentation Specialists (CDI) and [facility] Coding Staff appreciate your assistance in clarifying documentation. Please respond to the clarification below the line at the bottom and electronically sign. The CDI & [facility] Coding staff will review the response and follow-up if needed. Please note: Queries are made part of the Legal Health Record. If you have any questions, please contact the author of this message via ITS. Dr. Peter Florez Conflicting documentation has been found in the medical record. As attending physician, please provide clarification. Aspiration pneumonia, H&P, 12/05. Community acquired pneumonia, Medicine progress note, 12/06 & 12/07. History/Risk Factors: 76-year-old female presents to the ED with worsening dyspnea over the past 5-6 days with yellow greenish phlegm. Medical History: Asthma, COPD, Sleep Apnea and Pneumonia. H&P, 12/05. Clinical Indicators: H&P, 12/05: KUB: grossly distended small and large bowel may reflect generalized ileus. Aspiration pneumonia is suspected, and we will change antibiotics ceftriaxone into Zosyn. VVS,12/04: B/P 109/61; HR 85; Temp 100.7 F Oral; RR 24; SpO2 90% 6L nasal cannula CXR, 12/05: Patchy density is present in the left mid lung, bilateral lower lobe possible subsegmental atelectatic changes are noted. Difficult to exclude effusion. KUB, 12/05: Gassy, distended small and large bowel may reflect generalized ileus. [id number] stool in the right side of the abdomen. Treatment: 12/05 12/07 Azithromycin 500mg PO Daily 3 doses ordered; 12/05 D/Cd 81 Ceftriaxone 1gm IVPB Q24H (one dose given); 12/05 Zosyn 3.375gm IVPB Q8H. Please clarify which diagnosis is most appropriate: [ x ] Aspiration pneumonia [ ] Community acquired pneumonia [ ] Other (please specify) [ ] Unable to determine (Template Last Revised: July 2020) MTDD
[2021-12-08 11:51] LABS: Glucose,Whole Blood 104 mg/dL (70-110)
--- NOTE | 2021-12-08 13:29 | P.PN ---
Subjective Progress Note Date: 12/08/21 Principal diagnosis: COPD exacerbation. Pulmonary consult dated 12/05/2021. 76-year-old female who is seen today in consultation, room 357. The patient was transferred down from [facility], because of shortness of breath, and pneumonia. The patient is currently on 7 L nasal cannula. Not receiving any IV fluids. The patient states for a number of days prior to admission, she was having increasing shortness of breath, chest congestion, cough, wheezing, and phlegm production. Things were not getting better with her usual treatments, and therefore she went to the outside hospital, and was transferred down because of bilateral pneumonia. Currently, she is on Solu-Medrol 60 mg every 6 hours, Rocephin and Zithromax, DuoNeb nebs, Pulmicort and formoterol, and we've added a flutter valve as well. The patient is very bronchospastic, and her cough is very wet congested sounding. White count 26.1, hemoglobin 13.1, hematocrit 41.4, and platelet count is 356,000. Sodium 134, potassium 4.2, chlorides 100, CO2 29, BUN 20, and creatinine 0.71. Pro-calcitonin level is elevated at 0.99. Chest x-ray shows patchy bilateral infiltrates consistent with pneumonia. Progress note dated 12/06/2021. This is a 76-year-old female again seen in room 357. He is currently on 6 L nasal cannula. She was seen in consultation yesterday. She's not receiving any IV fluids. The patient is feeling better from the pulmonary standpoint today. She is less short of breath. She does have a bit of a cough, nonproductive. White count 22.2, with a stable hemoglobin, hematocrit, and platelet count. Sodium 136, potassium 4.6, chlorides 103, CO2 30, BUN 18, and creatinine 0.7. The patient developed some abdominal discomfort, any x-ray of the abdomen revealed distended small and large bowel, consistent with ileus. A CT of the abdomen was ordered. Progress note dated 12/07/2021. 76-year-old female seen again in room 357. She's currently on saline at 10 mL an hour, and 4 L by nasal cannula. She's initially sleeping, very comfortable. Her cough is harsh, and does remind me of somebody with tracheomalacia. Laboratory data includes a white count of 16.8, with a normal hemoglobin, hematocrit, and platelet count. Progress note dated 12/08/2021. 76-year-old female seen again today in room 357. She seems to be resting comfortably. She's getting oxygen at 3 L by nasal cannula, and saline at 10 mL an hour. She has a flutter valve that she is using on a regular basis. She does admit to feeling much better today. White count is 12.4, he lobe and 12.4, hematocrit 41, and platelet count 400,000. Sodium 136, potassium 4.9, chlorides 102, CO2 29, BUN 22, and creatinine 0.8. Calcium is normal. Microbiologic studies are thus far negative. No chest x-ray today. Objective - Vital Signs Vital signs: Vital Signs Temp 98.0 F 12/08/21 05:13 Pulse 74 12/08/21 12:00 Resp 16 12/08/21 12:00 BP 134/71 12/08/21 12:00 Pulse Ox 98 12/08/21 12:00 FiO2 Intake & Output 12/07/21 12/08/21 12/08/21 18:59 06:59 18:59 Intake Total 240 100 240 Output Total 301 Balance -61 100 240 Intake: Intake, IV Titration 100 Amount Piperacillin-Tazobactam 3 100 .375 gm In Sodium Chloride 0.9% 100 ml @ 25 mls/hr IVPB Q8H [facility] Rx#: [id number] Oral 240 240 Output: Urine 300 Stool 1 Other: Voiding Method Toilet Toilet Bedside Commode Bedside Commode # Voids 1 # Bowel Movements 1 - Exam No acute distress, oriented 3. Mild tachypnea, without audible wheezing or use of accessory muscles. She is on 3 L nasal cannula. HEENT examination is grossly unremarkable. Neck supple. Full range of motion. No adenopathy thyromegaly or neck vein distention. Cardiovascular examination reveals regular rhythm rate. S1-S2 normal. No S3 or S4. No discernible murmur noted. Heart sounds are distant. Heart rate 82 beats a minute. Lungs reveal coarse bilateral inspiratory and expiratory rhonchi. No crackles. Expiratory wheezes noted. Breath sounds equal bilaterally. 3 L saturation is 98%. Abdomen mildly distended, mildly tender. No bowel sounds. Extremities are intact. No cyanosis clubbing or edema. Skin is without rash or lesion. Neurologic examination is brief but nonfocal. - Labs CBC & Chem 7: 12/08/21 08:44 12/08/21 08:44 Labs: Abnormal Lab Results - Last 24 Hours (Table) 12/07/21 12/07/21 12/08/21 Range/Units 16:54 20:21 06:16 WBC (3.8-10.6) k/uL MCHC (31.0-37.0) g/dL Neutrophils # (1.3-7.7) k/uL Lymphocytes # (1.0-4.8) k/uL Sodium (137-145) mmol/L BUN (7-17) mg/dL Glucose (74-99) mg/dL POC Glucose (mg/dL) 113 H 191 H 165 H (70-110) mg/dL 12/08/21 12/08/21 Range/Units 08:44 08:44 WBC 12.4 H (3.8-10.6) k/uL MCHC 30.3 L (31.0-37.0) g/dL Neutrophils # 11.3 H (1.3-7.7) k/uL Lymphocytes # 0.5 L (1.0-4.8) k/uL Sodium 136 L (137-145) mmol/L BUN 22 H (7-17) mg/dL Glucose 143 H (74-99) mg/dL POC Glucose (mg/dL) (70-110) mg/dL Microbiology - Last 24 Hours (Table) 12/05/21 19:51 Blood Culture - Preliminary Blood No Growth after 48 hours 12/05/21 19:50 Blood Culture - Preliminary Blood No Growth after 48 hours Assessment and Plan Assessment: Acute hypoxemic respiratory failure secondary to acute exacerbation of COPD with bilateral pneumonia. Abdominal discomfort and distention, with possible ileus/bowel obstruction. 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 History of CAD. History of gastroesophageal reflux disease. Hyperlipidemia. Hypertension. History of sleep apnea syndrome. History of stage III chronic kidney disease. History of skin cancer. Multiple medical problems and comorbidities. Plan: Plan dated 12/05/2021. The patient is given Zithromax, and Rocephin, as antibiotics. In addition, we increase her Solu-Medrol up to 60 mg every 6 hours, IV push. We add a flutter valve to be used hourly, and Pulmicort 1 mg, mixed with fomoterol, 20 g, twice a day. The patient will also get Duo nebs, 4 times a day and when necessary. Additional recommendations and suggestions are forthcoming. Prognosis is certainly guarded. Without improvement, the patient may need a bronchoscopy. Plan dated 12/06/2021. From the pulmonary standpoint, the patient appears to be doing better. She appears less short of breath and congested. Yesterday, she had a very wet congested cough and that seems to be better today. Her oxygen can be titrated down. Her saturations on 7 L, is 100%. A CAT scan was ordered of the abdomen, given her new onto the abdominal discomfort and distention. Currently, the patient's on Zithromax, Pulmicort, formoterol, DuoNeb's, and Solu-Medrol. She is also on Zosyn. Yesterday, I thought she might benefit from bronchoscopy, but she sounds much better today. We'll await the results of the CAT scan. Plan dated 12/07/2021. The patient's oxygen has been weaned down to 4 L. Yesterday, she was on 7 L. She clinically looks better and sounds better. She likely has tracheomalacia. The patient's on saline at 10 mL an hour. Labs, x-rays,and medications are reviewed. The computed tomography scan of the abdomen and pelvis shows no evidence of bowel obstruction, extensive colonic diverticulosis, and large stool burden throughout the colon. There is also a left ovarian cyst. Plan dated 12/08/2021. The patient appears to be doing better. She is on appropriate medications. She is using her flutter valve on a regular basis. She is on 3 L, and that being titrated down. She remains on DuoNeb's, Pulmicort, formoterol, and Solu-Medrol. The patient is also on Zosyn. Pro-calcitonin level was elevated at 0.99. I w ill continue to see the patient and make recommendations along the way. Prognosis is guarded. She is moving in the correct direction though. Time with Patient: Less than 30
--- NOTE | 2021-12-08 14:58 | P.PN ---
Subjective Progress Note Date: 12/08/21 This is a pleasant 76-year-old female presents to the hospital for shortness of breath and pneumonia. Patient is maintained on 2 L nasal cannula at home and she is currently on 6 L high flow oxygen with a saturation of 92%. She continues on antibiotics in the form of azithromycin and zosyn. Ceftriaxone d iscontinued. Pulmonary is following the patient. Continues on duonebs, and IV solumedrol. She reports cough is improving no longer having sputum. Patient also with complaints of right sided abdominal pain upper and lower quadrant. She also has some epigastric discomfort. She is status post cholecystectomy in the past. General surgery is following. Abdominal pelvis CT completed today showing Large stool burden throughout the colon, no evidence for bowel obstruction. There is extensive colonic diverticulosis. There is also an increase in size of left ovarian cyst measuring up to 4.7 cm from 2016. Diet has been resumed. She has remained afebrile. Blood pressure 134/81. Labs reviewed today showing white count 22.2, sodium 136, potassium 4.6, BUN 18, creatinine 0.70. 12/07/2021 Patient is evaluated today resting in bed, she reports feeling fatigued. She has been weaned down to 4L nasal cannula currently saturating 98%. Lung sounds reveal scattered rhonchi throughout, cough is improving. General surgery following and recommending to continue colace twice a day, miralax for constipation. Patient will continue with heart healthy diet. White count has improved today down to 16.8, hgb stable. Blood glucose remains in the 200s. Continues on IV zosyn. 12/08/2021 Patient evaluated today resting in bed. She states she feels overall better, but weak. She had bowel movement today, no diarrhea. Tolerating diet. She has been weaned down to 2L nasal cannula and using flutter valve. She does have congested cough, no sputum productive. She does have some faint expiratory wheezing this morning on exam. Sputum culture showing gram negative bacilli. She continues on IV zosyn will await final sputum cultures. Review of Systems Constitutional: Denied any fatigue denied any fever. Cardio vascular: denied any chest pain, palpitations Gastrointestinal: denied any nausea, vomiting, diarrhea Pulmonary: Reports shortness of breath with ambulation, reports no productive cough Neurologic denied any new focal deficits All inpatient medications were reviewed and appropriate changes in these medications as dictated in the interval history and assessment and plan. PHYSICAL EXAMINATION: GENERAL: The patient is alert and oriented x3, not in any acute distress. Well developed, well nourished. HEENT: Pupils are round and equally reacting to light. EOMI. No scleral icterus. No conjunctival pallor. Normocephalic, atraumatic. No pharyngeal erythema. No thyromegaly. CARDIOVASCULAR: S1 and S2 present. No murmurs, rubs, or gallops. PULMONARY: Diminished bases, coarse congested cough, scattered rhonchi ABDOMEN: Soft, nontender, nondistended, normoactive bowel sounds. No palpable organomegaly. MUSCULOSKELETAL: No joint swelling or deformity. EXTREMITIES: No cyanosis, clubbing, or pedal edema. NEUROLOGICAL: Gross neurological examination did not reveal any focal deficits. SKIN: No rashes. Assessment and Plan Assessment Acute community acquired pneumonia Acute hypoxic respiratory failure secondary to COPD exacerbation Chronic atrial fibrillation on Eliquis at home Hyperglycemia with A1C 6.2 consistent with prediabetes, patient does have steroid induced hyperglycemia as well History of multifocal atrial tachycardia rather than atrial fibrillation. As per previous cardiology evaluation Constipation, resolving History of coronary artery disease Hypertension Hyperlipidemia Sleep apnea on CPAP/BiPAP GERD History of upper GI bleed, history of gastric ulcer History of diverticulitis Chronic kidney disease stage III Osteoporosis History of skin cancer GI Prophylaxis DVT Prophylaxis Full Code Plan Continue current antibiotics, updrafts, steroids Appreciate pulmonary consultation General surgery is following Continue on bowel regimen Continue blood glucose monitoring Home with homecare on discharge, possible discharge in the next 24 to 48 hours. The impression and plan of care has been dictated by Jeanie Kearns, Nurse Practitioner as directed. Dr. Gautam MD I have performed a history and physical examination and medical decision making of this patient, discussed the same with the dictator, and agree with the dictators assessment and plan as written, documented as a scribe. Based on total visit time, I have performed more than 50% of this visit. Objective - Vital Signs Vital signs: Vital Signs Temp 98.0 F 12/08/21 05:13 Pulse 74 12/08/21 12:00 Resp 16 12/08/21 12:00 BP 134/71 12/08/21 12:00 Pulse Ox 98 12/08/21 12:00 FiO2 Intake & Output 12/07/21 12/08/21 12/08/21 18:59 06:59 18:59 Intake Total 240 100 480 Output Total 301 Balance -61 100 480 Intake: Intake, IV Titration 100 Amount Piperacillin-Tazobactam 3 100 .375 gm In Sodium Chloride 0.9% 100 ml @ 25 mls/hr IVPB Q8H [facility] Rx#: [id number] Oral 240 480 Output: Urine 300 Stool 1 Other: Voiding Method Toilet Toilet Bedside Commode Bedside Commode # Voids 1 # Bowel Movements 1 - Labs CBC & Chem 7: 12/08/21 08:44 12/08/21 08:44 Labs: Abnormal Lab Results - Last 24 Hours (Table) 12/07/21 12/07/21 12/08/21 Range/Units 16:54 20:21 06:16 WBC (3.8-10.6) k/uL MCHC (31.0-37.0) g/dL Neutrophils # (1.3-7.7) k/uL Lymphocytes # (1.0-4.8) k/uL Sodium (137-145) mmol/L BUN (7-17) mg/dL Glucose (74-99) mg/dL POC Glucose (mg/dL) 113 H 191 H 165 H (70-110) mg/dL 12/08/21 12/08/21 Range/Units 08:44 08:44 WBC 12.4 H (3.8-10.6) k/uL MCHC 30.3 L (31.0-37.0) g/dL Neutrophils # 11.3 H (1.3-7.7) k/uL Lymphocytes # 0.5 L (1.0-4.8) k/uL Sodium 136 L (137-145) mmol/L BUN 22 H (7-17) mg/dL Glucose 143 H (74-99) mg/dL POC Glucose (mg/dL) (70-110) mg/dL Microbiology - Last 24 Hours (Table) 12/06/21 20:22 Gram Stain - Preliminary Sputum Sputum Culture - Preliminary Gram Neg Bacilli 12/05/21 19:51 Blood Culture - Preliminary Blood No Growth after 48 hours 12/05/21 19:50 Blood Culture - Preliminary Blood No Growth after 48 hours Assessment and Plan Time with Patient: Less than 30
[2021-12-08 16:29] LABS: Glucose,Whole Blood 173 mg/dL (70-110)
[2021-12-08 19:44] LABS: Glucose,Whole Blood 208 mg/dL (70-110)
[2021-12-08] MEDS ORDERED: HYDROcodone/APAP 5-325MG 1 EACH TAB PO PRN (20:21)
[2021-12-08] MEDS: diazePAM 5 MG TAB PO SCH (20:57)
[2021-12-08] MEDS: methylPREDNISolone SOD SUCCI 40 MG/ML 1 ML VIAL IV SCH (20:58)
[2021-12-08] MEDS ORDERED: methylPREDNISolone SOD SUCCI 125 MG/2 ML VIAL IV SCH (21:00)
[2021-12-08] MEDS: INSULIN DETEMIR (LEVEMIR) 100 UNIT/ML SYR SQ SCH (21:01)
[2021-12-09] MEDS: PIPERACILLIN-TAZOBACTAM 3.375 GM in SODIUM CHLORIDE 0.9% 100 ML IVPB SCH ×3 (03:10→20:29)
[2021-12-09] MEDS: PANTOPRAZOLE 40 MG TABLET PO SCH (06:24)
[2021-12-09 08:19] LABS: Glucose,Whole Blood 91 mg/dL (70-110)
[2021-12-09] MEDS: IPRATROPIUM-ALBUTEROL 3 ML NEB INHALATION SCH ×4 (08:30→20:35)
[2021-12-09] MEDS: BUDESONIDE 1 MG/2 ML NEBU INHALATION SCH (08:30)
[2021-12-09] MEDS: FORMOTEROL FUMARATE 20 MCG/2 ML NEBU INHALATION SCH (08:31)
[2021-12-09] MEDS: INSULIN ASPART (NovoLOG) 100 UNIT/ML VIAL SQ SCH ×7 (08:58→21:39)
[2021-12-09] MEDS: methylPREDNISolone SOD SUCCI 40 MG/ML 1 ML VIAL IV SCH (09:02)
[2021-12-09] MEDS: MAGNESIUM OXIDE 400 MG TAB PO SCH (09:02)
[2021-12-09] MEDS: DOCUSATE 100 MG CAP PO SCH ×2 (09:02→20:30)
[2021-12-09] MEDS: APIXABAN 5 MG TAB PO SCH ×2 (09:03→20:30)
[2021-12-09] MEDS: PREGABALIN 100 MG CAP PO SCH ×3 (09:03→21:38)
[2021-12-09] MEDS: polyethylene glycoL 3350 17 GM POWD.PACK PO SCH (09:03)
[2021-12-09] MEDS: METOPROLOL TARTRATE 25 MG TAB PO SCH ×2 (09:03→20:30)
[2021-12-09] MEDS: FLUTICASONE 50MCG/SPRAY NASAL 16GM EA NOSTRIL SCH (09:03)
[2021-12-09] MEDS: amLODIPine 2.5 MG TAB PO SCH (09:03)
[2021-12-09] MEDS: LOSARTAN 50 MG TAB PO SCH (09:03)
[2021-12-09] MEDS: DULoxetine HCL 60 MG CAPSULE.DR PO SCH (09:03)
[2021-12-09] MEDS: MONTELUKAST 10 MG TAB PO SCH (09:03)
[2021-12-09] MEDS: CHOLECALCIFEROL 10 MCG (400 IU) TABLET PO SCH (09:03)
[2021-12-09 11:41] LABS: Glucose,Whole Blood 88 mg/dL (70-110)
--- NOTE | 2021-12-09 11:42 | P.PN ---
Subjective Progress Note Date: 12/09/21 Principal diagnosis: COPD exacerbation. Pulmonary consult dated 12/05/2021. 76-year-old female who is seen today in consultation, room 357. The patient was transferred down from [facility], because of shortness of breath, and pneumonia. The patient is currently on 7 L nasal cannula. Not receiving any IV fluids. The patient states for a number of days prior to admission, she was having increasing shortness of breath, chest congestion, cough, wheezing, and phlegm production. Things were not getting better with her usual treatments, and therefore she went to the outside hospital, and was transferred down because of bilateral pneumonia. Currently, she is on Solu-Medrol 60 mg every 6 hours, Rocephin and Zithromax, DuoNeb nebs, Pulmicort and formoterol, and we've added a flutter valve as well. The patient is very bronchospastic, and her cough is very wet congested sounding. White count 26.1, hemoglobin 13.1, hematocrit 41.4, and platelet count is 356,000. Sodium 134, potassium 4.2, chlorides 100, CO2 29, BUN 20, and creatinine 0.71. Pro-calcitonin level is elevated at 0.99. Chest x-ray shows patchy bilateral infiltrates consistent with pneumonia. Progress note dated 12/06/2021. This is a 76-year-old female again seen in room 357. He is currently on 6 L nasal cannula. She was seen in consultation yesterday. She's not receiving any IV fluids. The patient is feeling better from the pulmonary standpoint today. She is less short of breath. She does have a bit of a cough, nonproductive. White count 22.2, with a stable hemoglobin, hematocrit, and platelet count. Sodium 136, potassium 4.6, chlorides 103, CO2 30, BUN 18, and creatinine 0.7. The patient developed some abdominal discomfort, any x-ray of the abdomen revealed distended small and large bowel, consistent with ileus. A CT of the abdomen was ordered. Progress note dated 12/07/2021. 76-year-old female seen again in room 357. She's currently on saline at 10 mL an hour, and 4 L by nasal cannula. She's initially sleeping, very comfortable. Her cough is harsh, and does remind me of somebody with tracheomalacia. Laboratory data includes a white count of 16.8, with a normal hemoglobin, hematocrit, and platelet count. Progress note dated 12/08/2021. 76-year-old female seen again today in room 357. She seems to be resting comfortably. She's getting oxygen at 3 L by nasal cannula, and saline at 10 mL an hour. She has a flutter valve that she is using on a regular basis. She does admit to feeling much better today. White count is 12.4, he lobe and 12.4, hematocrit 41, and platelet count 400,000. Sodium 136, potassium 4.9, chlorides 102, CO2 29, BUN 22, and creatinine 0.8. Calcium is normal. Microbiologic studies are thus far negative. No chest x-ray today. Progress note dated 12/09/2021. 76-year-old female seen again in room 357. She's currently down to 2 L nasal cannula. She's getting saline at 20 mL an hour. Sputum revealed some Pseudo monas. The patient is started on Cipro orally. Clinically, she's doing well. She could be considered for discharge either today or tomorrow. She is using the flutter valve on a regular basis. No new lab data today other than a glucose of 91. Objective - Vital Signs Vital signs: Vital Signs Temp 97.2 F L 12/09/21 08:00 Pulse 82 12/09/21 08:58 Resp 18 12/09/21 08:00 BP 125/73 12/09/21 08:00 Pulse Ox 96 12/09/21 08:34 FiO2 Intake & Output 12/08/21 12/09/21 12/09/21 18:59 06:59 18:59 Intake Total 1520 30 250 Output Total 1 Balance 1520 29 250 Intake: IV 200 30 10 Invasive Line 1 30 10 Piperacillin-Tazobactam 3 200 .375 gm In Sodium Chloride 0.9% 100 ml @ 25 mls/hr IVPB Q8H [facility] Rx#: [id number] Oral 1320 240 Output: Stool 1 Other: Voiding Method Toilet Toilet Bedside Commode Bedside Commode # Voids 1 - Exam No acute distress, oriented 3. Mild tachypnea, without audible wheezing or use of accessory muscles. She is on 2 L nasal cannula. HEENT examination is grossly unremarkable. Neck supple. Full range of motion. No adenopathy thyromegaly or neck vein distention. Cardiovascular examination reveals regular rhythm rate. S1-S2 normal. No S3 or S4. No discernible murmur noted. Heart sounds are distant. Heart rate 80 beats a minute. Lungs reveal coarse bilateral inspiratory and expiratory rhonchi. No crackles. Expiratory wheezes noted. Breath sounds equal bilaterally. 2 L saturation is 96%. Abdomen mildly distended, mildly tender. No bowel sounds. Extremities are intact. No cyanosis clubbing or edema. Skin is without rash or lesion. Neurologic examination is brief but nonfocal. - Labs CBC & Chem 7: 12/08/21 08:44 12/08/21 08:44 Labs: Abnormal Lab Results - Last 24 Hours (Table) 12/08/21 12/08/21 Range/Units 16:28 19:43 POC Glucose (mg/dL) 173 H 208 H (70-110) mg/dL Microbiology - Last 24 Hours (Table) 12/06/21 20:22 Gram Stain - Final Sputum Sputum Culture - Final Pseudomonas aeruginosa 12/05/21 19:51 Blood Culture - Preliminary Blood No Growth after 72 hours 12/05/21 19:50 Blood Culture - Preliminary Blood No Growth after 72 hours Assessment and Plan Assessment: Acute hypoxemic respiratory failure secondary to acute exacerbation of COPD with bilateral pneumonia, secondary to Pseudomonas. Abdominal discomfort and distention, with possible ileus/bowel obstruction. 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 History of CAD. History of gastroesophageal reflux disease. Hyperlipidemia. Hypertension. History of sleep apnea syndrome. History of stage III chronic kidney disease. History of skin cancer. Multiple medical problems and comorbidities. Plan: Plan dated 12/05/2021. The patient is given Zithromax, and Rocephin, as antibiotics. In addition, we increase her Solu-Medrol up to 60 mg every 6 hours, IV push. We add a flutter valve to be used hourly, and Pulmicort 1 mg, mixed with fomoterol, 20 g, twice a day. The patient will also get Duo nebs, 4 times a day and when necessary. Additional recommendations and suggestions are forthcoming. Prognosis is cer tainly guarded. Without improvement, the patient may need a bronchoscopy. Plan dated 12/06/2021. From the pulmonary standpoint, the patient appears to be doing better. She appears less short of breath and congested. Yesterday, she had a very wet congested cough and that seems to be better today. Her oxygen can be titrated down. Her saturations on 7 L, is 100%. A CAT scan was ordered of the abdomen, given her new onto the abdominal discomfort and distention. Currently, the patient's on Zithromax, Pulmicort, formoterol, DuoNeb's, and Solu-Medrol. She is also on Zosyn. Yesterday, I thought she might benefit from bronchoscopy, but she sounds much better today. We'll await the results of the CAT scan. Plan dated 12/07/2021. The patient's oxygen has been weaned down to 4 L. Yesterday, she was on 7 L. She clinically looks better and sounds better. She likely has tracheomalacia. The patient's on saline at 10 mL an hour. Labs, x-rays,and medications are reviewed. The computed tomography scan of the abdomen and pelvis shows no evidence of bowel obstruction, extensive colonic diverticulosis, and large stool burden throughout the colon. There is also a left ovarian cyst. Plan dated 12/08/2021. The patient appears to be doing better. She is on appropriate medications. She is using her flutter valve on a regular basis. She is on 3 L, and that being titrated down. She remains on DuoNeb's, Pulmicort, formoterol, and Solu-Medrol. The patient is also on Zosyn. Pro-calcitonin level was elevated at 0.99. I will continue to see the patient and make recommendations along the way. Prognosis is guarded. She is moving in the correct direction though. Plan dated 12/09/2021. Currently, the patient's doing much better. The patient is started on oral ciprofloxacin for her pseudomonas in her sputum. She has been weaned down to 2 L. In addition, we stopped the Pulmicort and the formoterol, and started Symbicort. In addition, we stopped the Solu-Medrol and give her prednisone. The patient is doing well. Labs, x-rays, and medications are reviewed. The patient could be considered for possible discharge either later today or tomorrow. She should go home with her flutter valve. Time with Patient: Less than 30
[2021-12-09 13:20] VITALS: BMI 26.9
[2021-12-09 16:55] LABS: Glucose,Whole Blood 137 mg/dL (70-110)
[2021-12-09 20:28] LABS: Glucose,Whole Blood 187 mg/dL (70-110)
[2021-12-09] MEDS: diazePAM 5 MG TAB PO SCH (20:30)
[2021-12-09] MEDS: SYMBICORT 160-4.5 MCG INHALER INHALATION SCH (20:35)
[2021-12-09] MEDS: INSULIN DETEMIR (LEVEMIR) 100 UNIT/ML SYR SQ SCH (21:40)
[2021-12-09] MEDS: ACETAMINOPHEN TAB 325 MG TAB PO PRN (21:44)
--- NOTE | 2021-12-10 00:45 | P.DS ---
Providers Date of admission: 12/04/21 17:29 Attending physician: Jeanette Mason Consults: 12/04/21 17:23 Consult Physician Urgent Consulting Provider: Devante White Consult Reason/Comments: acute hypoxic resp failure, b/l pn Do you want consulting provider notified?: Yes Primary care physician: Sanchez Kee Hospital Course: Diagnosis Acute community acquired pneumonia Acute hypoxic respiratory failure secondary to COPD exacerbation Chronic atrial fibrillation on Eliquis at home Hyperglycemia with A1C 6.2 consistent with prediabetes, patient does have steroid induced hyperglycemia as well History of multifocal atrial tachycardia rather than atrial fibrillation. As per previous cardiology evaluation Constipation, resolving History of coronary artery disease Hypertension Hyperlipidemia Sleep apnea on CPAP/BiPAP GERD History of upper GI bleed, history of gastric ulcer History of diverticulitis Chronic kidney disease stage III Osteoporosis History of skin cancer Full Code Discharge Disposition Stable for discharge. Cleared by pulmonary services. Continue short course of antbiotics and oral steroid taper on discharge. Continue on home oxygen. Hospital Course This is a pleasant 76-year-old female presents to the hospital from [facility] for shortness of breath and pneumonia. She has medical history significant for Asthma, Coronary Artery Disease (CAD), COPD, GERD/Reflux, GI Bleed, Hyper lipidemia, Hypertension, Pneumonia, Sleep Apnea/CPAP/BIPAP, gastric ulcer, diverticulitis, iron anemia-has had infusions, CKD stage III, chronic hypokalemia. She smokes half pack per day. She declines nicotine patch. She drinks alcohol occasionally but no illicit drugs At home she uses 2 L/m at night. Her trial paralegal is Dr. Arguelles. Upon admssion, patient requires 7 L of oxygen through high flow cannula for saturation of 92%, mildly tachypneic, patient is afebrile currently but had fever 100.7 on admission. Patient was started on ceftriaxone, Zithromax and consult placed to pulmonary services. Patient state that she came to the hospital because of worsening dyspnea over the last 5-6 days associated with yellow greenish phlegm but no significant chest pain. She vomited once on the Sunday and she feels dry heaving. No diarrhea or vomiting more than that. However she feels constipated for 5-6 days. No change in urinary complaints. No headache or dizziness or weakness or numbness. She's been complaining from some abdominal pain which KUB xray was taken showing grossly distended small and large bowel may reflect generalized ileus. Mild to moderate stool in the right side of the abdomen. Patchy basilar areas of atelectasis or infiltrates Patient is made nothing by mouth and surgery team director on air were consulted. Follow up Abdominal pelvis CT completed showing Large stool burden throughout the colon, no evidence for bowel obstruction. There is extensive colonic diverticulosis. There is also an increase in size of left ovarian cyst measuring up to 4.7 cm from 2016. Diet has been resumed. She did have 2 normal bowel movements. She has remained afebrile. Sputum sample is positive with pseudomonas and pulmonary is recommeding oral cipro on discharge. Procalcitonin level was found to be 0.99 on admission. Covid negative. They will follow up with patient in the office post discharge. She has been weaned down to 3 L of nasal cannula and lungs are essentialy clear. White count is now 12.4 down from 26.1 on admission. 12/09/2021 Patient continues on 2L nasal cannula with oxygen saturation of 94%. She denies shortness of breath, denies chest pain. She states that overall she is feeling well today. She is having normal bowel movements, no dysuria. She is tolerating diet. Patient would like to be discharge home today. She continues on antibiotics in the form of azithromycin and zosyn. and will discharge on oral cipro. Pulmonary is following the patient. Continues on duonebs, and will discharge on oral steroid taper. She reports cough is improving no longer having sputum. S1 S2 auscultated, abdomen is soft and nontender. Focal neurological exam is negative. Labs today showing white count 12.4, hgb 12.4, sodium 136, potassium 4.9, chloride 102, CO2 29, BUN 22, creatinine 0.80, blood glucose in the 180s. Temperature 97.9 heart rate 80s, blood pressure 130/68. Please see medication reconciliation for a list of current medication. Thank you for allowing us to participate in the care of this patient. Total time taken in discharge planning greater than 35 minutes. The impression and plan of care has been dictated by Jeanie Kearns, Nurse Practitioner as directed. Dr. Gautam MD I have performed a history and physical examination and medical decision making of this patient, discussed the same with the dictator, and agree with the dictators assessment and plan as written, documented as a scribe. Based on total visit time, I have performed more than 50% of this visit. Patient Condition at Discharge: Fair Plan - Discharge Summary Discharge Rx Participant: Yes New Discharge Prescriptions: New Ciprofloxacin HCl [Cipro] 500 mg PO Q12HR 6 Days #12 tab Docusate [Colace] 100 mg PO BID cap polyethylene glycoL 3350 [Miralax] 17 gm PO DAILY packet Budesonide-Formot 160-4.5 Mcg [Symbicort 160-4.5 Mcg Inhaler] 2 puff INHALATION RT-BID #1 each Acetaminophen Tab [Tylenol] 650 mg PO Q6HR PRN tab PRN Reason: Mild Pain Or Fever > 100.5 Empagliflozin [Jardiance] 10 mg PO DAILY #14 tablet Losartan [Cozaar] 50 mg PO DAILY #30 tab predniSONE [Deltasone] 0 mg PO DIRECTED 6 Days #15 tab Continue Cetirizine HCl [Zyrtec] 10 mg PO DAILY PRN PRN Reason: allergies Fluticasone Nasal [place] [Flonase Nasal [place]] 2 spray EA NOSTRIL DAILY Montelukast [Singulair] 10 mg PO DAILY Tiotropium 18 Mcg/Puff [Spiriva] 1 cap INHALATION RT-DAILY Furosemide [Lasix] 20 mg PO DAILY Metoprolol Tartrate [Lopressor] 25 mg PO BID 30 Days #60 tab Apixaban [Eliquis] 5 mg PO BID #60 tab Cholecalciferol [Vitamin D3 (10 Mcg = 400 Iu)] 10 mcg PO DAILY Pregabalin [Lyrica] 100 mg PO TID Calcium Carbonate [Calcium] 1,200 mg PO DAILY DULoxetine HCL [Cymbalta] 60 mg PO DAILY diazePAM [Valium] 5 mg PO HS diazePAM [Valium] 5 mg PO DAILY PRN PRN Reason: Anxiety amLODIPine [Norvasc] 2.5 mg PO DAILY Discontinued Fluticasone Propion/Salmeterol [Advair 500-50 Diskus] 1 puff INHALATION RT- BID Magnesium Oxide [Mag-Ox] 800 mg PO DAILY Losartan [Cozaar] 50 mg PO DAILY Spironolactone 25 mg PO DAILY Discharge Medication List Cetirizine HCl [Zyrtec] 10 mg PO DAILY PRN 09/03/15 [History] Fluticasone Nasal [place] [Flonase Nasal [place]] 2 spray EA NOSTRIL DAILY 09/03/15 [History] Montelukast [Singulair] 10 mg PO DAILY 09/03/15 [History] Tiotropium 18 Mcg/Puff [Spiriva] 1 cap INHALATION RT-DAILY 10/28/15 [History] Furosemide [Lasix] 20 mg PO DAILY 04/15/19 [History] Metoprolol Tartrate [Lopressor] 25 mg PO BID 30 Days #60 tab 04/24/19 [Rx] Apixaban [Eliquis] 5 mg PO BID #60 tab 05/05/19 [Rx] Calcium Carbonate [Calcium] 1,200 mg PO DAILY 12/04/21 [History] Cholecalciferol [Vitamin D3 (10 Mcg = 400 Iu)] 10 mcg PO DAILY 12/04/21 [History] DULoxetine HCL [Cymbalta] 60 mg PO DAILY 12/04/21 [History] Pregabalin [Lyrica] 100 mg PO TID 12/04/21 [History] amLODIPine [Norvasc] 2.5 mg PO DAILY 12/04/21 [History] diazePAM [Valium] 5 mg PO DAILY PRN 12/04/21 [History] diazePAM [Valium] 5 mg PO HS 12/04/21 [History] Acetaminophen Tab [Tylenol] 650 mg PO Q6HR PRN tab 12/09/21 [Rx] Budesonide-Formot 160-4.5 Mcg [Symbicort 160-4.5 Mcg Inhaler] 2 puff INHALATION RT-BID #1 each 12/09/21 [Rx] Ciprofloxacin HCl [Cipro] 500 mg PO Q12HR 6 Days #12 tab 12/09/21 [Rx] Docusate [Colace] 100 mg PO BID cap 12/09/21 [Rx] Empagliflozin [Jardiance] 10 mg PO DAILY #14 tablet 12/09/21 [Rx] Losartan [Cozaar] 50 mg PO DAILY #30 tab 12/09/21 [Rx] polyethylene glycoL 3350 [Miralax] 17 gm PO DAILY packet 12/09/21 [Rx] predniSONE [Deltasone] 0 mg PO DIRECTED 6 Days #15 tab 12/09/21 [Rx] Follow up Appointment(s)/Referral(s): Burak Carr MD [Medical Doctor] - As Needed Ramirez Arguelles DO [Doctor of Osteopathic Medicine] - 2 Weeks Sanchez Kee MD [Primary Care Provider] - 1-2 days Ambulatory/Diagnostic Orders: Basic Metabolic Panel [LAB.AMB] Time Frame: 3 Days, Location: None Selected Complete Blood Count w/diff [LAB.AMB] Time Frame: 3 Days, Location: None Selected Patient Instructions/Handouts: Community Acquired Pneumonia (DC), Prediabetes (GEN) Activity/Diet/Wound Care/Special Instructions: Continue antibiotics for 6 more days Continue oral steroid taper for 6 days Repeat labs outpatient BMP and CBC in 2 to 3 days Recommend to see primary care in 2 to 3 days Recommend to see pulmonary outpatient Continue on bowel regimen to avoid constipation A1C 6.2 consistent with prediabetes continue on jardiance for 14 days especially while on prednisone taper Follow up with primary care Diet modifications, information has been provided. Discharge Disposition: HOME WITH HOME HEALTH SERVICES
[2021-12-10] MEDS: PIPERACILLIN-TAZOBACTAM 3.375 GM in SODIUM CHLORIDE 0.9% 100 ML IVPB SCH (03:50)
[2021-12-10 06:02] LABS: Glucose,Whole Blood 67 mg/dL (70-110)
[2021-12-10 06:16] LABS: Glucose,Whole Blood 67 mg/dL (70-110)
[2021-12-10 06:34] LABS: Glucose,Whole Blood 85 mg/dL (70-110)
[2021-12-10] MEDS: PANTOPRAZOLE 40 MG TABLET PO SCH (06:39)
[2021-12-10] MEDS: INSULIN ASPART (NovoLOG) 100 UNIT/ML VIAL SQ SCH ×2 (06:39)
[2021-12-10] MEDS: SYMBICORT 160-4.5 MCG INHALER INHALATION SCH (08:42)
[2021-12-10] MEDS: IPRATROPIUM-ALBUTEROL 3 ML NEB INHALATION SCH ×3 (08:42→15:46)
[2021-12-10] MEDS ORDERED: predniSONE 20 MG TAB PO SCH (09:00)
--- NOTE | 2021-12-10 11:13 | P.PN ---
Subjective Progress Note Date: 12/10/21 Principal diagnosis: COPD exacerbation. Pulmonary consult dated 12/05/2021. 76-year-old female who is seen today in consultation, room 357. The patient was transferred down from [facility], because of shortness of breath, and pneumonia. The patient is currently on 7 L nasal cannula. Not receiving any IV fluids. The patient states for a number of days prior to admission, she was having increasing shortness of breath, chest congestion, cough, wheezing, and phlegm production. Things were not getting better with her usual treatments, and therefore she went to the outside hospital, and was transferred down because of bilateral pneumonia. Currently, she is on Solu-Medrol 60 mg every 6 hours, Rocephin and Zithromax, DuoNeb nebs, Pulmicort and formoterol, and we've added a flutter valve as well. The patient is very bronchospastic, and her cough is very wet congested sounding. White count 26.1, hemoglobin 13.1, hematocrit 41.4, and platelet count is 356,000. Sodium 134, potassium 4.2, chlorides 100, CO2 29, BUN 20, and creatinine 0.71. Pro-calcitonin level is elevated at 0.99. Chest x-ray shows patchy bilateral infiltrates consistent with pneumonia. Progress note dated 12/06/2021. This is a 76-year-old female again seen in room 357. He is currently on 6 L nasal cannula. She was seen in consultation yesterday. She's not receiving any IV fluids. The patient is feeling better from the pulmonary standpoint today. She is less short of breath. She does have a bit of a cough, nonproductive. White count 22.2, with a stable hemoglobin, hematocrit, and platelet count. Sodium 136, potassium 4.6, chlorides 103, CO2 30, BUN 18, and creatinine 0.7. The patient developed some abdominal discomfort, any x-ray of the abdomen revealed distended small and large bowel, consistent with ileus. A CT of the abdomen was ordered. Progress note dated 12/07/2021. 76-year-old female seen again in room 357. She's currently on saline at 10 mL an hour, and 4 L by nasal cannula. She's initially sleeping, very comfortable. Her cough is harsh, and does remind me of somebody with tracheomalacia. Laboratory data includes a white count of 16.8, with a normal hemoglobin, hematocrit, and platelet count. Progress note dated 12/08/2021. 76-year-old female seen again today in room 357. She seems to be resting comfortably. She's getting oxygen at 3 L by nasal cannula, and saline at 10 mL an hour. She has a flutter valve that she is using on a regular basis. She does admit to feeling much better today. White count is 12.4, he lobe and 12.4, hematocrit 41, and platelet count 400,000. Sodium 136, potassium 4.9, chlorides 102, CO2 29, BUN 22, and creatinine 0.8. Calcium is normal. Microbiologic studies are thus far negative. No chest x-ray today. Progress note dated 12/09/2021. 76-year-old female seen again in room 357. She's currently down to 2 L nasal cannula. She's getting saline at 20 mL an hour. Sputum revealed some Pseudo monas. The patient is started on Cipro orally. Clinically, she's doing well. She could be considered for discharge either today or tomorrow. She is using the flutter valve on a regular basis. No new lab data today other than a glucose of 91. Progress note dated 12/10/2021. 76-year-old female seen in room 357. The patient's doing much better. She is on saline at 20 mL an hour, and 2 L nasal cannula. Her sputum was positive for Pseudomonas, sensitive to just about everything. We stated that she could be discharged home on Cipro, 500 mg twice a day. The patient will follow-up with me in the office. She is doing much better. No new labs today. No chest x-ray today. Objective - Vital Signs Vital signs: Vital Signs Temp 97.8 F 12/10/21 04:00 Pulse 78 12/10/21 08:52 Resp 17 12/10/21 04:00 BP 148/83 12/10/21 04:00 Pulse Ox 96 12/10/21 04:00 FiO2 Intake & Output 12/09/21 12/10/21 12/10/21 18:59 06:59 18:59 Intake Total 857 540 250 Output Total 300 Balance 557 540 250 Weight 62.596 kg Intake: IV 120 10 Invasive Line 1 20 10 Piperacillin-Tazobactam 3 100 .375 gm In Sodium Chloride 0.9% 100 ml @ 25 mls/hr IVPB Q8H [facility] Rx#: [id number] Oral 737 540 240 Output: Urine 300 Other: Voiding Method Toilet Toilet # Voids 1 - Exam No acute distress, oriented 3. She is on 2 L nasal cannula. HEENT examination is grossly unremarkable. Neck supple. Full range of motion. No adenopathy thyromegaly or neck vein distention. Cardiovascular examination reveals regular rhythm rate. S1-S2 normal. No S3 or S4. No discernible murmur noted. Heart sounds are distant. Heart rate 78 beats a minute. Lungs reveal scattered bilateral rhonchi. Scattered mild wheezes are noted. No crackles. Breath sounds equal bilaterally. Breath sounds are diminished. 2 L saturation is 96%. Abdomen mildly distended, mildly tender. No bowel sounds. Extremities are intact. No cyanosis clubbing or edema. Skin is without rash or lesion. Neurologic examination is brief but nonfocal. - Labs CBC & Chem 7: 12/08/21 08:44 12/08/21 08:44 Labs: Abnormal Lab Results - Last 24 Hours (Table) 12/09/21 12/09/21 12/10/21 Range/Units 16:53 20:27 06:01 POC Glucose (mg/dL) 137 H 187 H 67 L (70-110) mg/dL 12/10/21 Range/Units 06:14 POC Glucose (mg/dL) 67 L (70-110) mg/dL Microbiology - Last 24 Hours (Table) 12/05/21 19:51 Blood Culture - Preliminary Blood No Growth after 96 hours 12/05/21 19:50 Blood Culture - Preliminary Blood No Growth after 96 hours 12/06/21 20:22 Gram Stain - Final Sputum Sputum Culture - Final Pseudomonas aeruginosa Assessment and Plan Assessment: Acute hypoxemic respiratory failure secondary to acute exacerbation of COPD with bilateral pneumonia, secondary to Pseudomonas. Abdominal discomfort and distention, with possible ileus/bowel obstruction, resolved. 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 History of CAD. History of gastroesophageal reflux disease. Hyperlipidemia. Hypertension. History of sleep apnea syndrome. History of stage III chronic kidney disease. History of skin cancer. Multiple medical problems and comorbidities. Plan: Plan dated 12/05/2021. The patient is given Zithromax, and Rocephin, as antibiotics. In addition, we increase her Solu-Medrol up to 60 mg every 6 hours, IV push. We add a flutter valve to be used hourly, and Pulmicort 1 mg, mixed with fomoterol, 20 g, twice a day. The patient will also get Duo nebs, 4 times a day and when necessary. Additional recommendations and suggestions are forthcoming. Prognosis is certainly guarded. Without improvement, the patient may need a bronchoscopy. Plan dated 12/06/2021. From the pulmonary standpoint, the patient appears to be doing better. She appears less short of breath and congested. Yesterday, she had a very wet congested cough and that seems to be better today. Her oxygen can be titrated down. Her saturations on 7 L, is 100%. A CAT scan was ordered of the abdomen, given her new onto the abdominal discomfort and distention. Currently, the patient's on Zithromax, Pulmicort, formoterol, DuoNeb's, and Solu-Medrol. She is also on Zosyn. Yesterday, I thought she might benefit from bronchoscopy, but she sounds much better today. We'll await the results of the CAT scan. Plan dated 12/07/2021. The patient's oxygen has been weaned down to 4 L. Yesterday, she was on 7 L. She clinically looks better and sounds better. She likely has tracheomalacia. The patient's on saline at 10 mL an hour. Labs, x-rays,and medications are reviewed. The computed tomography scan of the abdomen and pelvis shows no evidence of bowel obstruction, extensive colonic diverticulosis, and large stool burden throughout the colon. There is also a left ovarian cyst. Plan dated 12/08/2021. The patient appears to be doing better. She is on appropriate medications. She is using her flutter valve on a regular basis. She is on 3 L, and that being titrated down. She remains on DuoNeb's, Pulmicort, formoterol, and Solu-Medrol. The patient is also on Zosyn. Pro-calcitonin level was elevated at 0.99. I will continue to see the patient and make recommendations along the way. P rognosis is guarded. She is moving in the correct direction though. Plan dated 12/09/2021. Currently, the patient's doing much better. The patient is started on oral ciprofloxacin for her pseudomonas in her sputum. She has been weaned down to 2 L. In addition, we stopped the Pulmicort and the formoterol, and started Symbicort. In addition, we stopped the Solu-Medrol and give her prednisone. The patient is doing well. Labs, x-rays, and medications are reviewed. The patient could be considered for possible discharge either later today or tomorrow. She should go home with her flutter valve. Plan dated 12/10/2021. The patient's doing much better. We believe she could be discharged home. We'll leave that up to the primary service. There was pseudomonas in her sputum. We recommended Cipro, , 500 mg twice a day. She remains on 2 L of oxygen. She is on Symbicort, updrafts with albuterol sulfate and ipratropium bromide, and prednisone 40 mg a day with a taper. Recommendations and suggestions are forthcoming. The patient will follow with me in the office. No additional recommendations are made. Time with Patient: Less than 30
[2021-12-10] MEDS: MAGNESIUM OXIDE 400 MG TAB PO SCH (11:38)
[2021-12-10] MEDS: amLODIPine 2.5 MG TAB PO SCH (11:38)
[2021-12-10] MEDS: PREGABALIN 100 MG CAP PO SCH (11:38)
[2021-12-10] MEDS: DOCUSATE 100 MG CAP PO SCH (11:38)
[2021-12-10] MEDS: METOPROLOL TARTRATE 25 MG TAB PO SCH (11:38)
[2021-12-10] MEDS: polyethylene glycoL 3350 17 GM POWD.PACK PO SCH (11:38)
[2021-12-10] MEDS: MONTELUKAST 10 MG TAB PO SCH (11:38)
[2021-12-10] MEDS: DULoxetine HCL 60 MG CAPSULE.DR PO SCH (11:38)
[2021-12-10] MEDS: LOSARTAN 50 MG TAB PO SCH (11:38)
[2021-12-10] MEDS: APIXABAN 5 MG TAB PO SCH (11:39)
[2021-12-10] MEDS: FLUTICASONE 50MCG/SPRAY NASAL 16GM EA NOSTRIL SCH (11:39)
[2021-12-10] MEDS: CHOLECALCIFEROL 10 MCG (400 IU) TABLET PO SCH (11:39)
[2021-12-10 11:51] VITALS: BP 105/71; PULSE 83; RESP 16; TEMP 98.3
[2021-12-10 12:24] LABS: Glucose,Whole Blood 174 mg/dL (70-110)
--- NOTE | 2021-12-11 05:43 | P.DS ---
Providers Date of admission: 12/04/21 17:29 Expected date of discharge: 12/10/21 Attending physician: Jeanette Mason Consults: 12/04/21 17:23 Consult Physician Urgent Consulting Provider: Devante White Consult Reason/Comments: acute hypoxic resp failure, b/l pn Do you want consulting provider notified?: Yes Primary care physician: Sanchez Kee Hospital Course: Final Diagnosis Acute community acquired pneumonia Acute hypoxic respiratory failure secondary to COPD exacerbation Chronic atrial fibrillation on Eliquis at home Hyperglycemia with A1C 6.2 consistent with prediabetes, patient does have steroid induced hyperglycemia as well History of multifocal atrial tachycardia rather than atrial fibrillation. As per previous cardiology evaluation Constipation, resolving History of coronary artery disease Hypertension Hyperlipidemia Sleep apnea on CPAP/BiPAP GERD History of upper GI bleed, history of gastric ulcer History of diverticulitis Chronic kidney disease stage III Osteoporosis History of skin cancer Full Code Discharge Disposition Stable for discharge. Cleared by pulmonary services. Continue short course of antbiotics and oral steroid taper on discharge. Continue on home oxygen. Total time taken in discharge planning greater than 35 minutes. Hospital Course This is a pleasant 76-year-old female presents to the hospital from [facility] for shortness of breath and pneumonia. She has medical history significant for Asthma, Coronary Artery Disease (CAD), COPD, GERD/Reflux, GI Bleed, Hyperlipidemia, Hypertension, Pneumonia, Sleep Apnea/CPAP/BIPAP, gastric ulcer, diverticulitis, iron anemia-has had infusions, CKD stage III, chronic hypokalemia. She smokes half pack per day. She declines nicotine patch. She drinks alcohol occasionally but no illicit drugs At home she uses 2 L/m at night. 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 Arguelles. Upon admssion, patient requires 7 L of oxygen through high flow cannula for saturation of 92%, mildly tachypneic, patient is afebrile currently but had fever 100.7 on admission. Patient was started on ceftriaxone, Zithromax and consult placed to pulmonary services. Patient state that she came to the hospital because of worsening dyspnea over the last 5-6 days associated with yellow greenish phlegm but no significant chest pain. She vomited once on the Sunday and she feels dry heaving. No diarrhea or vomiting more than that. However she feels constipated for 5-6 days. No change in urinary complaints. No headache or dizziness or weakness or numbness. She's been complaining from some abdominal pain which KUB xray was taken showing grossly distended small and large bowel may reflect generalized ileus. Mild to moderate stool in the right side of the abdomen. Patchy basilar areas of atelectasis or infiltrates Patient is made nothing by mouth and surgery team economic development coordinator were consulted. Follow up Abdominal pelvis CT completed showing Large stool burden throughout the colon, no evidence for bowel obstruction. There is extensive colonic diverticulosis. There is also an increase in size of left ovarian cyst measuring up to 4.7 cm from 2016. Diet has been resumed. She did have 2 normal bowel movements. She has remained afebrile. Sputum sample is positive with pseudomonas and pulmonary is recommeding oral cipro on discharge. Procalcitonin level was found to be 0.99 on admission. Covid negative. They will follow up with patient in the office post discharge. She has been weaned down to 3 L of nasal cannula and lungs are essentialy clear. White count is now 12.4 down from 26.1 on admission. 12/09/2021 Patient continues on 2L nasal cannula with oxygen saturation of 94%. She denies shortness of breath, denies chest pain. She states that overall she is feeling well today. She is having normal bowel movements, no dysuria. She is tolerating diet. Patient would like to be discharge home today. She continues on antibiotics in the form of azithromycin and zosyn. and will discharge on oral cipro. Pulmonary is following the patient. Continues on duonebs, and will discharge on oral steroid taper. She reports cough is improving no longer having sputum. S1 S2 auscultated, abdomen is soft and nontender. Focal neurological exam is negative. Labs today showing white count 12.4, hgb 12.4, sodium 136, potassium 4.9, chloride 102, CO2 29, BUN 22, creatinine 0.80, blood glucose in the 180s. Temperature 97.9 heart rate 80s, blood pressure 130/68. 12/10/2021 Patient is seen this morning and was discharged on 12/09 although ride lives 3 hours away and was not able to make it until today to come get her. Patient also had all scripts escribed [facility] and nursing staff reported the pharmacy is closed on the weekend and have sent all the prescriptions to [facility] here and awaiting to be delivered to the room. Patient will continue on oral prednisone and also oral cipro 500mg bid for the next 6 days to complete the course due to pseudomonas aeruginosa in the sputum. Patient is afebrile and vss. Patient denies chest pain, palpitations, or worsening shortness of breath. Given patient multiple medical comorbidites, prognosis is guarded. Please see medication reconciliation for a list of current medication. Thank you for allowing us to participate in the care of this patient. The impression and plan of care has been dictated by Radha Canales, Nurse Practitioner as directed. Dr. Gautam MD I have performed a history and examination and MDM of this patient, discussed the same with the dictator, and agree with the dictator's assessment and plan as written ,documented as a scribe. Based on total visit time, I have performed more than 50% of the visit. Patient Condition at Discharge: Fair Plan - Discharge Summary Discharge Rx Participant: Yes New Discharge Prescriptions: New Budesonide-Formot 160-4.5 Mcg [Symbicort 160-4.5 Mcg Inhaler] 2 puff INHALATION RT-BID #1 each Acetaminophen Tab [Tylenol] 650 mg PO Q6HR PRN tab PRN Reason: Mild Pain Or Fever > 100.5 Empagliflozin [Jardiance] 10 mg PO DAILY #14 tablet Losartan [Cozaar] 50 mg PO DAILY #30 tab predniSONE [Deltasone] 0 mg PO DIRECTED 6 Days #15 tab Docusate [Colace] 100 mg PO BID #30 capsule polyethylene glycoL 3350 [Miralax] 17 gm PO DAILY #14 packet Ciprofloxacin HCl [Cipro] 500 mg PO BID 6 Days #12 tab Continue Cetirizine HCl [Zyrtec] 10 mg PO DAILY PRN PRN Reason: allergies Fluticasone Nasal [place] [Flonase Nasal [place]] 2 spray EA NOSTRIL DAILY Montelukast [Singulair] 10 mg PO DAILY Tiotropium 18 Mcg/Puff [Spiriva] 1 cap INHALATION RT-DAILY Furosemide [Lasix] 20 mg PO DAILY Metoprolol Tartrate [Lopressor] 25 mg PO BID 30 Days #60 tab Apixaban [Eliquis] 5 mg PO BID #60 tab Cholecalciferol [Vitamin D3 (10 Mcg = 400 Iu)] 10 mcg PO DAILY Pregabalin [Lyrica] 100 mg PO TID Calcium Carbonate [Calcium] 1,200 mg PO DAILY DULoxetine HCL [Cymbalta] 60 mg PO DAILY diazePAM [Valium] 5 mg PO HS diazePAM [Valium] 5 mg PO DAILY PRN PRN Reason: Anxiety amLODIPine [Norvasc] 2.5 mg PO DAILY Discontinued Fluticasone Propion/Salmeterol [Advair 500-50 Diskus] 1 puff INHALATION RT- BID Magnesium Oxide [Mag-Ox] 800 mg PO DAILY Losartan [Cozaar] 50 mg PO DAILY Spironolactone 25 mg PO DAILY Discharge Medication List Cetirizine HCl [Zyrtec] 10 mg PO DAILY PRN 09/03/15 [History] Fluticasone Nasal [place] [Flonase Nasal [place]] 2 spray EA NOSTRIL DAILY 09/03/15 [History] Montelukast [Singulair] 10 mg PO DAILY 09/03/15 [History] Tiotropium 18 Mcg/Puff [Spiriva] 1 cap INHALATION RT-DAILY 10/28/15 [History] Furosemide [Lasix] 20 mg PO DAILY 04/15/19 [History] Metoprolol Tartrate [Lopressor] 25 mg PO BID 30 Days #60 tab 04/24/19 [Rx] Apixaban [Eliquis] 5 mg PO BID #60 tab 05/05/19 [Rx] Calcium Carbonate [Calcium] 1,200 mg PO DAILY 12/04/21 [History] Cholecalciferol [Vitamin D3 (10 Mcg = 400 Iu)] 10 mcg PO DAILY 12/04/21 [History] DULoxetine HCL [Cymbalta] 60 mg PO DAILY 12/04/21 [History] Pregabalin [Lyrica] 100 mg PO TID 12/04/21 [History] amLODIPine [Norvasc] 2.5 mg PO DAILY 12/04/21 [History] diazePAM [Valium] 5 mg PO DAILY PRN 12/04/21 [History] diazePAM [Valium] 5 mg PO HS 12/04/21 [History] Acetaminophen Tab [Tylenol] 650 mg PO Q6HR PRN tab 12/09/21 [Rx] Budesonide-Formot 160-4.5 Mcg [Symbicort 160-4.5 Mcg Inhaler] 2 puff INHALATION RT-BID #1 each 12/09/21 [Rx] Empagliflozin [Jardiance] 10 mg PO DAILY #14 tablet 12/09/21 [Rx] Losartan [Cozaar] 50 mg PO DAILY #30 tab 12/09/21 [Rx] predniSONE [Deltasone] 0 mg PO DIRECTED 6 Days #15 tab 12/09/21 [Rx] Ciprofloxacin HCl [Cipro] 500 mg PO BID 6 Days #12 tab 12/10/21 [Rx] Docusate [Colace] 100 mg PO BID #30 capsule 12/10/21 [Rx] polyethylene glycoL 3350 [Miralax] 17 gm PO DAILY #14 packet 12/10/21 [Rx] Follow up Appointment(s)/Referral(s): Burak Carr MD [Medical Doctor] - As Needed Ramirez Arguelles DO [Doctor of Osteopathic Medicine] - 2 Weeks (call office when open to make follow up appointment) Sanchez Kee MD [Primary Care Provider] - 1-2 days (call office when open to make folllow up appointment) Ambulatory/Diagnostic Orders: Basic Metabolic Panel [LAB.AMB] Time Frame: 3 Days, Location: None Selected Complete Blood Count w/diff [LAB.AMB] Time Frame: 3 Days, Location: None Selected Patient Instructions/Handouts: Community Acquired Pneumonia (DC), Prediabetes (GEN) Activity/Diet/Wound Care/Special Instructions: Continue antibiotics for 6 more days Continue oral steroid taper for 6 days Repeat labs outpatient BMP and CBC in 2 to 3 days Recommend to see primary care in 2 to 3 days Recommend to see pulmonary outpatient Continue on bowel regimen to avoid constipation A1C 6.2 consistent with prediabetes continue on jardiance for 14 days especially while on prednisone taper Follow up with primary care Diet modifications, information has been provided. Discharge Disposition: HOME WITH HOME HEALTH SERVICES
== END 2021-12-10 17:06 | disposition home health service (06) | DRG 190 ==
LOC: EC 15:21 → 3SCARD 17:29
PROVIDERS: ADMIT Hospitalist; ATTEND Hospitalist
DX: J44.1 Chronic obstructive pulmonary disease with (acute) exacerbation (principal); J69.0 Pneumonitis due to inhalation of food and vomit; J96.21 Acute and chronic respiratory failure with hypoxia; I48.20 Chronic atrial fibrillation, unspecified; K56.7 Ileus, unspecified; I47.1 Supraventricular tachycardia; D50.9 Iron deficiency anemia, unspecified; F32.A Depression, unspecified; I12.9 Hypertensive chronic kidney disease with stage 1 through stage 4 chronic kidney disease, or unspecified chronic kidney disease; N18.30 Chronic kidney disease, stage 3 unspecified; Z99.81 Dependence on supplemental oxygen; J39.8 Other specified diseases of upper respiratory tract; R73.03 Prediabetes; R73.9 Hyperglycemia, unspecified; I25.10 Atherosclerotic heart disease of native coronary artery without angina pectoris; E78.5 Hyperlipidemia, unspecified; E87.6 Hypokalemia; F41.9 Anxiety disorder, unspecified; F17.210 Nicotine dependence, cigarettes, uncomplicated; N83.202 Unspecified ovarian cyst, left side; B96.5 Pseudomonas (aeruginosa) (mallei) (pseudomallei) as the cause of diseases classified elsewhere; K57.30 Diverticulosis of large intestine without perforation or abscess without bleeding; K21.9 Gastro-esophageal reflux disease without esophagitis; T38.0X5A Adverse effect of glucocorticoids and synthetic analogues, initial encounter; M81.0 Age-related osteoporosis without current pathological fracture; G47.33 Obstructive sleep apnea (adult) (pediatric); Z20.822 Contact with and (suspected) exposure to COVID-19; Z79.01 Long term (current) use of anticoagulants; Z79.899 Other long term (current) drug therapy; Z79.51 Long term (current) use of inhaled steroids; Z79.84 Long term (current) use of oral hypoglycemic drugs; Z88.1 Allergy status to other antibiotic agents; Z88.8 Allergy status to other drugs, medicaments and biological substances; Z91.09 Other allergy status, other than to drugs and biological substances; Z85.828 Personal history of other malignant neoplasm of skin; Z90.710 Acquired absence of both cervix and uterus; Z90.49 Acquired absence of other specified parts of digestive tract; Z90.89 Acquired absence of other organs; Z87.81 Personal history of (healed) traumatic fracture; Z98.890 Other specified postprocedural states; Z82.49 Family history of ischemic heart disease and other diseases of the circulatory system; Z84.1 Family history of disorders of kidney and ureter; Z82.41 Family history of sudden cardiac death; Z87.11 Personal history of peptic ulcer disease; Z87.19 Personal history of other diseases of the digestive system
CPT/HCPCS: 71046; 74018; 74177; 80048; 81001; 82150; 83036; 83735; 84145; 85025; 87040; 87070; 87077; 87186; 87205; 87635; 94640; 94667; 94668; 94760; 99285

== ENCOUNTER 2022-03-18 12:04 | Inpatient (IN) | payer BC, MEDICARE ==
[2022-03-18] MEDS ORDERED: IPRATROPIUM-ALBUTEROL 3 ML NEB INHALATION PRN (16:01)
[2022-03-18 16:33] LABS: Basophils % (A) 0 %; Eosinophils % (A) 0 %; HGB 13.8 gm/dL (11.4-16.0); Lymphocytes # (A) 0.4 k/uL (1.0-4.8); Lymphocytes % (A) 6 %; MCH 29.6 pg (25.0-35.0); MCHC 32.2 g/dL (31.0-37.0); MCV 91.8 fL (80.0-100.0); Mean Platelet Volume 8.2; Monocytes # (A) 0.3 k/uL (0-1.0); Monocytes % (A) 4 %; Neutrophils # (A) 6.4 k/uL (1.3-7.7); Neutrophils % (A) 89 %; Platelet Count 304 k/uL (150-450); RBC 4.68 m/uL (3.80-5.40); RDW 13.9 % (11.5-15.5); WBC 7.1 k/uL (3.8-10.6)
[2022-03-18 16:41] LABS: Albumin 3.6 g/dL (3.5-5.0); Calcium 9.1 mg/dL (8.4-10.2); Potassium 4.3 mmol/L (3.5-5.1); Total Bilirubin 0.6 mg/dL (0.2-1.3); Total Protein 6.1 g/dL (6.3-8.2)
--- NOTE | 2022-03-18 18:36 | XR ---
EXAMINATION TYPE: XR chest 1V DATE OF EXAM: 03/18/2022 COMPARISON: 12/21/2021 HISTORY: Short of breath TECHNIQUE: Single view FINDINGS: There is no heart failure nor confluent pneumonic infiltrate. There is some pleural reactio n lateral left lung base. Thoracic aorta is atheromatous. There are chest leads. There are old right- sided healed rib fractures. There is old right humeral neck fracture with sclerosis and deformity. IMPRESSION: There is pleural reaction and atelectasis lateral left lung base without much change. No definite acute lung disease.
[2022-03-18] MEDS ORDERED: ACETAMINOPHEN TAB 325 MG TAB PO PRN ×2 (19:31→19:51)
[2022-03-18] MEDS ORDERED: diazePAM 5 MG TAB PO PRN (19:51)
[2022-03-18] MEDS: IPRATROPIUM-ALBUTEROL 3 ML NEB INHALATION SCH (19:58)
[2022-03-18] MEDS: FORMOTEROL FUMARATE 20 MCG/2 ML NEBU INHALATION SCH (19:58)
[2022-03-18] MEDS: BUDESONIDE 0.5 MG/2 ML NEBU INHALATION SCH (19:58)
[2022-03-18] MEDS: APIXABAN 5 MG TAB PO SCH (20:25)
[2022-03-18] MEDS: PREGABALIN 100 MG CAP PO SCH (20:25)
[2022-03-18] MEDS: METOPROLOL TARTRATE 50 MG TAB PO SCH (20:25)
[2022-03-18] MEDS: diazePAM 5 MG TAB PO SCH (20:25)
[2022-03-18] MEDS: DOXYCYCLINE 100 MG CAP PO SCH (20:25)
[2022-03-18] MEDS ORDERED: methylPREDNISolone SOD SUCCI 125 MG/2 ML VIAL IV SCH (21:00)
--- NOTE | 2022-03-19 00:14 | P.HPIM ---
History of Present Illness H&P Date: 03/18/22 Chief Complaint: Shortness of breath Patient is a 77-year-old female with a known history of COPD on 2 L oxygen via nasal cannula, obstructive sleep apnea, history of gastric cancer, hypertension, hyperlipidemia, anxiety/depression and recent admission in December due to acute COPD exacerbation and bilateral pneumonia and other medical medical problems initially presented to [facility] due to worsening symptoms of shortness of breath and coughing congestion. Patient was seen 5 days prior and was given prednisone and antibiotic course without improvement in symptoms. Patient presented back to ER. Patient was admitted to the observation unit and has not been getting better. Patient was told previously that she may need bronchoscopy without improvement. She was seen by Dr. Arguelles on 12/05/2021. Patient denies any complaints of fever or chills. No chest pain. No nausea vomiting abdominal pain or diarrhea. Patient was transferred to [facility] for pulmonary evaluation. Laboratory data at [facility] reviewed. Procalcitonin level was 0.21, proBNP 534 and D-dimer is 0.190 Lab data showed WBC 7.1 hemoglobin 13.8 and platelets 304 Sodium 132 potassium 4.3 chloride 89 bicarb is 37 BUN 38 and creatinine 0.88 and blood sugar is 190 11 years are not elevated. Chest x-ray showed there is pleural reaction and atelectasis lateral left lung base without much change. No definitive acute lung disease. Review of Systems Constitutional: Patient denies any fever or chills . no Generalized weakness. Abdomen: Patient denied any nausea or vomiting or abd. pain Cardiovascular: Patient denies any chest pain or short of breath no palpitations. Respiratory: Patient does have cough with sputum production. shortness of breath Neurologic: Patient denied any numbness or tingling headache. Musculoskeletal: Patient denies any complaints of joint swelling or deformity. Skin: Negative Psychiatric: Negative Endocrine: No heat or cold intolerance. No recent weight gain. Genitourinary: No dysuria or hematuria. All other 14 point ROS negative except the above Past Medical History Past Medical History: Asthma, Coronary Artery Disease (CAD), Cancer, COPD, GERD/Reflux, GI Bleed, Hyperlipidemia, Hypertension, Pneumonia, Renal Disease, Sleep Apnea/CPAP/BIPAP Additional Past Medical History / Comment(s): Bronchitis, upper GI bleed, gastric ulcer, diverticulitis, iron anemia-has had infusions, CKD stage III, chronic hypokalemia, ARUN with Cpap and oxygen at 2L/NC with it, osteoporosis, R upper arm crush injury-pain and limited ROM, L shoulder pain, allergic rhininis, skin cancer basal/squamous removals. 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 Past Anesthesia/Blood Transfusion Reactions: No Reported Reaction Additional Past Anesthesia/Blood Transfusion Reaction / Comment(s): Pt has received blood in past without reaction. Past Psychological History: Anxiety, Depression Past Alcohol Use History: Rare Past Drug Use History: None Reported - Past Family History Father Family Medical History: Coronary Artery Disease (CAD), Myocardial Infarction ([place]) Additional Family Medical History / Comment(s): Father of a OR at the age of 41 yrs. Mother Family Medical History: Renal Disease Sister(s) Family Medical History: Renal Disease Additional Family Medical History / Comment(s): 2 sisters with renal disease and both are . Brother(s) Family Medical History: Congestive Heart Failure (CHF) Additional Family Medical History / Comment(s): Brother had a cardiac arrest and at the age of 49yrs. Son(s) Family Medical History: Coronary Artery Disease (CAD), Hyperlipidemia, Hypertension, Myocardial Infarction ([place]) Additional Family Medical History / Comment(s): Son had his first OR at the age of 34yrs. He has had a total of 3 MIs. Medications and Allergies Home Medications Medication Instructions Recorded Confirmed Type Cetirizine HCl [Zyrtec] 10 mg PO DAILY PRN 09/03/15 03/18/22 History Fluticasone Nasal [place] [Flonase 2 spray EA NOSTRIL DAILY PRN 09/03/15 03/18/22 History Nasal [place]] Montelukast [Singulair] 10 mg PO DAILY 09/03/15 03/18/22 History Tiotropium 18 Mcg/Puff [Spiriva] 1 cap INHALATION RT-DAILY 10/28/15 03/18/22 History Apixaban [Eliquis] 5 mg PO BID #60 tab 05/05/19 03/18/22 Rx Calcium Carbonate [Calcium] 1,200 mg PO DAILY 12/04/21 03/18/22 History Cholecalciferol [Vitamin D3 (10 10 mcg PO DAILY 12/04/21 03/18/22 History Mcg = 400 Iu)] DULoxetine HCL [Cymbalta] 60 mg PO DAILY 12/04/21 03/18/22 History Pregabalin [Lyrica] 100 mg PO TID 12/04/21 03/18/22 History amLODIPine [Norvasc] 2.5 mg PO DAILY 12/04/21 03/18/22 History diazePAM [Valium] 5 mg PO DAILY PRN 12/04/21 03/18/22 History diazePAM [Valium] 5 mg PO HS 12/04/21 03/18/22 History Acetaminophen Tab [Tylenol] 650 mg PO Q6HR PRN tab 12/09/21 03/18/22 Rx Budesonide-Formot 160-4.5 Mcg 2 puff INHALATION RT-BID #1 each 12/09/21 03/18/22 Rx [Symbicort 160-4.5 Mcg Inhaler] Albuterol Inhaler [Ventolin Hfa 1 - 2 puff INHALATION RT-Q6H PRN 03/18/2203/18 History Inhaler] Doxycycline Monohydrate 100 mg PO BID 03/18/22 03/18/22 History Folic Acid 1 mg PO DAILY 03/18/22 03/18/22 History Furosemide [Lasix] 40 mg PO DAILY 03/18/22 03/18/22 History Ipratropium-Albuterol Nebulize 3 ml INHALATION RT-QID 03/18/22 03/18/22 History [Duoneb 0.5 mg-3 mg/3 ml Soln] Losartan Potassium [Cozaar] 50 mg PO DAILY 03/18/22 03/18/22 History Metoprolol Tartrate [Lopressor] 50 mg PO BID 03/18/22 03/18/22 History predniSONE [Deltasone] 20 mg PO BID 03/18/22 History Allergies Allergy/AdvReac Type Severity Reaction Status Date / Time ciprofloxacin [From Cipro] Allergy Unknown Verified 03/18/22 19:35 gemfibrozil [From Lopid] Allergy tendon Verified 03/18/22 19:35 damage levofloxacin [From Levaquin] Allergy tendon Verified 03/18/22 19:35 damage dust mites Allergy Wheezing Uncoded 12/04/21 17:18 Physical Exam PHYSICAL EXAMINATION: Patient is lying in the bed comfortably, no acute distress, awake alert and oriented.. HEENT: Normocephalic. Neck is supple. Pupils reactive. Nostrils clear. Oral cavity is moist. Neck reveals no JVD, carotid bruits, or thyromegaly. CHEST EXAMINATION: Trachea is central. Symmetrical expansion. Bilateral diffuse rhonchi and coarse breath sounds.. CARDIAC: Normal S1, S2 with no gallops. No murmurs ABDOMEN: Soft. Bowel sounds present. Nontender. No organomegaly. No abdominal bruits. Extremities: reveal no edema. No clubbing or cyanosis Neurologically awake, alert, oriented x3 with well-coordinated movements. No focal deficits noted Skin: No rash or skin lesions. Psychiatric: Coperative. Nonsuicidal, Musculoskeletal: No joint swelling or deformity. Normal range of motion. Results CBC & Chem 7: 03/18/22 16:18 03/18/22 16:18 Thrombosis Risk Factor Assmnt - DVT/VTE Prophylaxis DVT/VTE Prophylaxis: Pharmacologic Prophylaxis ordered Assessment and Plan Assessment: Shortness of breath secondary to acute COPD exacerbation with Purulent Tracheobronchitis. Left lung base atelectasis History of coronary disease no PCI. Obstructive sleep apnea on CPAP Chronic hypoxic respiratory failure on home oxygen 2 L via nasal cannula Paroxysmal atrial relation on anticoagulation with Eliquis Hypertension Hypokalemia Chronic kidney disease stage III History of gastric cancer and skin cancer DVT prophylaxis currently on Eliquis Plan: Patient will be continued on IV Solu-Medrol 60 mg every 6 hourly and duo [place] and Pulmicort, Perforomist. Continue with oxygen supplementation. Antibiotics in the form of doxycycline and follow-up sputum cultures. Pulmonary was consulted. Continue with home medications and anticoagulation Eliquis. Follow closely. Prognosis is guarded. Time with Patient: Greater than 30
[2022-03-19] MEDS: methylPREDNISolone SOD SUCCI 125 MG/2 ML VIAL IV SCH ×4 (03:07→19:59)
[2022-03-19] MEDS ORDERED: DEXTROSE 50% SYRINGE 50 ML IVP PRN ×2 (05:39)
[2022-03-19 05:59] LABS: Glucose,Whole Blood 180 mg/dL (70-110)
[2022-03-19] MEDS: INSULIN ASPART (NovoLOG) 100 UNIT/ML VIAL SQ SCH ×4 (06:03→20:00)
[2022-03-19 07:21] LABS: Calcium 8.8 mg/dL (8.4-10.2); Potassium 4.5 mmol/L (3.5-5.1)
[2022-03-19] MEDS: BUDESONIDE 0.5 MG/2 ML NEBU INHALATION SCH ×2 (08:18→21:13)
[2022-03-19] MEDS: IPRATROPIUM-ALBUTEROL 3 ML NEB INHALATION SCH ×4 (08:18→21:13)
[2022-03-19] MEDS: FORMOTEROL FUMARATE 20 MCG/2 ML NEBU INHALATION SCH ×2 (08:18→21:13)
[2022-03-19] MEDS: amLODIPine 2.5 MG TAB PO SCH (09:08)
[2022-03-19] MEDS: MONTELUKAST 10 MG TAB PO SCH (09:08)
[2022-03-19] MEDS: DOXYCYCLINE 100 MG CAP PO SCH ×2 (09:08→19:59)
[2022-03-19] MEDS: DULoxetine HCL 60 MG CAPSULE.DR PO SCH (09:08)
[2022-03-19] MEDS: FUROSEMIDE 40 MG TAB PO SCH (09:08)
[2022-03-19] MEDS: APIXABAN 5 MG TAB PO SCH ×2 (09:08→19:59)
[2022-03-19] MEDS: LOSARTAN 50 MG TAB PO SCH (09:09)
[2022-03-19] MEDS: PREGABALIN 100 MG CAP PO SCH ×3 (09:09→23:14)
[2022-03-19] MEDS: METOPROLOL TARTRATE 50 MG TAB PO SCH ×2 (09:09→19:59)
--- NOTE | 2022-03-19 11:37 | P.CNPUL ---
History of Present Illness Consult date: 03/19/22 Reason for consult: COPD Chief complaint: Shortness of breath History of present illness: This is a 77-year-old female with known history of COPD, chronic hypoxic respiratory failure, intubated on 2 L of oxygen at home, history of obstructive sleep apnea syndrome, gastric cancer hypertension dyslipidemia anxiety, patient was last admitted to the hospital in December with COPD exacerbation and bilateral pneumonia. Patient was seen in the back then by Dr. shah on consultation, she was eventually treated and discharged home. Yesterday the patient was seen in [facility], she was mostly seen with 2 weeks history of cough wheezing and shortness of breath. Patient has been on prednisone and antibiotics but not much improvement, and patient was advised transfer to [facility]. her chest x-ray showed no evidence of infiltrate. Patient describes intermittent cough wheezing, no fever, no chills, no hemoptysis. Denies any nausea vomiting abdominal pain. Review of Systems Constitutional: Patient denies weight loss fever or chills. Abdomen: Negative. Cardiovascular: Negative. Respiratory: As noted in HPI. Neurologic: Negative. Musculoskeletal: Negative. Skin: Negative Psychiatric: Negative Endocrine: Negative. Genitourinary: Negative. Past Medical History Past Medical History: Asthma, Coronary Artery Disease (CAD), Cancer, COPD, GERD/Reflux, GI Bleed, Hyperlipidemia, Hypertension, Pneumonia, Renal Disease, Sleep Apnea/CPAP/BIPAP Additional Past Medical History / Comment(s): Bronchitis, upper GI bleed, gastric ulcer, diverticulitis, iron anemia-has had infusions, CKD stage III, chronic hypokalemia, ARUN with Cpap and oxygen at 2L/NC with it, osteoporosis, R upper arm crush injury-pain and limited ROM, L shoulder pain, allergic rhininis, skin cancer basal/squamous removals. 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 Past Anesthesia/Blood Transfusion Reactions: No Reported Reaction Additional Past Anesthesia/Blood Transfusion Reaction / Comment(s): Pt has received blood in past without reaction. Past Psychological History: Anxiety, Depression Past Alcohol Use History: Rare Past Drug Use History: None Reported - Past Family History Father Family Medical History: Coronary Artery Disease (CAD), Myocardial Infarction ([place]) Additional Family Medical History / Comment(s): Father of a [place] at the age of 41 yrs. Mother Family Medical History: Renal Disease Sister(s) Family Medical History: Renal Disease Additional Family Medical History / Comment(s): 2 sisters with renal disease and both are . Brother(s) Family Medical History: Congestive Heart Failure (CHF) Additional Family Medical History / Comment(s): Brother had a cardiac arrest and at the age of 49yrs. Son(s) Family Medical History: Coronary Artery Disease (CAD), Hyperlipidemia, Hypertension, Myocardial Infarction ([place]) Additional Family Medical History / Comment(s): Son had his first [place] at the age of 34yrs. He has had a total of 3 MIs. Medications and Allergies Home Medications Medication Instructions Recorded Confirmed Type Cetirizine HCl [Zyrtec] 10 mg PO DAILY PRN 09/03/15 03/18/22 History Fluticasone Nasal [place] [Flonase 2 spray EA NOSTRIL DAILY PRN 09/03/15 03/18/22 History Nasal [place]] Montelukast [Singulair] 10 mg PO DAILY 09/03/15 03/18/22 History Tiotropium 18 Mcg/Puff [Spiriva] 1 cap INHALATION RT-DAILY 10/28/15 03/18/22 History Apixaban [Eliquis] 5 mg PO BID #60 tab 05/05/19 03/18/22 Rx Calcium Carbonate [Calcium] 1,200 mg PO DAILY 12/04/21 03/18/22 History Cholecalciferol [Vitamin D3 (10 10 mcg PO DAILY 12/04/21 03/18/22 History Mcg = 400 Iu)] DULoxetine HCL [Cymbalta] 60 mg PO DAILY 12/04/21 03/18/22 History Pregabalin [Lyrica] 100 mg PO TID 12/04/21 03/18/22 History amLODIPine [Norvasc] 2.5 mg PO DAILY 12/04/21 03/18/22 History diazePAM [Valium] 5 mg PO DAILY PRN 12/04/21 03/18/22 History diazePAM [Valium] 5 mg PO HS 12/04/21 03/18/22 History Acetaminophen Tab [Tylenol] 650 mg PO Q6HR PRN tab 12/09/21 03/18/22 Rx Budesonide-Formot 160-4.5 Mcg 2 puff INHALATION RT-BID #1 each 12/09/21 03/18/22 Rx [Symbicort 160-4.5 Mcg Inhaler] Albuterol Inhaler [Ventolin Hfa 1 - 2 puff INHALATION RT-Q6H PRN 03/18/22 03/18/22 History Inhaler] Doxycycline Monohydrate 100 mg PO BID 03/18/22 03/18/22 History Folic Acid 1 mg PO DAILY 03/18/22 03/18/22 History Furosemide [Lasix] 40 mg PO DAILY 03/18/22 03/18/22 History Ipratropium-Albuterol Nebulize 3 ml INHALATION RT-QID 03/18/22 03/18/22 History [Duoneb 0.5 mg-3 mg/3 ml Soln] Losartan Potassium [Cozaar] 50 mg PO DAILY 03/18/22 03/18/22 History Metoprolol Tartrate [Lopressor] 50 mg PO BID 03/18/22 03/18/22 History predniSONE [Deltasone] 20 mg PO BID 03/18/22 History Allergies Allergy/AdvReac Type Severity Reaction Status Date / Time ciprofloxacin [From Cipro] Allergy Unknown Verified 03/18/22 19:35 gemfibrozil [From Lopid] Allergy tendon Verified 03/18/22 19:35 damage levofloxacin [From Levaquin] Allergy tendon Verified 03/18/22 19:35 damage dust mites Allergy Wheezing Uncoded 12/04/21 17:18 Physical Exam Vitals: Vital Signs Temp Pulse Pulse Resp BP Pulse Ox 03/19/22 10:20 56 L 18 03/19/22 08:49 70 03/19/22 08:40 62 03/19/22 08:39 62 03/19/22 08:26 95 03/19/22 08:24 66 03/19/22 07:30 98.1 F 56 L 18 164/81 96 03/19/22 03:21 98.1 F 56 L 18 159/82 96 03/18/22 23:10 97.9 F 58 L 18 141/87 97 03/18/22 19:22 98.6 F 72 20 159/82 94 L 03/18/22 15:55 98.1 F 72 20 174/90 97 Intake and Output 03/18/22 03/19/22 03/19/22 22:59 06:59 14:59 Other: Voiding Method Bedside Commode Bedside Commode Bedside Commode # Voids 1 Weight 0 g 60.4 kg Physical Exam: Revealed 77-year-old female in no distress. Head: Atraumatic, normocephalic. HEENT:[Neck is supple.] [No neck masses.] [No thyromegaly.] [No JVD.] Chest: Symmetrical chest expansion, scattered rhonchi bilaterally more so on forced expiratory maneuver. Cardiac Exam: [Normal S1 and S2, no S3 gallop, no murmur.] Abdomen: [Soft, nontender, no megaly, no rebound, no guarding, normal bowel s ounds.] Extremities: [No clubbing, no edema, no cyanosis.] Neurological Exam: [No focal neurologic deficit.] Alert oriented 3. Psychiatric: Normal mood, affect and normal status examination. Skin: No rashes. Results - Laboratory Findings CBC and BMP: 03/18/22 16:18 03/19/22 06:12 Abnormal lab findings: Abnormal Labs 03/18/22 03/18/22 03/19/22 16:18 16:18 05:57 Lymphocytes # 0.4 L Sodium 132 L Chloride 89 L Carbon Dioxide 37 H BUN 38 H Glucose 190 H POC Glucose (mg/dL) 180 H Total Protein 6.1 L 03/19/22 06:12 Lymphocytes # Sodium 134 L Chloride 92 L Carbon Dioxide 40 H BUN 35 H Glucose 170 H POC Glucose (mg/dL) Total Protein - Diagnostic Findings Chest x-ray: image reviewed (No evidence of active disease. Minimal atelectasis at the left base.) Assessment and Plan Assessment: Impression Acute exacerbation of COPD Chronic hypoxic respiratory failure secondary to COPD Left basilar atelectasis, nonspecific. Coronary arteriosclerosis. Obstructive sleep apnea syndrome. Paroxysmal atrial fibrillation. Benign essential hypertension. History of gastric cancer. Benign essential hypertension. Chronic kidney disease stage III History of tracheobronchomalacia Recommendation: Continue present supportive care measures Continue bronchodilators Continue antibiotics Continue IV Solu-Medrol. GI and DVT prophylaxis Resume home meds We will continue to follow. Time with Patient: Greater than 30
[2022-03-19 11:45] LABS: Glucose,Whole Blood 249 mg/dL (70-110)
[2022-03-19 16:42] LABS: Glucose,Whole Blood 195 mg/dL (70-110)
[2022-03-19] MEDS ORDERED: DILTIAZEM 125 MG in SODIUM CHLORIDE 0.9% 100 ML IV SCH (17:45)
[2022-03-19 19:34] LABS: Glucose,Whole Blood 241 mg/dL (70-110)
[2022-03-19] MEDS: diazePAM 5 MG TAB PO SCH (19:59)
--- NOTE | 2022-03-19 23:14 | P.PN ---
Subjective Progress Note Date: 03/19/22 Patient is a 77-year-old female with a known history of COPD on 2 L oxygen via nasal cannula, obstructive sleep apnea, history of gastric cancer, hypertension, hyperlipidemia, anxiety/depression and recent admission in December due to acute COPD exacerbation and bilateral pneumonia and other medical medical problems initially presented to [facility] due to worsening symptoms of shortness of breath and coughing congestion. Patient was seen 5 days prior and was given prednisone and antibiotic course without improvement in symptoms. Patient presented back to ER. Patient was admitted to the observation unit and has not been getting better. Patient was told previously that she may need bronchoscopy without improvement. She was seen by Dr. Arguelles on 12/05/2021. Patient denies any complaints of fever or chills. No chest pain. No nausea vomiting abdominal pain or diarrhea. Patient was transferred to [facility] for pulmonary evaluation. Laboratory data at [facility] reviewed. Procalcitonin level was 0.21, proBNP 534 and D-dimer is 0.190 Lab data showed WBC 7.1 hemoglobin 13.8 and platelets 304 Sodium 132 potassium 4.3 chloride 89 bicarb is 37 BUN 38 and creatinine 0.88 and blood sugar is 190 11 years are not elevated. Chest x-ray showed there is pleural reaction and atelectasis lateral left lung base without much change. No definitive acute lung disease. 03/19/2022 Patient is resting in the bed. Awake alert and oriented x3. Requiring oxygen at 2 L via nasal cannula. Still complains of cough and unable to bring up any sputum. Shortness breath improved slightly compared to yesterday. Patient has been afebrile. No nausea vomiting abdominal pain or diarrhea. No fever no chills. No headache or dizziness lightheadedness. Continue IV steroids and antibiotics in the form of doxycycline. Pulmonary is on board. Level data showed sodium 134 potassium 4.5 chloride 92 bicarb is 14 BUN 35 creatinine 0.8 and blood sugar is 170. Calcium 8.8. Current medications reviewed. Objective - Vital Signs Vital signs: Vital Signs Temp 98.1 F 03/19/22 07:30 Pulse 124 H 03/19/22 16:17 Resp 18 03/19/22 15:26 BP 134/88 03/19/22 12:00 Pulse Ox 95 03/19/22 12:00 FiO2 Intake & Output 03/18/22 03/19/22 03/19/22 18:59 06:59 18:59 Intake Total 480 Balance 480 Weight 0 g 60.4 kg Intake: Oral 480 Other: Voiding Method Bedside Commode Bedside Commode Bedside Commode # Voids 1 1 # Bowel Movements 1 - Exam PHYSICAL EXAMINATION: Patient is lying in the bed comfortably, no acute distress, awake alert and oriented.. HEENT: Normocephalic. Neck is supple. Pupils reactive. Nostrils clear. Oral cavity is moist. Neck reveals no JVD, carotid bruits, or thyromegaly. CHEST EXAMINATION: Trachea is central. Symmetrical expansion. Bilateral diffuse rhonchi and coarse breath sounds.. CARDIAC: Normal S1, S2 with no gallops. No murmurs ABDOMEN: Soft. Bowel sounds present. Nontender. No organomegaly. No abdominal bruits. Extremities: reveal no edema. No clubbing or cyanosis Neurologically awake, alert, oriented x3 with well-coordinated movements. No focal deficits noted Skin: No rash or skin lesions. Psychiatric: Coperative. Nonsuicidal, Musculoskeletal: No joint swelling or deformity. Normal range of motion. - Labs CBC & Chem 7: 03/18/22 16:18 03/19/22 06:12 Labs: Abnormal Lab Results - Last 24 Hours (Table) 03/18/22 03/19/22 03/19/22 Range/Units 16:18 05:57 06:12 Sodium 132 L 134 L (137-145) mmol/L Chloride 89 L 92 L (98-107) mmol/L Carbon Dioxide 37 H 40 H (22-30) mmol/L BUN 38 H 35 H (7-17) mg/dL Glucose 190 H 170 H (74-99) mg/dL POC Glucose (mg/dL) 180 H (70-110) mg/dL Total Protein 6.1 L (6.3-8.2) g/dL 03/19/22 Range/Units 11:43 Sodium (137-145) mmol/L Chloride (98-107) mmol/L Carbon Dioxide (22-30) mmol/L BUN (7-17) mg/dL Glucose (74-99) mg/dL POC Glucose (mg/dL) 249 H (70-110) mg/dL Total Protein (6.3-8.2) g/dL Assessment and Plan Assessment: Shortness of breath secondary to acute COPD exacerbation with Purulent Tracheobronchitis. Left lung base atelectasis History of coronary disease no PCI. Obstructive sleep apnea on CPAP Chronic hypoxic respiratory failure on home oxygen 2 L via nasal cannula Paroxysmal atrial relation on anticoagulation with Eliquis Hypertension Hypokalemia Chronic kidney disease stage III History of gastric cancer and skin cancer DVT prophylaxis currently on Eliquis Plan: Patient will be continued on IV Solu-Medrol 60 mg every 6 hourly and duo nebs and Pulmicort, Perforomist. Continue with oxygen supplementation. Antibiotics in the form of doxycycline and follow-up sputum cultures. Pulmonary was consulted. Continue with home medications and anticoagulation Eliquis. Follow closely. Prognosis is guarded. Time with Patient: Greater than 30
[2022-03-20] MEDS: methylPREDNISolone SOD SUCCI 125 MG/2 ML VIAL IV SCH ×4 (04:39→20:52)
[2022-03-20 05:55] LABS: Glucose,Whole Blood 166 mg/dL (70-110)
[2022-03-20] MEDS: INSULIN ASPART (NovoLOG) 100 UNIT/ML VIAL SQ SCH ×4 (06:06→20:52)
[2022-03-20] MEDS: FORMOTEROL FUMARATE 20 MCG/2 ML NEBU INHALATION SCH ×2 (08:44→20:19)
[2022-03-20] MEDS: BUDESONIDE 0.5 MG/2 ML NEBU INHALATION SCH ×2 (08:44→20:21)
[2022-03-20] MEDS: IPRATROPIUM-ALBUTEROL 3 ML NEB INHALATION SCH ×4 (08:44→20:20)
[2022-03-20] MEDS: guaiFENesin 600 MG TABLET.ER PO SCH ×2 (09:35→20:52)
[2022-03-20] MEDS: DULoxetine HCL 60 MG CAPSULE.DR PO SCH (09:35)
[2022-03-20] MEDS: amLODIPine 2.5 MG TAB PO SCH (09:35)
[2022-03-20] MEDS: MONTELUKAST 10 MG TAB PO SCH (09:35)
[2022-03-20] MEDS: APIXABAN 5 MG TAB PO SCH ×2 (09:35→20:52)
[2022-03-20] MEDS: PREGABALIN 100 MG CAP PO SCH ×3 (09:35→20:53)
[2022-03-20] MEDS: FUROSEMIDE 40 MG TAB PO SCH (09:35)
[2022-03-20] MEDS: LOSARTAN 50 MG TAB PO SCH (09:35)
[2022-03-20] MEDS: DOXYCYCLINE 100 MG CAP PO SCH ×2 (09:35→20:52)
[2022-03-20] MEDS: METOPROLOL TARTRATE 25 MG TAB PO SCH ×2 (09:37→20:52)
[2022-03-20 09:42] LABS: Basophils # (A) 0.1 k/uL (0-0.2); Basophils % (A) 0 %; Eosinophils % (A) 0 %; HCT 46.9 % (34.0-46.0); HGB 14.9 gm/dL (11.4-16.0); Hypochromasia Slight; Lymphocytes # (A) 0.3 k/uL (1.0-4.8); Lymphocytes % (A) 3 %; MCH 29.4 pg (25.0-35.0); MCHC 31.7 g/dL (31.0-37.0); MCV 92.9 fL (80.0-100.0); Mean Platelet Volume 8.4; Monocytes # (A) 0.4 k/uL (0-1.0); Monocytes % (A) 3 %; Neutrophils # (A) 9.8 k/uL (1.3-7.7); Neutrophils % (A) 92 %; Platelet Count 338 k/uL (150-450); RBC 5.05 m/uL (3.80-5.40); RDW 13.6 % (11.5-15.5); WBC 10.6 k/uL (3.8-10.6)
[2022-03-20 10:00] LABS: Calcium 9.1 mg/dL (8.4-10.2); Potassium 4.5 mmol/L (3.5-5.1)
--- NOTE | 2022-03-20 11:14 | P.CRDCN ---
History of Present Illness Consult date: 03/20/22 History of present illness: HISTORY OF PRESENT ILLNESS: This is a 77-year-old female with a past medical history significant for with nonischemic cardiomyopathy, paroxysmal atrial fibrillation, valvular heart disease, hypertension, hyperlipidemia, and COPD on home oxygen. Patient follows in the office with Dr. Singh. We have been asked to see the patient in consultation for A. fib with RVR. Patient examined at the bedside. Patient is admitted to the hospital secondary to COPD exacerbation. She is receiving IV steroids. Patient went into A. fib with RVR. She was started on IV Cardizem. This morning the patient remains in atrial for relation with a heart rate in the 90s. She states her breathing has improved since coming to the hospital. She denies any chest pain or pressure. She denies any palpitations. Denies any dizziness or lightheadedness. * EKG reveals A. fib with RVR * Chest xray there is pleural reaction and atelectasis lateral left lung base without much change. No definite acute lung disease. * Laboratory data: WBC 10.6. Hemoglobin 14.9. Platelet count 338. Sodium 135. Potassium 4.5. BUN 39. Creatinine 0.85. * Current home cardiac medications include metoprolol tartrate 50 mg twice a day, losartan 50 mg daily, Lasix 40 mg daily, amlodipine 2.5 mg daily, Eliquis 5 mg twice a day * Most recent echocardiogram obtained in the office in September 2021 revealed ejection fraction 45%, mild MR, mild AR * Cardiac catheterization history: February 2018 revealing minimal coronary artery disease REVIEW OF SYSTEMS: At the time of my exam: CONSTITUTIONAL: Denies fever or chills. HEENT: Denies blurred vision, vision changes, or eye pain. Denies hemoptysis CARDIOVASCULAR: Denies chest pain. Denies orthopnea. Denies PND. Denies palpitations RESPIRATORY: Denies shortness of breath. GASTROINTESTINAL: Denies abdominal pain. Denies nausea or vomiting. HEMATOLOGIC: Denies bleeding disorders. GENITOURINARY: Denies any blood in urine. SKIN: Denies pruitis. Denies rash. PHYSICAL EXAM: VITAL SIGNS: Reviewed. GENERAL: Well-developed in no acute distress. HEENT: Head is normocephalic. Pupils are equal, round. Sclerae anicteric. Mucous membranes of the mouth are moist. Neck supple. No JVD or thyromegaly LUNGS: Respirations even and unlabored. Decreased air exchange bilaterally HEART: Irregular rate and rhythm. S1 and S2 heard. Positive systolic murmur ABDOMEN: Soft. Nondistended. Nontender. EXTREMITIES: Normal range of motion. No clubbing or cyanosis. Peripheral pulses intact. No lower extremity edema NEUROLOGIC: Awake and alert. Oriented x 3. ASSESSMENT: Acute COPD exacerbation Paroxysmal atrial fibrillation with RVR History of nonischemic cardiomyopathy, EF 45% Valvular heart disease Hypertension Hyperlipidemia History of COPD with home oxygen use PLAN: No need to repeat echo Cardizem or emesis performed in September 2021 Discontinue IV Cardizem Increase metoprolol to 75 mg twice a day Continue telemetry monitoring Check TSH Further recommendations pending patient's course Nurse practitioner note has been reviewed by physician. Signing provider agrees with the documented findings, assessment, and plan of care. Past Medical History Past Medical History: Asthma, Coronary Artery Disease (CAD), Cancer, COPD, GERD/Reflux, GI Bleed, Hyperlipidemia, Hypertension, Pneumonia, Renal Disease, Sleep Apnea/CPAP/BIPAP Additional Past Medical History / Comment(s): Bronchitis, upper GI bleed, gastric ulcer, diverticulitis, iron anemia-has had infusions, CKD stage III, chronic hypokalemia, ARUN with Cpap and oxygen at 2L/NC with it, osteoporosis, R upper arm crush injury-pain and limited ROM, L shoulder pain, allergic rhininis, skin cancer basal/squamous removals. 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 Past Anesthesia/Blood Transfusion Reactions: No Reported Reaction Additional Past Anesthesia/Blood Transfusion Reaction / Comment(s): Pt has received blood in past without reaction. Past Psychological History: Anxiety, Depression Past Alcohol Use History: Rare Past Drug Use History: None Reported - Past Family History Father Family Medical History: Coronary Artery Disease (CAD), Myocardial Infarction (KS) Additional Family Medical History / Comment(s): Father of a KS at the age of 41 yrs. Mother Family Medical History: Renal Disease Sister(s) Family Medical History: Renal Disease Additional Family Medical History / Comment(s): 2 sisters with renal disease and both are . Brother(s) Family Medical History: Congestive Heart Failure (CHF) Additional Family Medical History / Comment(s): Brother had a cardiac arrest and at the age of 49yrs. Son(s) Family Medical History: Coronary Artery Disease (CAD), Hyperlipidemia, Hypertension, Myocardial Infarction (KS) Additional Family Medical History / Comment(s): Son had his first KS at the age of 34yrs. He has had a total of 3 MIs. Medications and Allergies Home Medications Medication Instructions Recorded Confirmed Type Cetirizine HCl [Zyrtec] 10 mg PO DAILY PRN 09/03/15 03/18/22 History Fluticasone Nasal Closter [Flonase 2 spray EA NOSTRIL DAILY PRN 09/03/15 03/18/22 History Nasal Closter] Montelukast [Singulair] 10 mg PO DAILY 09/03/15 03/18/22 History Tiotropium 18 Mcg/Puff [Spiriva] 1 cap INHALATION RT-DAILY 10/28/15 03/18/22 History Apixaban [Eliquis] 5 mg PO BID #60 tab 05/05/19 03/18/22 Rx Calcium Carbonate [Calcium] 1,200 mg PO DAILY 12/04/21 03/18/22 History Cholecalciferol [Vitamin D3 (10 10 mcg PO DAILY 12/04/21 03/18/22 History Mcg = 400 Iu)] DULoxetine HCL [Cymbalta] 60 mg PO DAILY 12/04/21 03/18/22 History Pregabalin [Lyrica] 100 mg PO TID 12/04/21 03/18/22 History amLODIPine [Norvasc] 2.5 mg PO DAILY 12/04/21 03/18/22 History diazePAM [Valium] 5 mg PO DAILY PRN 12/04/21 03/18/22 History diazePAM [Valium] 5 mg PO HS 12/04/21 03/18/22 History Acetaminophen Tab [Tylenol] 650 mg PO Q6HR PRN tab 12/09/21 03/18/22 Rx Budesonide-Formot 160-4.5 Mcg 2 puff INHALATION RT-BID #1 each 12/09/21 03/18/22 Rx [Symbicort 160-4.5 Mcg Inhaler] Albuterol Inhaler [Ventolin Hfa 1 - 2 puff INHALATION RT-Q6H PRN 03/18/22 03/18/22 History Inhaler] Doxycycline Monohydrate 100 mg PO BID 03/18/22 03/18/22 History Folic Acid 1 mg PO DAILY 03/18/22 03/18/22 History Furosemide [Lasix] 40 mg PO DAILY 03/18/22 03/18/22 History Ipratropium-Albuterol Nebulize 3 ml INHALATION RT-QID 03/18/22 03/18/22 History [Duoneb 0.5 mg-3 mg/3 ml Soln] Losartan Potassium [Cozaar] 50 mg PO DAILY 03/18/22 03/18/22 History Metoprolol Tartrate [Lopressor] 50 mg PO BID 03/18/22 03/18/22 History predniSONE [Deltasone] 20 mg PO BID 03/18/22 History Allergies Allergy/AdvReac Type Severity Reaction Status Date / Time ciprofloxacin [From Cipro] Allergy Unknown Verified 03/18/22 19:35 gemfibrozil [From Lopid] Allergy tendon Verified 03/18/22 19:35 damage levofloxacin [From Levaquin] Allergy tendon Verified 03/18/22 19:35 damage dust mites Allergy Wheezing Uncoded 12/04/21 17:18 Physical Exam Vitals: Vital Signs Temp Pulse Pulse Resp BP Pulse Ox 03/20/22 09:14 99 03/20/22 09:01 100 03/20/22 09:00 101 H 03/20/22 08:47 81 18 134/80 91 L 03/20/22 08:45 100 91 L 03/20/22 08:42 85 16 03/20/22 04:00 85 16 130/74 95 03/20/22 01:18 73 16 03/19/22 23:34 73 16 143/92 98 03/19/22 21:38 92 03/19/22 21:33 88 03/19/22 21:32 88 03/19/22 21:13 98 96 03/19/22 20:00 97.8 F 96 18 119/77 96 03/19/22 16:43 91 18 117/75 93 L 03/19/22 16:17 124 H 03/19/22 16:04 110 H 03/19/22 15:26 56 L 18 03/19/22 12:17 76 03/19/22 12:06 72 03/19/22 12:00 80 18 134/88 95 Intake and Output 03/19/22 03/20/22 03/20/22 22:59 06:59 14:59 Intake Total 240 Balance 240 Intake: Oral 240 Other: Voiding Method Bedside Commode Bedside Commode Bedside Commode # Voids 1 2 1 # Bowel Movements 1 1 Results 03/20/22 09:30 03/20/22 09:30 CBC 03/20/22 Range/Units 09:30 WBC 10.6 (3.8-10.6) k/uL RBC 5.05 (3.80-5.40) m/uL Hgb 14.9 (11.4-16.0) gm/dL Hct 46.9 H (34.0-46.0) % Plt Count 338 (150-450) k/uL Comprehensive Metabolic Panel 03/20/22 Range/Units 09:30 Sodium 135 L (137-145) mmol/L Potassium 4.5 (3.5-5.1) mmol/L Chloride 91 L (98-107) mmol/L Carbon Dioxide 39 H (22-30) mmol/L BUN 39 H (7-17) mg/dL Creatinine 0.85 (0.52-1.04) mg/dL Glucose 295 H (74-99) mg/dL Calcium 9.1 (8.4-10.2) mg/dL Current Medications Generic Name Dose Route Start Last Admin Trade Name Freq PRN Reason Stop Dose Admin Acetaminophen 650 mg 03/18/22 19:31 03/18/22 19:47 Acetaminophen Tab 325 Mg Tab PO 650 mg Q6HR PRN Administration Fever and/ or Pain Acetaminophen 650 mg 03/18/22 19:51 Acetaminophen Tab 325 Mg Tab PO Q6HR PRN Mild Pain or Fever > 100.5 Albuterol/Ipratropium 3 ml 03/18/22 16:01 Ipratropium-Albuterol 3 Ml Neb INHALATION RT-QID PRN Shortness Of Breath Or Wheezing Albuterol/Ipratropium 3 ml 03/18/22 20:00 03/20/22 08:44 Ipratropium-Albuterol 3 Ml Neb INHALATION 3 ml RT-QID YANG Administration Amlodipine Besylate 2.5 mg 03/19/22 09:00 03/20/22 09:35 Amlodipine 2.5 Mg Tab PO 2.5 mg DAILY YANG Administration Apixaban 5 mg 03/18/22 21:00 03/20/22 09:35 Apixaban 5 Mg Tab PO 5 mg BID YANG Administration Protocol Budesonide 0.5 mg 03/18/22 20:00 03/20/22 08:44 Budesonide 0.5 Mg/2 Ml Nebu INHALATION 0.5 mg RT-BID YANG Administration Dextrose/Water 25 ml 03/19/22 05:39 Dextrose 50% Syringe 50 Ml IVP PER PROTOCOL PRN Hypoglycemia Protocol Dextrose/Water 50 ml 03/19/22 05:39 Dextrose 50% Syringe 50 Ml IVP PER PROTOCOL PRN Hypoglycemia Protocol Diazepam 5 mg 03/18/22 19:51 Diazepam 5 Mg Tab PO DAILY PRN Anxiety Diazepam 5 mg 03/18/22 21:00 03/19/22 19:59 Diazepam 5 Mg Tab PO 5 mg HS YANG Administration Doxycycline Monohydrate 100 mg 03/18/22 21:00 03/20/22 09:35 Doxycycline 100 Mg Cap PO 03/22/22 23:00 100 mg BID YANG Administration Protocol Duloxetine HCl 60 mg 03/19/22 09:00 03/20/22 09:35 Duloxetine Hcl 60 Mg Capsule.Dr PO 60 mg DAILY YANG Administration Formoterol Fumarate 20 mcg 03/18/22 20:00 03/20/22 08:44 Formoterol Fumarate 20 Mcg/2 Ml Nebu INHALATION 20 mcg RT-BID YANG Administration Furosemide 40 mg 03/19/22 09:00 03/20/22 09:35 Furosemide 40 Mg Tab PO 40 mg DAILY YANG Administration Guaifenesin 600 mg 03/20/22 09:00 03/20/22 09:35 Guaifenesin 600 Mg Tablet.Er PO 03/22/22 09:01 600 mg Q12HR YANG Administration Insulin Aspart 0 unit 03/19/22 07:30 03/20/22 06:06 Insulin Aspart (Novolog) 100 Unit/Ml Vial SQ Not Given ACHS YANG Protocol Losartan Potassium 50 mg 03/19/22 09:00 03/20/22 09:35 Losartan 50 Mg Tab PO 50 mg DAILY YANG Administration Methylprednisolone Sodium Succinate 60 mg 03/19/22 03:00 03/20/22 09:35 Methylprednisolone Sod Succi 125 Mg/2 Ml Vial IV 60 mg Q6H YANG Administration Metoprolol Tartrate 75 mg 03/20/22 09:00 03/20/22 09:37 Metoprolol Tartrate 25 Mg Tab PO 75 mg BID YANG Administration Montelukast Sodium 10 mg 03/19/22 09:00 03/20/22 09:35 Montelukast 10 Mg Tab PO 10 mg DAILY YANG Administration Pregabalin 100 mg 03/18/22 22:00 03/20/22 09:35 Pregabalin 100 Mg Cap PO 100 mg TID YANG Administration Intake and Output 03/19/22 03/20/22 03/20/22 22:59 06:59 14:59 Intake Total 240 Balance 240 Intake: Oral 240 Other: Voiding Method Bedside Commode Bedside Commode Bedside Commode # Voids 1 2 1 # Bowel Movements 1 1 03/20/22 09:30 03/20/22 09:30
[2022-03-20 11:37] LABS: Glucose,Whole Blood 290 mg/dL (70-110)
--- NOTE | 2022-03-20 15:11 | P.PN ---
Subjective Progress Note Date: 03/20/22 Principal diagnosis: Shortness of breath. This is a 77-year-old female with known history of COPD, chronic hypoxic respiratory failure, intubated on 2 L of oxygen at home, history of obstructive sleep apnea syndrome, gastric cancer hypertension dyslipidemia anxiety, patient was last admitted to the hospital in December with COPD exacerbation and bilateral pneumonia. Patient was seen in the back then by Dr. shah on consultation, she was eventually treated and discharged home. Yesterday the patient was seen in [facility], she was mostly seen with 2 weeks history of cough wheezing and shortness of breath. Patient has been on prednisone and antibiotics but not much improvement, and patient was advised transfer to [facility]. her chest x-ray showed no evidence of infiltrate. Patient describes intermittent cough wheezing, no fever, no chills, no hemoptysis. Denies any nausea vomiting abdominal pain. Progress note dated 03/20/2022. His is a 77-year-old female seen in follow-up. She was seen by my partner yesterday in consultation. She is seen in room 353. She's not receiving any IV fluids. She is on oxygen at 2 L. She is feeling much better today. White count 10.6, hemoglobin 14.9, hematocrit 46.9, and platelet count 338,000. Sodium 135, potassium 4.5, chlorides 91, CO2 39, anion gap 5, BUN 39, creatinine 0.85. Chest x-ray shows pleural reaction and atelectasis, lateral left lung base without change compared to an x-ray done in December 2021. Objective - Vital Signs Vital signs: Vital Signs Temp 97.8 F 03/19/22 20:00 Pulse 99 03/20/22 09:14 Resp 18 03/20/22 13:48 BP 128/90 03/20/22 12:03 Pulse Ox 94 L 03/20/22 12:03 FiO2 Intake & Output 03/19/22 03/20/22 03/20/22 18:59 06:59 18:59 Intake Total 480 240 Balance 480 240 Intake: Oral 480 240 Other: Voiding Method Bedside Commode Bedside Commode Bedside Commode # Voids 1 2 1 # Bowel Movements 1 1 - Exam No acute distress, oriented 3. Currently on 2 L. No conversational dyspnea, audible wheezing, or use of accessory muscles. HEENT examination is grossly unremarkable. Neck supple. Full range of motion. No adenopathy thyromegaly or neck vein distention. Cardiovascular examination reveals regular rhythm rate. S1-S2 normal. No S3 or S4. No discernible murmur noted. Heart rate 90 bpm. Lungs reveal bilateral expiratory wheezes and rhonchi. Breath sounds equal. Slight prolongation on forced maneuver. No crackles. 2 L saturation is 94%. Abdomen soft bowel sounds are heard. No masses or tenderness. Extremities are intact. No cyanosis clubbing or edema. Skin is without rash or lesion. Neurologic examination is brief but nonfocal. - Labs CBC & Chem 7: 03/20/22 09:30 03/20/22 09:30 Labs: Abnormal Lab Results - Last 24 Hours (Table) 03/19/22 03/19/22 03/20/22 Range/Units 16:40 19:32 05:54 Hct (34.0-46.0) % Neutrophils # (1.3-7.7) k/uL Lymphocytes # (1.0-4.8) k/uL Sodium (137-145) mmol/L Chloride (98-107) mmol/L Carbon Dioxide (22-30) mmol/L BUN (7-17) mg/dL Glucose (74-99) mg/dL POC Glucose (mg/dL) 195 H 241 H 166 H (70-110) mg/dL TSH (0.465-4.680) mIU/L 03/20/22 03/20/22 03/20/22 Range/Units 09:30 09:30 09:30 Hct 46.9 H (34.0-46.0) % Neutrophils # 9.8 H (1.3-7.7) k/uL Lymphocytes # 0.3 L (1.0-4.8) k/uL Sodium 135 L (137-145) mmol/L Chloride 91 L (98-107) mmol/L Carbon Dioxide 39 H (22-30) mmol/L BUN 39 H (7-17) mg/dL Glucose 295 H (74-99) mg/dL POC Glucose (mg/dL) (70-110) mg/dL TSH 0.128 L (0.465-4.680) mIU/L 03/20/22 Range/Units 11:35 Hct (34.0-46.0) % Neutrophils # (1.3-7.7) k/uL Lymphocytes # (1.0-4.8) k/uL Sodium (137-145) mmol/L Chloride (98-107) mmol/L Carbon Dioxide (22-30) mmol/L BUN (7-17) mg/dL Glucose (74-99) mg/dL POC Glucose (mg/dL) 290 H (70-110) mg/dL TSH (0.465-4.680) mIU/L Assessment and Plan Assessment: Acute on chronic hypoxemic respiratory failure, secondary to COPD exacerbation. History of CAD. History of obstructive sleep apnea syndrome. Paroxysmal atrial fibrillation. History of essential hypertension. History of gastric cancer. History of stage III chronic kidney disease. Tracheobronchomalacia. Plan: Plan dated 03/20/2022. The patient is on Pulmicort breathing treatments, along with formoterol. In addition, the patient's getting Mucinex, doxycycline, and albuterol sulfate and ipratropium bromide breathing treatments. In addition, the patient is getting Solu-Medrol, 60 mg every 6 hours. Additional recommendations and suggestions are forthcoming. The patient is starting to show improvement. Hopeful discha rge in the next day or so. No additional recommendations are made. Labs, x- rays, and medications are all reviewed. Time with Patient: Less than 30
[2022-03-20 16:24] LABS: Glucose,Whole Blood 325 mg/dL (70-110)
[2022-03-20 20:40] LABS: Glucose,Whole Blood 229 mg/dL (70-110)
[2022-03-20] MEDS: diazePAM 5 MG TAB PO SCH (20:52)
[2022-03-21] MEDS: methylPREDNISolone SOD SUCCI 125 MG/2 ML VIAL IV SCH ×4 (03:50→22:16)
[2022-03-21 06:20] LABS: Glucose,Whole Blood 188 mg/dL (70-110)
[2022-03-21] MEDS: INSULIN ASPART (NovoLOG) 100 UNIT/ML VIAL SQ SCH ×4 (06:21→21:40)
[2022-03-21] MEDS: DOXYCYCLINE 100 MG CAP PO SCH ×2 (08:29→22:32)
[2022-03-21] MEDS: DULoxetine HCL 60 MG CAPSULE.DR PO SCH (08:29)
[2022-03-21] MEDS: guaiFENesin 600 MG TABLET.ER PO SCH ×2 (08:29→22:22)
[2022-03-21] MEDS: APIXABAN 5 MG TAB PO SCH ×2 (08:29→22:16)
[2022-03-21] MEDS: amLODIPine 2.5 MG TAB PO SCH (08:29)
[2022-03-21] MEDS: FUROSEMIDE 40 MG TAB PO SCH (08:29)
[2022-03-21] MEDS: LOSARTAN 50 MG TAB PO SCH (08:38)
[2022-03-21] MEDS: FORMOTEROL FUMARATE 20 MCG/2 ML NEBU INHALATION SCH ×2 (08:43→19:17)
[2022-03-21] MEDS: IPRATROPIUM-ALBUTEROL 3 ML NEB INHALATION SCH ×4 (08:44→19:17)
[2022-03-21] MEDS: BUDESONIDE 0.5 MG/2 ML NEBU INHALATION SCH ×2 (08:44→19:20)
--- NOTE | 2022-03-21 09:33 | P.PN ---
Subjective Date of service for this03/20/2022 Patient is a 77-year-old female with a known history of COPD on 2 L oxygen via nasal cannula, obstructive sleep apnea, history of gastric cancer, hypertension, hyperlipidemia, anxiety/depression and recent admission in December due to acute COPD exacerbation and bilateral pneumonia and other medical medical problems initially presented to [facility] due to worsening symptoms of shortness of breath and coughing congestion. Patient was seen 5 days prior and was given prednisone and antibiotic course without improvement in symptoms. Patient presented back to ER. Patient was admitted to the observation unit and has not been getting better. Patient was told previously that she may need bronchoscopy without improvement. She was seen by Dr. Arguelles on 12/05/2021. Patient denies any complaints of fever or chills. No chest pain. No nausea vomiting abdominal pain or diarrhea. Patient was transferred to [facility] for pulmonary evaluation. Laboratory data at [facility] reviewed. Procalcitonin level was 0.21, proBNP 534 and D-dimer is 0.190 Lab data showed WBC 7.1 hemoglobin 13.8 and platelets 304 Sodium 132 potassium 4.3 chloride 89 bicarb is 37 BUN 38 and creatinine 0.88 and blood sugar is 190 11 years are not elevated. Chest x-ray showed there is pleural reaction and atelectasis lateral left lung base without much change. No definitive acute lung disease. 03/19/2022 Patient is resting in the bed. Awake alert and oriented x3. Requiring oxygen at 2 L via nasal cannula. Still complains of cough and unable to bring up any sputum. Shortness breath improved slightly compared to yesterday. Patient has been afebrile. No nausea vomiting abdominal pain or diarrhea. No fever no chills. No headache or dizziness lightheadedness. Continue IV steroids and antibiotics in the form of doxycycline. Pulmonary is on board. Level data showed sodium 134 potassium 4.5 chloride 92 bicarb is 14 BUN 35 creatinine 0.8 and blood sugar is 170. Calcium 8.8. 03/20/2022 Patient still feeling short of breath but states is improving gradually. She still have occasional coughing but not bothering her much, no chest pain. He is saturating 91% on 2 L oxygen via nasal cannula Patient still has wheezing. No chest pain. Patient is on Cardizem drip. She is on Solu-Medrol 40 mg, doxycycline, Jett Eliquis for her A. fib. Objective - Vital Signs Vital signs: Vital Signs Temp 97.5 F L 03/21/22 08:00 Pulse 90 03/21/22 09:15 Resp 20 03/21/22 08:00 BP 146/97 03/21/22 08:00 Pulse Ox 92 L 03/21/22 08:46 FiO2 Intake & Output 03/20/22 03/21/22 03/21/22 18:59 06:59 18:59 Intake Total 660 240 Balance 660 240 Intake: Oral 660 240 Other: Voiding Method Bedside Commode Bedside Commode # Voids 2 2 # Bowel Movements 1 - Exam GENERAL: The patient is alert and oriented x3, not in any acute distress. Well developed, well nourished. HEENT: Pupils are round and equally reacting to light. EOMI. No scleral icterus. No conjunctival pallor. Normocephalic, atraumatic. No pharyngeal erythema. No t hyromegaly. CARDIOVASCULAR: S1 and S2 present. No murmurs, rubs, or gallops. -PULMONARY: Chest is clear to auscultation, bilateral scattered wheezing. no crackles. ABDOMEN: Soft, nontender, nondistended, normoactive bowel sounds. No palpable organomegaly. MUSCULOSKELETAL: No joint swelling or deformity. EXTREMITIES: No cyanosis, clubbing, or pedal edema. NEUROLOGICAL: Gross neurological examination did not reveal any focal deficits. SKIN: No rashes. no petechiae. - Labs CBC & Chem 7: 03/20/22 09:30 03/20/22 09:30 Labs: Abnormal Lab Results - Last 24 Hours (Table) 03/20/22 03/20/22 03/20/22 Range/Units 09:30 09:30 09:30 Hct 46.9 H (34.0-46.0) % Neutrophils # 9.8 H (1.3-7.7) k/uL Lymphocytes # 0.3 L (1.0-4.8) k/uL Sodium 135 L (137-145) mmol/L Chloride 91 L (98-107) mmol/L Carbon Dioxide 39 H (22-30) mmol/L BUN 39 H (7-17) mg/dL Glucose 295 H (74-99) mg/dL POC Glucose (mg/dL) (70-110) mg/dL TSH 0.128 L (0.465-4.680) mIU/L 03/20/22 03/20/22 03/20/22 Range/Units 11:35 16:22 20:32 Hct (34.0-46.0) % Neutrophils # (1.3-7.7) k/uL Lymphocytes # (1.0-4.8) k/uL Sodium (137-145) mmol/L Chloride (98-107) mmol/L Carbon Dioxide (22-30) mmol/L BUN (7-17) mg/dL Glucose (74-99) mg/dL POC Glucose (mg/dL) 290 H 325 H 229 H (70-110) mg/dL TSH (0.465-4.680) mIU/L 03/21/22 Range/Units 06:19 Hct (34.0-46.0) % Neutrophils # (1.3-7.7) k/uL Lymphocytes # (1.0-4.8) k/uL Sodium (137-145) mmol/L Chloride (98-107) mmol/L Carbon Dioxide (22-30) mmol/L BUN (7-17) mg/dL Glucose (74-99) mg/dL POC Glucose (mg/dL) 188 H (70-110) mg/dL TSH (0.465-4.680) mIU/L Assessment and Plan Assessment: Shortness of breath secondary to acute COPD exacerbation with Purulent Tracheobronchitis. Left lung base atelectasis History of coronary disease no PCI. Obstructive sleep apnea on CPAP Chronic hypoxic respiratory failure on home oxygen 2 L via nasal cannula Paroxysmal atrial relation on anticoagulation with Eliquis Hypertension Hypokalemia Chronic kidney disease stage III History of gastric cancer and skin cancer DVT prophylaxis currently on Eliquis Plan: Patient will be continued on IV Solu-Medrol and duo nebs and Pulmicort, Perforo mist. Continue with oxygen supplementation. Antibiotics in the form of doxycycline and follow-up sputum cultures. Pulmonary was consulted. Continue with home medications and anticoagulation Eliquis. Pepcid Follow closely. Prognosis is guarded.
--- NOTE | 2022-03-21 10:04 | P.PN ---
Subjective Progress Note Date: 03/21/22 HISTORY OF PRESENT ILLNESS: This is a 77-year-old female with a past medical history significant for with nonischemic cardiomyopathy, paroxysmal atrial fibrillation, valvular heart d isease, hypertension, hyperlipidemia, and COPD on home oxygen. Patient follows in the office with Dr. Singh. We have been asked to see the patient in consultation for A. fib with RVR. Patient examined at the bedside. Patient is admitted to the hospital secondary to COPD exacerbation. She is receiving IV steroids. Patient went into A. fib with RVR. She was started on IV Cardizem. This morning the patient remains in atrial for relation with a heart rate in the 90s. She states her breathing has improved since coming to the hospital. She denies any chest pain or pressure. She denies any palpitations. Denies any dizziness or lightheadedness. * EKG reveals A. fib with RVR * Chest xray there is pleural reaction and atelectasis lateral left lung base without much change. No definite acute lung disease. * Laboratory data: WBC 10.6. Hemoglobin 14.9. Platelet count 338. Sodium 135. Potassium 4.5. BUN 39. Creatinine 0.85. * Current home cardiac medications include metoprolol tartrate 50 mg twice a day, losartan 50 mg daily, Lasix 40 mg daily, amlodipine 2.5 mg daily, Eliquis 5 mg twice a day * Most recent echocardiogram obtained in the office in September 2021 revealed ejection fraction 45%, mild MR, mild AR * Cardiac catheterization history: February 2018 revealing minimal coronary arter y disease 03/21/2022 Patient examined this morning at the bedside. Patient denies chest pain or pressure. She denies shortness of breath at rest. She does report shortness of breath with exertion. Telemetry reveals atrial fibrillation with a heart rate in the 90s. PHYSICAL EXAM: VITAL SIGNS: Reviewed. GENERAL: Well-developed in no acute distress. HEENT: Head is normocephalic. Pupils are equal, round. Sclerae anicteric. Mucous membranes of the mouth are moist. Neck supple. No JVD or thyromegaly LUNGS: Respirations even and unlabored. Decreased air exchange bilaterally, improving HEART: Irregular rate and rhythm. S1 and S2 heard. Positive systolic murmur ABDOMEN: Soft. Nondistended. Nontender. EXTREMITIES: Normal range of motion. No clubbing or cyanosis. Peripheral pulses intact. No lower extremity edema NEUROLOGIC: Awake and alert. Oriented x 3. ASSESSMENT: Acute COPD exacerbation Paroxysmal atrial fibrillation with RVR History of nonischemic cardiomyopathy, EF 45% Valvular heart disease Hypertension Hyperlipidemia History of COPD with home oxygen use PLAN: Continue current cardiac medications Patient is currently stable from a cardiac standpoint Patient to follow up on an outpatient basis post discharge We will sign off. Please reconsult if needed. Nurse practitioner note has been reviewed by physician. Signing provider agrees with the documented findings, assessment, and plan of care. Objective - Vital Signs Vital signs: Vital Signs Temp 97.5 F L 03/21/22 08:00 Pulse 90 03/21/22 09:15 Resp 20 03/21/22 08:00 BP 146/97 03/21/22 08:00 Pulse Ox 92 L 03/21/22 08:46 FiO2 Intake & Output 03/20/22 03/21/22 03/21/22 18:59 06:59 18:59 Intake Total 660 240 Balance 660 240 Intake: Oral 660 240 Other: Voiding Method Bedside Commode Bedside Commode Bedside Commode # Voids 2 2 # Bowel Movements 1 - Labs CBC & Chem 7: 03/20/22 09:30 03/20/22 09:30 Labs: Abnormal Lab Results - Last 24 Hours (Table) 03/20/22 03/20/22 03/20/22 Range/Units 09:30 11:35 16:22 POC Glucose (mg/dL) 290 H 325 H (70-110) mg/dL TSH 0.128 L (0.465-4.680) mIU/L 03/20/22 03/21/22 Range/Units 20:32 06:19 POC Glucose (mg/dL) 229 H 188 H (70-110) mg/dL TSH (0.465-4.680) mIU/L
[2022-03-21] MEDS: FAMOTIDINE 20 MG/2 ML VIAL IV SCH ×2 (10:29→22:16)
[2022-03-21] MEDS: METOPROLOL TARTRATE 25 MG TAB PO SCH ×2 (10:30→22:16)
[2022-03-21] MEDS: MONTELUKAST 10 MG TAB PO SCH (10:30)
[2022-03-21] MEDS: PREGABALIN 100 MG CAP PO SCH ×3 (10:30→22:16)
--- NOTE | 2022-03-21 11:24 | P.PN ---
Subjective Progress Note Date: 03/21/22 Principal diagnosis: Shortness of breath. This is a 77-year-old female with known history of COPD, chronic hypoxic respiratory failure, intubated on 2 L of oxygen at home, history of obstructive sleep apnea syndrome, gastric cancer hypertension dyslipidemia anxiety, patient was last admitted to the hospital in December with COPD exacerbation and bilateral pneumonia. Patient was seen in the back then by Dr. shah on consultation, she was eventually treated and discharged home. Yesterday the patient was seen in [facility], she was mostly seen with 2 weeks history of cough wheezing and shortness of breath. Patient has been on prednisone and antibiotics but not much improvement, and patient was advised transfer to [facility]. her chest x-ray showed no evidence of infiltrate. Patient describes intermittent cough wheezing, no fever, no chills, no hemoptysis. Denies any nausea vomiting abdominal pain. Progress note dated 03/20/2022. His is a 77-year-old female seen in follow-up. She was seen by my partner yesterday in consultation. She is seen in room 353. She's not receiving any IV fluids. She is on oxygen at 2 L. She is feeling much better today. White count 10.6, hemoglobin 14.9, hematocrit 46.9, and platelet count 338,000. Sodium 135, potassium 4.5, chlorides 91, CO2 39, anion gap 5, BUN 39, creatinine 0.85. Chest x-ray shows pleural reaction and atelectasis, lateral left lung base without change compared to an x-ray done in December 2021. Progress note dated 03/21/2022. 77-year-old female again seen in room 353. She's currently on 2 L of oxygen. No IV fluids. She's feeling better, feels like she's moving in the right direction. She is much less short of breath. She's not coughing years much. She's not producing much or any phlegm. No new labs today other than a glucose of 188. Objective - Vital Signs Vital signs: Vital Signs Temp 97.5 F L 03/21/22 08:00 Pulse 90 03/21/22 09:15 Resp 20 03/21/22 08:00 BP 146/97 03/21/22 08:00 Pulse Ox 92 L 03/21/22 08:46 FiO2 Intake & Output 03/20/22 03/21/22 03/21/22 18:59 06:59 18:59 Intake Total 660 240 Balance 660 240 Intake: Oral 660 240 Other: Voiding Method Bedside Commode Bedside Commode Bedside Commode # Voids 2 2 # Bowel Movements 1 - Exam No acute distress, oriented 3. Currently on 2 L. No conversational dyspnea, audible wheezing, or use of accessory muscles. HEENT examination is grossly unremarkable. Neck supple. Full range of motion. No adenopathy thyromegaly or neck vein distention. Cardiovascular examination reveals regular rhythm rate. S1-S2 normal. No S3 or S4. No discernible murmur noted. Heart rate 90 bpm. Lungs reveal bilateral expiratory wheezes and rhonchi. Breath sounds equal. Slight prolongation on forced maneuver. No crackles. 2 L saturation is 92 %. Abdomen soft bowel sounds are heard. No masses or tenderness. Extremities are intact. No cyanosis clubbing or edema. Skin is without rash or lesion. Neurologic examination is brief but nonfocal. - Labs CBC & Chem 7: 03/20/22 09:30 03/20/22 09:30 Labs: Abnormal Lab Results - Last 24 Hours (Table) 03/20/22 03/20/22 03/20/22 Range/Units 11:35 16:22 20:32 POC Glucose (mg/dL) 290 H 325 H 229 H (70-110) mg/dL 03/21/22 Range/Units 06:19 POC Glucose (mg/dL) 188 H (70-110) mg/dL Assessment and Plan Assessment: Acute on chronic hypoxemic respiratory failure, secondary to COPD exacerbation. History of CAD. History of obstructive sleep apnea syndrome. Paroxysmal atrial fibrillation. History of essential hypertension. History of gastric cancer. History of stage III chronic kidney disease. Tracheobronchomalacia. Plan: Plan dated 03/20/2022. The patient is on Pulmicort breathing treatments, along with formoterol. In addition, the patient's getting Mucinex, doxycycline, and albuterol sulfate and ipratropium bromide breathing treatments. In addition, the patient is getting Solu-Medrol, 60 mg every 6 hours. Additional recommendations and suggestions are forthcoming. The patient is starting to show improvement. Hopeful discharge in the next day or so. No additional recommendations are made. Labs, x-rays, and medications are all reviewed. Plan dated 03/21/2022. Patient remains on appropriate medications. Labs, x-rays, medications are reviewed. The patient is examined and interviewed. She is moving in the correct direction. We'll continue to discharge in next 24-48 hours. After hospitalization, the patient needs to follow-up with me in the office. The patient overall prognosis remains guarded. We will continue to follow along, and make recommendations along the way. Time with Patient: Less than 30
[2022-03-21 11:36] LABS: Glucose,Whole Blood 186 mg/dL (70-110)
[2022-03-21 16:16] LABS: Glucose,Whole Blood 299 mg/dL (70-110)
[2022-03-21] MEDS: BUDESONIDE 1 MG/2 ML NEBU INHALATION SCH (19:38)
[2022-03-21 20:49] LABS: Glucose,Whole Blood 261 mg/dL (70-110)
[2022-03-21] MEDS ORDERED: TEMAZEPAM 15 MG CAP PO SCH (21:00)
[2022-03-22] MEDS: methylPREDNISolone SOD SUCCI 125 MG/2 ML VIAL IV SCH ×4 (02:09→21:38)
[2022-03-22 06:30] LABS: Glucose,Whole Blood 162 mg/dL (70-110)
[2022-03-22] MEDS: INSULIN ASPART (NovoLOG) 100 UNIT/ML VIAL SQ SCH ×4 (06:47→21:37)
[2022-03-22] MEDS: FORMOTEROL FUMARATE 20 MCG/2 ML NEBU INHALATION SCH ×2 (07:58→19:35)
[2022-03-22] MEDS: BUDESONIDE 1 MG/2 ML NEBU INHALATION SCH ×2 (07:58→19:35)
[2022-03-22] MEDS: IPRATROPIUM-ALBUTEROL 3 ML NEB INHALATION SCH ×4 (07:58→19:35)
[2022-03-22] MEDS: METOPROLOL TARTRATE 25 MG TAB PO SCH ×2 (10:01→21:37)
[2022-03-22] MEDS: DULoxetine HCL 60 MG CAPSULE.DR PO SCH (10:01)
[2022-03-22] MEDS: amLODIPine 2.5 MG TAB PO SCH (10:01)
[2022-03-22] MEDS: NYSTATIN 100,000 UNIT/ML SUSP 500,000 UNIT/5 ML CUP PO SCH ×4 (10:01→21:38)
[2022-03-22] MEDS: DOXYCYCLINE 100 MG CAP PO SCH ×2 (10:01→21:38)
[2022-03-22] MEDS: MONTELUKAST 10 MG TAB PO SCH (10:01)
[2022-03-22] MEDS: FAMOTIDINE 20 MG/2 ML VIAL IV SCH (10:01)
[2022-03-22] MEDS: APIXABAN 5 MG TAB PO SCH ×2 (10:01→21:37)
[2022-03-22] MEDS: LOSARTAN 50 MG TAB PO SCH (10:01)
[2022-03-22] MEDS: guaiFENesin 600 MG TABLET.ER PO SCH (10:02)
[2022-03-22] MEDS: PREGABALIN 100 MG CAP PO SCH ×3 (10:02→21:37)
[2022-03-22] MEDS: FUROSEMIDE 40 MG TAB PO SCH (10:02)
[2022-03-22 11:35] LABS: Glucose,Whole Blood 258 mg/dL (70-110)
--- NOTE | 2022-03-22 12:45 | P.PN ---
Subjective Progress Note Date: 03/22/22 Principal diagnosis: Shortness of breath. This is a 77-year-old female with known history of COPD, chronic hypoxic respiratory failure, intubated on 2 L of oxygen at home, history of obstructive sleep apnea syndrome, gastric cancer hypertension dyslipidemia anxiety, patient was last admitted to the hospital in December with COPD exacerbation and bilateral pneumonia. Patient was seen in the back then by Dr. shah on consultation, she was eventually treated and discharged home. Yesterday the patient was seen in [facility], she was mostly seen with 2 weeks history of cough wheezing and shortness of breath. Patient has been on prednisone and antibiotics but not much improvement, and patient was advised transfer to [facility]. her chest x-ray showed no evidence of infiltrate. Patient describes intermittent cough wheezing, no fever, no chills, no hemoptysis. Denies any nausea vomiting abdominal pain. Progress note dated 03/20/2022. His is a 77-year-old female seen in follow-up. She was seen by my partner yesterday in consultation. She is seen in room 353. She's not receiving any IV fluids. She is on oxygen at 2 L. She is feeling much better today. White count 10.6, hemoglobin 14.9, hematocrit 46.9, and platelet count 338,000. Sodium 135, potassium 4.5, chlorides 91, CO2 39, anion gap 5, BUN 39, creatinine 0.85. Chest x-ray shows pleural reaction and atelectasis, lateral left lung base without change compared to an x-ray done in December 2021. Progress note dated 03/21/2022. 77-year-old female again seen in room 353. She's currently on 2 L of oxygen. No IV fluids. She's feeling better, feels like she's moving in the right direction. She is much less short of breath. She's not coughing years much. She's not producing much or any phlegm. No new labs today other than a glucose of 188. Progress note dated 03/22/2022. 77-year-old female well-known to me. She resides in room 353. She's currently on 3 L of oxygen. She's not receiving any IV fluids. I'm hoping that she could be discharged tomorrow. She is feeling much better. She is much less short of breath. Minimal cough and wheezing. No new laboratory data today. No chest x- ray today. Medications are reviewed. Objective - Vital Signs Vital signs: Vital Signs Temp 97.8 F 03/22/22 08:00 Pulse 88 03/22/22 11:28 Resp 16 03/22/22 08:00 BP 145/85 03/22/22 08:00 Pulse Ox 100 03/22/22 08:00 FiO2 Intake & Output 03/21/22 03/22/22 03/22/22 18:59 06:59 18:59 Intake Total 360 240 Balance 360 240 Weight 60.8 kg Intake: Oral 360 240 Other: Voiding Method Bedside Commode Bedside Commode # Voids 1 2 - Exam No acute distress, oriented 3. Currently on 3 L. No conversational dyspnea, audible wheezing, or use of accessory muscles. HEENT examination is grossly unremarkable. Neck supple. Full range of motion. No adenopathy thyromegaly or neck vein distention. Cardiovascular examination reveals regular rhythm rate. S1-S2 normal. No S3 or S4. No discernible murmur noted. Heart rate 82 bpm. Lungs reveal bilateral expiratory wheezes and rhonchi. Breath sounds equal. Slight prolongation on forced maneuver. No crackles. 3 L saturation is 94 %. Abdomen soft bowel sounds are heard. No masses or tenderness. Extremities are intact. No cyanosis clubbing or edema. Skin is without rash or lesion. Neurologic examination is brief but nonfocal. - Labs CBC & Chem 7: 03/20/22 09:30 03/20/22 09:30 Labs: Abnormal Lab Results - Last 24 Hours (Table) 03/21/22 03/21/22 03/22/22 Range/Units 16:14 20:48 06:28 POC Glucose (mg/dL) 299 H 261 H 162 H (70-110) mg/dL 03/22/22 Range/Units 11:34 POC Glucose (mg/dL) 258 H (70-110) mg/dL Assessment and Plan Assessment: Acute on chronic hypoxemic respiratory failure, secondary to COPD exacerbation. History of CAD. History of obstructive sleep apnea syndrome. Paroxysmal atrial fibrillation. History of essential hypertension. History of gastric cancer. History of stage III chronic kidney disease. Tracheobronchomalacia. Plan: Plan dated 03/20/2022. The patient is on Pulmicort breathing treatments, along with formoterol. In addition, the patient's getting Mucinex, doxycycline, and albuterol sulfate and ipratropium bromide breathing treatments. In addition, the patient is getting Solu-Medrol, 60 mg every 6 hours. Additional recommendations and suggestions are forthcoming. The patient is starting to show improvement. Hopeful discharge in the next day or so. No additional recommendations are made. Labs, x-rays, and medications are all reviewed. Plan dated 03/21/2022. Patient remains on appropriate medications. Labs, x-rays, medications are reviewed. The patient is examined and interviewed. She is moving in the correct direction. We'll continue to discharge in next 24-48 hours. After hospitalization, the patient needs to follow-up with me in the office. The patient overall prognosis remains guarded. We will continue to follow along, and make recommendations along the way. Plan dated 03/22/2022. The patient is hoping to be discharged home tomorrow. She did not have a ride home today according to her. Labs, x-rays, and medications are reviewed. Currently, the patient's on albuterol sulfate, and ipratropium bromide breathing treatments. She is also on budesonide 1 mg mixed with formoterol 20 g, twice a day. Also, the patient's getting Solu-Medrol 60 mg every 6 hours, Singulair, and doxycycline. She'll follow-up with me in the office post discharge. Time with Patient: Less than 30
[2022-03-22 16:43] LABS: Glucose,Whole Blood 274 mg/dL (70-110)
--- NOTE | 2022-03-22 19:19 | P.PN ---
Subjective Date of service for this03/20/2022 Patient is a 77-year-old female with a known history of COPD on 2 L oxygen via nasal cannula, obstructive sleep apnea, history of gastric cancer, hypertension, hyperlipidemia, anxiety/depression and recent admission in December due to acute COPD exacerbation and bilateral pneumonia and other medical medical problems initially presented to [facility] due to worsening symptoms of shortness of breath and coughing congestion. Patient was seen 5 days prior and was given prednisone and antibiotic course without improvement in symptoms. Patient presented back to ER. Patient was admitted to the observation unit and has not been getting better. Patient was told previously that she may need bronchoscopy without improvement. She was seen by Dr. Arguelles on 12/05/2021. Patient denies any complaints of fever or chills. No chest pain. No nausea vomiting abdominal pain or diarrhea. Patient was transferred to [facility] for pulmonary evaluation. Laboratory data at [facility] reviewed. Procalcitonin level was 0.21, proBNP 534 and D-dimer is 0.190 Lab data showed WBC 7.1 hemoglobin 13.8 and platelets 304 Sodium 132 potassium 4.3 chloride 89 bicarb is 37 BUN 38 and creatinine 0.88 and blood sugar is 190 11 years are not elevated. Chest x-ray showed there is pleural reaction and atelectasis lateral left lung base without much change. No definitive acute lung disease. 03/19/2022 Patient is resting in the bed. Awake alert and oriented x3. Requiring oxygen at 2 L via nasal cannula. Still complains of cough and unable to bring up any sputum. Shortness breath improved slightly compared to yesterday. Patient has been afebrile. No nausea vomiting abdominal pain or diarrhea. No fever no chills. No headache or dizziness lightheadedness. Continue IV steroids and antibiotics in the form of doxycycline. Pulmonary is on board. Level data showed sodium 134 potassium 4.5 chloride 92 bicarb is 14 BUN 35 creatinine 0.8 and blood sugar is 170. Calcium 8.8. 03/20/2022 Patient still feeling short of breath but states is improving gradually. She still have occasional coughing but not bothering her much, no chest pain. He is saturating 91% on 2 L oxygen via nasal cannula Patient still has wheezing. No chest pain. Patient is on Cardizem drip. She is on Solu-Medrol 40 mg, doxycycline, Jett Eliquis for her A. fib. 03/22/2022 Patient continued to improve each day slowly and gradually. Today she breathing more easily and she still feels improving recently she has little cough and she is saturating 97% and 2 L oxygen via nasal cannula. Oral thrush suspected and she has some erythema in her mouth which she states usually she gets with antibiotic with nystatin added. Also we will lower her Restoril dose 15 down to 7.5 mg She keep improving and she may be considered for discharge in 24 hours Objective - Vital Signs Vital signs: Vital Signs Temp 98.4 F 03/22/22 14:00 Pulse 81 03/22/22 14:00 Resp 18 03/22/22 14:00 BP 134/87 03/22/22 14:00 Pulse Ox 97 03/22/22 14:00 FiO2 Intake & Output 03/21/22 03/22/22 03/22/22 18:59 06:59 18:59 Intake Total 360 480 Balance 360 480 Weight 60.8 kg Intake: Oral 360 480 Other: Voiding Method Bedside Commode Bedside Commode # Voids 1 2 - Exam GENERAL: The patient is alert and oriented x3, not in any acute distress. Well developed, well nourished. HEENT: Pupils are round and equally reacting to light. EOMI. No scleral icterus. No conjunctival pallor. Normocephalic, atraumatic. No pharyngeal erythema. No thyromegaly. CARDIOVASCULAR: S1 and S2 present. No murmurs, rubs, or gallops. -PULMONARY: Chest is clear to auscultation, bilateral scattered wheezing. no crackles. ABDOMEN: Soft, nontender, nondistended, normoactive bowel sounds. No palpable organomegaly. MUSCULOSKELETAL: No joint swelling or deformity. EXTREMITIES: No cyanosis, clubbing, or pedal edema. NEUROLOGICAL: Gross neurological examination did not reveal any focal deficits. SKIN: No rashes. no petechiae. - Labs CBC & Chem 7: 03/20/22 09:30 03/20/22 09:30 Labs: Abnormal Lab Results - Last 24 Hours (Table) 03/21/22 03/21/22 03/22/22 Range/Units 16:14 20:48 06:28 POC Glucose (mg/dL) 299 H 261 H 162 H (70-110) mg/dL 03/22/22 Range/Units 11:34 POC Glucose (mg/dL) 258 H (70-110) mg/dL Assessment and Plan Assessment: Shortness of breath secondary to acute COPD exacerbation with Purulent Tracheobronchitis. Left lung base atelectasis History of coronary disease no PCI. Obstructive sleep apnea on CPAP Chronic hypoxic respiratory failure on home oxygen 2 L via nasal cannula Paroxysmal atrial relation on anticoagulation with Eliquis Hypertension Hypokalemia Chronic kidney disease stage III History of gastric cancer and skin cancer DVT prophylaxis currently on Eliquis Plan: Patient will be continued on IV Solu-Medrol and duo nebs and Pulmicort, Perforomist. Continue with oxygen supplementation. Antibiotics in the form of doxycycline and follow-up sputum cultures. Pulmonary was consulted. Continue with home medications and anticoagulation Eliquis. Pepcid Follow closely. Prognosis is guarded.
[2022-03-22 19:49] LABS: Glucose,Whole Blood 221 mg/dL (70-110)
[2022-03-22] MEDS ORDERED: TEMAZEPAM 7.5 MG CAP PO SCH (21:00)
[2022-03-22] MEDS: FAMOTIDINE 20 MG TAB PO SCH (21:37)
[2022-03-23] MEDS: methylPREDNISolone SOD SUCCI 125 MG/2 ML VIAL IV SCH ×2 (03:16→08:18)
[2022-03-23 06:13] LABS: Glucose,Whole Blood 204 mg/dL (70-110)
[2022-03-23] MEDS: INSULIN ASPART (NovoLOG) 100 UNIT/ML VIAL SQ SCH ×2 (06:28→12:33)
[2022-03-23 08:11] VITALS: RESP 20
[2022-03-23] MEDS: METOPROLOL TARTRATE 25 MG TAB PO SCH (08:17)
[2022-03-23] MEDS: FAMOTIDINE 20 MG TAB PO SCH (08:18)
[2022-03-23] MEDS: PREGABALIN 100 MG CAP PO SCH (08:18)
[2022-03-23] MEDS: DULoxetine HCL 60 MG CAPSULE.DR PO SCH (08:18)
[2022-03-23] MEDS: LOSARTAN 50 MG TAB PO SCH (08:18)
[2022-03-23] MEDS: amLODIPine 2.5 MG TAB PO SCH (08:18)
[2022-03-23] MEDS: APIXABAN 5 MG TAB PO SCH (08:18)
[2022-03-23] MEDS: MONTELUKAST 10 MG TAB PO SCH (08:18)
[2022-03-23] MEDS: FUROSEMIDE 40 MG TAB PO SCH (08:18)
[2022-03-23] MEDS: NYSTATIN 100,000 UNIT/ML SUSP 500,000 UNIT/5 ML CUP PO SCH ×2 (08:20→12:35)
[2022-03-23] MEDS: IPRATROPIUM-ALBUTEROL 3 ML NEB INHALATION SCH ×2 (08:36→12:19)
[2022-03-23] MEDS: FORMOTEROL FUMARATE 20 MCG/2 ML NEBU INHALATION SCH (08:36)
[2022-03-23] MEDS: BUDESONIDE 1 MG/2 ML NEBU INHALATION SCH (08:36)
[2022-03-23 11:36] VITALS: BP 122/83; TEMP 98
[2022-03-23 11:46] LABS: Glucose,Whole Blood 193 mg/dL (70-110)
--- NOTE | 2022-03-23 11:52 | P.PN ---
Subjective Progress Note Date: 03/23/22 Principal diagnosis: Shortness of breath. This is a 77-year-old female with known history of COPD, chronic hypoxic respiratory failure, intubated on 2 L of oxygen at home, history of obstructive sleep apnea syndrome, gastric cancer hypertension dyslipidemia anxiety, patient was last admitted to the hospital in December with COPD exacerbation and bilateral pneumonia. Patient was seen in the back then by Dr. shah on consultation, she was eventually treated and discharged home. Yesterday the patient was seen in [facility], she was mostly seen with 2 weeks history of cough wheezing and shortness of breath. Patient has been on prednisone and antibiotics but not much improvement, and patient was advised transfer to [facility]. her chest x-ray showed no evidence of infiltrate. Patient describes intermittent cough wheezing, no fever, no chills, no hemoptysis. Denies any nausea vomiting abdominal pain. Progress note dated 03/20/2022. His is a 77-year-old female seen in follow-up. She was seen by my partner yesterday in consultation. She is seen in room 353. She's not receiving any IV fluids. She is on oxygen at 2 L. She is feeling much better today. White count 10.6, hemoglobin 14.9, hematocrit 46.9, and platelet count 338,000. Sodium 135, potassium 4.5, chlorides 91, CO2 39, anion gap 5, BUN 39, creatinine 0.85. Chest x-ray shows pleural reaction and atelectasis, lateral left lung base without change compared to an x-ray done in December 2021. Progress note dated 03/21/2022. 77-year-old female again seen in room 353. She's currently on 2 L of oxygen. No IV fluids. She's feeling better, feels like she's moving in the right direction. She is much less short of breath. She's not coughing years much. She's not producing much or any phlegm. No new labs today other than a glucose of 188. Progress note dated 03/22/2022. 77-year-old female well-known to me. She resides in room 353. She's currently on 3 L of oxygen. She's not receiving any IV fluids. I'm hoping that she could be discharged tomorrow. She is feeling much better. She is much less short of breath. Minimal cough and wheezing. No new laboratory data today. No chest x- ray today. Medications are reviewed. Progress note dated 03/23/2022. 77-year-old female seen in room 353. She's currently on oxygen at 2 L. She's not receiving any IV fluids. The patient is stable, and could be considered for discharge. I will leave that up to the primary service. I did tell the patient, that I like to see her in the office, and a couple of weeks. Clinically, she is much improved. Objective - Vital Signs Vital signs: Vital Signs Temp 98 F 03/23/22 11:35 Pulse 94 03/23/22 11:35 Resp 20 03/23/22 11:35 BP 122/83 03/23/22 11:35 Pulse Ox 99 03/23/22 11:35 FiO2 Intake & Output 03/22/22 03/23/22 03/23/22 18:59 06:59 18:59 Intake Total 480 240 Output Total 0 Balance 480 240 Intake: Oral 480 240 Output: Stool 0 Other: Voiding Method Bedside Commode # Voids 2 - Exam No acute distress, oriented 3. Currently on 2 L. No conversational dyspnea, audible wheezing, or use of accessory muscles. HEENT examination is grossly unremarkable. Neck supple. Full range of motion. No adenopathy thyromegaly or neck vein distention. Cardiovascular examination reveals regular rhythm rate. S1-S2 normal. No S3 or S4. No discernible murmur noted. Heart rate 79 bpm. Lungs reveal bilateral expiratory wheezes and rhonchi. Breath sounds equal. Slight prolongation on forced maneuver. Breath sounds are much improved. No crackles. 2 L saturation is 99%. Abdomen soft bowel sounds are heard. No masses or tenderness. Extremities are intact. No cyanosis clubbing or edema. Skin is without rash or lesion. Neurologic examination is brief but nonfocal. - Labs CBC & Chem 7: 03/20/22 09:30 03/20/22 09:30 Labs: Abnormal Lab Results - Last 24 Hours (Table) 03/22/22 03/22/22 03/23/22 Range/Units 16:42 19:46 06:12 POC Glucose (mg/dL) 274 H 221 H 204 H (70-110) mg/dL 03/23/22 Range/Units 11:42 POC Glucose (mg/dL) 193 H (70-110) mg/dL Assessment and Plan Assessment: Acute on chronic hypoxemic respiratory failure, secondary to COPD exacerbation. History of CAD. History of obstructive sleep apnea syndrome. Paroxysmal atrial fibrillation. History of essential hypertension. History of gastric cancer. History of stage III chronic kidney disease. Tracheobronchomalacia. Plan: Plan dated 03/20/2022. The patient is on Pulmicort breathing treatments, along with formoterol. In addition, the patient's getting Mucinex, doxycycline, and albuterol sulfate and ipratropium bromide breathing treatments. In addition, the patient is getting Solu-Medrol, 60 mg every 6 hours. Additional recommendations and suggestions are forthcoming. The patient is starting to show improvement. Hopeful discharge in the next day or so. No additional recommendations are made. Labs, x-rays, and medications are all reviewed. Plan dated 03/21/2022. Patient remains on appropriate medications. Labs, x-rays, medications are reviewed. The patient is examined and interviewed. She is moving in the correct direction. We'll continue to discharge in next 24-48 hours. After hospitalization, the patient needs to follow-up with me in the office. The patient overall prognosis remains guarded. We will continue to follow along, and make recommendations along the way. Plan dated 03/22/2022. The patient is hoping to be discharged home tomorrow. She did not have a ride home today according to her. Labs, x-rays, and medications are reviewed. Currently, the patient's on albuterol sulfate, and ipratropium bromide breathing treatments. She is also on budesonide 1 mg mixed with formoterol 20 g, twice a day. Also, the patient's getting Solu-Medrol 60 mg every 6 hours, Singulair, and doxycycline. She'll follow-up with me in the office post discharge. Plan dated 03/23/2022. The patient appears to be doing relatively well. She is down to 2 L. Sa turations are 99%. The patient could be considered for possible discharge. Discharged home on her usual home medications, and a prednisone taper. I told the patient that she should call the office, and make an appointment to see me in about 10-14 days. No additional recommendations are made. Labs, x-rays, and medications are all reviewed. Prognosis is guarded. Time with Patient: Less than 30
[2022-03-23 12:41] VITALS: PULSE 88
[2022-03-23 12:58] VITALS: BMI 25.3
--- NOTE | 2022-03-23 20:05 | P.DS ---
Providers Date of admission: 03/18/22 15:32 Attending physician: Hanh Huerta Consults: 03/18/22 16:00 Consult Physician Routine Consulting Provider: Devante White Consult Reason/Comments: COPD exac Do you want consulting provider notified?: Yes Primary care physician: Stated None Hospital Course: Diagnoses: Shortness of breath secondary to acute COPD exacerbation . Improving Left lung base atelectasis History of coronary disease no PCI. Obstructive sleep apnea on CPAP Chronic hypoxic respiratory failure on home oxygen 2 L via nasal cannula Paroxysmal atrial relation on anticoagulation with Eliquis Hypertension Hypokalemia Chronic kidney disease stage III History of gastric cancer and skin cancer Hospital course: Patient is a 77-year-old female with a known history of COPD on 2 L oxygen via nasal cannula, obstructive sleep apnea, history of gastric cancer, hypertension, hyperlipidemia, anxiety/depression and recent admission in December due to acute COPD exacerbation and bilateral pneumonia and other medical medical problems initially presented to [facility] due to worsening symptoms of shortness of breath and coughing congestion. Patient evaluation by physician allergist immunologist and tobacco wrapping machine tender and found to have COPD and A. fib and RVR. She was treated with increasing dose of metoprolol and continue with Eliquis. Also she received a short course of antibiotics. Patient showed interval improvement. Her oxygen requirement stable 2 L/m with saturation 99%. On the day of discharge she denies chest pain, no abdominal pain or vomiting. Tolerates diet. No urinary complaints. She works at baseline and using the walker. She refused to a subacute rehab. Home health care is requested for her upon discharge. Patient was cleared for discharge by physician allergist immunologist and tobacco wrapping machine tender already signed off the case. Problems and management plan were discussed with the patient and he verbalized understanding and acceptance Patient was found stable and can be discharged home in guarded prognosis however he needs follow-up as an outpatient. Patient was instructed to follow up with PCP Dr. Berry within one week and patient agrees Patient was instructed to follow up with physician allergist immunologist Dr. Arguelles in 7-10 days. And also with tobacco wrapping machine tender Dr. Mary in 2 weeks. Physical exam Gen: patient is a AAOx3, no distress CVS: S1-S2, RRR, no murmur -Lungs: B/L CTA, no wheezing. On 2 L oxygen via nasal cannula Abdomen: soft, no distention, no tenderness, positive bowel sounds Extremity: no leg edema or induration Time spent more than 35 minutes Plan - Discharge Summary Discharge Rx Participant: No New Discharge Prescriptions: New Metoprolol Tartrate [Lopressor] 75 mg PO BID #180 tab Famotidine [Pepcid] 20 mg PO BID #60 tab predniSONE 10 mg PO DIRECTED #60 tab Nystatin 100,000 Unit/ml Susp [Mycostatin Oral Susp] 500,000 unit PO QID 7 Days #100 ml Acetaminophen Tab [Tylenol] 650 mg PO Q6HR PRN tab PRN Reason: Fever And/ Or Pain Continue Cetirizine HCl [Zyrtec] 10 mg PO DAILY PRN PRN Reason: allergies Fluticasone Nasal [place] [Flonase Nasal [place]] 2 spray EA NOSTRIL DAILY PRN PRN Reason: Cold Symptoms Montelukast [Singulair] 10 mg PO DAILY Tiotropium 18 Mcg/Puff [Spiriva] 1 cap INHALATION RT-DAILY Apixaban [Eliquis] 5 mg PO BID #60 tab Cholecalciferol [Vitamin D3 (10 Mcg = 400 Iu)] 10 mcg PO DAILY Pregabalin [Lyrica] 100 mg PO TID Budesonide-Formot 160-4.5 Mcg [Symbicort 160-4.5 Mcg Inhaler] 2 puff INHALATION RT-BID #1 each Acetaminophen Tab [Tylenol] 650 mg PO Q6HR PRN tab PRN Reason: Mild Pain Or Fever > 100.5 Albuterol Inhaler [Ventolin Hfa Inhaler] 1 - 2 puff INHALATION RT-Q6H PRN PRN Reason: Shortness Of Breath Furosemide [Lasix] 40 mg PO DAILY Calcium Carbonate [Calcium] 1,200 mg PO DAILY DULoxetine HCL [Cymbalta] 60 mg PO DAILY diazePAM [Valium] 5 mg PO DAILY PRN PRN Reason: Anxiety amLODIPine [Norvasc] 2.5 mg PO DAILY Folic Acid 1 mg PO DAILY Ipratropium-Albuterol Nebulize [Duoneb 0.5 mg-3 mg/3 ml Soln] 3 ml INHALATION RT-QID Losartan Potassium [Cozaar] 50 mg PO DAILY Discontinued Metoprolol Tartrate [Lopressor] 50 mg PO BID predniSONE [Deltasone] 20 mg PO BID diazePAM [Valium] 5 mg PO HS No Action Doxycycline Monohydrate 100 mg PO BID Discharge Medication List Cetirizine HCl [Zyrtec] 10 mg PO DAILY PRN 09/03/15 [History] Fluticasone Nasal [place] [Flonase Nasal [place]] 2 spray EA NOSTRIL DAILY PRN 09/03/15 [History] Montelukast [Singulair] 10 mg PO DAILY 09/03/15 [History] Tiotropium 18 Mcg/Puff [Spiriva] 1 cap INHALATION RT-DAILY 10/28/15 [History] Apixaban [Eliquis] 5 mg PO BID #60 tab 05/05/19 [Rx] Calcium Carbonate [Calcium] 1,200 mg PO DAILY 12/04/21 [History] Cholecalciferol [Vitamin D3 (10 Mcg = 400 Iu)] 10 mcg PO DAILY 12/04/21 [History] DULoxetine HCL [Cymbalta] 60 mg PO DAILY 12/04/21 [History] Pregabalin [Lyrica] 100 mg PO TID 12/04/21 [History] amLODIPine [Norvasc] 2.5 mg PO DAILY 12/04/21 [History] diazePAM [Valium] 5 mg PO DAILY PRN 12/04/21 [History] Acetaminophen Tab [Tylenol] 650 mg PO Q6HR PRN tab 12/09/21 [Rx] Budesonide-Formot 160-4.5 Mcg [Symbicort 160-4.5 Mcg Inhaler] 2 puff INHALATION RT-BID #1 each 12/09/21 [Rx] Albuterol Inhaler [Ventolin Hfa Inhaler] 1 - 2 puff INHALATION RT-Q6H PRN 03/18/22 [History] Doxycycline Monohydrate 100 mg PO BID 03/18/22 [History] Folic Acid 1 mg PO DAILY 03/18/22 [History] Furosemide [Lasix] 40 mg PO DAILY 03/18/22 [History] Ipratropium-Albuterol Nebulize [Duoneb 0.5 mg-3 mg/3 ml Soln] 3 ml INHALATION RT-QID 03/18/22 [History] Losartan Potassium [Cozaar] 50 mg PO DAILY 03/18/22 [History] Acetaminophen Tab [Tylenol] 650 mg PO Q6HR PRN tab 03/23/22 [Rx] Famotidine [Pepcid] 20 mg PO BID #60 tab 03/23/22 [Rx] Metoprolol Tartrate [Lopressor] 75 mg PO BID #180 tab 03/23/22 [Rx] Nystatin 100,000 Unit/ml Susp [Mycostatin Oral Susp] 500,000 unit PO QID 7 Days #100 ml 03/23/22 [Rx] predniSONE 10 mg PO DIRECTED #60 tab 03/23/22 [Rx] Follow up Appointment(s)/Referral(s): Kristi Matamoros NPC [REFERRING] - 1 Week (PLEASE CALL AND SCHEDULE APPOINTMENT.) mAadou Singh MD [STAFF PHYSICIAN] - 03/28/22 3:00 pm Ramirez Arguelles DO [Doctor of Osteopathic Medicine] - 04/21/22 9:45 am Patient Instructions/Handouts: Metoprolol (By mouth), Famotidine (By mouth), Prednisone (By mouth), Nystatin (By mouth), Oral Candidiasis (GEN), COPD (Chroni c Obstructive Pulmonary Disease) (DC) Activity/Diet/Wound Care/Special Instructions: low sugar diet ( low carbohydrate diet) activity is restricted till you see your doctor Discharge Disposition: HOME WITH HOME HEALTH SERVICES
== END 2022-03-23 14:04 | disposition home health service (06) | DRG 190 ==
LOC: 3SCARD 15:32
PROVIDERS: ADMIT Internal Medicine; ATTEND Internal Medicine
DX: J44.1 Chronic obstructive pulmonary disease with (acute) exacerbation (principal); J96.21 Acute and chronic respiratory failure with hypoxia; B37.0 Candidal stomatitis; I42.8 Other cardiomyopathies; J98.11 Atelectasis; I38 Endocarditis, valve unspecified; E78.5 Hyperlipidemia, unspecified; E87.6 Hypokalemia; F32.A Depression, unspecified; F41.9 Anxiety disorder, unspecified; G47.33 Obstructive sleep apnea (adult) (pediatric); I12.9 Hypertensive chronic kidney disease with stage 1 through stage 4 chronic kidney disease, or unspecified chronic kidney disease; I25.10 Atherosclerotic heart disease of native coronary artery without angina pectoris; M81.0 Age-related osteoporosis without current pathological fracture; N18.30 Chronic kidney disease, stage 3 unspecified; Z79.01 Long term (current) use of anticoagulants; Z79.51 Long term (current) use of inhaled steroids; Z79.899 Other long term (current) drug therapy; Z82.41 Family history of sudden cardiac death; Z82.49 Family history of ischemic heart disease and other diseases of the circulatory system; Z85.028 Personal history of other malignant neoplasm of stomach; Z85.828 Personal history of other malignant neoplasm of skin; Z90.710 Acquired absence of both cervix and uterus; Z99.81 Dependence on supplemental oxygen; I48.0 Paroxysmal atrial fibrillation; J39.8 Other specified diseases of upper respiratory tract; Z71.3 Dietary counseling and surveillance; Z88.1 Allergy status to other antibiotic agents; Z88.8 Allergy status to other drugs, medicaments and biological substances
CPT/HCPCS: 71045; 80048; 80053; 84439; 84443; 85025; 94640; 94760

== ENCOUNTER 2022-05-15 12:50 | Observation (INO) | payer BC, MEDICARE ==
--- NOTE | 2022-05-15 13:23 | ED ---
General Adult HPI - General Chief complaint: Shortness of Breath Stated complaint: COPD, SOB Time Seen by Provider: 05/15/22 12:55 Source: patient, EMS Mode of arrival: EMS Limitations: no limitations - History of Present Illness Initial comments: Dictation was produced using SANDOW dictation software. please excuse any grammatical, word or spelling errors. Chief Complaint: 77-year-old female sent to the emergency department for admission to evaluate for chest pain, COPD, hemoptysis History of Present Illness: 77-year-old female she was initially seen at [place] emergency room. Patient seen and evaluated there. Patient has history of COPD. She was initially hypoxic 80% patient wears normally 2 L nasal cannula. Patient of the [place] presented there for hemoptysis, chest pain and dyspnea. Workup so far was negative. Patient is transferred here for cardiology and following consultation. At the bedside patient is feeling well. She had some episodes of hemoptysis earlier today. The ROS documented in this emergency department record has been reviewed and confirmed by me. Those systems with pertinent positive or negative responses have been documented in the HPI. All other systems are other negative and/or noncontributory. PHYSICAL EXAM: General Impression: Alert and oriented x3, not in acute distress HEENT: Normocephalic atraumatic, extra-ocular movements intact, pupils equal and reactive to light bilaterally, mucous membranes moist. Cardiovascular: Heart regular rate and rhythm Chest: Able to complete full sentences, no retractions, no tachypnea Abdomen: abdomen soft, non-tender, non-distended, no organomegaly Musculoskeletal: Pulses present and equal in all extremities, no peripheral edema Motor: no focal deficits noted Neurological: CN II-XII grossly intact, no focal motor or sensory deficits noted Skin: Intact with no visualized rashes Psych: Normal affect and mood ED course: 77-year-old female sent to the emergency department for pulmonary injury cardiology consultation. Transfer documentation was reviewed. Patient at the bedside feeling well. She is in no acute distress. Physical examination is benign. She is 90% on room 4 L nasal cannula. Vital signs are stable. Patient be admitted with consultation to cardiology and pulmonology. Nursing notes and chart review was performed Patient be admitted observational consultation pulmonology and cardiology. Was pt. sent in by a medical professional or institution (, PA, SLATE SPLITTER, urgent care, hospital, or retirement...) When possible be specific @ -Transferring physician from outside hospital Did you speak to anyone other than the patient for history (EMS, parent, family, police, friend...)? What history was obtained from this source @ -No Did you review nursing and triage notes (agree or disagree)? Why? @ -I reviewed and agree with nursing and triage notes Were old charts reviewed (outside hosp., previous admission, EMS record, old EKG, old radiological studies, urgent care reports/EKG's, retirement records)? Report findings @ -Reviewed consultation notes from cardiology and pulmonology from most recent admission Differential Diagnosis (chest pain, altered mental status, abdominal pain women, abdominal pain men, vaginal bleeding, weakness, fever, dyspnea, syncope, headache, dizziness, GI bleed, back pain, seizure, CVA, palpatations, mental health)? @ -Differential Chest Pain: Stable Angina, Unstable Angina, STEMI, NSTEMI Aortic Dissection, Pneumothorax, Musculoskeletal, Esophageal Spasm GERD, Cholecystitis, Pancreatitis, Zoster, this is not meant to be an all-inclusive list. EKG interpreted by me (3pts min.). @ -As above X-rays interpreted by me (1pt min.). @ -None done CT interpreted by me (1pt min.). @ -None done U/S interpreted by me (1pt. min.). @ -None done What testing was considered but not performed or refused? (CT, X-rays, U/S, labs)? Why? @ -None What meds were considered but not given or refused? Why? @ -None Did you discuss the management of the patient with other professionals (professionals i.e. , PA, SLATE SPLITTER, lab, RT, psych nurse, social services director, market garden worker, teacher, inspectors and regulatory officers, caser up)? Give summary @ -No Was smoking cessation discussed for >3mins.? @ -No Was critical care preformed (if so, how long)? @ -No Were there social determinants of health that impacted care today? How? (Homelessness, low income, unemployed, alcoholism, drug addiction, transportation, low edu. Level, literacy, decrease access to med. care, long-term, rehab)? @ -No Was there de-escalation of care discussed even if they declined (Discuss DNR or withdrawal of care, Hospice)? DNR status @ -No What co-morbidities impacted this encounter? (DM, HTN, Smoking, COPD, CAD, Cancer, CVA, ARF, Chemo, Hep., AIDS, mental health diagnosis, sleep apnea, morbid obesity)? @ -None Was patient admitted / discharged? Hospital course, mention meds given and route, prescriptions, significant lab abnormalities, going to OR and other pertinent info. @ -See above Undiagnosed new problem with uncertain prognosis? @ -No Drug Therapy requiring intensive monitoring for toxicity (Heparin, Nitro, Insulin, Cardizem)? @ -No Were any procedures done? @ -No Diagnosis/symptom? @ -[Atypical chest pain typical features, COPD exacerbation Acute, or Chronic, or Acute on Chronic? @Acute chronic Uncomplicated (without systemic symptoms) or Complicated (systemic symptoms)? @ -Uncomplicated Side effects of treatment? @ -No Exacerbation, Progression, or Severe Exacerbation? @ -. Exacerbation Poses a threat to life or bodily function? How? (Chest pain, [place], [place], pneumonia, PE, COPD, DKA, ARF, appy, cholecystitis, CVA, Diverticulitis, Homicidal, Suicidal, threat to staff... and all critical care pts) @ -Yes - Related Data Home Medications Medication Instructions Recorded Confirmed Cetirizine HCl [Zyrtec] 10 mg PO DAILY PRN 09/03/15 03/18/22 Fluticasone Nasal [place] [Flonase 2 spray EA NOSTRIL DAILY PRN 09/03/15 03/18/22 Nasal [place]] Montelukast [Singulair] 10 mg PO DAILY 09/03/15 03/18/22 Tiotropium 18 Mcg/Puff [Spiriva] 1 cap INHALATION RT-DAILY 10/28/15 03/18/22 Calcium Carbonate [Calcium] 1,200 mg PO DAILY 12/04/21 03/18/22 Cholecalciferol [Vitamin D3 (10 10 mcg PO DAILY 12/04/21 03/18/22 Mcg = 400 Iu)] DULoxetine HCL [Cymbalta] 60 mg PO DAILY 12/04/21 03/18/22 Pregabalin [Lyrica] 100 mg PO TID 12/04/21 03/18/22 amLODIPine [Norvasc] 2.5 mg PO DAILY 12/04/21 03/18/22 diazePAM [Valium] 5 mg PO DAILY PRN 12/04/21 03/18/22 Albuterol Inhaler [Ventolin Hfa 1 - 2 puff INHALATION RT-Q6H PRN 03/18/22 03/18/22 Inhaler] Doxycycline Monohydrate 100 mg PO BID 03/18/22 03/18/22 Folic Acid 1 mg PO DAILY 03/18/22 03/18/22 Furosemide [Lasix] 40 mg PO DAILY 03/18/22 03/18/22 Ipratropium-Albuterol Nebulize 3 ml INHALATION RT-QID 03/18/22 03/18/22 [Duoneb 0.5 mg-3 mg/3 ml Soln] Losartan Potassium [Cozaar] 50 mg PO DAILY 03/18/22 03/18/22 Previous Rx's Medication Instructions Recorded Apixaban [Eliquis] 5 mg PO BID #60 tab 05/05/19 Acetaminophen Tab [Tylenol] 650 mg PO Q6HR PRN tab 12/09/21 Budesonide-Formot 160-4.5 Mcg 2 puff INHALATION RT-BID #1 each 12/09/21 [Symbicort 160-4.5 Mcg Inhaler] Acetaminophen Tab [Tylenol] 650 mg PO Q6HR PRN tab 03/23/22 Famotidine [Pepcid] 20 mg PO BID #60 tab 03/23/22 Metoprolol Tartrate [Lopressor] 75 mg PO BID #180 tab 03/23/22 Nystatin 100,000 Unit/ml Susp 500,000 unit PO QID 7 Days #100 ml 03/23/22 [Mycostatin Oral Susp] predniSONE 10 mg PO DIRECTED #60 tab 03/23/22 Allergies Allergy/AdvReac Type Severity Reaction Status Date / Time ciprofloxacin [From Cipro] Allergy Unknown Verified 03/18/22 19:35 gemfibrozil [From Lopid] Allergy tendon Verified 03/18/22 19:35 damage levofloxacin [From Levaquin] Allergy tendon Verified 03/18/22 19:35 damage dust mites Allergy Wheezing Uncoded 12/04/21 17:18 Review of Systems ROS Statement: Those systems with pertinent positive or pertinent negative responses have been documented in the HPI. ROS Other: All systems not noted in ROS Statement are negative. Past Medical History Past Medical History: Asthma, Coronary Artery Disease (CAD), Cancer, COPD, GERD/Reflux, GI Bleed, Hyperlipidemia, Hypertension, Pneumonia, Renal Disease, Sleep Apnea/CPAP/BIPAP Additional Past Medical History / Comment(s): Bronchitis, upper GI bleed, gastric ulcer, diverticulitis, iron anemia-has had infusions, CKD stage III, chronic hypokalemia, ARUN with Cpap and oxygen at 2L/NC with it, osteoporosis, R upper arm crush injury-pain and limited ROM, L shoulder pain, allergic rhininis, skin cancer basal/squamous removals. 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 Past Anesthesia/Blood Transfusion Reactions: No Reported Reaction Additional Past Anesthesia/Blood Transfusion Reaction / Comment(s): Pt has received blood in past without reaction. Past Psychological History: Anxiety, Depression Smoking Status: Former smoker Past Alcohol Use History: Occasional Past Drug Use History: None Reported - Past Family History Father Family Medical History: Coronary Artery Disease (CAD), Myocardial Infarction (MN) Additional Family Medical History / Comment(s): Father of a MN at the age of 41 yrs. Mother Family Medical History: Renal Disease Sister(s) Family Medical History: Renal Disease Additional Family Medical History / Comment(s): 2 sisters with renal disease and both are . Brother(s) Family Medical History: Congestive Heart Failure (CHF) Additional Family Medical History / Comment(s): Brother had a cardiac arrest and at the age of 49yrs. Son(s) Family Medical History: Coronary Artery Disease (CAD), Hyperlipidemia, Hype rtension, Myocardial Infarction (MN) Additional Family Medical History / Comment(s): Son had his first MN at the age of 34yrs. He has had a total of 3 MIs. General Exam Limitations: no limitations Course Vital Signs 05/15/22 12:56 Temperature 97.9 F Pulse Rate 107 H Respiratory 22 Rate Blood Pressure 137/98 O2 Sat by Pulse 98 Oximetry Disposition Clinical Impression: Chest pain Disposition: ADMITTED IP TO THIS HOSP Condition: Fair Referrals: Sanchez Kee MD [Primary Care Provider] - 1-2 days Decision Time: 14:10
[2022-05-15] MEDS ORDERED: IPRATROPIUM-ALBUTEROL 3 ML NEB INHALATION STA (14:00)
[2022-05-15] MEDS ORDERED: NITROGLYCERIN SL TABS 0.4 MG TAB SUBLINGUAL PRN ×2 (14:06→15:58)
[2022-05-15] MEDS ORDERED: ACETAMINOPHEN TAB 500 MG TAB PO STA (14:38)
[2022-05-15] MEDS ORDERED: diazePAM 5 MG TAB PO PRN (15:58)
[2022-05-15] MEDS ORDERED: ACETAMINOPHEN TAB 325 MG TAB PO PRN (15:58)
[2022-05-15] MEDS ORDERED: ALBUTEROL NEBULIZED 2.5 MG/3 ML INHALATION PRN (15:58)
--- NOTE | 2022-05-15 15:58 | P.HPIM ---
History of Present Illness H&P Date: 05/15/22 This is a 77-year-old female who presented to the emergency department via EMS as patient lives out in [facility]. Patient reports she follows with Kristi Matamoros NP out of [place] with a past medical history of asthma/COPD, coronary artery disease, iron deficiency anemia, CAD stage III, GERD, upper GI bleed, hyperlipidemia, hypertension, sleep apnea, anxiety/depression. Patient uses a CPAP and chronically wears oxygen at 2 L at home and has a nebulizer. Patient is continuing nicotine use with occasional drinking and denies any other illicit drug use. Patient was sent from [facility] for further evaluation including pulmonary and cardiology consultation. Patient did have an episode of hemoptysis and was concerned and went to the emergency department. Will follow up with some repeat labs in the a.m. obtain a chest x-ray and await cardiology and pulmonary consultation. Initial troponin here is negative and per ER records work up that started in [place] was negative as well. Review Of Systems: Constitutional: No fever, no chills, no night sweats. No weight change. No weakness, fatigue or lethargy. No daytime sleepiness. EENT: No headache. No blurred vision or double vision, no loss of vision. No loss of Hearing, no ringing in the ears, no dizziness. No nasal drainage or congestion. No epistaxis. No sore throat. Lungs: Reports frequent shortness of breath, reports cough, reports some minimal sputum production. No wheezing. Reports an episode of hemoptysis Cardiovascular: Reports some mild chest pain, reports occasional lower extremity edema although currently not now. No palpitations. No paroxysmal nocturnal dyspnea. No orthopnea. No lightheadedness or dizziness. No syncopal episodes. Abdominal: No abdominal pain. No nausea, vomiting. No diarrhea. No constipation. No bloody or tarry stools.. No loss of appetite. Genitourinary: No dysuria, increased frequency, urgency. No urinary retention. Musculoskeletal: No myalgias. No muscle weakness, no gait dysfunction, no frequent falls. No back pain. No neck pain. Integumentary: No wounds, no lesions. No rash or pruritus. Reports chronic bruising and discoloration being on thinners. No change in hair or nails. Neurologic: No aphasia. No facial droop. No change in mentation. No head injury. No headache. No paralysis. No paresthesia. Psychiatric: No depression. No anxiety. No mood swings. Endocrine: No abnormal blood sugars. No weight change. No excessive sweating or thirst. No cold intolerance. PHYSICAL EXAMINATION: GENERAL: The patient is alert and oriented x4, Well developed, well nourished. HEENT: Pupils are round and equally reacting to light. EOMI. no scleral icterus. No conjunctival pallor. Normocephalic, atraumatic. No pharyngeal erythema. No thyromegaly. CARDIOVASCULAR: S1 and S2 muffled PULMONARY: diminished breath sounds bilaterally with no wheezing or rhonchi noted. ABDOMEN: soft. Nontender on exam. obese. non-distended, normoactive bowel sounds. No palpable organomegaly. MUSCULOSKELETAL: No joint swelling or deformity. EXTREMITIES: No cyanosis, clubbing, or pedal edema. NEUROLOGICAL: Gross neurological examination did not reveal any focal deficits. SKIN: No rashes. Assessment: Chest pain, rule out ACS Episode of hemoptysis 1 Shortness of breath, possible COPD exacerbation Acute on chronic hypoxic respiratory failure, chronically wears 2 L outpatient secondary to COPD History of asthma/COPD Sleep apnea uses CPAP Chronic kidney disease stage III History of anxiety/depression Hyperlipidemia Hypertension GERD GI prophylaxis DVT prophylaxis Full code Plan: Recommend to continue with current medications and management as patient was sent here from [place] for cardiac and pulmonary evaluation Cardiology and pulmonary consulted and pending at this time and troponin here has been negative Patient did have one episode of hemoptysis and was sent here from [place] for further evaluation Recommend to resume home medications and hold eliquis for now until pulmonary, cardiology consultation Continue with DuoNeb treatments and cardiac monitoring Recommend follow-up troponin in a.m. labs Due to multiple complex medical issues, prognosis is guarded Will await cardiology and pulmonary consultation and discuss further about possible discharge planning in the next 24 hours The impression and plan of care has been dictated by Radha Canales, nurse practitioner as directed. Dr. Gautam MD I have performed a history and examination and MDM of this patient, discussed the same with the dictator, and agree with the dictator's assessment and plan as written ,documented as a scribe. Based on total visit time, I have performed more than 50% of the visit. Any additional findings or plans will be noted. Past Medical History Past Medical History: Asthma, Coronary Artery Disease (CAD), Cancer, COPD, GERD/Reflux, GI Bleed, Hyperlipidemia, Hypertension, Pneumonia, Renal Disease, Sleep Apnea/CPAP/BIPAP Additional Past Medical History / Comment(s): Bronchitis, upper GI bleed, gastric ulcer, diverticulitis, iron anemia-has had infusions, CKD stage III, chronic hypokalemia, ARUN with Cpap and oxygen at 2L/NC with it, osteoporosis, R upper arm crush injury-pain and limited ROM, L shoulder pain, allergic rhininis, skin cancer basal/squamous removals. 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 Past Anesthesia/Blood Transfusion Reactions: No Reported Reaction Additional Past Anesthesia/Blood Transfusion Reaction / Comment(s): Pt has received blood in past without reaction. Past Psychological History: Anxiety, Depression Smoking Status: Former smoker Past Alcohol Use History: Occasional Past Drug Use History: None Reported - Past Family History Father Family Medical History: Coronary Artery Disease (CAD), Myocardial Infarction (MO) Additional Family Medical History / Comment(s): Father of a MO at the age of 41 yrs. Mother Family Medical History: Renal Disease Sister(s) Family Medical History: Renal Disease Additional Family Medical History / Comment(s): 2 sisters with renal disease and both are . Brother(s) Family Medical History: Congestive Heart Failure (CHF) Additional Family Medical History / Comment(s): Brother had a cardiac arrest and at the age of 49yrs. Son(s) Family Medical History: Coronary Artery Disease (CAD), Hyperlipidemia, Hypertension, Myocardial Infarction (MO) Additional Family Medical History / Comment(s): Son had his first MO at the age of 34yrs. He has had a total of 3 MIs. Medications and Allergies Home Medications Medication Instructions Recorded Confirmed Type Montelukast [Singulair] 10 mg PO DAILY 09/03/15 05/15/22 History Tiotropium 18 Mcg/Puff [Spiriva] 1 cap INHALATION RT-DAILY 10/28/15 05/15/22 History Apixaban [Eliquis] 5 mg PO BID #60 tab 05/05/19 05/15/22 Rx DULoxetine HCL [Cymbalta] 60 mg PO DAILY 12/04/21 05/15/22 History Pregabalin [Lyrica] 100 mg PO TID 12/04/21 05/15/22 History amLODIPine [Norvasc] 2.5 mg PO DAILY 12/04/21 05/15/22 History diazePAM [Valium] 5 mg PO BID PRN 12/04/21 05/15/22 History Acetaminophen Tab [Tylenol] 650 mg PO Q6HR PRN tab 12/09/21 05/15/22 Rx Budesonide-Formot 160-4.5 Mcg 2 puff INHALATION RT-BID #1 each 12/09/21 05/15/22 Rx [Symbicort 160-4.5 Mcg Inhaler] Albuterol Inhaler [Ventolin Hfa 2 puff INHALATION RT-Q6H PRN 03/18/22 05/15/22 History Inhaler] Folic Acid 1 mg PO DAILY 03/18/22 05/15/22 History Furosemide [Lasix] 40 mg PO DAILY 03/18/22 05/15/22 History Losartan Potassium [Cozaar] 25 mg PO DAILY 03/18/22 05/15/22 History Cholecalciferol [Vitamin D3 (25 25 mcg PO DAILY 05/15/22 05/15/22 History Mcg = 1000 Iu)] Lidocaine 5% Patch [Lidoderm] 1 patch TOPICAL DAILY 05/15/22 05/15/22 History Metoprolol Tartrate [Lopressor] 25 mg PO BID 05/15/22 05/15/22 History Nitroglycerin Sl Tabs [Nitrostat] 0.4 mg SUBLINGUAL Q5M PRN 05/15/22 05/15/22 History Potassium Chloride ER [K-Dur 20] 20 meq PO DAILY 05/15/22 05/15/22 History Allergies Allergy/AdvReac Type Severity Reaction Status Date / Time ciprofloxacin [From Cipro] Allergy Unknown Verified 05/15/22 14:26 gemfibrozil [From Lopid] Allergy tendon Verified 05/15/22 14:26 damage levofloxacin [From Levaquin] Allergy tendon Verified 05/15/22 14:26 damage dust mites Allergy Wheezing Uncoded 05/15/22 14:26 Physical Exam Vitals: Vital Signs Temp Pulse Resp BP Pulse Ox 05/15/22 15:09 116 H 05/15/22 14:55 118 H 05/15/22 14:48 103 H 18 126/87 96 05/15/22 12:56 97.9 F 107 H 22 137/98 98 Intake and Output 05/15/22 05/15/22 05/15/22 06:59 14:59 22:59 Other: Weight 61.689 kg Thrombosis Risk Factor Assmnt - DVT/VTE Prophylaxis DVT/VTE Prophylaxis: Pharmacologic Prophylaxis ordered Assessment and Plan Time with Patient: Greater than 30
[2022-05-15] MEDS: PREGABALIN 100 MG CAP PO SCH ×2 (16:46→20:25)
[2022-05-15] MEDS: CHOLECALCIFEROL 25 MCG (1000 IU) TABLET PO SCH (16:47)
[2022-05-15] MEDS: METOPROLOL TARTRATE 25 MG TAB PO SCH (20:25)
[2022-05-15] MEDS: SYMBICORT 160-4.5 MCG INHALER INHALATION SCH (20:29)
[2022-05-16 07:53] VITALS: RESP 16
[2022-05-16] MEDS: IPRATROPIUM 0.5 MG/2.5 ML NEBU INHALATION SCH ×2 (07:55→11:28)
[2022-05-16] MEDS: SYMBICORT 160-4.5 MCG INHALER INHALATION SCH (07:55)
--- NOTE | 2022-05-16 08:36 | XR ---
EXAMINATION TYPE: XR chest 1V portable DATE OF EXAM: 05/16/2022 Comparison: 03/18/2022 Clinical History: 77-year-old female sob Findings: Heart mildly enlarged. Hyperinflation. Elongation/ectasia of the thoracic aorta. Atherosclerotic arch calcifications. Increasing patchy peripheral right midlung and some peripheral left midlung opacitie s. Chronic multi part proximal right humeral fracture deformity. The degree of healing change is uncl ear. Old healed right-sided rib fracture deformities. Impression: COPD and borderline cardiac megaly. Interstitial changes appears slightly increased and may reflect m ild pulmonary vascular congestion. Developing patchy atelectasis or early pneumonia at the peripheral right midlung.
[2022-05-16 08:50] LABS: Basophils # (A) 0.01 X 10*3/uL (0.00-0.10); Basophils % (A) 0.1 %; Eosinophils # (A) 0 X 10*3/uL (0.04-0.35); Eosinophils % (A) 0 %; HCT 34.4 % (37.2-46.3); HGB 10.5 g/dL (12.0-15.0); Immature Grans, Automated 0.6 %; Lymphocytes # (A) 0.77 X 10*3/uL (0.90-5.00); MCH 28.5 pg (27.0-32.0); MCHC 30.5 g/dL (32.0-37.0); MCV 93.5 fL (80.0-97.0); Mean Platelet Volume 10.2 fL (9.5-12.2); Monocytes % (A) 8.2 %; NRBC Per 100 WBC 0 /100 WBCS (0.0-0.0); Neutrophils # (A) 7.04 X 10*3/uL (1.80-7.70); Neutrophils % (A) 82.1 %; Platelet Count 304 X 10*3/uL (140-440); RBC 3.68 X 10*6/uL (4.10-5.20); RDW 17.6 % (11.5-14.5); WBC 8.57 X 10*3/uL (4.50-10.00)
[2022-05-16] MEDS ORDERED: LOSARTAN 25 MG TAB PO SCH (09:00)
[2022-05-16] MEDS ORDERED: FOLIC ACID 1 MG TAB PO SCH (09:00)
[2022-05-16] MEDS ORDERED: DULoxetine HCL 60 MG CAPSULE.DR PO SCH (09:00)
[2022-05-16] MEDS ORDERED: MONTELUKAST 10 MG TAB PO SCH (09:00)
[2022-05-16] MEDS ORDERED: FUROSEMIDE 40 MG TAB PO SCH (09:00)
[2022-05-16] MEDS ORDERED: LIDOCAINE 5% PATCH TOPICAL SCH (09:00)
[2022-05-16] MEDS ORDERED: amLODIPine 2.5 MG TAB PO SCH (09:00)
[2022-05-16] MEDS ORDERED: APIXABAN 5 MG TAB PO SCH (09:00)
[2022-05-16] MEDS: PREGABALIN 100 MG CAP PO SCH (09:03)
[2022-05-16] MEDS: METOPROLOL TARTRATE 25 MG TAB PO SCH (09:03)
[2022-05-16] MEDS: CHOLECALCIFEROL 25 MCG (1000 IU) TABLET PO SCH (09:03)
[2022-05-16 09:22] LABS: African American GFR (CKD) 98.2 (60.0-200.0); BUN/Creat Ratio 33.86 Ratio (12.00-20.00); Blood Urea Nitrogen 23.7 mg/dL (9.0-27.0); Calcium 9.1 mg/dL (8.7-10.3); Carbon Dioxide 28.3 mmol/L (20.0-27.5); Chloride 102 mmol/L (96-109); Glucose 140 mg/dL (70-110); Non-African American GFR(CKD) 84.8 (60.0-200.0); Potassium 3.9 mmol/L (3.5-5.5); Sodium 140 mmol/L (135-145); VLDL Calculation 14.48 mg/dL (5.00-40.00)
--- NOTE | 2022-05-16 12:00 | CT ---
EXAMINATION TYPE: CT angio chest CT DLP: 274.8 mGycm, Automated exposure control for dose reduction was used. DATE OF EXAM: 05/16/2022 11:43 AM COMPARISON: CTA chest 01/22/2016. Chest radiograph 05/16/2022. CLINICAL INDICATION:Female, 77 years old with history of hemoptysis; SOB, chest pain TECHNIQUE/CONTRAST: CTA scan of the thorax is performed with IV Contrast, patient injected with 80 mL of Isovue 370, pulm onary embolism protocol. MIP images are created and reviewed. FINDINGS: Pulmonary Artery: There is no evidence for a filling defect within the pulmonary vasculature to sugge st acute pulmonary embolism. The pulmonary artery is mildly prominent in size which can be seen in s etting of pulmonary artery hypertension. Reflux of contrast into the IVC and hepatic veins. Lungs/Pleura: No pneumothorax or pleural effusion. Minimal right lower lobe posterior dependent conso lidation. Atelectasis along the bilateral major fissures. Patchy groundglass reticular opacities prim arily within the bilateral upper lobes with right greater than left. Airway: Large airways are patent. Heart: Mild cardiomegaly. No pericardial effusion. Coronary artery calcifications. Vasculature: No evidence of aortic aneurysm. Mild prostatic calcification of the aorta and its branch es. Mediastinum: No gross evidence of adenopathy. Musculoskeletal: No acute osseous abnormalities. Severe left shoulder arthropathy. Remote injury to t he right proximal humerus. Remote right-sided rib fractures. Chronic appearing anterior wedge randal bishop deformity of the T5 vertebral body with approximately 50% height loss and no retropulsion. Soft Tissues: Unremarkable. Lower neck: No significant findings. Upper Abdomen: Postcholecystectomy. IMPRESSION: 1. No evidence of pulmonary embolism. 2. Patchy groundglass reticular opacities primarily within the bilateral upper lobes with right great er than left concerning for atypical viral pneumonia. 3. Mild cardiomegaly. 4. Chronic-appearing anterior wedge compression deformity of the T5 vertebral body with remote right- sided rib fractures and remote injury to the right proximal humerus.
--- NOTE | 2022-05-16 12:06 | P.CNPUL ---
History of Present Illness Consult date: 05/16/22 Requesting physician: Price Loera Reason for consult: chest pain, other (hemoptysis) Chief complaint: Intermittent chest pain, hemoptysis History of present illness: This is a fairly pleasant 77-year-old female brought in from [facility] where she was worked up for ongoing intermittent chest pressure lasting approximately 20-40 minutes and a isolated episode of hemoptysis described as frothy. The chest pain is intermittent, increases with inspiration and palpation. Patient was being worked up outpatient, for pleurisy, and recently saw Dr. Arguelles in the office. Patient's troponins are negative 2. BNP was low on [place] evaluation. Patient had a one-time episode of hemoptysis. She denies any shortness of breath, nosebleeds, nausea or vomiting, persistent coughs, fever, trauma, unilateral lower extremity swelling or pain. She was receiving Eliquis outpatient manage her history of atrial fibrillation. She is resting comfortably on 2 L nasal cannula. Patient's pertinent medical history includes asthma, COPD, chronic oxygen dependence with 2 L nasal cannula, ex- smoker, GI bleed, iron deficiency anemia, hyperlipidemia, hypertension, chronic kidney disease stage III, obstructive sleep apnea with CPAP use at night, coronary artery disease with previous heart catheterization, diverticulitis, gastric ulcer, cholecystectomy. Patient's chest x-ray from today showed some COPD-like changes and borderline cardiomegaly. There was also some patchy atelectasis or consolidation in the peripheral right midlung. CBC from today shows some normocytic anemia. WBC count 8.6, hemoglobin 10.5, hematocrit 34.4, platelets 304,000. BMP results from today shows sodium 140, potassium 3.9, chloride 102, serum CO2 28.3, BUN 23.7, creatinine 0.7, glucose 140. An ECG was performed on admission showed atrial fibrillation with controlled ventricular response. Cardiology is following. Patient is maintained on Ventolin nebulizer, Symbicort inhaler, Singulair, Atrovent nebulization. Patient remains hemodynamically stable this time. Review of Systems REVIEW OF SYSTEMS: CONSTITUTIONAL: Denies any recent significant weight loss or weight gain. EYES: Denies change in vision. EARS, NOSE, MOUTH, THROAT: Denies headaches, denies sore throat. CARDIOVASCULAR: Denies palpitations or syncopal episodes. See HPI RESPIRATORY: Denies shortness of breath, persistent cough, congestion. See HPI GASTROINTESTINAL: Denies change in appetite, denies abdominal pain, nausea or vomiting GENITOURINARY: Denies hematuria, denies infections. MUSKULOSKELETAL: Denies pain, denies swelling. INTEGUMENTARY: Denies rash, denies eczema. NEUROLOGICAL: Denies recent memory loss, no recent seizure activity. PSYCHIATRIC: Denies anxiety, denies depression. HEMATOLOGIC/LYMPHATIC: Denies anemia, denies enlarged lymph nodes. Past Medical History Past Medical History: Asthma, Coronary Artery Disease (CAD), Cancer, COPD, GERD/Reflux, GI Bleed, Hyperlipidemia, Hypertension, Pneumonia, Renal Disease, Sleep Apnea/CPAP/BIPAP Additional Past Medical History / Comment(s): Bronchitis, upper GI bleed, gastric ulcer, diverticulitis, iron anemia-has had infusions, CKD stage III, chronic hypokalemia, ARUN with Cpap and oxygen at 2L/NC with it, osteoporosis, R upper arm crush injury-pain and limited ROM, L shoulder pain, allergic rhininis, skin cancer basal/squamous removals. 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 Past Anesthesia/Blood Transfusion Reactions: No Reported Reaction Additional Past Anesthesia/Blood Transfusion Reaction / Comment(s): Pt has received blood in past without reaction. Past Psychological History: Anxiety, Depression Additional Psychological History / Comment(s): lives with family home with her . Pt is independent. 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 Greater than [id number] history of smoking - continues to smoke 2 packs a week. Minimal alcohol intake. Pt has a Cpap and oxygen. Smoking Status: Former smoker Past Alcohol Use History: Occasional Additional Past Alcohol Use History / Comment(s): Pt started smoking in 1959 and was a heavy smoker. She quit in November 2017 but started smoking again the past few [id number] packs per week. Pt. smokes half a pack a day 12/04/21 Past Drug Use History: None Reported - Past Family History Father Family Medical History: Coronary Artery Disease (CAD), Myocardial Infarction (OR) Additional Family Medical History / Comment(s): Father of a OR at the age of 41 yrs. Mother Family Medical History: Renal Disease Sister(s) Family Medical History: Renal Disease Additional Family Medical History / Comment(s): 2 sisters with renal disease and both are . Brother(s) Family Medical History: Congestive Heart Failure (CHF) Additional Family Medical History / Comment(s): Brother had a cardiac arrest and at the age of 49yrs. Son(s) Family Medical History: Coronary Artery Disease (CAD), Hyperlipidemia, Hypertension, Myocardial Infarction (OR) Additional Family Medical History / Comment(s): Son had his first OR at the age of 34yrs. He has had a total of 3 MIs. Medications and Allergies Home Medications Medication Instructions Recorded Confirmed Type Montelukast [Singulair] 10 mg PO DAILY 09/03/15 05/15/22 History Tiotropium 18 Mcg/Puff [Spiriva] 1 cap INHALATION RT-DAILY 10/28/15 05/15/22 History Apixaban [Eliquis] 5 mg PO BID #60 tab 05/05/19 05/15/22 Rx DULoxetine HCL [Cymbalta] 60 mg PO DAILY 12/04/21 05/15/22 History Pregabalin [Lyrica] 100 mg PO TID 12/04/21 05/15/22 History amLODIPine [Norvasc] 2.5 mg PO DAILY 12/04/21 05/15/22 History diazePAM [Valium] 5 mg PO BID PRN 12/04/21 05/15/22 History Acetaminophen Tab [Tylenol] 650 mg PO Q6HR PRN tab 12/09/21 05/15/22 Rx Budesonide-Formot 160-4.5 Mcg 2 puff INHALATION RT-BID #1 each 12/09/21 05/15/22 Rx [Symbicort 160-4.5 Mcg Inhaler] Albuterol Inhaler [Ventolin Hfa 2 puff INHALATION RT-Q6H PRN 03/18/22 05/15/22 History Inhaler] Folic Acid 1 mg PO DAILY 03/18/22 05/15/22 History Furosemide [Lasix] 40 mg PO DAILY 03/18/22 05/15/22 History Losartan Potassium [Cozaar] 25 mg PO DAILY 03/18/22 05/15/22 History Cholecalciferol [Vitamin D3 (25 25 mcg PO DAILY 05/15/22 05/15/22 History Mcg = 1000 Iu)] Lidocaine 5% Patch [Lidoderm] 1 patch TOPICAL DAILY 05/15/22 05/15/22 History Metoprolol Tartrate [Lopressor] 25 mg PO BID 05/15/22 05/15/22 History Nitroglycerin Sl Tabs [Nitrostat] 0.4 mg SUBLINGUAL Q5M PRN 05/15/22 05/15/22 History Potassium Chloride ER [K-Dur 20] 20 meq PO DAILY 05/15/22 05/15/22 History Allergies Allergy/AdvReac Type Severity Reaction Status Date / Time ciprofloxacin [From Cipro] Allergy Unknown Verified 05/15/22 14:26 gemfibrozil [From Lopid] Allergy tendon Verified 05/15/22 14:26 damage levofloxacin [From Levaquin] Allergy tendon Verified 05/15/22 14:26 damage dust mites Allergy Wheezing Uncoded 05/15/22 14:26 Physical Exam Vitals: Vital Signs Temp Pulse Pulse Resp BP BP Pulse Ox 05/16/22 08:12 116 H 05/16/22 07:57 112 H 05/16/22 07:05 97.6 F 124 H 16 148/90 94 L 05/16/22 02:03 98.7 F 103 H 18 107/72 25 L 05/15/22 18:55 98.7 F 103 H 18 107/72 97 05/15/22 17:13 97.9 F 116 H 18 141/97 97 05/15/22 17:02 107 H 18 114/94 95 05/15/22 16:00 111 H 20 124/81 95 05/15/22 15:09 116 H 05/15/22 14:55 118 H 05/15/22 14:48 103 H 18 126/87 96 05/15/22 12:56 97.9 F 107 H 22 137/98 98 Intake and Output 05/15/22 05/16/22 05/16/22 22:59 06:59 14:59 Intake Total 236 Balance 236 Intake: Oral 236 Other: Voiding Method Toilet # Voids 2 2 Weight 61.689 kg GENERAL EXAM: Alert, 77-year-old female, active, comfortable in no apparent distress. He HEAD: Normocephalic. EYES: Normal reaction of pupils, equal size. NOSE: Clear with pink turbinates. THROAT: No erythema or exudates. NECK: No masses, no JVD. CHEST: No chest wall deformity. There is some [id number] pain palpation of the left anterior chest. LUNGS: Equal air entry with no crackles, wheeze, rhonchi or dullness.On 2 L nasal cannula. No conversational dyspnea or accessory muscle use. CVS: S1 and S2 normal with no audible murmur, rhythm is irregularly at 112 bpm. No extra heart sounds ABDOMEN: No hepatosplenomegaly, normal bowel sounds, no guarding or rigidity. SPINE: No scoliosis or deformity SKIN: No rashes CENTRAL NERVOUS SYSTEM: No focal deficits, tone is normal in all 4 extremities. EXTREMITIES: There is no peripheral edema. No clubbing, no cyanosis. Per ipheral pulses are intact. Results - Laboratory Findings CBC and BMP: 05/16/22 05:49 05/16/22 05:49 Abnormal lab findings: Abnormal Labs 05/16/22 05/16/22 05:49 05:49 RBC 3.68 L Hgb 10.5 L Hct 34.4 L MCHC 30.5 L RDW 17.6 H Immature Gran # 0.05 H Lymphocytes # 0.77 L Eosinophils # 0 L Carbon Dioxide 28.3 H Anion Gap 9.70 L BUN/Creatinine Ratio 33.86 H Glucose 140 H Cholesterol 228.00 H LDL Cholesterol, Calc 155.0 H - Diagnostic Findings Chest x-ray: image reviewed Assessment and Plan Assessment: Acute COPD exacerbation. Patient's respiratory status is close to baseline. She is on 2 L nasal cannula. Chest pain. The pain is reproducible and increases with deep inspiration. Hemoptysis. An isolated episode. Acute on chronic respiratory failure requiring 2 L nasal cannula at home. Chronic obstructive sleep apnea managed with CPAP at home Mild to moderate persistent asthma Atrial fibrillation with rapid ventricular response. Being managed by cardiology. patient is anticoagulated with Eliquis. Chronic kidney disease stage III hypertension Hyperlipidemia Coronary artery disease.The GERD without esophagitis Ex-smoker History of GI bleed and gastric ulcer Plan: patient's medications, labs, chest x-ray reviewed Continue supplemental oxygen to maintain oxygen saturation 92% or greater We'll order CT angiogram of chest to rule out pulmonary embolism. This is unlikely patient was anticoagulated prior to admission. We'll continue Ventolin nebulization, Symbicort inhaler, Atrovent nebulization, and Singulair. Anticoagulated on Eliquis We will continue to follow I have personally seen and examined the patient, performed the documentation and the assessment and plan as written. Number of minutes spent on the visit: 20. Time with Patient: Greater than 30
[2022-05-16] MEDS ORDERED: DOXYCYCLINE 100 MG CAP PO SCH (14:00)
--- NOTE | 2022-05-16 14:08 | CONS ---
CONSULTATION HISTORY OF PRESENT ILLNESS: This is a 77-year-old lady, transferred from [facility] with complaints of chest pain and hemoptysis. On questioning, this lady has not really had any clear-cut hemoptysis. She saw some streaky red color in her sputum. Her chest pain is in the left anterior chest and in the left shoulder, very sharp in nature, atypical. She has had a previous cardiac cath in [address] [place] [address] Pierce and apparently had no significant obstructive CAD. She was diagnosed with atrial fibrillation, which has been chronic, persistent, on Eliquis. She has a nonischemic cardiomyopathy, chronic atrial fibrillation, hypertension. She is at this time quite asymptomatic. Her chest x-ray is unremarkable. Hemoglobin appears to be fairly stable, and 2 sets of troponins are unremarkable. She is resting comfortably without symptoms. Pulmonary consultation is also on board. A CAT scan has also been ordered. She has no chest pain or shortness of breath. She is virtually asymptomatic at the time of my evaluation. She does have underlying hypertension, chronic atrial fibrillation, and nonischemic cardiomyopathy. PAST MEDICAL HISTORY: 1. Hypertension. 2. Nonischemic cardiomyopathy based on a cardiac cath in [address] [place] [address] Pierce. 3. Chronic atrial fib. 4. Atypical chest pain. 5. COPD and past history of smoking. LABORATORY DATA AND IMAGING: EKG revealed atrial fib with controlled rate, nonspecific ST and T changes. Troponin levels are normal. Hemoglobin is 10.5. MEDICATIONS AT HOME: 1. Apixaban 5 mg b.i.d. 2. Losartan 25 mg daily. 3. Singulair. 4. Metoprolol 25 mg b.i.d. 5. Amlodipine 2.5 mg daily. 6. Lasix 40 mg daily. 7. Folic acid. ALLERGIES: She is allergic to Cipro, gemfibrozil, and levofloxacin. PHYSICAL EXAMINATION: VITAL SIGNS: Blood pressure is 140/70; pulse rate is about 100 to 104, irregular. HEENT: Unremarkable. Fundus was not examined by me. NECK: Supple. No JVD. I do not hear a carotid bruit. There is no thyromegaly. HEART: Reveals S1, S2 with irregular rhythm. Short systolic murmur at left sternal border. LUNGS: Reveal diminished air entry. Overall, no significant rales or rhonchi. ABDOMEN: Soft, nontender. LOWER EXTREMITIES: Reveal palpable pulses. No edema. CENTRAL NERVOUS SYSTEM: Normal. IMPRESSION: 1. Chronic persistent atrial fibrillation. 2. Nonischemic cardiomyopathy. 3. Hypertension. 4. Atypical chest pain with questionable hemoptysis. RECOMMENDATIONS: From a cardiac standpoint, I am not recommending any specific intervention. We will monitor her hemoglobin. Resume Eliquis and check the CAT scan, which is being ordered by Dr. White. I discussed my thoughts in detail with the patient. We will continue to follow. Thank you very much for the consult. MMODL / IJN: [id number] /
[2022-05-16 14:21] VITALS: BP 133/91; PULSE 96; TEMP 98.2
[2022-05-16] MEDS ORDERED: METOPROLOL TARTRATE 50 MG TAB PO SCH (21:00)
--- NOTE | 2022-05-17 21:09 | P.DS ---
Providers Date of admission: 05/15/22 14:06 Expected date of discharge: 05/17/22 Attending physician: Peter Florez Consults: 05/15/22 14:06 Consult Physician Routine Consulting Provider: Devante White Consult Reason/Comments: hemoptysis, copd Do you want consulting provider notified?: Yes Consult Physician Urgent Consulting Provider: Rivas Leal Consult Reason/Comments: chest pain Do you want consulting provider notified?: Yes Primary care physician: Sanchez Kee Hospital Course: Final diagnosis Chest pain, ruled out ACS Episode of hemoptysis 1 Shortness of breath, possible COPD exacerbation Acute on chronic hypoxic respiratory failure, chronically wears 2 L outpatient secondary to COPD History of asthma/COPD Sleep apnea uses CPAP Chronic kidney disease stage III History of anxiety/depression Hyperlipidemia Hypertension GERD GI prophylaxis DVT prophylaxis Full code Discharge disposition Patient is being discharged in a stable condition with guarded prognosis to home. Patient will follow-up with Dr. Sanchez Kee in the outpatient setting upon discharge. Patient is to follow up with pulmonary as scheduled. Patient will be continued on oral doxycycline on discharge. Total time taken is greater than 35 minutes. Hospital course This is a 77-year-old female who was recently admitted with chest pain, cough, and shortness of breath with one episode of hemoptysis. Patient was seen and evaluated by pulmonary and underwent CTA which was negative for PE. Patient ok to continue eliquis. Patient was recently seen for pleurisy and will follow up with pulmonary outpatient. Currently no reports of chest pain, shortness of breath, or palpitations. Patient is afebrile. No reports of nausea or vomiting and patient is tolerating diet. Patient will be going to home today. Guarded prognosis. High risk for readmission due to complex comorbidities. Physical exam: Gen: This is a 77 year old female who is awake, alert and oriented x3. Well de veloped. Elderly female HEENT: Head is atraumatic, normocephalic. Pupils equal, round. Sclerae is anicteric. NECK: Supple. No JVD. No lymphadenopathy. No thyromegaly. LUNGS: Diminished breath sounds bilaterally with course rhonchi. No intercostal retractions. HEART: Regular rate and rhythm. No murmur. ABDOMEN: Soft. Bowel sounds are present. No masses. No tenderness. EXTREMITIES: No pedal edema. No calf tenderness. NEUROLOGICAL: Patient is awake, alert and oriented x3. Cranial nerves 2 through 12 are grossly intact. Please refer to medication reconciliation sheet for a list of medications. The impression and plan of care has been dictated by Radha Canales, Nurse Practitioner as directed. Dr. Gautam MD I have performed a history and examination and MDM of this patient, discussed the same with the dictator, and agree with the dictator's assessment and plan as written ,documented as a scribe. Based on total visit time, I have performed more than 50% of the visit. Patient Condition at Discharge: Fair Plan - Discharge Summary New Discharge Prescriptions: New Doxycycline [Vibramycin] 100 mg PO BID 7 Days #14 cap Continue Montelukast [Singulair] 10 mg PO DAILY Tiotropium 18 Mcg/Puff [Spiriva] 1 cap INHALATION RT-DAILY Apixaban [Eliquis] 5 mg PO BID #60 tab Pregabalin [Lyrica] 100 mg PO TID Budesonide-Formot 160-4.5 Mcg [Symbicort 160-4.5 Mcg Inhaler] 2 puff INHALATION RT-BID #1 each Acetaminophen Tab [Tylenol] 650 mg PO Q6HR PRN tab PRN Reason: Mild Pain Or Fever > 100.5 Albuterol Inhaler [Ventolin Hfa Inhaler] 2 puff INHALATION RT-Q6H PRN PRN Reason: Shortness Of Breath Furosemide [Lasix] 40 mg PO DAILY Nitroglycerin Sl Tabs [Nitrostat] 0.4 mg SUBLINGUAL Q5M PRN PRN Reason: Chest Pain Lidocaine 5% Patch [Lidoderm 5% Patch] 1 patch TOPICAL DAILY DULoxetine HCL [Cymbalta] 60 mg PO DAILY diazePAM [Valium] 5 mg PO BID PRN PRN Reason: Anxiety Folic Acid 1 mg PO DAILY Losartan Potassium [Cozaar] 25 mg PO DAILY Potassium Chloride ER [K-Dur 20] 20 meq PO DAILY Cholecalciferol [Vitamin D3 (25 Mcg = 1000 Iu)] 25 mcg PO DAILY Changed Metoprolol Tartrate [Lopressor] 50 mg PO BID 30 Days #120 tab Discontinued amLODIPine [Norvasc] 2.5 mg PO DAILY Discharge Medication List Montelukast [Singulair] 10 mg PO DAILY 09/03/15 [History] Tiotropium 18 Mcg/Puff [Spiriva] 1 cap INHALATION RT-DAILY 10/28/15 [History] Apixaban [Eliquis] 5 mg PO BID #60 tab 05/05/19 [Rx] DULoxetine HCL [Cymbalta] 60 mg PO DAILY 12/04/21 [History] Pregabalin [Lyrica] 100 mg PO TID 12/04/21 [History] diazePAM [Valium] 5 mg PO BID PRN 12/04/21 [History] Acetaminophen Tab [Tylenol] 650 mg PO Q6HR PRN tab 12/09/21 [Rx] Budesonide-Formot 160-4.5 Mcg [Symbicort 160-4.5 Mcg Inhaler] 2 puff INHALATION RT-BID #1 each 12/09/21 [Rx] Albuterol Inhaler [Ventolin Hfa Inhaler] 2 puff INHALATION RT-Q6H PRN 03/18/22 [History] Folic Acid 1 mg PO DAILY 03/18/22 [History] Furosemide [Lasix] 40 mg PO DAILY 03/18/22 [History] Losartan Potassium [Cozaar] 25 mg PO DAILY 03/18/22 [History] Cholecalciferol [Vitamin D3 (25 Mcg = 1000 Iu)] 25 mcg PO DAILY 05/15/22 [History] Lidocaine 5% Patch [Lidoderm 5% Patch] 1 patch TOPICAL DAILY 05/15/22 [History] Nitroglycerin Sl Tabs [Nitrostat] 0.4 mg SUBLINGUAL Q5M PRN 05/15/22 [History] Potassium Chloride ER [K-Dur 20] 20 meq PO DAILY 05/15/22 [History] Doxycycline [Vibramycin] 100 mg PO BID 7 Days #14 cap 05/16/22 [Rx] Metoprolol Tartrate [Lopressor] 50 mg PO BID 30 Days #120 tab 05/16/22 [Rx] Follow up Appointment(s)/Referral(s): Sabrina Kemp NPC [Nurse Practitioner] - 06/07/22 1:45 pm Sanchez Kee MD [Primary Care Provider] - 1-2 days Patient Instructions/Handouts: Chest Pain (DC) Activity/Diet/Wound Care/Special Instructions: Activity Limited until follow-up Follow-up with primary care provider on discharge Follow-up with pulmonary outpatient Follow-up with cardiology outpatient Continue taking medications as prescribed Continue with antibiotics until finished Continue using incentive spirometer at least 5-10 times every hour while awake Discharge Disposition: HOME SELF-CARE
== END 2022-05-16 15:19 | disposition home or self-care (01) ==
LOC: EC 12:50 → 6NMEDSUR 14:06
PROVIDERS: ADMIT Internal Medicine; ATTEND Internal Medicine
DX: R07.89 Other chest pain (principal); J96.21 Acute and chronic respiratory failure with hypoxia; J44.1 Chronic obstructive pulmonary disease with (acute) exacerbation; J45.40 Moderate persistent asthma, uncomplicated; R04.2 Hemoptysis; I12.9 Hypertensive chronic kidney disease with stage 1 through stage 4 chronic kidney disease, or unspecified chronic kidney disease; I48.19 Other persistent atrial fibrillation; N18.30 Chronic kidney disease, stage 3 unspecified; E11.22 Type 2 diabetes mellitus with diabetic chronic kidney disease; D50.9 Iron deficiency anemia, unspecified; E87.6 Hypokalemia; I42.8 Other cardiomyopathies; G47.33 Obstructive sleep apnea (adult) (pediatric); E78.5 Hyperlipidemia, unspecified; K57.90 Diverticulosis of intestine, part unspecified, without perforation or abscess without bleeding; K21.9 Gastro-esophageal reflux disease without esophagitis; M81.0 Age-related osteoporosis without current pathological fracture; F32.A Depression, unspecified; F41.9 Anxiety disorder, unspecified; Z99.81 Dependence on supplemental oxygen; Z87.891 Personal history of nicotine dependence; Z79.51 Long term (current) use of inhaled steroids; Z79.01 Long term (current) use of anticoagulants; Z79.899 Other long term (current) drug therapy; Z88.1 Allergy status to other antibiotic agents; Z88.8 Allergy status to other drugs, medicaments and biological substances; Z91.048 Other nonmedicinal substance allergy status; Z90.49 Acquired absence of other specified parts of digestive tract; Z90.710 Acquired absence of both cervix and uterus; Z87.11 Personal history of peptic ulcer disease; Z87.19 Personal history of other diseases of the digestive system; Z87.01 Personal history of pneumonia (recurrent); Z98.890 Other specified postprocedural states; Z85.828 Personal history of other malignant neoplasm of skin; Z82.49 Family history of ischemic heart disease and other diseases of the circulatory system; Z83.49 Family history of other endocrine, nutritional and metabolic diseases; Z84.1 Family history of disorders of kidney and ureter
CPT/HCPCS: 99285; 94640 ×3; 93005; 80061; 80048; 84484; 85025; 71045; 71275; G0378 ×2; Q9967

== ENCOUNTER 2022-07-15 17:44 | Inpatient (IN) | payer BC, MEDICARE ==
--- NOTE | 2022-07-15 18:04 | ED ---
SOB HPI - General Chief Complaint: Shortness of Breath Stated Complaint: afib Time Seen by Provider: 07/15/22 17:44 Source: patient, RN/MD, EMS, RN notes reviewed Mode of arrival: EMS Limitations: no limitations - History of Present Illness Initial Comments: 77-year-old female history of atrial fibrillation history of hyperlipidemia hypertension and borderline diabetes who started developing shortness of breath last evening she presented to [facility] this morning with complaints of shortness of breath cough exertional dyspnea. She was found to be in atrial fibrillation with a rapid ventricular response rate also congestive heart failure and bilateral pleural effusions. She is also hypokalemic. She was treated at that facility and transferred here for higher level of care. She did arrive by EMS. She states she is feeling somewhat improved from her initial presentation at the other facility. She denies any fevers chills or sweats. She was given IV Cardizem as well as oral potassium supplementation. She is on anticoagulation therapy. No other current complaints modifying factors she states she still gets short of breath with any Movement however. MD Complaint: shortness of breath, cough - Related Data Home Medications Medication Instructions Recorded Confirmed Montelukast [Singulair] 10 mg PO DAILY 09/03/15 06/16/22 Tiotropium 18 Mcg/Puff [Spiriva] 1 cap INHALATION RT-DAILY 10/28/15 06/16/22 DULoxetine HCL [Cymbalta] 60 mg PO DAILY 12/04/21 06/16/22 diazePAM [Valium] 5 mg PO BID PRN 12/04/21 06/16/22 Albuterol Inhaler [Ventolin Hfa 2 puff INHALATION RT-Q6H PRN 03/18/22 06/16/22 Inhaler] Folic Acid 1 mg PO DAILY 03/18/22 06/16/22 Furosemide [Lasix] 40 mg PO DAILY 03/18/22 06/16/22 Losartan Potassium [Cozaar] 25 mg PO DAILY 03/18/22 06/16/22 Cholecalciferol [Vitamin D3 (25 25 mcg PO DAILY 05/15/22 06/16/22 Mcg = 1000 Iu)] Lidocaine 5% Patch [Lidoderm 5% 1 patch TOPICAL DAILY PRN 05/15/22 06/16/22 Patch] Nitroglycerin Sl Tabs [Nitrostat] 0.4 mg SUBLINGUAL Q5M PRN 05/15/22 06/16/22 Gabapentin [Neurontin] 100 mg PO BID 06/14/22 06/16/22 Magnesium 500 mg PO DAILY 06/14/22 06/16/22 Metoprolol Tartrate [Lopressor] 25 mg PO 1200 06/14/22 06/16/22 Previous Rx's Medication Instructions Recorded Apixaban [Eliquis] 5 mg PO BID #60 tab 05/05/19 Acetaminophen Tab [Tylenol] 650 mg PO Q6HR PRN tab 12/09/21 Budesonide-Formot 160-4.5 Mcg 2 puff INHALATION RT-BID #1 each 12/09/21 [Symbicort 160-4.5 Mcg Inhaler] Metoprolol Tartrate [Lopressor] 50 mg PO BID 30 Days #120 tab 05/16/22 Allergies Allergy/AdvReac Type Severity Reaction Status Date / Time ciprofloxacin [From Cipro] Allergy Unknown Verified 07/15/22 17:58 gemfibrozil [From Lopid] Allergy tendon Verified 07/15/22 17:58 damage levofloxacin [From Levaquin] Allergy tendon Verified 07/15/22 17:58 damage dust mites Allergy Wheezing Uncoded 07/15/22 17:58 Review of Systems ROS Statement: Those systems with pertinent positive or pertinent negative responses have been documented in the HPI. ROS Other: All systems not noted in ROS Statement are negative. Past Medical History Past Medical History: Asthma, Coronary Artery Disease (CAD), Cancer, COPD, GERD/Reflux, GI Bleed, Hyperlipidemia, Hypertension, Pneumonia, Renal Disease, Sleep Apnea/CPAP/BIPAP Additional Past Medical History / Comment(s): Bronchitis, upper GI bleed, gastric ulcer, diverticulitis, iron anemia-has had infusions, CKD stage III, chronic hypokalemia, can't use Cpap,uses O2@3L NC ATC, osteoporosis, R upper arm crush injury-pain and limited ROM, L shoulder pain, allergic rhininis, skin cancer basal/squamous removals. 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 Past Anesthesia/Blood Transfusion Reactions: No Reported Reaction Additional Past Anesthesia/Blood Transfusion Reaction / Comment(s): Pt has r eceived blood in past without reaction. Past Psychological History: Anxiety, Depression Smoking Status: Former smoker Past Alcohol Use History: None Reported Past Drug Use History: None Reported - Past Family History Father Family Medical History: Coronary Artery Disease (CAD), Myocardial Infarction (MS) Additional Family Medical History / Comment(s): Father of a MS at the age of 41 yrs. Mother Family Medical History: Renal Disease Sister(s) Family Medical History: Renal Disease Additional Family Medical History / Comment(s): 2 sisters with renal disease and both are . Brother(s) Family Medical History: Congestive Heart Failure (CHF) Additional Family Medical History / Comment(s): Brother had a cardiac arrest and at the age of 49yrs. Son(s) Family Medical History: Coronary Artery Disease (CAD), Hyperlipidemia, Hyper tension, Myocardial Infarction (MS) Additional Family Medical History / Comment(s): Son had his first MS at the age of 34yrs. He has had a total of 3 MIs. General Exam - General Exam Comments Initial Comments: This is a well-developed well-nourished awake alert oriented 4 female Limitations: no limitations General appearance: alert, anxious Head exam: Present: atraumatic, normocephalic, normal inspection Eye exam: Present: normal appearance, PERRL, EOMI. Absent: scleral icterus, conjunctival injection, periorbital swelling ENT exam: Present: normal exam, mucous membranes moist Neck exam: Present: normal inspection, full ROM, other Respiratory exam: Present: rales, decreased breath sounds (Stridor JVD or bruits) Cardiovascular Exam: Present: irregular rhythm GI/Abdominal exam: Present: soft, normal bowel sounds. Absent: distended, tenderness, guarding, rebound, rigid Extremities exam: Present: full ROM, normal capillary refill, pedal edema. Absent: tenderness, joint swelling, calf tenderness Back exam: Present: normal inspection Neurological exam: Present: alert, oriented X3, CN II-XII intact Psychiatric exam: Present: normal affect, normal mood Skin exam: Present: warm, dry, intact, normal color. Absent: rash Course Vital Signs 07/15/22 07/15/22 17:58 18:02 Temperature 98.9 F Pulse Rate 100 Pulse Rate [ 102 H Pump Operator ] Respiratory 18 Rate Blood Pressure 141/106 O2 Sat by Pulse 95 Oximetry - Reevaluation(s) Reevaluation #1: 07/15/22 18:20 I did review all the material sent from [facility] including imaging Medical Decision Making - Medical Decision Making Discuss findings with the patient also with Dr. biggs patient will be admitted inpatient evaluation treatment of A. fib RVR with CHF and bilateral pleural effusions hypokalemiaWas pt. sent in by a medical professional or institution (, PA, [employer], urgent care, hospital, or long term...) When possible be specific @ -The physician at [facility] Did you speak to anyone other than the patient for history (EMS, parent, family, police, friend...)? What history was obtained from this source @ -ER doctor at [facility] as well as EMS crew Did you review nursing and triage notes (agree or disagree)? Why? @ -I reviewed and agree with nursing and triage notes Were old charts reviewed (outside hosp., previous admission, EMS record, old EKG, old radiological studies, urgent care reports/EKG's, long term records)? Report findings @ -No old charts were reviewed Differential Diagnosis (chest pain, altered mental status, abdominal pain women, abdominal pain men, vaginal bleeding, weakness, fever, dyspnea, syncope, headache, dizziness, GI bleed, back pain, seizure, CVA, palpatations, mental health, musculoskeletal)? @ -A. fib RVR, CHF EKG interpreted by me (3pts min.). @ -As above X-rays interpreted by me (1pt min.). @ -Repeat None done CT interpreted by me (1pt min.). @ -Not done U/S interpreted by me (1pt. min.). @ -None done What testing was considered but not performed or refused? (CT, X-rays, U/S, labs)? Why? @ -None What meds were considered but not given or refused? Why? @ -None Did you discuss the management of the patient with other professionals (professionals i.e. , PA, [employer], lab, RT, psych nurse, social organization professor, pineapple plantation manager, teacher, admissions officer, case supervisor)? Give summary @ -DrElieser sheet Was smoking cessation discussed for >3mins.? @ -No Was critical care preformed (if so, how long)? @ -No Were there social determinants of health that impacted care today? How? (Homelessness, low income, unemployed, alcoholism, drug addiction, transportation, low edu. Level, literacy, decrease access to med. care, alf, rehab)? @ -No Was there de-escalation of care discussed even if they declined (Discuss DNR or withdrawal of care, Hospice)? DNR status @ -No What co-morbidities impacted this encounter? (DM, HTN, Smoking, COPD, CAD, Cancer, CVA, ARF, Chemo, Hep., AIDS, mental health diagnosis, sleep apnea, morbid obesity)? @ -Atrial fibrillation hypertension hyperlipidemia COPD borderline diabetes Was patient admitted / discharged? Hospital course, mention meds given and route, prescriptions, significant lab abnormalities, going to OR and other pertinent info. @ -hospital course : The patient was admitted for inpatient evaluation treatmen t of atrial fibrillation CHF hypokalemia. Cardiology will be consulted pulmonary medicine considered Undiagnosed new problem with uncertain prognosis? @ -No Drug Therapy requiring intensive monitoring for toxicity (Heparin, Nitro, Insulin, Cardizem)? @ -No Were any procedures done? @ -No Diagnosis/symptom? @ -Rapid atrial fibrillation, congestive heart failure, hypokalemia, dyspnea on exertion Acute, or Chronic, or Acute on Chronic? @ -Acute on chronic Uncomplicated (without systemic symptoms) or Complicated (systemic symptoms)? @ -default Side effects of treatment? @ -No Exacerbation, Progression, or Severe Exacerbation? @ -Exacerbati potential of nontreated A. fib RVR with CHF Poses a threat to life or bodily function? How? (Chest pain, USA, MS, pneumonia, PE, COPD, DKA, ARF, appy, cholecystitis, CVA, Diverticulitis, Homicidal, Suicidal, threat to staff... and all critical care pts) @ -No - EKG Data -: EKG Interpreted by Me 07/15/22 18:06 A. fib with a ventricular rate is 94 QRS 70 QT since QTC 379/[address] configuration this is compared with EKG done earlier today except for an improved rate. Disposition Clinical Impression: Congestive heart failure, Rapid atrial fibrillation, Hypokalemia, Acute respiratory distress syndrome in adult, Pleural effusion Disposition: ADMITTED IP TO THIS HOSP Condition: Fair Referrals: None,Stated [Primary Care Provider] - 1-2 days Decision Date: 07/15/22 Decision Time: 18:24
[2022-07-15] MEDS ORDERED: NITROGLYCERIN SL TABS 0.4 MG TAB SUBLINGUAL PRN (18:26)
[2022-07-15] MEDS: FUROSEMIDE 10 MG/ML 4 ML VIAL IV SCH (19:10)
[2022-07-15] MEDS: METOPROLOL TARTRATE 50 MG TAB PO SCH (21:45)
[2022-07-15] MEDS: GABAPENTIN 100 MG CAP PO SCH (21:45)
[2022-07-15] MEDS: APIXABAN 5 MG TAB PO SCH (21:45)
[2022-07-15] MEDS: diazePAM 5 MG TAB PO PRN (21:49)
[2022-07-16] MEDS ORDERED: ACETAMINOPHEN TAB 325 MG TAB PO PRN (00:08)
--- NOTE | 2022-07-16 00:08 | P.HPIM ---
History of Present Illness H&P Date: 07/15/22 The patient is a 77-year-old female with a PMH of chronic systolic CHF with EF 30-35%, COPD (chronic hypoxic and was treated failure on 3-4 L nasal cannula oxygen continuously at home), A. fib on Eliquis, hypertension, hyperlipidemia, DM who initially presented to [facility] with complaints of shortness of breath. The patient reports that she had developed gradually worsening shortness of breath over the past 1-2 days. She denied orthopnea or PND. She denied experiencing chest discomfort. Reports nausea with vomiting, although states that this has been a chronic issue over the past several months. Patient also reports that she has been getting progressively weaker and is now having difficulty performing her ADLs. Denies lower extremity swelling or pain. Denies fever or chills. Review of systems: Pertinent positives and negatives as discussed in HPI, a complete review of systems was performed and all other systems are negative. Physical examination: Vital signs reviewed General: Somewhat chronically ill-appearing female, no distress, appears at stated age, normal weight Derm: Bruising overlying bilateral upper and lower extremities with thin skin, warm Head: atraumatic, normocephalic, symmetric Eyes: EOMI, no lid lag, anicteric sclera, pupils equal round reactive to light ENT: Nose and ears atraumatic Neck: No cervical lymphadenopathy, trachea midline, supple Mouth: no lip lesion, mucus membranes moist Cardiovascular: Irregularly irregular, no murmur, positive dorsalis pedis pulse bilateral, no edema Lungs: Somewhat poor air entry bilaterally with scattered coarse breath sounds, no accessory muscle use Abdominal: soft, nontender to palpation, no guarding Ext: muscle strength 3 out of 5 in all 4 extremities grossly, no gross muscle atrophy, no contractures, Neuro: CN II-XI grossly intact, no gross focal neuro deficits Psych: Alert, oriented, appropriate affect Assessment: Acute systolic CHF exacerbation A. fib with RVR Hypokalemia Chronic conditions: COPD, hypertension, hyperlipidemia Imaging: EKG at [facility] had revealed A. fib with RVR at 115 bpm as reviewed by me with diffuse T-wave inversions and depressions. Chest x-ray revealed cardiomegaly with pulmonary edema as well as bilateral pleural effusions. Data Review: Laboratory evaluation was reviewed with WBC count 10.5, hemoglobin 13.1, platelets 373, troponin I 0.02, BNP 1550, with influenza, RSV, and jensen virus PCR negative. The patient's potassium was 3.2, sodium 139, CO2 34, AST 22, ALT 13, alk phos 55. Plan: Continue with Lasix 40 mg IV every 12 hourly Continue Cardizem infusion at 5 mg per hour Cardiac monitoring Cardiology consulted Monitor electrolytes daily while receiving IV Lasix Daily weight, intake and output PT consult Echocardiogram DVT prophylaxis: Aileenqusarah The patient is admitted with an anticipated greater than 2 midnight stay for evaluation of CHF CODE STATUS: Full Code Discussed with: Patient Anticipated discharge place: Home Past Medical History Past Medical History: Asthma, Coronary Artery Disease (CAD), Cancer, COPD, GERD/Reflux, GI Bleed, Hyperlipidemia, Hypertension, Pneumonia, Renal Disease, Sleep Apnea/CPAP/BIPAP Additional Past Medical History / Comment(s): Bronchitis, upper GI bleed, gastric ulcer, diverticulitis, iron anemia-has had infusions, CKD stage III, chronic hypokalemia, can't use Cpap,uses O2@3L NC ATC, osteoporosis, R upper arm crush injury-pain and limited ROM, L shoulder pain, allergic rhininis, skin cancer basal/squamous removals. 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 Past Anesthesia/Blood Transfusion Reactions: No Reported Reaction Additional Past Anesthesia/Blood Transfusion Reaction / Comment(s): Pt has received blood in past without reaction. Past Psychological History: Anxiety, Depression Smoking Status: Former smoker Past Alcohol Use History: None Reported Past Drug Use History: None Reported - Past Family History Father Family Medical History: Coronary Artery Disease (CAD), Myocardial Infarction (HI) Additional Family Medical History / Comment(s): Father of a HI at the age of 41 yrs. Mother Family Medical History: Renal Disease Sister(s) Family Medical History: Renal Disease Additional Family Medical History / Comment(s): 2 sisters with renal disease and both are . Brother(s) Family Medical History: Congestive Heart Failure (CHF) Additional Family Medical History / Comment(s): Brother had a cardiac arrest and at the age of 49yrs. Son(s) Family Medical History: Coronary Artery Disease (CAD), Hyperlipidemia, Hypertension, Myocardial Infarction (HI) Additional Family Medical History / Comment(s): Son had his first HI at the age of 34yrs. He has had a total of 3 MIs. Medications and Allergies Home Medications Medication Instructions Recorded Confirmed Type Montelukast [Singulair] 10 mg PO DAILY 09/03/15 07/15/22 History Tiotropium 18 Mcg/Puff [Spiriva] 1 cap INHALATION RT-DAILY 10/28/15 07/15/22 History Apixaban [Eliquis] 5 mg PO BID #60 tab 05/05/19 07/15/22 Rx DULoxetine HCL [Cymbalta] 60 mg PO DAILY 12/04/21 07/15/22 History diazePAM [Valium] 5 mg PO DAILY PRN 12/04/21 07/15/22 History Acetaminophen Tab [Tylenol] 650 mg PO Q6HR PRN tab 12/09/21 07/15/22 Rx Budesonide-Formot 160-4.5 Mcg 2 puff INHALATION RT-BID #1 each 12/09/21 07/15/22 Rx [Symbicort 160-4.5 Mcg Inhaler] Albuterol Inhaler [Ventolin Hfa 2 puff INHALATION RT-Q6H PRN 03/18/22 07/15/22 History Inhaler] Folic Acid 1 mg PO DAILY 03/18/22 07/15/22 History Furosemide [Lasix] 40 mg PO DAILY 03/18/22 07/15/22 History Losartan Potassium [Cozaar] 25 mg PO DAILY 03/18/22 07/15/22 History Cholecalciferol [Vitamin D3 (25 25 mcg PO DAILY 05/15/22 07/15/22 History Mcg = 1000 Iu)] Lidocaine 5% Patch [Lidoderm 5% 1 patch TOPICAL DAILY PRN 05/15/22 07/15/22 History Patch] Nitroglycerin Sl Tabs [Nitrostat] 0.4 mg SUBLINGUAL Q5M PRN 05/15/22 07/15/22 History Gabapentin [Neurontin] 100 mg PO TID 06/14/22 07/15/22 History Magnesium 500 mg PO DAILY 06/14/22 07/15/22 History Metoprolol Tartrate [Lopressor] 50 mg PO BID 07/15/22 07/15/22 History diazePAM [Valium] 5 mg PO HS 07/15/22 07/15/22 History metFORMIN HCL ER [Glucophage XR] 500 mg PO DAILY 07/15/22 07/15/22 History Allergies Allergy/AdvReac Type Severity Reaction Status Date / Time ciprofloxacin [From Cipro] Allergy Unknown Verified 07/15/22 18:26 gemfibrozil [From Lopid] Allergy tendon Verified 07/15/22 18:26 damage levofloxacin [From Levaquin] Allergy tendon Verified 07/15/22 18:26 damage dust mites Allergy Wheezing Uncoded 07/15/22 17:58 Physical Exam Vitals: Vital Signs Temp Pulse Pulse Resp BP Pulse Ox 07/15/22 19:09 92 18 135/52 97 07/15/22 18:02 102 H 07/15/22 17:58 98.9 F 100 18 141/106 95 Intake and Output 07/15/22 07/15/22 07/15/22 06:59 14:59 22:59 Other: Weight 63.503 kg
[2022-07-16] MEDS ORDERED: DILTIAZEM 125 MG in SODIUM CHLORIDE 0.9% 100 ML IV SCH (00:15)
[2022-07-16] MEDS: FUROSEMIDE 10 MG/ML 4 ML VIAL IV SCH ×2 (06:02→18:11)
[2022-07-16] MEDS: SYMBICORT 160-4.5 MCG INHALER INHALATION SCH ×2 (08:31→20:25)
[2022-07-16] MEDS: TIOTROPIUM 2.5 MCG INHALER INHALATION SCH (08:31)
[2022-07-16] MEDS ORDERED: FUROSEMIDE 40 MG TAB PO SCH (09:00)
[2022-07-16] MEDS: GABAPENTIN 100 MG CAP PO SCH ×2 (09:46→21:42)
[2022-07-16] MEDS: METOPROLOL TARTRATE 50 MG TAB PO SCH ×3 (09:46→21:42)
[2022-07-16] MEDS: LOSARTAN 25 MG TAB PO SCH (09:46)
[2022-07-16] MEDS: APIXABAN 5 MG TAB PO SCH ×2 (09:46→21:42)
[2022-07-16] MEDS: CHOLECALCIFEROL 25 MCG (1000 IU) TABLET PO SCH (09:46)
[2022-07-16] MEDS: FOLIC ACID 1 MG TAB PO SCH (09:46)
[2022-07-16] MEDS: MONTELUKAST 10 MG TAB PO SCH (09:46)
[2022-07-16] MEDS: DULoxetine HCL 60 MG CAPSULE.DR PO SCH (09:47)
[2022-07-16] MEDS: MAGNESIUM OXIDE 400 MG TAB PO SCH (09:47)
--- NOTE | 2022-07-16 11:45 | P.CRDCN ---
History of Present Illness Consult date: 07/16/22 History of present illness: History of Present Illness: The patient is a 77-year-old female with a known history of COPD, nonischemic cardiomyopathy, atrial fibrillation status post cardioversion in June of this year but back in atrial fibrillation with follow-up with Dr. Singh who presented to [facility] was progressive dyspnea, fatigue and wheezing. The patient follows with Dr. Arguelles regard to her lung status. She has a prior history of smoking. She denies any chest discomfort, or palpitations. She does not feel that atrial fibrillation. She has peripheral edema but no PND. She denies any syncope. In [facility] she was noted to have a BNP of 1550 her troponin was normal. She was in atrial fibrillation. She had episode of rapid ventricle response. Her last echocardiogram available showed an ejection fraction of 30-35% with mild mitral regurgitation from April 2019. She has a history of diabetes, hypertension and a prior history of smoking Medications: Metoprolol 50 mg twice a day, metformin, Singulair 10 mg daily, l osartan 25 mg daily, Lasix 40 mg daily, Cymbalta, Symbicort, Eliquis 5 mg twice a day Review of Systems: Respiratory: She has a history of chronic dyspnea and chronic obstructive lung disease GI: She had nausea yesterday. No history of peptic ulcer disease. No recent GI bleed. : No hematuria or dysuria. Nervous System: No stroke or seizure. Physical Examination: 77-year-old female, alert dyspneic ,Blood pressure ranging between 1:30 and 160, Heart rate 80-100 Head: Normocephalic. Eyes: Sclerae nonicteric. Neck: Good carotid upstroke, no bruit, no jugular venous distention. Lungs: Decreased breath sounds bilaterally with scattered wheezes Heart: Irregular rate and rhythm, S1-S2, no S3, no rub. Systolic ejection murmur. Abdomen: Soft nontender, positive bowel sounds no organomegaly. Extremities: +1 edema, chronic discoloration, intact distal pulses. Labs: Troponin 0.017, potassium 3.2, creatinine 0.9, BUN 17. EKG: Atrial fibrillation, rate of 94, nonspecific ST-T wave changes Impression: 1. Progressive dyspnea with a combination of exacerbation of COPD and CHF with reduced ejection fraction 2. Chronic permanent atrial fibrillation, anticoagulated 3. History of hypertension 4. History of diabetes 5. Nonischemic cardiomyopathy 6. History of COPD and prior history of smoking Plan: 1. Stop IV Cardizem 2. Continue IV diuretics 3. Obtain an echocardiogram with Doppler 4. Pulmonary consultation 5. Follow her renal functions 6. Add Farxiga 7. Depending on her progress further recommendations will be made Past Medical History Past Medical History: Asthma, Coronary Artery Disease (CAD), Cancer, COPD, GERD/Reflux, GI Bleed, Hyperlipidemia, Hypertension, Pneumonia, Renal Disease, Sleep Apnea/CPAP/BIPAP Additional Past Medical History / Comment(s): Bronchitis, upper GI bleed, gastric ulcer, diverticulitis, iron anemia-has had infusions, CKD stage III, chronic hypokalemia, can't use Cpap,uses O2@3L [place] ATC, osteoporosis, R upper arm crush injury-pain and limited ROM, L shoulder pain, allergic rhininis, skin cancer basal/squamous removals. 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 Past Anesthesia/Blood Transfusion Reactions: No Reported Reaction Additional Past Anesthesia/Blood Transfusion Reaction / Comment(s): Pt has received blood in past without reaction. Past Psychological History: Anxiety, Depression Smoking Status: Former smoker Past Alcohol Use History: None Reported Past Drug Use History: None Reported - Past Family History Father Family Medical History: Coronary Artery Disease (CAD), Myocardial Infarction (MS) Additional Family Medical History / Comment(s): Father of a MS at the age of 41 yrs. Mother Family Medical History: Renal Disease Sister(s) Family Medical History: Renal Disease Additional Family Medical History / Comment(s): 2 sisters with renal disease and both are . Brother(s) Family Medical History: Congestive Heart Failure (CHF) Additional Family Medical History / Comment(s): Brother had a cardiac arrest and at the age of 49yrs. Son(s) Family Medical History: Coronary Artery Disease (CAD), Hyperlipidemia, Hypertension, Myocardial Infarction (MS) Additional Family Medical History / Comment(s): Son had his first MS at the age of 34yrs. He has had a total of 3 MIs. Medications and Allergies Home Medications Medication Instructions Recorded Confirmed Type Montelukast [Singulair] 10 mg PO DAILY 09/03/15 07/15/22 History Tiotropium 18 Mcg/Puff [Spiriva] 1 cap INHALATION RT-DAILY 10/28/15 07/15/22 History Apixaban [Eliquis] 5 mg PO BID #60 tab 05/05/19 07/15/22 Rx DULoxetine HCL [Cymbalta] 60 mg PO DAILY 12/04/21 07/15/22 History diazePAM [Valium] 5 mg PO DAILY PRN 12/04/21 07/15/22 History Acetaminophen Tab [Tylenol] 650 mg PO Q6HR PRN tab 12/09/21 07/15/22 Rx Budesonide-Formot 160-4.5 Mcg 2 puff INHALATION RT-BID #1 each 12/09/21 07/15/22 Rx [Symbicort 160-4.5 Mcg Inhaler] Albuterol Inhaler [Ventolin Hfa 2 puff INHALATION RT-Q6H PRN 03/18/22 07/15/22 History Inhaler] Folic Acid 1 mg PO DAILY 03/18/22 07/15/22 History Furosemide [Lasix] 40 mg PO DAILY 03/18/22 07/15/22 History Losartan Potassium [Cozaar] 25 mg PO DAILY 03/18/22 07/15/22 History Cholecalciferol [Vitamin D3 (25 25 mcg PO DAILY 05/15/22 07/15/22 History Mcg = 1000 Iu)] Lidocaine 5% Patch [Lidoderm 5% 1 patch TOPICAL DAILY PRN 05/15/22 07/15/22 History Patch] Nitroglycerin Sl Tabs [Nitrostat] 0.4 mg SUBLINGUAL Q5M PRN 05/15/22 07/15/22 History Gabapentin [Neurontin] 100 mg PO TID 06/14/22 07/15/22 History Magnesium 500 mg PO DAILY 06/14/22 07/15/22 History Metoprolol Tartrate [Lopressor] 50 mg PO BID 07/15/22 07/15/22 History diazePAM [Valium] 5 mg PO HS 07/15/22 07/15/22 History metFORMIN HCL ER [Glucophage XR] 500 mg PO DAILY 07/15/22 07/15/22 History Allergies Allergy/AdvReac Type Severity Reaction Status Date / Time ciprofloxacin [From Cipro] Allergy Unknown Verified 07/15/22 18:26 gemfibrozil [From Lopid] Allergy tendon Verified 07/15/22 18:26 damage levofloxacin [From Levaquin] Allergy tendon Verified 07/15/22 18:26 damage dust mites Allergy Wheezing Uncoded 07/15/22 17:58 Physical Exam Vitals: Vital Signs Temp Pulse Pulse Resp BP BP Pulse Ox 07/16/22 08:35 2 L 07/16/22 04:00 88 18 133/79 94 L 07/16/22 01:56 83 18 07/15/22 23:37 83 18 132/71 96 07/15/22 20:30 98.2 F 102 H 22 161/109 96 07/15/22 20:25 98.2 F 102 H 22 161/109 96 07/15/22 19:09 92 18 135/52 97 07/15/22 18:02 102 H 07/15/22 17:58 98.9 F 100 18 141/106 95 Intake and Output 07/15/22 07/16/22 07/16/22 21:59 06:59 14:59 Intake Total 240 Output Total 425 Balance -185 Intake: Oral 240 Output: Urine 425 Other: Voiding Method # Voids Weight Results Cardiac Enzymes 07/15/22 07/15/22 Range/Units 19:33 22:00 Troponin I 0.017 0.017 (0.000-0.034) ng/mL Current Medications Generic Name Dose Route Start Last Admin Trade Name Freq PRN Reason Stop Dose Admin Acetaminophen 650 mg 07/16/22 00:08 07/16/22 09:47 Acetaminophen Tab 325 Mg Tab PO 650 mg Q6HR PRN Administration Fever and/ or Pain Apixaban 5 mg 07/15/22 21:00 07/16/22 09:46 Apixaban 5 Mg Tab PO 5 mg BID YANG Administration Protocol Budesonide/Formoterol Fumarate 2 puff 07/16/22 08:00 07/16/22 08:31 Symbicort 160-4.5 Mcg Inhaler INHALATION 2 puff RT-BID YANG Administration Cholecalciferol 25 mcg 07/16/22 09:00 07/16/22 09:46 Cholecalciferol 25 Mcg (1000 Iu) Tablet PO 25 mcg DAILY YANG Administration Diazepam 5 mg 07/15/22 18:26 07/15/22 21:49 Diazepam 5 Mg Tab PO 5 mg BID PRN Administration Anxiety Duloxetine HCl 60 mg 07/16/22 09:00 07/16/22 09:47 Duloxetine Hcl 60 Mg Capsule.Dr PO 60 mg DAILY YANG Administration Folic Acid 1 mg 07/16/22 09:00 07/16/22 09:46 Folic Acid 1 Mg Tab PO 1 mg DAILY YANG Administration Furosemide 40 mg 07/15/22 19:00 07/16/22 06:02 Furosemide 10 Mg/Ml 4 Ml Vial IV 40 mg Q12H YANG Administration Gabapentin 100 mg 07/15/22 21:00 07/16/22 09:46 Gabapentin 100 Mg Cap PO 100 mg BID YANG Administration Diltiazem HCl 125 mg/ Sodium 125 mls @ 5 mls/hr 07/16/22 00:15 07/16/22 06:03 Chloride IV 5 mg/hr .Q24H YANG 5 mls/hr Administration 5 MG/HR Losartan Potassium 25 mg 07/16/22 09:00 07/16/22 09:46 Losartan 25 Mg Tab PO 25 mg DAILY YANG Administration Magnesium Oxide 400 mg 07/16/22 09:00 07/16/22 09:47 Magnesium Oxide 400 Mg Tab PO 400 mg DAILY YANG Administration Metoprolol Tartrate 50 mg 07/15/22 21:00 07/16/22 09:46 Metoprolol Tartrate 50 Mg Tab PO 50 mg BID YANG Administration Metoprolol Tartrate 25 mg 07/16/22 12:00 Metoprolol Tartrate 25 Mg Tab PO 1200 YANG Montelukast Sodium 10 mg 07/16/22 09:00 07/16/22 09:46 Montelukast 10 Mg Tab PO 10 mg DAILY YANG Administration Nitroglycerin 0.4 mg 07/15/22 18:26 Nitroglycerin Sl Tabs 0.4 Mg Tab SUBLINGUAL Q5M PRN Chest Pain Tiotropium [place] 2 puff 07/16/22 08:00 07/16/22 08:31 Tiotropium 2.5 Mcg Inhaler INHALATION 2 puff RT-DAILY YANG Administration Intake and Output 07/15/22 07/16/22 07/16/22 21:59 06:59 14:59 Intake Total 240 Output Total 425 Balance -185 Intake: Oral 240 Output: Urine 425 Other: Voiding Method # Voids Weight
--- NOTE | 2022-07-16 11:45 | P.PN ---
Subjective Progress Note Date: 07/16/22 No new complains today. Patient is getting diuresed for heart failure exacerbation. Gen: awake, alert HEENT: normocephalic, atraumatic, good hearing acuity, moist mucous membranes Resp: good air exchange, breathing comfortably with no accessory muscle use CVS: good distal perfusion x 4, GI: soft, NTTP, ND : no SPT, no CVAT, muhammad catheter not present MSK: no pitting edema, no clubbing Neuro: non-focal, moving all extremities Psych: cooperative, euthymic mood Hospital course: The patient is a 77-year-old female with a PMH of chronic systolic CHF with EF 30-35%, COPD (chronic hypoxic and was treated failure on 3-4 L nasal cannula oxygen continuously at home), A. fib on Eliquis, hypertension, hyperlipidemia, DM who initially presented to [facility] with complaints of shortness of breath. in the emergency room, patient was afebrile, 141/106, heart rate 100, 95% on 3 L of nasal cannula. Laboratory evaluation was reviewed with WBC count 10.5, hemoglobin 13.1, platelets 373, troponin I 0.02, BNP 1550, with influenza, RSV, and jensen virus PCR negative. The patient's potassium was 3.2, sodium 139, CO2 34, AST 22, ALT 13, alk phos 55. EKG at [facility] had revealed A. fib with RVR at 115 bpm as reviewed by me with diffuse T-wave inversions and depressions. Chest x-ray revealed cardiomegaly with pulmonary edema as well as bilateral pleural effusions. Case was discussed with emergency room physician decision was made to admit the patient for further evaluation of heart failure exacerbation. Assessment: Acute systolic CHF exacerbation Paroxysmal A. fib with RVR Hypokalemia Chronic conditions: COPD, hypertension, hyperlipidemia Plan: Vital signs reviewed, patient is afebrile, 161/101, heart rate 63, 92% on 3 L nasal cannula. Troponins have remained flat at 0.017 CBC, basic metabolic panel, magnesium ordered for today and tomorrow Cardiology consulted, recommendations pending Continue Lasix 40 mg IV twice a day Continue Cardizem drip, monitor telemetry for toxicity Continue Apixiban 5 mg by mouth twice a day Continue patient's metoprolol at 50 mg by mouth twice a day as well as 25 mg at lunchtime Continue patient's Symbicort and Spiriva Patient is full code DVT prophylaxis covered with Apixiban Objective - Vital Signs Vital signs: Vital Signs Temp 98.1 F 07/16/22 08:30 Pulse 63 07/16/22 08:30 Resp 16 07/16/22 08:30 BP 161/101 07/16/22 08:30 Pulse Ox 2 L 07/16/22 08:35 FiO2 Intake & Output 07/15/22 07/16/22 07/16/22 17:59 06:59 18:59 Intake Total 240 Output Total 425 Balance -185 Weight Intake: Oral 240 Output: Urine 425 Other: Voiding Method Bedside Commode # Voids
[2022-07-16] MEDS ORDERED: METOPROLOL TARTRATE 25 MG TAB PO SCH (12:00)
--- NOTE | 2022-07-16 12:12 | P.CNPUL ---
History of Present Illness Consult date: 07/16/22 History of present illness: This is a 77-year-old female patient with advanced COPD and chronic hypoxic respiratory failure maternal O2 at 2 L/m nasal cannula, known history of cardiomyopathy with an ejection fraction of 3035%, history of chronic atrial fibrillation and previous history of a left lower extremity DVT. The patient ex-smoker and she quit smoking in March 2022. She has had several hospitalization for an acute COPD exacerbation, treated and discharged home. The patient is coming in with worsening shortness of breath. She initially went to [facility] and she was told to have fluid on her lungs and she was transferred to [facility]. She is known to have diabetes mellitus, hypertension and significant debility secondary to above-mentioned comorbidities. The patient's WBC count is at 8.5 with a hemoglobin of 10.7 and a platelet count of 304. The patient also had a sodium of 140 with a potassium of 4.2, the and is 28 with a creatinine of 1. Troponin times she has been negative. LDL cholesterol is at 155. The patient's chest x-ray was done at [facility]. Currently she is on IV Lasix. Review of Systems All systems: negative (For review of system was done and the positive findings are all mentioned in history of present illness) Past Medical History Past Medical History: Coronary Artery Disease (CAD), Cancer, COPD, GERD/Reflux, GI Bleed, Hyperlipidemia, Hypertension, Pneumonia, Renal Disease, Sleep Apnea/CPAP/BIPAP Additional Past Medical History / Comment(s): Bronchitis, upper GI bleed, gastric ulcer, diverticulitis, iron anemia-has had infusions, CKD stage III, chronic hypokalemia, can't use Cpap,uses O2@3L NC ATC, osteoporosis, R upper arm crush injury-pain and limited ROM, L shoulder pain, allergic rhininis, skin cancer basal/squamous removals. 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 Past Anesthesia/Blood Transfusion Reactions: No Reported Reaction Additional Past Anesthesia/Blood Transfusion Reaction / Comment(s): Pt has received blood in past without reaction. Past Psychological History: Anxiety, Depression Smoking Status: Former smoker Past Alcohol Use History: None Reported Past Drug Use History: None Reported - Past Family History Father Family Medical History: Coronary Artery Disease (CAD), Myocardial Infarction (MA) Additional Family Medical History / Comment(s): Father of a MA at the age of 41 yrs. Mother Family Medical History: Renal Disease Sister(s) Family Medical History: Renal Disease Additional Family Medical History / Comment(s): 2 sisters with renal disease and both are . Brother(s) Family Medical History: Congestive Heart Failure (CHF) Additional Family Medical History / Comment(s): Brother had a cardiac arrest and at the age of 49yrs. Son(s) Family Medical History: Coronary Artery Disease (CAD), Hyperlipidemia, Hypertension, Myocardial Infarction (MA) Additional Family Medical History / Comment(s): Son had his first MA at the age of 34yrs. He has had a total of 3 MIs. Medications and Allergies Home Medications Medication Instructions Recorded Confirmed Type Montelukast [Singulair] 10 mg PO DAILY 09/03/15 07/15/22 History Tiotropium 18 Mcg/Puff [Spiriva] 1 cap INHALATION RT-DAILY 10/28/15 07/15/22 History Apixaban [Eliquis] 5 mg PO BID #60 tab 05/05/19 07/15/22 Rx DULoxetine HCL [Cymbalta] 60 mg PO DAILY 12/04/21 07/15/22 History diazePAM [Valium] 5 mg PO DAILY PRN 12/04/21 07/15/22 History Acetaminophen Tab [Tylenol] 650 mg PO Q6HR PRN tab 12/09/21 07/15/22 Rx Budesonide-Formot 160-4.5 Mcg 2 puff INHALATION RT-BID #1 each 12/09/21 07/15/22 Rx [Symbicort 160-4.5 Mcg Inhaler] Albuterol Inhaler [Ventolin Hfa 2 puff INHALATION RT-Q6H PRN 03/18/22 07/15/22 History Inhaler] Folic Acid 1 mg PO DAILY 03/18/22 07/15/22 History Furosemide [Lasix] 40 mg PO DAILY 03/18/22 07/15/22 History Losartan Potassium [Cozaar] 25 mg PO DAILY 03/18/22 07/15/22 History Cholecalciferol [Vitamin D3 (25 25 mcg PO DAILY 05/15/22 07/15/22 History Mcg = 1000 Iu)] Lidocaine 5% Patch [Lidoderm 5% 1 patch TOPICAL DAILY PRN 05/15/22 07/15/22 History Patch] Nitroglycerin Sl Tabs [Nitrostat] 0.4 mg SUBLINGUAL Q5M PRN 05/15/22 07/15/22 History Gabapentin [Neurontin] 100 mg PO TID 06/14/22 07/15/22 History Magnesium 500 mg PO DAILY 06/14/22 07/15/22 History Metoprolol Tartrate [Lopressor] 50 mg PO BID 07/15/22 07/15/22 History diazePAM [Valium] 5 mg PO HS 07/15/22 07/15/22 History metFORMIN HCL ER [Glucophage XR] 500 mg PO DAILY 07/15/22 07/15/22 History Allergies Allergy/AdvReac Type Severity Reaction Status Date / Time ciprofloxacin [From Cipro] Allergy Unknown Verified 07/15/22 18:26 gemfibrozil [From Lopid] Allergy tendon Verified 07/15/22 18:26 damage levofloxacin [From Levaquin] Allergy tendon Verified 07/15/22 18:26 damage dust mites Allergy Wheezing Uncoded 07/15/22 17:58 Physical Exam Vitals: Vital Signs Temp Pulse Pulse Resp BP BP Pulse Ox 07/16/22 08:35 2 L 07/16/22 08:30 98.1 F 63 16 161/101 92 L 07/16/22 04:00 88 18 133/79 94 L 07/16/22 01:56 83 18 07/15/22 23:37 83 18 132/71 96 07/15/22 20:30 98.2 F 102 H 22 161/109 96 07/15/22 20:25 98.2 F 102 H 22 161/109 96 07/15/22 19:09 92 18 135/52 97 07/15/22 18:02 102 H 07/15/22 17:58 98.9 F 100 18 141/106 95 Intake and Output 07/15/22 07/16/22 07/16/22 21:59 06:59 14:59 Intake Total 240 Output Total 425 Balance -185 Intake: Oral 240 Output: Urine 425 Other: Voiding Method Bedside Commode # Voids Weight GENERAL EXAM: Alert, a pleasant, 74-year-old white female, 2 L of oxygen the pulse ox of 90-93%, comfortable in no apparent distress. At using accessory muscles of breathing and she is calm and comfortable HEAD: Normocephalic/atraumatic. EYES: Normal reaction of pupils, equal size. Conjunctiva pink, sclera white. NOSE: Clear with pink turbinates. THROAT: No erythema or exudates. NECK: No masses, no JVD, no thyroid enlargement, no adenopathy. CHEST: No chest wall deformity. Symmetrical expansion. LUNGS: Equal air entry with some scattered rhonchi, minimal wheezing, crackles in lung bases bilaterally CVS: Irregular consistent with chronic atrial fibrillation, normal S1 and S2, no gallops, no murmurs, no rubs ABDOMEN: Soft, nontender. No hepatosplenomegaly, normal bowel sounds, no guarding or rigidity. EXTREMITIES: No clubbing, no edema, no cyanosis, 2+ pulses and upper and lower extremities. MUSCULOSKELETAL: Muscle strength and tone normal. SPINE: No scoliosis or deformity SKIN: No rashes CENTRAL NERVOUS SYSTEM: Alert and oriented -3. No focal deficits, tone is no rmal in all 4 extremities. PSYCHIATRIC: Alert and oriented -3. Appropriate affect. Intact judgment and insight. Assessment and Plan Plan: Acute exacerbation of COPD/CHF with secondary shortness of breath Acute on chronic hypoxic respiratory failure currently on 3 L O2 nasal cannula Shortness of breath secondary to above Advanced COPD, with chronic hypoxic respiratory failure Coronary artery disease Chronic into fibrillation, controlled rate History of cardiomyopathy with systolic heart failure and ejection fraction of 3035% Remote history of a DVT of a left lower extremity Obstructive sleep apnea, nontoxic to CPAP therapy Chronic stage III kidney disease Anemia of chronic disease Previous history of GI bleed due to a gastric ulcer Osteoporosis Skin cancer Degenerative arthritis plan Keep the patient on O2 at 2 L and titrate the flow to maintain saturation above 90% Agree with diuretics The patient on a combination of Symbicort and Spiriva Continue bronchodilators On his for systemic steroids We'll review the chest x-ray Continue anticoagulation with Eliquis We'll continue to follow
[2022-07-16] MEDS: DAPAGLIFLOZIN PROPANEDIOL 10 MG TABLET PO SCH (12:17)
[2022-07-16] MEDS: SPIRONOLACTONE 25 MG TAB PO SCH (12:17)
[2022-07-16 12:45] LABS: Basophils # (A) 0.1 k/uL (0-0.2); Basophils % (A) 1 %; Eosinophils # (A) 0.1 k/uL (0-0.7); Eosinophils % (A) 1 %; HCT 37.1 % (34.0-46.0); HGB 11.4 gm/dL (11.4-16.0); Hypochromasia Slight; Lymphocytes # (A) 0.7 k/uL (1.0-4.8); Lymphocytes % (A) 8 %; MCH 28.7 pg (25.0-35.0); MCHC 30.6 g/dL (31.0-37.0); MCV 93.7 fL (80.0-100.0); Mean Platelet Volume 7.4; Monocytes # (A) 0.6 k/uL (0-1.0); Monocytes % (A) 7 %; Neutrophils # (A) 6.7 k/uL (1.3-7.7); Neutrophils % (A) 81 %; Platelet Count 361 k/uL (150-450); RBC 3.96 m/uL (3.80-5.40); RDW 13.9 % (11.5-15.5); WBC 8.3 k/uL (3.8-10.6)
[2022-07-16 12:59] LABS: Calcium 8.3 mg/dL (8.4-10.2); Magnesium 1.6 mg/dL (1.6-2.3); Potassium 3.2 mmol/L (3.5-5.1)
[2022-07-16] MEDS: diazePAM 5 MG TAB PO PRN (21:58)
[2022-07-17] MEDS: FUROSEMIDE 10 MG/ML 4 ML VIAL IV SCH ×2 (05:59→18:16)
[2022-07-17 06:36] LABS: Calcium 8.3 mg/dL (8.4-10.2); Magnesium 1.8 mg/dL (1.6-2.3); Potassium 3.3 mmol/L (3.5-5.1)
[2022-07-17] MEDS: TIOTROPIUM 2.5 MCG INHALER INHALATION SCH (09:24)
[2022-07-17] MEDS: SYMBICORT 160-4.5 MCG INHALER INHALATION SCH ×2 (09:24→19:49)
[2022-07-17] MEDS: DAPAGLIFLOZIN PROPANEDIOL 10 MG TABLET PO SCH (09:46)
[2022-07-17] MEDS: METOPROLOL TARTRATE 50 MG TAB PO SCH ×3 (09:46→21:29)
[2022-07-17] MEDS: APIXABAN 5 MG TAB PO SCH ×2 (09:46→21:29)
[2022-07-17] MEDS: DULoxetine HCL 60 MG CAPSULE.DR PO SCH (09:46)
[2022-07-17] MEDS: SPIRONOLACTONE 25 MG TAB PO SCH (09:46)
[2022-07-17] MEDS: FOLIC ACID 1 MG TAB PO SCH (09:46)
[2022-07-17] MEDS: CHOLECALCIFEROL 25 MCG (1000 IU) TABLET PO SCH (09:46)
[2022-07-17] MEDS: MONTELUKAST 10 MG TAB PO SCH (09:46)
[2022-07-17] MEDS: MAGNESIUM OXIDE 400 MG TAB PO SCH (09:46)
[2022-07-17] MEDS: LOSARTAN 25 MG TAB PO SCH (09:46)
[2022-07-17] MEDS: GABAPENTIN 100 MG CAP PO SCH ×2 (09:46→21:29)
[2022-07-17] MEDS: POTASSIUM CHLORIDE ER 20 MEQ TAB.ER PO SCH ×3 (09:46→15:50)
--- NOTE | 2022-07-17 10:28 | P.PN ---
Subjective Progress Note Date: 07/17/22 No new complains today. Patient is getting diuresed for heart failure exacerbation. Gen: awake, alert HEENT: normocephalic, atraumatic, good hearing acuity, moist mucous membranes Resp: good air exchange, breathing comfortably with no accessory muscle use CVS: good distal perfusion x 4, GI: soft, NTTP, ND : no SPT, no CVAT, muhammad catheter not present MSK: no pitting edema, no clubbing Neuro: non-focal, moving all extremities Psych: cooperative, euthymic mood Hospital course: The patient is a 77-year-old female with a PMH of chronic systolic CHF with EF 30-35%, COPD (chronic hypoxic and was treated failure on 3-4 L nasal cannula oxygen continuously at home), A. fib on Eliquis, hypertension, hyperlipidemia, DM who initially presented to [facility] with complaints of shortness of breath. in the emergency room, patient was afebrile, 141/106, heart rate 100, 95% on 3 L of nasal cannula. Laboratory evaluation was reviewed with WBC count 10.5, hemoglobin 13.1, platelets 373, troponin I 0.02, BNP 1550, with influenza, RSV, and jensen virus PCR negative. The patient's potassium was 3.2, sodium 139, CO2 34, AST 22, ALT 13, alk phos 55. EKG at [facility] had revealed A. fib with RVR at 115 bpm as reviewed by me with diffuse T-wave inversions and depressions. Chest x-ray revealed cardiomegaly with pulmonary edema as well as bilateral pleural effusions. Case was discussed with emergency room physician decision was made to admit the patient for further evaluation of heart failure exacerbation. Assessment: Acute systolic CHF exacerbation Paroxysmal A. fib with RVR Hypokalemia Chronic conditions: COPD, hypertension, hyperlipidemia Plan: Today, patient is afebrile, 114/73, heart rate 97, 95% on 3 L of nasal cannula. Chemistries today show hypokalemia to 3.3, chloride of 90, bicarbonate 41, BUN of 18, creatinine of 1.11 BNP shows 3510. CBC, basic metabolic panel, magnesium ordered for tomorrow Cardiology consult note reviewed, they recommend ongoing IV diuretics, echocardi ogram, adding farxiga Pulmonology note reviewed, they agree with diuretics, Symbicort, Spiriva, ster oids Cardiology consulted, recommendations pending Continue Lasix 40 mg IV twice a day Continue Cardizem drip, monitor telemetry for toxicity Continue Apixiban 5 mg by mouth twice a day Continue patient's metoprolol at 50 mg by mouth twice a day as well as 25 mg at lunchtime Continue patient's Symbicort and Spiriva Patient is full code DVT prophylaxis covered with Apixiban Objective - Vital Signs Vital signs: Vital Signs Temp 98.2 F 07/17/22 09:45 Pulse 97 07/17/22 09:45 Resp 20 07/17/22 09:45 BP 114/73 07/17/22 09:45 Pulse Ox 95 07/17/22 09:45 FiO2 Intake & Output 07/16/22 07/17/22 07/17/22 18:59 06:59 18:59 Intake Total 642.167 180 Output Total 725 800 750 Balance -82.833 -800 -570 Weight 56.5 kg Intake: Intake, IV Titration 44.167 Amount Diltiazem 125 mg In 44.167 Sodium Chloride 0.9% 100 ml @ 5 MG/HR 5 mls/hr IV .Q24H [facility] Rx#:[id number] Oral 598 180 Output: Urine 725 800 750 Other: Voiding Method Bedside Commode Bedside Commode # Voids 1 1 - Labs CBC & Chem 7: 07/16/22 12:27 07/17/22 05:25 Labs: Abnormal Lab Results - Last 24 Hours (Table) 07/16/22 07/16/22 07/17/22 Range/Units 12:27 12:27 05:25 MCHC 30.6 L (31.0-37.0) g/dL Lymphocytes # 0.7 L (1.0-4.8) k/uL Potassium 3.2 L 3.3 L (3.5-5.1) mmol/L Chloride 91 L 90 L (98-107) mmol/L Carbon Dioxide 38 H 41 H* (22-30) mmol/L BUN 18 H (7-17) mg/dL Creatinine 1.11 H (0.52-1.04) mg/dL Glucose 124 H (74-99) mg/dL Calcium 8.3 L 8.3 L (8.4-10.2) mg/dL
[2022-07-17 11:49] VITALS: BMI 24.3
--- NOTE | 2022-07-17 12:17 | CA ---
Transthoracic Echo Report Name: Jessa Dyson Age: 77 Gender: F : 1945 Exam Date: 07/17/2022 09:20 Exam Location: [place] [facility] Ht (in): 60 Wt (lb): 124 Ordering Physician: Giuliana Márquez MD ([id number]) Attending/Referring Phys: Threshing Operator Andressa Aparicio RDCS Procedure CPT: Indications: chf Cardiac Hx: Technical Quality: Fair Contrast 1: Total Dose (mL): Contrast 2: Total Dose (mL): MEASUREMENTS (Male / Female) Normal Values 2D ECHO LV Diastolic Diameter PLAX 4.0 cm 4.2 - 5.9 / 3.9 - 5.3 cm LV Systolic Diameter PLAX 2.9 cm IVS Diastolic Thickness 1.0 cm 0.6 - 1.0 / 0.6 - 0.9 cm LVPW Diastolic Thickness 1.1 cm 0.6 - 1.0 / 0.6 - 0.9 cm LV Relative Wall Thickness 0.5 RV Internal Dim ED PLAX 2.9 cm LA Volume 94.1 cm??? 18 - 58 / 22 - 52 cm??? M-MODE Aortic Root Diameter MM 2.9 cm LA Systolic Diameter MM 4.9 cm LA Ao Ratio MM 1.7 AV Cusp Separation MM 2.0 cm DOPPLER AV Peak Velocity 130.9 cm/s AV Peak Gradient 6.9 mmHg AV Mean Velocity 93.6 cm/s AV Mean Gradient 3.9 mmHg AV Velocity Time Integral 25.7 cm LVOT Peak Velocity 56.9 cm/s LVOT Peak Gradient 1.3 mmHg LVOT Velocity Time Integral 10.3 cm MV E' Velocity 5.2 cm/s TR Peak Velocity 290.8 cm/s TR Peak Gradient 33.8 mmHg Right Ventricular Systolic Press 37.0 mmHg FINDINGS Left Ventricle Mildly increased septal wall thickness. Mildly increased posterior wall thickness. Reduced global left ventricular systolic function. Left ventricular ejection fraction is estimated at 35-40 %. Right Ventricle Normal right ventricular size and function. Mild pulmonary hypertension. Right Atrium Normal right atrial size. Left Atrium Severely increased left atrial volume. Mildly increased left atrial area. Mitral Valve Mitral valve thickened. Moderate mitral leslie calcification. Moderate mitral regurgitation. Aortic Valve No aortic valve stenosis or regurgitation. Thickened aortic valve without stenosis. Tricuspid Valve Structurally normal tricuspid valve. [id number] tricuspid regurgitation. Pulmonic Valve Structurally normal pulmonic valve. Pericardium No pericardial effusion. Aorta Normal size aortic root and proximal ascending aorta. CONCLUSIONS Impaired all the function with EF between 35-40% with global hypokinesia Moderate mitral regurgitation with a central jet Moderate tricuspid regurgitation Mild pulmonary hypertension Previewed by: Dr. Amadou Singh MD (Electronically Signed) Final Date: 17 July 2022 12:16
--- NOTE | 2022-07-17 13:50 | P.PN ---
Subjective Progress Note Date: 07/17/22 This is a 77-year-old female patient with advanced COPD and chronic hypoxic respiratory failure maternal O2 at 2 L/m nasal cannula, known history of cardiomyopathy with an ejection fraction of 3035%, history of chronic atrial fibrillation and previous history of a left lower extremity DVT. The patient ex -smoker and she quit smoking in March 2022. She has had several hospitalization for an acute COPD exacerbation, treated and discharged home. The patient is coming in with worsening shortness of breath. She initially went to [facility] and she was told to have fluid on her lungs and she was transferred to [facility]. She is known to have diabetes mellitus, hypertension and significant debility secondary to above-mentioned comorbidities. The patient's WBC count is at 8.5 with a hemoglobin of 10.7 and a platelet count of 304. The patient also had a sodium of 140 with a potassium of 4.2, the and is 28 with a creatinine of 1. Troponin times she has been negat stalin. LDL cholesterol is at 155. The patient's chest x-ray was done at [facility]. Currently she is on IV Lasix. The patient is seen today 07/17/2022 in follow-up on the selective care unit. She is sitting up at the bedside. Awake and alert in no acute distress. Breathing a bit easier today compared to yesterday. Maintaining O2 saturations in the 90s on 3 L/m per nasal cannula. Sodium 137. Potassium 3.3. Bicarb 41. BUN 18. Creatinine 1.11. Glucose 94. ProBNP 3510. Troponins negative 2. Echocardiogram reveals impaired left ventricular systolic function with ejection fraction between 35 and 40% with global hypokinesia. Moderate mitral regurgitation. Moderate tricuspid regurgitation. Mild pulmonary hypertension. She's currently on Symbicort, Spiriva. Anticoagulated with Eliquis. Continued on diuretics. Currently in a -800 ML balance. Objective - Vital Signs Vital signs: Vital Signs Temp 98 F 07/17/22 12:30 Pulse 82 07/17/22 12:30 Resp 18 07/17/22 12:30 BP 129/81 07/17/22 12:30 Pulse Ox 94 L 07/17/22 12:30 FiO2 Intake & Output 07/16/22 07/17/22 07/17/22 18:59 06:59 18:59 Intake Total 642.167 180 Output Total 211 769 0167 Balance -82.833 -800 -1070 Weight 56.5 kg 56.5 kg Intake: Intake, IV Titration 44.167 Amount Diltiazem 125 mg In 44.167 Sodium Chloride 0.9% 100 ml @ 5 MG/HR 5 mls/hr IV .Q24H [facility] Rx#:[id number] Oral 598 180 Output: Urine 062 909 9258 Other: Voiding Method Bedside Commode Bedside Commode Bedside Commode # Voids 1 1 - Exam GENERAL EXAM: Alert, pleasant 77-year-old female, on 3 L nasal cannula, comfort able in no apparent distress. HEAD: Normocephalic. EYES: Normal reaction of pupils, equal size. NOSE: Clear with pink turbinates. THROAT: No erythema or exudates. NECK: No masses, no JVD. CHEST: No chest wall deformity. LUNGS: Equal air entry with crackles in the bilateral bases. CVS: S1 and S2 normal with no audible murmur, regular rhythm. ABDOMEN: No hepatosplenomegaly, normal bowel sounds, no guarding or rigidity. SPINE: No scoliosis or deformity SKIN: No rashes CENTRAL NERVOUS SYSTEM: No focal deficits, tone is normal in all 4 extremities. EXTREMITIES: There is no peripheral edema. No clubbing, no cyanosis. Peripheral pulses are intact. - Labs CBC & Chem 7: 07/16/22 12:27 07/17/22 05:25 Labs: Abnormal Lab Results - Last 24 Hours (Table) 07/17/22 Range/Units 05:25 Potassium 3.3 L (3.5-5.1) mmol/L Chloride 90 L (98-107) mmol/L Carbon Dioxide 41 H* (22-30) mmol/L BUN 18 H (7-17) mg/dL Creatinine 1.11 H (0.52-1.04) mg/dL Calcium 8.3 L (8.4-10.2) mg/dL Assessment and Plan Assessment: Acute exacerbation of COPD along with an acute exacerbation of chronic systolic congestive heart failure with ejection fraction 35-40% Acute on chronic hypoxic respiratory failure currently on 3 L O2 nasal cannula Shortness of breath secondary to above Advanced COPD, with chronic hypoxic respiratory failure Coronary artery disease Chronic atrial fibrillation, controlled rate anticoagulated with Eliquis History of cardiomyopathy with systolic heart failure and ejection fraction of 35-40% Remote history of a DVT of a left lower extremity Obstructive sleep apnea, nontoxic to CPAP therapy Chronic stage III kidney disease Anemia of chronic disease Previous history of GI bleed due to a gastric ulcer Osteoporosis Skin cancer Degenerative arthritis Plan: The patient was seen and evaluated Medications and labs reviewed Continue bronchodilators Continue diuretics Accurate I&O Chest x-ray in a.m. We'll continue to follow I have personally seen and examined the patient, performed the documentation and the assessment and plan as written. Number of minutes spent on the visit: 10.
--- NOTE | 2022-07-17 16:35 | PN ---
PROGRESS NOTE SUBJECTIVE: Ms. Dyson is a lady with atrial fibrillation, rapid ventricular rate, also has some hypokalemia. She remains in atrial fibrillation, rate is still somewhat faster. I will increase the metoprolol tartrate to 75 mg t.i.d. Potassium is 3.3, we will supplement this. OBJECTIVE: VITAL SIGNS: Stable. We will increase activity. NECK: JVD 1 cm. No carotid bruit. HEART: S1 and S2 with irregularity in rhythm. Rate is slightly faster. LUNGS: Reveal bilateral fair air entry with fine rales. ABDOMEN: Unchanged. LOWER EXTREMITIES: Unchanged. PLAN: To increase activity, supplement potassium, increase beta-nathaniel, and see how she does. Prognosis remains guarded. MMODL / IJN: [id number] /
[2022-07-17] MEDS: diazePAM 5 MG TAB PO PRN (21:29)
[2022-07-18 06:30] LABS: Basophils % (A) 0 %; Eosinophils # (A) 0.1 k/uL (0-0.7); Eosinophils % (A) 1 %; HCT 37.7 % (34.0-46.0); HGB 11.4 gm/dL (11.4-16.0); Hypochromasia Slight; Lymphocytes # (A) 1.3 k/uL (1.0-4.8); Lymphocytes % (A) 18 %; MCH 28.6 pg (25.0-35.0); MCHC 30.4 g/dL (31.0-37.0); MCV 94.1 fL (80.0-100.0); Mean Platelet Volume 7.6; Monocytes # (A) 0.6 k/uL (0-1.0); Monocytes % (A) 8 %; Neutrophils # (A) 5.2 k/uL (1.3-7.7); Neutrophils % (A) 70 %; Platelet Count 366 k/uL (150-450); RDW 13.8 % (11.5-15.5); WBC 7.4 k/uL (3.8-10.6)
[2022-07-18] MEDS: FUROSEMIDE 10 MG/ML 4 ML VIAL IV SCH ×2 (06:35→18:05)
[2022-07-18 06:39] LABS: Calcium 8.4 mg/dL (8.4-10.2); Magnesium 2.2 mg/dL (1.6-2.3); Potassium 3.8 mmol/L (3.5-5.1)
--- NOTE | 2022-07-18 07:07 | XR ---
EXAMINATION TYPE: XR chest 1V portable DATE OF EXAM: 07/18/2022 6:40 AM COMPARISON: Chest radiographs from 05/16/2022 TECHNIQUE: XR chest 1V portable Portable AP radiograph of the chest. CLINICAL INDICATION:Female, 77 years old with history of CHF; FINDINGS: Lungs/Pleura: Blunting of the left costophrenic angle redemonstrated. Left basilar patchy airspace op acities. Chronic senescent parenchyma change. No pneumothorax. Pulmonary vascularity: Unremarkable. Heart/mediastinum: Cardiomediastinal silhouette is enlarged and stable. Atherosclerotic calcificatio ns are seen in the aorta. Musculoskeletal: No acute osseous pathology. Chronic comminuted proximal right humeral fracture defor mity redemonstrated. There are multiple right-sided rib fractures. IMPRESSION: Small left pleural effusion with adjacent airspace opacities which may represent atelectasis versus i nfiltrate.
[2022-07-18] MEDS: TIOTROPIUM 2.5 MCG INHALER INHALATION SCH (09:12)
[2022-07-18] MEDS: SYMBICORT 160-4.5 MCG INHALER INHALATION SCH ×2 (09:12→20:33)
[2022-07-18] MEDS: LOSARTAN 25 MG TAB PO SCH (09:28)
[2022-07-18] MEDS: SPIRONOLACTONE 25 MG TAB PO SCH (09:28)
[2022-07-18] MEDS: METOPROLOL TARTRATE 50 MG TAB PO SCH ×3 (09:29→21:07)
[2022-07-18] MEDS: MONTELUKAST 10 MG TAB PO SCH (09:29)
[2022-07-18] MEDS: FOLIC ACID 1 MG TAB PO SCH (09:29)
[2022-07-18] MEDS: DULoxetine HCL 60 MG CAPSULE.DR PO SCH (09:29)
[2022-07-18] MEDS: DAPAGLIFLOZIN PROPANEDIOL 10 MG TABLET PO SCH (09:29)
[2022-07-18] MEDS: APIXABAN 5 MG TAB PO SCH ×2 (09:29→21:08)
[2022-07-18] MEDS: MAGNESIUM OXIDE 400 MG TAB PO SCH (09:29)
[2022-07-18] MEDS: CHOLECALCIFEROL 25 MCG (1000 IU) TABLET PO SCH (09:29)
[2022-07-18] MEDS: GABAPENTIN 100 MG CAP PO SCH ×2 (09:29→21:07)
--- NOTE | 2022-07-18 11:03 | P.PN ---
Subjective Progress Note Date: 07/18/22 No new complains today. Patient is getting diuresed for heart failure exacerbation. Gen: awake, alert HEENT: normocephalic, atraumatic, good hearing acuity, moist mucous membranes Resp: good air exchange, breathing comfortably with no accessory muscle use CVS: good distal perfusion x 4, GI: soft, NTTP, ND : no SPT, no CVAT, muhammad catheter not present MSK: no pitting edema, no clubbing Neuro: non-focal, moving all extremities Psych: cooperative, euthymic mood Hospital course: The patient is a 77-year-old female with a PMH of chronic systolic CHF with EF 30-35%, COPD (chronic hypoxic and was treated failure on 3-4 L nasal cannula oxygen continuously at home), A. fib on Eliquis, hypertension, hyperlipidemia, DM who initially presented to [facility] with complaints of shortness of breath. in the emergency room, patient was afebrile, 141/106, heart rate 100, 95% on 3 L of nasal cannula. Laboratory evaluation was reviewed with WBC count 10.5, hemoglobin 13.1, platelets 373, troponin I 0.02, BNP 1550, with influenza, RSV, and jensen virus PCR negative. The patient's potassium was 3.2, sodium 139, CO2 34, AST 22, ALT 13, alk phos 55. EKG at [facility] had revealed A. fib with RVR at 115 bpm as reviewed by me with diffuse T-wave inversions and depressions. Chest x-ray revealed cardiomegaly with pulmonary edema as well as bilateral pleural effusions. Case was discussed with emergency room physician decision was made to admit the patient for further evaluation of heart failure exacerbation. Assessment: Acute systolic CHF exacerbation Paroxysmal A. fib with RVR Hypokalemia Chronic conditions: COPD, hypertension, hyperlipidemia Plan: Today, patient is afebrile, 123/90, heart rate 91, 96% on 2 L nasal cannula CBC is unremarkable, stable from admission. BMP shows chloride of 92, carbon dioxide of 41, BUN of 18, creatinine of 0.98, stable from admission. CBC, basic metabolic panel, magnesium ordered for tomorrow Case discussed with cardiology, the recommended continued diuretics, they adjusted metoprolol, added digoxin, they will monitor and adjust AV laquita blocking agents as required Continue Lasix 40 mg IV twice a day Continue Apixiban 5 mg by mouth twice a day Continue patient's metoprolol at 75 mg 3 times a day, this was increased from home dosing Continue patient's Symbicort and Spiriva Continue digoxin 125 g IV push every 6 hours Patient is full code DVT prophylaxis covered with Apixiban Objective - Vital Signs Vital signs: Vital Signs Temp 97.3 F L 07/18/22 09:25 Pulse 91 07/18/22 09:25 Resp 18 07/18/22 09:25 BP 123/90 07/18/22 09:25 Pulse Ox 96 07/18/22 09:25 FiO2 Intake & Output 07/17/22 07/18/22 07/18/22 18:59 06:59 18:59 Intake Total 540 180 Output Total 1250 800 200 Balance -710 -800 -20 Weight 56.5 kg 59.5 kg Intake: Oral 540 180 Output: Urine 1250 800 200 Other: Voiding Method Bedside Commode Bedside Commode # Voids 1 1 - Labs CBC & Chem 7: 07/18/22 06:04 07/18/22 06:04 Labs: Abnormal Lab Results - Last 24 Hours (Table) 07/18/22 07/18/22 Range/Units 06:04 06:04 MCHC 30.4 L (31.0-37.0) g/dL Chloride 92 L (98-107) mmol/L Carbon Dioxide 41 H* (22-30) mmol/L BUN 18 H (7-17) mg/dL Glucose 100 H (74-99) mg/dL
[2022-07-18] MEDS: DIGOXIN 250 MCG/ML 2 ML AMP IVP SCH ×2 (11:39→17:29)
--- NOTE | 2022-07-18 13:45 | P.PN ---
Subjective Progress Note Date: 07/18/22 This is a 77-year-old female patient with advanced COPD and chronic hypoxic respiratory failure maternal O2 at 2 L/m nasal cannula, known history of cardiomyopathy with an ejection fraction of 3035%, history of chronic atrial fibrillation and previous history of a left lower extremity DVT. The patient ex -smoker and she quit smoking in March 2022. She has had several hospitalization for an acute COPD exacerbation, treated and discharged home. The patient is coming in with worsening shortness of breath. She initially went to [facility] and she was told to have fluid on her lungs and she was transferred to [facility]. She is known to have diabetes mellitus, hypertension and significant debility secondary to above-mentioned comorbidities. The patient's WBC count is at 8.5 with a hemoglobin of 10.7 and a platelet count of 304. The patient also had a sodium of 140 with a potassium of 4.2, the and is 28 with a creatinine of 1. Troponin times she has been negat stalin. LDL cholesterol is at 155. The patient's chest x-ray was done at [facility]. Currently she is on IV Lasix. The patient is seen today 07/17/2022 in follow-up on the selective care unit. She is sitting up at the bedside. Awake and alert in no acute distress. Breathing a bit easier today compared to yesterday. Maintaining O2 saturations in the 90s on 3 L/m per nasal cannula. Sodium 137. Potassium 3.3. Bicarb 41. BUN 18. Creatinine 1.11. Glucose 94. ProBNP 3510. Troponins negative 2. Echocardiogram reveals impaired left ventricular systolic function with ejection fraction between 35 and 40% with global hypokinesia. Moderate mitral regurgitation. Moderate tricuspid regurgitation. Mild pulmonary hypertension. She's currently on Symbicort, Spiriva. Anticoagulated with Eliquis. Continued on diuretics. Currently in a -800 ML balance. The patient is seen today 07/18/2022 in follow-up on the selective care unit. She is resting comfortably in bed. Awake and alert in no acute distress. Denies any worsening shortness of breath cough or congestion. She is maintaining good O2 saturations in the 90s on 2 L/m per nasal cannula. White count 7.4. Hemoglobin 11.4. Sodium 137. Potassium 3.8. Bicarb 41. BUN 18. Creatinine 0.98. Glucose 100. Chest x-ray reveals a small left pleural effusion with adjacent airspace opacities most likely representing atelectasis. She is currently in a -1.5 L balance. Continued on Symbicort, Singulair, Spiriva. Anticoagulated with Eliquis. Objective - Vital Signs Vital signs: Vital Signs Temp 97.6 F 07/18/22 11:35 Pulse 102 H 07/18/22 11:35 Resp 18 07/18/22 11:35 BP 137/82 07/18/22 11:35 Pulse Ox 96 07/18/22 11:35 FiO2 Intake & Output 07/17/22 07/18/22 07/18/22 18:59 06:59 18:59 Intake Total 540 180 Output Total 1250 800 200 Balance -710 -800 -20 Weight 56.5 kg 59.5 kg Intake: Oral 540 180 Output: Urine 1250 800 200 Other: Voiding Method Bedside Commode Bedside Commode # Voids 1 1 - Exam GENERAL EXAM: Alert, pleasant 77-year-old female, on 2 L nasal cannula, comfortable in no apparent distress. HEAD: Normocephalic. EYES: Normal reaction of pupils, equal size. NOSE: Clear with pink turbinates. THROAT: No erythema or exudates. NECK: No masses, no JVD. CHEST: No chest wall deformity. LUNGS: Equal air entry with crackles in the left base. CVS: S1 and S2 normal with no audible murmur, regular rhythm. ABDOMEN: No hepatosplenomegaly, normal bowel sounds, no guarding or rigidity. SPINE: No scoliosis or deformity SKIN: No rashes CENTRAL NERVOUS SYSTEM: No focal deficits, tone is normal in all 4 extremities. EXTREMITIES: There is no peripheral edema. No clubbing, no cyanosis. Peripheral pulses are intact. - Labs CBC & Chem 7: 07/18/22 06:04 07/18/22 06:04 Labs: Abnormal Lab Results - Last 24 Hours (Table) 07/18/22 07/18/22 Range/Units 06:04 06:04 MCHC 30.4 L (31.0-37.0) g/dL Chloride 92 L (98-107) mmol/L Carbon Dioxide 41 H* (22-30) mmol/L BUN 18 H (7-17) mg/dL Glucose 100 H (74-99) mg/dL Assessment and Plan Assessment: Acute exacerbation of COPD along with an acute exacerbation of chronic systolic congestive heart failure with ejection fraction 35-40% Acute on chronic hypoxic respiratory failure currently on 2 L O2 nasal cannula Advanced COPD, with chronic hypoxic respiratory failure on home oxygen at 2-3 L Former smoker Coronary artery disease Chronic atrial fibrillation, controlled rate anticoagulated with Eliquis History of cardiomyopathy with systolic heart failure and ejection fraction of 35-40% Remote history of a DVT of a left lower extremity Obstructive sleep apnea, intolerant to CPAP therapy Chronic stage III kidney disease Anemia of chronic disease Previous history of GI bleed due to a gastric ulcer Osteoporosis Skin cancer Degenerative arthritis Plan: The patient was seen and evaluated Chest x-ray, medications and labs reviewed Improved and back to baseline Continue bronchodilators Continue diuretics Home once cleared by medicine I have personally seen and examined the patient, performed the documentation and the assessment and plan as written. Number of minutes spent on the visit: 10.
[2022-07-18] MEDS: diazePAM 5 MG TAB PO PRN (21:07)
--- NOTE | 2022-07-18 22:44 | PN ---
PROGRESS NOTE SUBJECTIVE: Ms. Dyson remains in atrial fibrillation. Rate is much better controlled, but she complains of fatigue. I will add digoxin 125 mcg x2 intravenously 6 hours apart and then 0.125 mg daily from tomorrow. She wants the beta-nathaniel dose to be reduced. Advised to increase activity. Possible discharge soon. OBJECTIVE: VITAL SIGNS: Stable. HEART: S1 and S2 with irregularity in rhythm. Short systolic murmur. LUNGS: Clear. ABDOMEN: Unchanged. LOWER EXTREMITIES: Unchanged. PLAN: Hopefully, we will add digoxin and decrease the dose of beta-nathaniel. MMODL / IJN: [id number] /
[2022-07-19] MEDS: FUROSEMIDE 10 MG/ML 4 ML VIAL IV SCH (06:24)
[2022-07-19 07:56] LABS: Basophils % (A) 0 %; Eosinophils # (A) 0.1 k/uL (0-0.7); Eosinophils % (A) 1 %; HCT 38.1 % (34.0-46.0); HGB 11.9 gm/dL (11.4-16.0); Hypochromasia Slight; Lymphocytes # (A) 1.2 k/uL (1.0-4.8); Lymphocytes % (A) 16 %; MCH 29.4 pg (25.0-35.0); MCHC 31.2 g/dL (31.0-37.0); MCV 94.5 fL (80.0-100.0); Mean Platelet Volume 7.4; Monocytes # (A) 0.5 k/uL (0-1.0); Monocytes % (A) 7 %; Neutrophils # (A) 5.5 k/uL (1.3-7.7); Neutrophils % (A) 74 %; Platelet Count 375 k/uL (150-450); RBC 4.03 m/uL (3.80-5.40); RDW 13.8 % (11.5-15.5); WBC 7.5 k/uL (3.8-10.6)
[2022-07-19] MEDS: TIOTROPIUM 2.5 MCG INHALER INHALATION SCH (08:01)
[2022-07-19] MEDS: SYMBICORT 160-4.5 MCG INHALER INHALATION SCH (08:01)
[2022-07-19 08:07] LABS: Calcium 8.7 mg/dL (8.4-10.2); Potassium 3.7 mmol/L (3.5-5.1)
[2022-07-19 08:38] VITALS: TEMP 97.7
[2022-07-19] MEDS ORDERED: DIGOXIN 125 MCG TAB PO SCH (09:00)
[2022-07-19] MEDS: FOLIC ACID 1 MG TAB PO SCH (09:26)
[2022-07-19] MEDS: CHOLECALCIFEROL 25 MCG (1000 IU) TABLET PO SCH (09:26)
[2022-07-19] MEDS: METOPROLOL TARTRATE 50 MG TAB PO SCH (09:26)
[2022-07-19] MEDS: MAGNESIUM OXIDE 400 MG TAB PO SCH (09:26)
[2022-07-19] MEDS: DAPAGLIFLOZIN PROPANEDIOL 10 MG TABLET PO SCH (09:26)
[2022-07-19] MEDS: SPIRONOLACTONE 25 MG TAB PO SCH (09:26)
[2022-07-19] MEDS: LOSARTAN 25 MG TAB PO SCH (09:26)
[2022-07-19] MEDS: MONTELUKAST 10 MG TAB PO SCH (09:26)
[2022-07-19] MEDS: DULoxetine HCL 60 MG CAPSULE.DR PO SCH (09:27)
[2022-07-19] MEDS: APIXABAN 5 MG TAB PO SCH (09:27)
[2022-07-19] MEDS: GABAPENTIN 100 MG CAP PO SCH (09:27)
--- NOTE | 2022-07-19 09:27 | P.DS ---
Providers Date of admission: 07/15/22 18:29 Expected date of discharge: 07/19/22 Attending physician: Jerome Graham MD Consults: 07/15/22 18:24 Consult Physician Routine Consulting Provider: Giuliana Márquez Consult Reason/Comments: Rapid A. fib with CHF Do you want consulting provider notified?: Yes Primary care physician: Yana Aguilera MD Hospital Course: Assessment: Acute systolic CHF exacerbation Paroxysmal A. fib with RVR Hypokalemia Chronic conditions: COPD, hypertension, hyperlipidemia Hospital course: The patient is a 77-year-old female with a PMH of chronic systolic CHF with EF 30-35%, COPD (chronic hypoxic and was treated failure on 3-4 L nasal cannula oxygen continuously at home), A. fib on Eliquis, hypertension, hyperlipidemia, DM who initially presented to [facility] with complaints of shortness of breath. in the emergency room, patient was afebrile, 141/106, heart rate 100, 95% on 3 L of nasal cannula. Laboratory evaluation was reviewed with WBC count 10.5, hemoglobin 13.1, platelets 373, troponin I 0.02, BNP 1550, with influenza, RSV, and jensen virus PCR negative. The patient's potassium was 3.2, sodium 139, CO2 34, AST 22, ALT 13, alk phos 55. EKG at [facility] had revealed A. fib with RVR at 115 bpm as reviewed by me with diffuse T-wave inversions and depressions. Chest x-ray revealed cardiomegaly with pulmonary edema as well as bilateral pleural effusions. Case was discussed with emergency room physician decision was made to admit the patient for further evaluation of heart failure exacerbation. Patient was seen in consultation with cardiology. Digoxin was added to regimen while patient was diuresed. She returned to 2L NC by day of discharge. Her metoprolol was increased to 75mg TID. Spironolactone and farxiga were added to her regimen. On discharge she was in her baseline condition. She will f/u with PCP and cardiology. I spent 38 minutes coordinating this discharge on 07/19 Gen: awake, alert HEENT: normocephalic, atraumatic, good hearing acuity, moist mucous membranes Resp: good air exchange, breathing comfortably with no accessory muscle use CVS: good distal perfusion x 4, GI: soft, NTTP, ND : no SPT, no CVAT, muhammad catheter not present MSK: no pitting edema, no clubbing Neuro: non-focal, moving all extremities Psych: cooperative, euthymic mood Patient Condition at Discharge: Good Plan - Discharge Summary Discharge Rx Participant: No New Discharge Prescriptions: New Spironolactone [Aldactone] 25 mg PO DAILY #30 tab Digoxin [Lanoxin] 125 mcg PO DAILY #30 tab Metoprolol Tartrate [Lopressor] 75 mg PO TID #135 tab Dapagliflozin Propanediol [Farxiga] 10 mg PO DAILY #30 tab Continue Montelukast [Singulair] 10 mg PO DAILY Tiotropium 18 Mcg/Puff [Spiriva] 1 cap INHALATION RT-DAILY Apixaban [Eliquis] 5 mg PO BID #60 tab Budesonide-Formot 160-4.5 Mcg [Symbicort 160-4.5 Mcg Inhaler] 2 puff INHALATION RT-BID #1 each Acetaminophen Tab [Tylenol] 650 mg PO Q6HR PRN tab PRN Reason: Mild Pain Or Fever > 100.5 Albuterol Inhaler [Ventolin Hfa Inhaler] 2 puff INHALATION RT-Q6H PRN PRN Reason: Shortness Of Breath Nitroglycerin Sl Tabs [Nitrostat] 0.4 mg SUBLINGUAL Q5M PRN PRN Reason: Chest Pain Lidocaine 5% Patch [Lidoderm 5% Patch] 1 patch TOPICAL DAILY PRN PRN Reason: Pain Gabapentin [Neurontin] 100 mg PO TID Magnesium 500 mg PO DAILY diazePAM [Valium] 5 mg PO HS DULoxetine HCL [Cymbalta] 60 mg PO DAILY diazePAM [Valium] 5 mg PO DAILY PRN PRN Reason: Anxiety Folic Acid 1 mg PO DAILY Losartan Potassium [Cozaar] 25 mg PO DAILY Cholecalciferol [Vitamin D3 (25 Mcg = 1000 Iu)] 25 mcg PO DAILY metFORMIN HCL ER [Glucophage XR] 500 mg PO DAILY Changed Furosemide [Lasix] 60 mg PO DAILY #45 tab Discontinued Metoprolol Tartrate [Lopressor] 50 mg PO BID Discharge Medication List Montelukast [Singulair] 10 mg PO DAILY 09/03/15 [History] Tiotropium 18 Mcg/Puff [Spiriva] 1 cap INHALATION RT-DAILY 10/28/15 [History] Apixaban [Eliquis] 5 mg PO BID #60 tab 05/05/19 [Rx] DULoxetine HCL [Cymbalta] 60 mg PO DAILY 12/04/21 [History] diazePAM [Valium] 5 mg PO DAILY PRN 12/04/21 [History] Acetaminophen Tab [Tylenol] 650 mg PO Q6HR PRN tab 12/09/21 [Rx] Budesonide-Formot 160-4.5 Mcg [Symbicort 160-4.5 Mcg Inhaler] 2 puff INHALATION RT-BID #1 each 12/09/21 [Rx] Albuterol Inhaler [Ventolin Hfa Inhaler] 2 puff INHALATION RT-Q6H PRN 03/18/22 [History] Folic Acid 1 mg PO DAILY 03/18/22 [History] Losartan Potassium [Cozaar] 25 mg PO DAILY 03/18/22 [History] Cholecalciferol [Vitamin D3 (25 Mcg = 1000 Iu)] 25 mcg PO DAILY 05/15/22 [History] Lidocaine 5% Patch [Lidoderm 5% Patch] 1 patch TOPICAL DAILY PRN 05/15/22 [History] Nitroglycerin Sl Tabs [Nitrostat] 0.4 mg SUBLINGUAL Q5M PRN 05/15/22 [History] Gabapentin [Neurontin] 100 mg PO TID 06/14/22 [History] Magnesium 500 mg PO DAILY 06/14/22 [History] diazePAM [Valium] 5 mg PO HS 07/15/22 [History] metFORMIN HCL ER [Glucophage XR] 500 mg PO DAILY 07/15/22 [History] Dapagliflozin Propanediol [Farxiga] 10 mg PO DAILY #30 tab 07/19/22 [Rx] Digoxin [Lanoxin] 125 mcg PO DAILY #30 tab 07/19/22 [Rx] Furosemide [Lasix] 60 mg PO DAILY #45 tab 07/19/22 [Rx] Metoprolol Tartrate [Lopressor] 75 mg PO TID #135 tab 07/19/22 [Rx] Spironolactone [Aldactone] 25 mg PO DAILY #30 tab 07/19/22 [Rx] Follow up Appointment(s)/Referral(s): None,Stated [REFERRING] - 1-2 days Discharge Disposition: HOME SELF-CARE
[2022-07-19 10:24] VITALS: RESP 18
[2022-07-19 11:57] VITALS: BP 141/92; PULSE 73
--- NOTE | 2022-07-19 12:02 | PN ---
PROGRESS NOTE SUBJECTIVE: Mrs. Dyson has a history of COPD, atrial fib, and rapid ventricular rate. Her rate is much better controlled with addition of digoxin. OBJECTIVE: VITALS: Stable today. Heart rate is in the 70-80 range. Blood pressure is acceptable. NECK: JVD is not evident. HEART: S1, S2 with irregular rhythm. LUNGS: Revealed improved air entry. ABDOMEN: Unchanged. LOWER EXTREMITIES: Unchanged. PLAN: To continue current medications, and patient can be discharged, and follow up with Dr. Singh as outpatient. MMODL / IJN: [id number] /
--- NOTE | 2022-07-19 14:15 | P.PN ---
Subjective Progress Note Date: 07/19/22 This is a 77-year-old female patient with advanced COPD and chronic hypoxic respiratory failure maternal O2 at 2 L/m nasal cannula, known history of cardiomyopathy with an ejection fraction of 3035%, history of chronic atrial fibrillation and previous history of a left lower extremity DVT. The patient ex -smoker and she quit smoking in March 2022. She has had several hospitalization for an acute COPD exacerbation, treated and discharged home. The patient is coming in with worsening shortness of breath. She initially went to [facility] and she was told to have fluid on her lungs and she was transferred to [facility]. She is known to have diabetes mellitus, hypertension and significant debility secondary to above-mentioned comorbidities. The patient's WBC count is at 8.5 with a hemoglobin of 10.7 and a platelet count of 304. The patient also had a sodium of 140 with a potassium of 4.2, the and is 28 with a creatinine of 1. Troponin times she has been negat stalin. LDL cholesterol is at 155. The patient's chest x-ray was done at [facility]. Currently she is on IV Lasix. The patient is seen today 07/17/2022 in follow-up on the selective care unit. She is sitting up at the bedside. Awake and alert in no acute distress. Breathing a bit easier today compared to yesterday. Maintaining O2 saturations in the 90s on 3 L/m per nasal cannula. Sodium 137. Potassium 3.3. Bicarb 41. BUN 18. Creatinine 1.11. Glucose 94. ProBNP 3510. Troponins negative 2. Echocardiogram reveals impaired left ventricular systolic function with ejection fraction between 35 and 40% with global hypokinesia. Moderate mitral regurgitation. Moderate tricuspid regurgitation. Mild pulmonary hypertension. She's currently on Symbicort, Spiriva. Anticoagulated with Eliquis. Continued on diuretics. Currently in a -800 ML balance. The patient is seen today 07/18/2022 in follow-up on the selective care unit. She is resting comfortably in bed. Awake and alert in no acute distress. Denies any worsening shortness of breath cough or congestion. She is maintaining good O2 saturations in the 90s on 2 L/m per nasal cannula. White count 7.4. Hemoglobin 11.4. Sodium 137. Potassium 3.8. Bicarb 41. BUN 18. Creatinine 0.98. Glucose 100. Chest x-ray reveals a small left pleural effusion with adjacent airspace opacities most likely representing atelectasis. She is currently in a -1.5 L balance. Continued on Symbicort, Singulair, Spiriva. Anticoagulated with Eliquis. The patient is seen today 07/19/2022 in follow-up on the selective care unit. She is awake and alert in no acute distress. Resting quite comfortably in bed. Maintaining good O2 saturations in the 90s on 2 L/m per nasal cannula. She's been afebrile. Hemodynamically stable. White count 7.5. Hemoglobin 11.9. Sodium 135. Potassium 3.7. Bicarb 38. BUN 24. Creatinine 1.09. Continued on Symbicort, Singulair, Spiriva. Anticoagulated with Eliquis. Objective - Vital Signs Vital signs: Vital Signs Temp 97.7 F 07/19/22 11:55 Pulse 73 07/19/22 14:00 Resp 18 07/19/22 14:00 BP 141/92 07/19/22 11:55 Pulse Ox 97 07/19/22 11:55 FiO2 Intake & Output 07/18/22 07/19/22 07/19/22 18:59 06:59 18:59 Intake Total 1460 240 Output Total 500 575 350 Balance 960 -575 -110 Weight 56.1 kg Intake: Oral 1460 240 Output: Urine 500 575 350 Other: Voiding Method Bedside Commode Bedside Commode Bedside Commode # Voids 1 - Exam GENERAL EXAM: Alert, 77-year-old female, on 2 L nasal cannula, comfortable in no apparent distress. HEAD: Normocephalic. EYES: Normal reaction of pupils, equal size. NOSE: Clear with pink turbinates. THROAT: No erythema or exudates. NECK: No masses, no JVD. CHEST: No chest wall deformity. LUNGS: Equal air entry with crackles in the left base. CVS: S1 and S2 normal with no audible murmur, regular rhythm. ABDOMEN: No hepatosplenomegaly, normal bowel sounds, no guarding or rigidity. SPINE: No scoliosis or deformity SKIN: No rashes CENTRAL NERVOUS SYSTEM: No focal deficits, tone is normal in all 4 extremities. EXTREMITIES: There is no peripheral edema. No clubbing, no cyanosis. Peripheral pulses are intact. - Labs CBC & Chem 7: 07/19/22 07:25 07/19/22 07:25 Labs: Abnormal Lab Results - Last 24 Hours (Table) 07/19/22 Range/Units 07:25 Sodium 135 L (137-145) mmol/L Chloride 93 L (98-107) mmol/L Carbon Dioxide 38 H (22-30) mmol/L BUN 24 H (7-17) mg/dL Creatinine 1.09 H (0.52-1.04) mg/dL Glucose 105 H (74-99) mg/dL Assessment and Plan Assessment: Acute exacerbation of COPD along with an acute exacerbation of chronic systolic congestive heart failure with ejection fraction 35-40% Acute on chronic hypoxic respiratory failure Advanced COPD, with chronic hypoxic respiratory failure on home oxygen at 2-3 L Former smoker Coronary artery disease Chronic atrial fibrillation, controlled rate anticoagulated with Eliquis History of cardiomyopathy with systolic heart failure and ejection fraction of 35-40% Remote history of a DVT of a left lower extremity Obstructive sleep apnea, intolerant to CPAP therapy Chronic stage III kidney disease Anemia of chronic disease Previous history of GI bleed due to a gastric ulcer Osteoporosis Skin cancer Degenerative arthritis Plan: The patient was seen and evaluated Medications and labs reviewed Improved and back to baseline Continue bronchodilators Continue diuretics Follow-up in our office in 1 week I have personally seen and examined the patient, performed the documentation and the assessment and plan as written. Number of minutes spent on the visit: 10.
== END 2022-07-19 15:05 | disposition home or self-care (01) | DRG 291 ==
LOC: EC 17:44 → 3SCARD 18:29
PROVIDERS: ADMIT Internal Medicine; ATTEND Internal Medicine
DX: I13.0 Hypertensive heart and chronic kidney disease with heart failure and stage 1 through stage 4 chronic kidney disease, or unspecified chronic kidney disease (principal); I50.23 Acute on chronic systolic (congestive) heart failure; J96.21 Acute and chronic respiratory failure with hypoxia; J44.1 Chronic obstructive pulmonary disease with (acute) exacerbation; I48.21 Permanent atrial fibrillation; E87.6 Hypokalemia; I25.10 Atherosclerotic heart disease of native coronary artery without angina pectoris; G47.33 Obstructive sleep apnea (adult) (pediatric); N18.30 Chronic kidney disease, stage 3 unspecified; M81.0 Age-related osteoporosis without current pathological fracture; M19.90 Unspecified osteoarthritis, unspecified site; D50.9 Iron deficiency anemia, unspecified; I42.8 Other cardiomyopathies; K21.9 Gastro-esophageal reflux disease without esophagitis; I27.20 Pulmonary hypertension, unspecified; I08.1 Rheumatic disorders of both mitral and tricuspid valves; F41.9 Anxiety disorder, unspecified; F32.A Depression, unspecified; E78.5 Hyperlipidemia, unspecified; R53.81 Other malaise; E11.22 Type 2 diabetes mellitus with diabetic chronic kidney disease; D63.8 Anemia in other chronic diseases classified elsewhere; Z99.81 Dependence on supplemental oxygen; Z86.718 Personal history of other venous thrombosis and embolism; Z85.828 Personal history of other malignant neoplasm of skin; Z79.899 Other long term (current) drug therapy; Z79.84 Long term (current) use of oral hypoglycemic drugs; Z79.51 Long term (current) use of inhaled steroids; Z87.891 Personal history of nicotine dependence; Z87.01 Personal history of pneumonia (recurrent)
CPT/HCPCS: 71045; 80048; 83735; 83880; 84484; 85025; 93005; 93306; 94640; 94760; 96374; 99285